=== PATIENT | female | born 1965 | race Caucasian/White ===

== ENCOUNTER 2021-11-16 18:25 | Emergency (ER) | payer OTHER, SELFPAY ==
--- NOTE | ~2021-11-16 | CT_ITS ---
EXAMINATION: CT ABDOMEN AND PELVIS WITHOUT CONTRAST CLINICAL INFORMATION: Diffuse abdominal pain. Fever. COMPARISON: None TECHNIQUE: Multidetector volumetric imaging was performed from the superior aspect of the liver through the pubic symphysis. Sagittal and coronal reformatted images were obtained on the technologist's workstation. This CT examination was performed using dose optimization techniques as appropriate, variously including the following: *Automated exposure control *Adjustment of mA and/or kV according to patient size (this includes techniques or standardized protocols for targeted exams where dose is matched to indication/reason for exam; i.e. extremities or head) *Use of iterative reconstruction technique DLP: 429 mGy-cm FINDINGS: LUNG BASES: Reticular interstitial opacities in the right lower lobe along the vertebral margin medially, likely due to scarring. No consolidation. LIVER, GALLBLADDER, AND BILIARY TREE: Relative hypoattenuation of the hepatic parenchyma is consistent with steatosis. Liver is normal in size. No suspicious lesions are identified. More focal hypoattenuation near the falciform ligament measures 1.5 cm in diameter and likely corresponds to aberrant venous inflow or more focal fatty infiltration. The gallbladder is unremarkable with no evidence of radiopaque gallstones, gallbladder wall thickening, or obvious pericholecystic inflammatory changes. PANCREAS: Unremarkable. SPLEEN: Unremarkable. ADRENAL GLANDS: Unremarkable. KIDNEYS AND URETERS: The kidneys are normal in size, shape, and attenuation. No hydronephrosis, hydroureter, or calculi seen. No perinephric stranding. BLADDER: Unremarkable. GASTROINTESTINAL TRACT: There is a 15 cm segment of wall thickening and pericolonic fat stranding at the transverse colon with hypertrophy of the vasa recta. No additional acute inflammatory changes are identified in the small bowel and colon. Appendix is normal. No intraperitoneal free fluid or free air. ABDOMINAL WALL: No significant hernia is appreciated. LYMPH NODES: Normal. VASCULAR: Unremarkable. PELVIC VISCERA: The uterus and adnexa are unremarkable. OSSEOUS STRUCTURES: Mild degenerative spondylosis in the lumbar spine. No acute fracture or malalignment. SI joints are unremarkable. CT/CT abdomen pelvis wo con IMPRESSION: 1. Acute segmental colitis at the transverse colon, potentially infectious or inflammatory in nature. No additional areas of inflammation are identified. No abscess or perforation. 2. Hepatic steatosis.
[2021-11-16 18:27] VITALS: BP 148/97; PULSE 116; RESP 16; TEMP 36.6; O2SAT 96; BMI 24.6
[2021-11-16 20:12] LABS: Basophils Absolute Auto 0.1 X10*3/uL (0.0-0.2); Basophils Percent Auto 0.4 % (0-2); Eosinophils Absolute Auto 0.1 X10*3/uL (0.0-0.4); Eosinophils Percent Auto 0.7 % (0-4); Hematocrit 36.5 % (37.0-47.0); Imm Gran Abs Auto 0.12 X10*3/uL (0.00-0.03); Lymphocytes Absolute Auto 2.2 X10*3/uL (1.2-4.9); Lymphocytes Percent Auto 17.4 % (20-40); MANUAL DIFF FLAG SCAN; Mean Corpuscular HGB Conc 32.9 g/dl (31.0-35.0); Mean Corpuscular Hemoglobin 30.3 pg (27.0-33.0); Mean Corpuscular Volume 92.2 fL (80.0-98.0); Mean Platelet Volume 8.5 fL (9.4-12.3); Monocytes Percent Auto 16.1 % (2-11); Neutrophils Absolute Auto 8.1 x10*3/uL (2.0-8.3); Neutrophils Percent Auto 64.4 % (45-73); Platelet Count 480 X10*3/uL (160-400); Red Blood Count 3.96 X10*6/uL (4.20-5.50); Red Cell Distribution Width 12.8 % (11.0-16.0); SCAN SMEAR FLAG 1; White Blood Count 12.6 X10*3/uL (4.8-10.8)
[2021-11-16 20:25] LABS: Alanine Aminotransferase 16 U/L (0-31); Albumin Level 3.6 g/dL (3.5-5.0); Alkaline Phosphatase 85 U/L (39-117); Anion Gap 15 (12-20); Aspartate Amino Transferase 20 U/L (5-31); Bilirubin Total 0.5 mg/dL (0.0-1.0); Blood Urea Nitrogen 11 mg/dL (9-16); Carbon Dioxide 21 mmol/L (22-29); Chloride 104 mmol/L (96-108); Creatinine Clr Calc Pharmacy 74.6; Estimated Glomerular Filt Rate > 60; Glucose Random 102 mg/dL (60-115); Lipase 17 U/L (8-78); Potassium 4.1 mmol/L (3.3-5.1); Sodium 136 mmol/L (135-145)
[2021-11-16 20:38] LABS: SLIDE REVIEW VERIFIED
[2021-11-16 21:57] VITALS: BP 150/90; PULSE 113; RESP 16; TEMP 38.3; O2SAT 99
--- NOTE | 2021-11-16 22:06 | ED_ITS ---
HPI - Abdominal Pain General Chief Complaint: Abdominal Pain Stated Complaint: stomach problems past couple days Time Seen by Provider: 11/16/21 21:50 Source: patient Mode of arrival: ambulatory Limitations: no limitations History of Present Illness HPI narrative: Patient comes to the emergency room complaining of nausea, vomiting, diarrhea, abdominal cramping, fever, chills for about 1 week. Patient states that approximately 2 months ago she went on vacation to [facility] in the [facility]. When she came back, patient had similar symptoms along with bloody diarrhea. Patient was treated with doxycycline. Patient improved but she never felt back to baseline. Patient was managing her symptoms sent home with loperamide. The reason she came today to the hospital is because she started becoming more tachycardic, in the 140s. Patient states that she has small amount of blood in the stool, but she attributes this to severe burning sensation from the diarrhea. Related Data Previous Rx's Medication Instructions Recorded ciprofloxacin HCl 500 mg tablet 500 mg PO BID 7 Days #14 tab 09/14/21 levofloxacin 500 mg tablet 500 mg PO DAILY #9 tab 11/16/21 metronidazole 500 mg tablet 500 mg PO BID #19 tab 11/16/21 Allergies Allergy/AdvReac Type Severity Reaction Status Date / Time No Known Allergies Allergy Verified 11/16/21 18:32 [No Known Allergies*] Review of Systems Review of Systems Constitutional : Reports 15 lb weight loss in 2 months, complaining of subjective fever, chills, fatigue, generalized malaise ENT/Mouth : No Hearing loss, No Ear Pain, No Nasal Congestion, No Sinus Pain, No Hoarseness, No sore throat, No Rhinorrhea, No Swallowing Difficulty Eyes: No Eye Pain, No Swelling, No Redness, No Foreign Body, No Discharge, No Vision Changes Cardiovascular : No Chest Pain, No SOB, No Dyspnea on Exertion, No Orthopnea, No Edema, No Palpitations Respiratory : No Cough, No Sputum, No Wheezing, No Smoke Exposure, No Dyspnea Gastrointestinal : Complaining of nausea vomiting and diarrhea, diffuse abdominal cramping, mild bloody stool from anal irritation Genitourinary : no irregular bleeding, No Dysuria, No Urinary Frequency, No Hematuria, No Urinary Incontinence, No Urgency, No Flank Pain, No Urinary Flow Changes, No Hesitancy Musculoskeletal : No joint pain, No Myalgias, No Joint Swelling Skin : No Skin Lesions, No rash Neuro : No Weakness, No Numbness, No Paresthesias, No Loss of Consciousness, No Dizziness, No Headache Psych : No Anxiety/Panic, No Depression, No SI/HI/AH/VH, No Social Issues, Heme/Lymph: No Bruising, No Bleeding,No Lymphadenopathy Endocrine : No Polyuria, No Polydipsia, No Temperature Intolerance [facility] Past Medical History Medical History (Updated 11/16/21 @ 23:52 by Nickie Shaefr MD) Annual physical exam COVID-19 SÁNCHEZ (dyspnea on exertion) Frequent headaches History of mammogram Mammogram normal Normal Pap smear Tachycardia Surgical History H/O colonoscopy History of section History of removal of cyst Family History Family History Father CVD (cardiovascular disease) Stroke Crohn's disease Mother No problems noted. Brother No problems noted. Brother No problems noted. Son No problems noted. Son No problems noted. Daughter No problems noted. Social History Social History (Updated 08/04/20 @ 08:19 by Paz Cross RN) Housing: House Alcohol intake: current Alcohol intake frequency: a few times a week Patient Tobacco Use Status: Never used Tobacco e-Cigarette/Vaping Use: Never Used Advance Directives: No Advance Directives Information Provided: Yes Current occupational status: employed Physical Exam ED Vital Signs: Vital Signs - 24 hr 11/16/21 18:27 11/16/21 21:57 Temperature 97.8 F 100.9 F H Pulse Rate 116 H 113 H Respiratory Rate 16 16 Blood Pressure 148/97 H 150/90 H Pulse Oximetry 96 99 BMI result Body Mass Index 24.6 Const Other: Appearance: Alert. Oriented X3. No acute distress. Eyes: Pupils equal, round and reactive to light. ENT: Pharynx normal. Neck: Normal inspection. Neck supple. No lymph nodes noted. No crepitus CVS: Normal heart rate and rhythm. Pulses normal. Normal S1 and S2 Respiratory: No respiratory distress. Breath sounds normal. No Wheezing. No rales Abdomen: Soft and nontender. No rigidity. No distention. Skin: Skin warm and dry. Normal skin color. Normal skin turgor. Extremities: No lower extremity edema. No Lacerations. No Rash Neuro: Oriented X 3. No motor deficit. No sensory deficit. Moving all extremities. No slurred speech. CN 2 through 12 grossly intact Psych: calm, cooperative, normal affect Course Course Course Narrative: On physical exam, patient's skin feels warmer than the posted temperature. Rectal temperature requested, patient has a fever of 100.9. Source of infection is unclear a viral versus bacterial Patient is tachycardic, also likely secondary to dehydration. Patient being given p.o. Tylenol, IV Zofran and IV fluids. Also, I discussed with the patient that her heart rate and blood pressure elevated. Patient states that this is baseline for her any time she goes to hospital for an office visit. I discussed the CT scan with the patient, patient having colitis. Patient was given a dose of p.o. metronidazole and levofloxacin. I discussed with the patient that if this course of antibiotics does not work, she should consider talking to her primary care physician about a referral to Infectious Disease. We ordered several stool studies, but patient was unable to provide any sample. MDM - Abdominal Pain Lab Data Result diagrams: 11/16/21 19:59 11/16/21 19:59 Labs: Lab Results 11/16/21 11/16/21 11/16/21 Range/Units 19:59 19:59 22:14 WBC 12.6 H (4.8-10.8) X10*3/uL RBC 3.96 L (4.20-5.50) X10*6/uL Hgb 12.0 (12.0-16.0) g/dl Hct 36.5 L (37.0-47.0) % MCV 92.2 (80.0-98.0) fL MCH 30.3 (27.0-33.0) pg MCHC 32.9 (31.0-35.0) g/dl RDW 12.8 (11.0-16.0) % Plt Count 480 H (160-400) X10*3/uL MPV 8.5 L (9.4-12.3) fL Immature Gran % (Auto) 1.0 H (0.0-0.4) % Neut % (Auto) 64.4 (45-73) % Lymph % (Auto) 17.4 L (20-40) % [place] % (Auto) 16.1 H (2-11) % Eos % (Auto) 0.7 (0-4) % Baso % (Auto) 0.4 (0-2) % Lymph # (Auto) 2.2 (1.2-4.9) X10*3/uL [place] # (Auto) 2.0 H (0.1-1.2) X10*3/uL Eos # (Auto) 0.1 (0.0-0.4) X10*3/uL Baso # (Auto) 0.1 (0.0-0.2) X10*3/uL Abs Immat Gran (auto) 0.12 H (0.00-0.03) X10*3/uL Absolute Neuts (auto) 8.1 (2.0-8.3) x10*3/uL Absolute Nucleated RBC 0.000 (0.0-0.012) X10*3/uL Nucleated RBC % (auto) 0.0 (0.0-0.2) /100WBC Smear Tech's Comments VERIFIED Sodium 136 (135-145) mmol/L Potassium 4.1 (3.3-5.1) mmol/L Chloride 104 (96-108) mmol/L Carbon Dioxide 21 L (22-29) mmol/L Anion Gap 15 (12-20) BUN 11 (9-16) mg/dL Creatinine 0.77 (0.5-1.4) mg/dL Estim Creat Clear Calc 74.6 Estimated GFR > 60 Random Glucose 102 (60-115) mg/dL Lactic Acid (0.5-2.0) mmol/L Calcium 9.0 (8.4-10.2) mg/dL Total Bilirubin 0.5 (0.0-1.0) mg/dL AST 20 (5-31) U/L ALT 16 (0-31) U/L Alkaline Phosphatase 85 (39-117) U/L Total Protein 7.0 (6.5-8.0) g/dL Albumin 3.6 (3.5-5.0) g/dL Lipase 17 (8-78) U/L Urine Color Urine Appearance Urine pH (5.0-8.0) Ur Specific [place] (1.005-1.025) Urine Protein (NEG-TRACE) MG/DL Urine Glucose (UA) (NEG) MG/DL Urine Ketones (NEG) MG/DL Urine Blood (NEG) Urine Nitrite (NEG) Ur Leukocyte Esterase (NEG) Urine RBC (0) /HPF Urine WBC (0-4) /HPF Ur Squamous Epith Cells /LPF Urine Bacteria /LPF COVID-19 (WANDA) (Negative) COVID-19 Clin Com Influenza Type A (SHAINA) Negative (Negative) Influenza Type B (SHAINA) Negative (Negative) Influenza A & B Note See Note 11/16/21 11/16/21 11/16/21 Range/Units 22:14 22:15 23:15 WBC (4.8-10.8) X10*3/uL RBC (4.20-5.50) X10*6/uL Hgb (12.0-16.0) g/dl Hct (37.0-47.0) % MCV (80.0-98.0) fL MCH (27.0-33.0) pg MCHC (31.0-35.0) g/dl RDW (11.0-16.0) % Plt Count (160-400) X10*3/uL MPV (9.4-12.3) fL Immature Gran % (Auto) (0.0-0.4) % Neut % (Auto) (45-73) % Lymph % (Auto) (20-40) % [place] % (Auto) (2-11) % Eos % (Auto) (0-4) % Baso % (Auto) (0-2) % Lymph # (Auto) (1.2-4.9) X10*3/uL [place] # (Auto) (0.1-1.2) X10*3/uL Eos # (Auto) (0.0-0.4) X10*3/uL Baso # (Auto) (0.0-0.2) X10*3/uL Abs Immat Gran (auto) (0.00-0.03) X10*3/uL Absolute Neuts (auto) (2.0-8.3) x10*3/uL Absolute Nucleated RBC (0.0-0.012) X10*3/uL Nucleated RBC % (auto) (0.0-0.2) /100WBC Smear Tech's Comments Sodium (135-145) mmol/L Potassium (3.3-5.1) mmol/L Chloride (96-108) mmol/L Carbon Dioxide (22-29) mmol/L Anion Gap (12-20) BUN (9-16) mg/dL Creatinine (0.5-1.4) mg/dL Estim Creat Clear Calc Estimated GFR Random Glucose (60-115) mg/dL Lactic Acid 0.7 (0.5-2.0) mmol/L Calcium (8.4-10.2) mg/dL Total Bilirubin (0.0-1.0) mg/dL AST (5-31) U/L ALT (0-31) U/L Alkaline Phosphatase (39-117) U/L Total Protein (6.5-8.0) g/dL Albumin (3.5-5.0) g/dL Lipase (8-78) U/L Urine Color YELLOW Urine Appearance CLEAR Urine pH 5.5 (5.0-8.0) Ur Specific [place] 1.025 (1.005-1.025) Urine Protein NEG (NEG-TRACE) MG/DL Urine Glucose (UA) NEG (NEG) MG/DL Urine Ketones >=80 (NEG) MG/DL Urine Blood 1+ H (NEG) Urine Nitrite NEG (NEG) Ur Leukocyte Esterase NEG (NEG) Urine RBC 0-2 (0) /HPF Urine WBC 0 (0-4) /HPF Ur Squamous Epith Cells TRACE /LPF Urine Bacteria TRACE /LPF COVID-19 (WANDA) Negative (Negative) COVID-19 Clin Com See Note Influenza Type A (SHAINA) (Negative) Influenza Type B (SHAINA) (Negative) Influenza A & B Note Discharge Plan Discharge Clinical Impression: Colitis Patient Disposition: Home, Self-Care Instructions: Colitis (ED) Additional Instructions: Please follow-up with your primary care physician tomorrow. If you have any worsening or new symptoms, please return to the emergency room or call 911 Prescriptions: New levofloxacin 500 mg tablet 500 mg PO DAILY Qty: 9 0RF metronidazole 500 mg tablet 500 mg PO BID Qty: 19 0RF No Action ciprofloxacin HCl 500 mg tablet 500 mg PO BID 7 Days Qty: 14 0RF
[2021-11-16 22:23] LABS: Appearance Urine CLEAR; Color Urine YELLOW; Glucose Urine UA NEG (NEG); Leukocyte Esterase Urine NEG (NEG); Nitrite Urine NEG (NEG); PH 5.5 (5.0-8.0); Specific Gravity - Urine 1.025 (1.005-1.025); UACC Culture Trigger NO; Urine Blood 1+ (NEG); Urine Ketones >=80 MG/DL (NEG); Urine Protein NEG (NEG-TRACE)
[2021-11-16 22:35] LABS: Bacteria Urine TRACE /LPF; RBC Urine 0-2 /HPF (0); Squamous Epithelial Cell Urine TRACE /LPF; WBC Urine 0 /HPF (0-4)
[2021-11-16 22:59] LABS: COVID-19 Test Negative (Negative); IDNOW Serial# 55D5AD1C; Influenza A Negative (Negative); Influenza B2 Negative (Negative)
[2021-11-16] MEDS: 0.9 % Sodium Chloride 1,000 ML 999 ML IVCONT (23:16)
[2021-11-16 23:33] LABS: Lactic Acid 0.7 mmol/L (0.5-2.0)
[2021-11-16 23:48] VITALS: BP 143/90; PULSE 105; RESP 18; TEMP 37.6; O2SAT 97
[2021-11-17] MEDS: levoFLOXacin 500 MG TABLET PO (00:22)
[2021-11-17] MEDS: metroNIDAZOLE 500 MG TABLET PO (00:22)
== END 2021-11-17 00:28 | disposition home or self-care (01) ==
PROVIDERS: Emergency Provider Emergency Medicine; PCP Internal Medicine
DX: K52.9 Noninfective gastroenteritis and colitis, unspecified (principal); Z20.822 Contact with and (suspected) exposure to COVID-19
CPT/HCPCS: 36415; 74176; 80053; 81001; 83605; 83690; 85025; 87040; 87502; 87635; 96361; 96374; 99283; 99284

== ENCOUNTER 2021-12-27 11:31 | Outpatient (REF) | payer OTHER, SELFPAY ==
[2021-12-27 13:47] LABS: MANUAL DIFF FLAG NO
[2021-12-27 13:49] LABS: Basophils Absolute Auto 0.1 X10*3/uL (0.0-0.2); Basophils Percent Auto 0.6 % (0-2); Eosinophils Absolute Auto 0.2 X10*3/uL (0.0-0.4); Eosinophils Percent Auto 1.3 % (0-4); Hematocrit 34.5 % (37.0-47.0); Imm Gran Abs Auto 0.05 X10*3/uL (0.00-0.03); Imm Gran Pct Auto 0.4 % (0.0-0.4); Lymphocytes Percent Auto 8.7 % (20-40); Mean Corpuscular HGB Conc 31.9 g/dl (31.0-35.0); Mean Corpuscular Hemoglobin 29.5 pg (27.0-33.0); Mean Corpuscular Volume 92.5 fL (80.0-98.0); Mean Platelet Volume 8.6 fL (9.4-12.3); Monocytes Absolute Auto 1.1 X10*3/uL (0.1-1.2); Monocytes Percent Auto 9.6 % (2-11); Neutrophils Absolute Auto 9.5 x10*3/uL (2.0-8.3); Neutrophils Percent Auto 79.4 % (45-73); Platelet Count 720 X10*3/uL (160-400); Red Blood Count 3.73 X10*6/uL (4.20-5.50); Red Cell Distribution Width 13.7 % (11.0-16.0); White Blood Count 11.9 X10*3/uL (4.8-10.8)
[2021-12-27 14:11] LABS: C Reactive Protein 1.72 mg/dL (< or = 0.50)
[2021-12-27 14:44] LABS: Erythrocyte Sedimentation Rate 80 MM/HR (0-20)
== END 2021-12-27 11:32 | disposition home or self-care (01) ==
LOC: HO.10HDL 11:31
PROVIDERS: Visit Provider Internal Medicine
DX: R93.3 Abnormal findings on diagnostic imaging of other parts of digestive tract (principal); R19.7 Diarrhea, unspecified
CPT/HCPCS: 36415; 85025; 85652; 86140

== ENCOUNTER 2021-12-28 09:24 | Outpatient (REF) | payer OTHER, SELFPAY ==
[2021-12-28 11:50] LABS: CDiff Gene PCR NEGATIVE (Negative)
[2021-12-28 11:58] LABS: Campylobacter Not Detected (Not Detect.); E. coli EAEC Not Detected (Not Detect.); E. coli EPEC Not Detected (Not Detect.); Plesiomonas shigelloides Not Detected (Not Detect.); Salmonella Not Detected (Not Detect.); Vibrio Not Detected (Not Detect.); Vibrio Cholerae Not Detected (Not Detect.); Yersinia enterocolitica Not Detected (Not Detect.)
[2021-12-28 11:59] LABS: Adenovirus F 40/41 Not Detected (Not Detect.); Astrovirus Not Detected (Not Detect.); Cryptosporidium Not Detected (Not Detect.); Cyclospora cayetanensis Not Detected (Not Detect.); E. coli ETEC Not Detected (Not Detect.); E. coli STEC Not Detected (Not Detect.); Entamoeba histolytica Not Detected (Not Detect.); Giardia lamblia Not Detected (Not Detect.); Norovirus GI/GII Not Detected (Not Detect.); Rotavirus A Not Detected (Not Detect.); Sapovirus Not Detected (Not Detect.); Shigella sp./EIEC Not Detected (Not Detect.)
[2022-01-04 01:07] LABS: Calprotectin, Fecal 5870 mcg/g
== END 2021-12-28 09:25 | disposition home or self-care (01) ==
LOC: HO.10HDLNP 09:24
PROVIDERS: Internal Medicine; Visit Provider Internal Medicine
DX: K52.9 Noninfective gastroenteritis and colitis, unspecified (principal)
CPT/HCPCS: 83993; 87493; 87507

== ENCOUNTER 2022-01-03 11:45 | Day surgery (SDC) | payer OTHER, SELFPAY ==
--- NOTE | 2022-01-02 10:27 | HO.ANESPROP2 ---
Documented by User: Elizabeth Kramer NP 01/02/22 10:29 HPI - Anesthesia Eval Consult details Narrative: 56yo F for Colonoscopy Echo pending - ordered by PCP d/t palps and SÁNCHEZ. Awaiting clearance to proceed without results from Dr Allan Elevated platelets. Started on ASA by Dr Stearns [facility] Active Problems Active Problems: All Active Problems (Updated 12/21/21 @ 14:11 by Felecia Allan MD) Colitis (Acute) Diarrhea (Acute) Frequent headaches (Acute) SÁNCHEZ (dyspnea on exertion) (Acute) Tachycardia (Acute) Annual physical exam (Acute) Mammogram normal (Acute) Normal Pap smear (Acute) COVID-19 (Acute) Past Medical History Medical History Annual physical exam COVID-19 SÁNCHEZ (dyspnea on exertion) Frequent headaches History of mammogram Mammogram normal Normal Pap smear Tachycardia Family History Family History Father CVD (cardiovascular disease) Stroke Crohn's disease Mother No problems noted. Brother No problems noted. Brother No problems noted. Son No problems noted. Son No problems noted. Daughter No problems noted. Surgical History Surgical History H/O colonoscopy History of section History of removal of cyst Social History Social History Housing: House Alcohol intake: current Alcohol intake frequency: a few times a week Patient Tobacco Use Status: Never used Tobacco e-Cigarette/Vaping Use: Never Used Use of substances other than those prescribed or required for medical reasons: No Are you DNR?: No Advance Directives: No Advance Directives Information Provided: Yes Patient : No Current occupational status: employed Cognitive needs: No Hearing needs: No Vision needs: Yes Meds Allergies Allergy/AdvReac Type Severity Reaction Status Date / Time No Known Allergies Allergy Verified 12/21/21 13:28 [No Known Allergies*] Exam Exam Date and Time: January 02, 2022 1027 Pertinent Lab Results Pertinent Lab Results: Laboratory Tests 11/16/21 12/27/21 19:59 11:40 WBC 11.9 H Hgb 11.0 L Hct 34.5 L Plt Count 720 H D Sodium 136 Potassium 4.1 Chloride 104 Carbon Dioxide 21 L BUN 11 Creatinine 0.77 Narrative Narrative: EKG 11/2021 ST @ 106 Assessment and Plan Assessment Anesthesia Assessment: Chart Reviewed Documented by User: Shawanda Tee MD 01/03/22 12:56 [facility] Past Medical History Medical History Annual physical exam COVID-19 SÁNCHEZ (dyspnea on exertion) Frequent headaches History of mammogram Mammogram normal Normal Pap smear Tachycardia Family History Family History Father CVD (cardiovascular disease) Stroke Crohn's disease Mother No problems noted. Brother No problems noted. Brother No problems noted. Son No problems noted. Son No problems noted. Daughter No problems noted. Surgical History Surgical History H/O colonoscopy History of section History of removal of cyst History of Problems with Anesthesia: No Social History Social History Housing: House Alcohol intake: current Alcohol intake frequency: a few times a week Patient Tobacco Use Status: Never used Tobacco e-Cigarette/Vaping Use: Never Used Use of substances other than those prescribed or required for medical reasons: No Are you DNR?: No Advance Directives: No Advance Directives Information Provided: Yes Patient : No Current occupational status: employed Cognitive needs: No Hearing needs: No Vision needs: Yes Meds Allergies Allergy/AdvReac Type Severity Reaction Status Date / Time No Known Allergies Allergy Verified 12/21/21 13:28 [No Known Allergies*] Exam Airway Mallampati Class: II TM Dist: >3cm Neck ROM: Full Loose/Missing/Broken Teeth: No Heart: RRR Lungs: CTA Assessment and Plan Assessment Anesthesia Assessment: Anesthesia Plan Discussed Final Anesthetic Review History of Problems with Anesthesia: No NPO: Yes ASA Class: II Final Preanesthetic Review: Meds/Allgs Chart Reviewed, Consent Obtained/Reviewed and Anes Risks/Benef Reviewed Patient Risk: Low Procedure Risk: Low Anesthetic Plan Anesthetic Plan: MAC: Disposition: Standard PACU
[2022-01-03 12:18] VITALS: BMI 22.1
[2022-01-03 12:26] VITALS: BP 160/98; PULSE 108; RESP 16; TEMP 36.3; O2SAT 98
[2022-01-03] MEDS: Lactated Ringers 1,000 ML 100 ML IVCONT (12:34)
[2022-01-03 14:10] VITALS: BP 104/66; PULSE 92; RESP 16; TEMP 36.4; O2SAT 98
--- NOTE | 2022-01-03 14:21 | PM.OP ---
Brief Operative Note Date of Service: 01/03/22 Pre-op diagnosis: Colitis Post-op diagnosis: other (Crohn's colitis) Procedure: Colonoscopy to the cecum and TI with biopsies Surgeon: Juarez Stearns Anesthesia: MAC Was an Engineer Rf Deployment used for this Procedure?: No Estimated blood loss (mL): 3.0 Pathology: other (A. Terminal ileum B. Ascending colon C. Transverse colon ulcers D. Colon 50-60cm E. Colon at 40cm F. Colon at 25cm G. Rectal biopsies) Condition: stable Disposition: PACU
[2022-01-03 14:25] VITALS: BP 118/83; PULSE 97; RESP 16; O2SAT 99
[2022-01-03 14:40] VITALS: BP 138/83; PULSE 98; RESP 16; TEMP 36.4; O2SAT 99
--- NOTE | 2022-01-07 16:19 | OP_ITS ---
SURGEON: Juarez Stearns MD INDICATIONS: The patient presents for evaluation of diarrhea, abdominal discomfort, and abnormal CT scan of colon felt to be consistent with colitis. Full consent has been obtained from her for this, including risks of bleeding and perforation. PREOPERATIVE DIAGNOSIS: Diarrhea, abdominal pain, and abnormal CT scan of colon. POSTOPERATIVE DIAGNOSIS: Diarrhea, abdominal pain, and abnormal CT scan of colon, Crohn's colitis extending from the distal rectum to the cecum. PROCEDURE PERFORMED: Colonoscopy to the cecum and terminal ileum with multiple biopsies. ESTIMATED BLOOD LOSS: COMPLICATIONS: ANESTHESIA: Monitored anesthesia care. ASSISTANTS: SPECIMENS: DESCRIPTION OF PROCEDURE: The patient was placed in the left lateral decubitus position. The digital rectal exam did not reveal any perianal disease. The sphincter tone was somewhat lax. The [employer] video pediatric colonoscope was entered into the rectum and advanced easily to the cecum. Once in the cecum, I did identify cecal pouch with appendiceal orifice and a normal-appearing ileocecal valve. The terminal ileum was cannulated for least 10 cm and appeared normal. Biopsies were obtained. The scope was withdrawn back in the colon. The cecum was notable for an approximately 10 mm ulceration as well as some ulceration in the appendiceal orifice. The remainder of the cecal mucosa appeared normal. The scope was slowly withdrawn assessing all mucosal surfaces carefully. Preparation was excellent. Extending from the cecum all the way to the very distal rectum were areas of discrete ulcerations with intervening areas of normal mucosa. Major ulcerations were noted in the transverse colon and were at least 2 cm or 3 cm in diameter with some edematous margins, but appearing benign. Intervening areas of the mucosa appeared normal. There were several small approximately 1 cm ulcers in the ascending colon. There were also areas of ulceration between 50 cm and 60 cm, at 40 cm, at 25 cm, and in the distal rectum. I did obtain multiple biopsies in the area of the ascending colon, transverse colon, between 50 cm to 60 cm, at 40 cm, at 25 cm, and in the distal rectum. The area of rectal ulcerations was best seen in the retroflexed position. Many of the ulcers throughout the colon were quite deep with some surrounding friability. Again, intervening mucosal areas appeared normal. I did not visualize any polyps. The area of the anal canal was notable for some ulceration extending from the very distal rectum almost into the anal canal itself. The scope was withdrawn from the patient. She tolerated the procedure well and was returned to the recovery area in stable condition. IMPRESSION: Crohn's pancolitis with associated ulcerations. Biopsies taken. PLAN: The results of the biopsies will be checked. She just recently started mesalamine extended release(Lialda) 4.8 g daily. She had also been on a low- dose aspirin that I started a few days ago due to the elevated platelet count. Given the severity of today's findings, I am going to put her on a course of prednisone 40 mg daily with a 5 mg per week taper. She will continue the mesalamine at 4.8 g daily. I will have her continue the low-dose aspirin for the time being, until we can see her platelet count decrease. I am going to recommend starting her on one of the biologic agents, such as Humira, given the severity of the findings as well. I do suspect she will have a high likelihood of relapse and/or complication of the Crohn's colitis. I will order follow up laboratories including a Hepatitis B profile, TB test,sed rate, CRP, and CBC with platelet count. She was advised to avoid all NSAIDs. This has all been discussed with her . She will be seen in followup in the office later this summer but was advised to call sooner prn.. I would recommend a repeat colonoscopy within 5 to 7 years. MD LEE ANN Hawk/RENA / [id number] MTDD
== END 2022-01-03 15:06 | disposition home or self-care (01) ==
PROVIDERS: PCP Internal Medicine; Visit Provider Internal Medicine
PROC: 0DJD8ZZ Inspection of Lower Intestinal Tract, Via Natural or Artificial Opening Endoscopic (ICD-10-PCS; CPT 45378; principal; 2022-01-03 13:00)
DX: K50.10 Crohn's disease of large intestine without complications (principal); R19.7 Diarrhea, unspecified; R00.0 Tachycardia, unspecified; R06.00 Dyspnea, unspecified; R51.9 Headache, unspecified; Z86.16 Personal history of COVID-19; Z87.891 Personal history of nicotine dependence
CPT/HCPCS: 45380; 88305; J3010

== ENCOUNTER 2022-01-14 10:37 | Outpatient (REF) | payer OTHER, SELFPAY ==
[2022-01-14 11:02] LABS: MANUAL DIFF FLAG NO
[2022-01-14 11:27] LABS: Basophils Percent Auto 0.2 % (0-2); Eosinophils Absolute Auto 0.2 X10*3/uL (0.0-0.4); Hematocrit 33.9 % (37.0-47.0); Hemoglobin 10.8 g/dl (12.0-16.0); Imm Gran Pct Auto 0.6 % (0.0-0.4); Lymphocytes Absolute Auto 1.2 X10*3/uL (1.2-4.9); Lymphocytes Percent Auto 7.3 % (20-40); Mean Corpuscular HGB Conc 31.9 g/dl (31.0-35.0); Mean Corpuscular Hemoglobin 29.2 pg (27.0-33.0); Mean Corpuscular Volume 91.6 fL (80.0-98.0); Mean Platelet Volume 8.5 fL (9.4-12.3); Monocytes Absolute Auto 0.8 X10*3/uL (0.1-1.2); Monocytes Percent Auto 5.2 % (2-11); Neutrophils Absolute Auto 13.6 x10*3/uL (2.0-8.3); Neutrophils Percent Auto 85.7 % (45-73); Platelet Count 548 X10*3/uL (160-400); Red Cell Distribution Width 13.8 % (11.0-16.0); White Blood Count 15.9 X10*3/uL (4.8-10.8)
[2022-01-14 12:17] LABS: Alanine Aminotransferase 21 U/L (0-31); Albumin Level 3.8 g/dL (3.5-5.0); Alkaline Phosphatase 78 U/L (39-117); Anion Gap 15 (12-20); Aspartate Amino Transferase 18 U/L (5-31); Bilirubin Direct 0.2 mg/dL (0.0-0.5); Bilirubin Total 0.3 mg/dL (0.0-1.0); Blood Urea Nitrogen 14 mg/dL (9-16); C Reactive Protein 4.37 mg/dL (< or = 0.50); Calcium 8.8 mg/dL (8.4-10.2); Carbon Dioxide 22 mmol/L (22-29); Chloride 104 mmol/L (96-108); Estimated Glomerular Filt Rate > 60; Glucose Random 125 mg/dL (60-115); Potassium 4.5 mmol/L (3.3-5.1); Sodium 136 mmol/L (135-145)
[2022-01-14 12:51] LABS: Erythrocyte Sedimentation Rate 55 MM/HR (0-20)
[2022-01-15 06:46] LABS: HBc Num1 0.06 S/CO (0.00-0.79); HBsAGNum1 0.19 S/CO (0.00-0.99); Hepatitis B Core Antibody Nonreactive (Nonreactive); Hepatitis B Surface Antigen Negative (Negative); ~Hepatitis B Surface Antibody REACTIVE (Nonreactive)
[2022-01-16 20:27] LABS: TS Negative Control Passed; TS Panel A 0; TS Panel B 0; TS Positive Control Passed; TSpotTB Negative (Negative)
== END 2022-01-14 10:38 | disposition home or self-care (01) ==
LOC: HO.LAB 10:37
PROVIDERS: PCP Internal Medicine; Visit Provider Internal Medicine
DX: K50.10 Crohn's disease of large intestine without complications (principal)
CPT/HCPCS: 36415; 80048; 80076; 85025; 85652; 86140; 86481; 86704; 86706; 87340

== ENCOUNTER → 2022-01-28 09:21 | Outpatient (REF) | payer OTHER, SELFPAY ==
--- NOTE | 2022-01-28 09:24 | CA_ITS ---
Transthoracic Echocardiogram Patient (Last, First, Middle): Luna Tiwari, Gender: Female Date of : 1965 Age: 56 Procedure Date: 01/28/2022 Procedure Type: Transthoracic Echocardiogram Location: OP Height: 157.48 cm Weight: 58.06 kg BSA: 1.58 m2 Heart Rate: bpm BP: 120 / 80 mmHg Metal Sorter: TO Referring MD: Felecia Allan MD Banjo Repairer: Shai Giang MD Symptoms: R06.00 - Dyspnea, unspecified Study Quality: Fair ECG Rhythm: Sinus Conclusions: - 1. Normal LV systolic function with grade 1 diastolic dysfunction 2. Normal cardiac valvular Dopplers 3. No gross pericardial effusion Findings Left Ventricle Normal left ventricular size, thickness, and systolic function. The visually estimated ejection fraction is between 60-65%. Spectral Doppler is indicative of an impaired relaxation filling pattern. E/E prime ratio is <8, consistent with normal filling pressures. Evidence suggests grade I (mild) diastolic dysfunction. Right Ventricle Normal right ventricular cavity size and systolic function. Atria The left atrium is normal in size. There is lipomatous hypertrophy of the interatrial septum. There is no evidence of interatrial shunt. The right atrium is normal in size. Aortic Valve The aortic valve structure and function is likely normal. There is no aortic valve stenosis. There is no aortic valve regurgitation. Mitral Valve There is mild anterior mitral leaflet thickening. There is mild mitral annular calcification. There is trace mitral valve regurgitation. There is no mitral valve stenosis. Pulmonic Valve The pulmonic valve was not well visualized. Tricuspid Valve Likely normal tricuspid valve structure and function. Tricuspid regurgitation envelope is inadequate for calculation of right ventricular systolic pressure. Normal right atrial pressure. Great Vessels All visible segments of the aorta are normal in size. The pulmonary artery was not well visualized. Venous The inferior vena cava is normal in size and collapses greater than 50% with inspiration. Pericardium/Pleural There is no evidence of pericardial effusion. Prior Study Comparison No prior study available for comparison. Measurements 2D Linear Measurements IVSd: 0.95 0.6-0.9/0.6-1.0 cm LVIDd: 4.25 3.9-5.3/4.2-5.9 cm LVIDd Index: 2.69 2.4-3.2/2.2-3.1 cm/m2 LVIDs: 2.71 2.0-3.6 cm LVPWd: 0.91 0.7-1.1 cm LV Mass: 157.97 67-162/88-224 g LV Mass Index: 99.98 43-95/49-115 g/m2 LVOT Diam: 2.00 3.0+(-)1.3 cm 2D Systolic Function EF 4C: 61.80 >55% EF 2C: 65.40 >55% EF BiP: 63.90 >55% Mitral Valve MV Pk E: 0.58 MV PK A: 0.97 MV Decel Time: 136.00 E/A: 0.60 E'Lateral: 9.79 E'Medial: 7.83 E/E' Med: 7.40 E/E' Lat: 5.90 PHT: 40.00 MVA PHT: 5.50 Decel Bosque: 4.27 Aortic Valve AoV Pk Randolph: 1.19 AoV Mn Randolph: 0.90 AoV VTI: 0.22 AoV Pk Grad: 6.00 Aov Mn Grad: 3.00 KEVIN Cont.VTI: 2.33 LVOT LVOT Pk Randolph: 0.97 LVOT Mn Randolph: 0.69 LVOT VTI: 0.17 LVOT Pk Grad: 4.00 LVOT Mn Grad: 2.00 LVOT Diam: 2.00 LVOT Area: 3.14 Diastolic Function MV Pk E: 0.58 MV Pk A: 0.97 E/A: 0.60 E'Medial: 7.83 E/E' Med: 7.40 E' Laterial: 9.79 E/E' Lat: 5.90 Right Ventricle TAPSE (mm): 26.80 TVS' Randolph: 17.10 Tricuspid Valve RA Press: 3.00 Great Vessels Aorta Sinus of Valsalva: 3.20 2.0-3.[address] Ridge: 2.44 1.7-3.4 cm Ao Asc: 3.10 2.1-3.4 cm Ao Arch: 2.70 Updated in Other Vendor System with Status of Final Shai Giang MD electronically signed on 01/28/2022 3:09:05 PM with status of Final
== END ==
LOC: HO.CARD 09:21
PROVIDERS: PCP Internal Medicine; Visit Provider Internal Medicine
DX: R00.0 Tachycardia, unspecified (principal); R06.00 Dyspnea, unspecified
CPT/HCPCS: 93306

== ENCOUNTER 2022-02-16 10:18 | Outpatient (REF) | payer OTHER, SELFPAY ==
[2022-02-16 10:27] LABS: MANUAL DIFF FLAG NO
[2022-02-16 11:07] LABS: Basophils Absolute Auto 0.1 X10*3/uL (0.0-0.2); Basophils Percent Auto 0.5 % (0-2); Eosinophils Absolute Auto 0.6 X10*3/uL (0.0-0.4); Eosinophils Percent Auto 3.6 % (0-4); Hematocrit 36.8 % (37.0-47.0); Hemoglobin 11.8 g/dl (12.0-16.0); Imm Gran Abs Auto 0.12 X10*3/uL (0.00-0.03); Imm Gran Pct Auto 0.7 % (0.0-0.4); Lymphocytes Absolute Auto 1.3 X10*3/uL (1.2-4.9); Lymphocytes Percent Auto 7.5 % (20-40); Mean Corpuscular HGB Conc 32.1 g/dl (31.0-35.0); Mean Corpuscular Hemoglobin 29.9 pg (27.0-33.0); Mean Corpuscular Volume 93.4 fL (80.0-98.0); Mean Platelet Volume 8.5 fL (9.4-12.3); Monocytes Absolute Auto 0.9 X10*3/uL (0.1-1.2); Monocytes Percent Auto 5.2 % (2-11); Neutrophils Absolute Auto 14.7 x10*3/uL (2.0-8.3); Neutrophils Percent Auto 82.5 % (45-73); Platelet Count 567 X10*3/uL (160-400); Red Blood Count 3.94 X10*6/uL (4.20-5.50); Red Cell Distribution Width 14.5 % (11.0-16.0); White Blood Count 17.8 X10*3/uL (4.8-10.8)
[2022-02-16 11:26] LABS: Alanine Aminotransferase 16 U/L (0-31); Alkaline Phosphatase 68 U/L (39-117); Anion Gap 17 (12-20); Aspartate Amino Transferase 18 U/L (5-31); Bilirubin Direct 0.2 mg/dL (0.0-0.5); Bilirubin Total 0.4 mg/dL (0.0-1.0); Blood Urea Nitrogen 9 mg/dL (9-16); C Reactive Protein 3.11 mg/dL (< or = 0.50); Calcium 8.9 mg/dL (8.4-10.2); Carbon Dioxide 23 mmol/L (22-29); Chloride 105 mmol/L (96-108); Estimated Glomerular Filt Rate > 60; Glucose Random 160 mg/dL (60-115); Potassium 4.2 mmol/L (3.3-5.1); Sodium 141 mmol/L (135-145); Total Protein 6.9 g/dL (6.5-8.0)
[2022-02-16 11:43] LABS: Erythrocyte Sedimentation Rate 28 MM/HR (0-20)
== END 2022-02-16 10:19 | disposition home or self-care (01) ==
LOC: HO.LAB 10:18
PROVIDERS: PCP Internal Medicine; Visit Provider Internal Medicine
DX: K50.10 Crohn's disease of large intestine without complications (principal)
CPT/HCPCS: 36415; 80048; 80076; 85025; 85652; 86140

== ENCOUNTER 2022-03-21 11:34 | Outpatient (REF) | payer OTHER, SELFPAY ==
[2022-03-21 12:17] LABS: Basophils Percent Auto 0.3 % (0-2); Eosinophils Absolute Auto 0.1 X10*3/uL (0.0-0.4); Eosinophils Percent Auto 0.5 % (0-4); Hematocrit 40.6 % (37.0-47.0); Hemoglobin 12.9 g/dl (12.0-16.0); Imm Gran Pct Auto 0.7 % (0.0-0.4); Lymphocytes Absolute Auto 0.8 X10*3/uL (1.2-4.9); Lymphocytes Percent Auto 5.8 % (20-40); MANUAL DIFF FLAG SCAN; Mean Corpuscular HGB Conc 31.8 g/dl (31.0-35.0); Mean Corpuscular Hemoglobin 29.3 pg (27.0-33.0); Mean Corpuscular Volume 92.1 fL (80.0-98.0); Mean Platelet Volume 8.1 fL (9.4-12.3); Monocytes Absolute Auto 0.3 X10*3/uL (0.1-1.2); Monocytes Percent Auto 1.8 % (2-11); Neutrophils Absolute Auto 12.7 x10*3/uL (2.0-8.3); Neutrophils Percent Auto 90.9 % (45-73); Platelet Count 485 X10*3/uL (160-400); Red Blood Count 4.41 X10*6/uL (4.20-5.50); Red Cell Distribution Width 14.2 % (11.0-16.0); SCAN SMEAR FLAG 1
[2022-03-21 12:45] LABS: SLIDE REVIEW VERIFIED
[2022-03-21 12:54] LABS: Alanine Aminotransferase 28 U/L (0-31); Alkaline Phosphatase 90 U/L (39-117); Aspartate Amino Transferase 25 U/L (5-31); Bilirubin Direct 0.2 mg/dL (0.0-0.5); Bilirubin Total 0.6 mg/dL (0.0-1.0); C Reactive Protein 5.12 mg/dL (< or = 0.50); Iron 37 mcg/dL (30-160); Percent Iron Saturation 11 % (15-50); Total Iron Binding Capacity 345 mcg/dL (228-428); Total Protein 7.2 g/dL (6.5-8.0); Unsaturated Iron Binding 308 ug/dL
[2022-03-21 13:13] LABS: Erythrocyte Sedimentation Rate 48 MM/HR (0-20)
[2022-03-21 13:18] LABS: Ferritin 130 ng/mL (10-250)
[2022-03-21 13:26] LABS: Folate 19.3 ng/mL (> or = 4.0); Vitamin B12 193 pg/mL (200-900)
[2022-04-04 02:03] LABS: Adalimumab Drug Level 8.2 mcg/mL; Anti-Adalimumab Antibody <10 AU (<10)
== END 2022-03-21 11:35 | disposition home or self-care (01) ==
LOC: HO.LAB 11:34
PROVIDERS: Visit Provider Internal Medicine
DX: K50.10 Crohn's disease of large intestine without complications (principal)
CPT/HCPCS: 36415; 80076; 80145; 82542; 82607; 82728; 82746; 83520; 83540; 85025; 85652; 86140

== ENCOUNTER 2022-04-23 09:33 | Outpatient (REF) | payer OTHER, SELFPAY ==
[2022-04-23 09:59] LABS: MANUAL DIFF FLAG NO
[2022-04-23 10:45] LABS: Basophils Absolute Auto 0.1 X10*3/uL (0.0-0.2); Basophils Percent Auto 0.4 % (0-2); Eosinophils Absolute Auto 0.2 X10*3/uL (0.0-0.4); Eosinophils Percent Auto 1.2 % (0-4); Hematocrit 39.4 % (37.0-47.0); Hemoglobin 12.6 g/dl (12.0-16.0); Imm Gran Abs Auto 0.16 X10*3/uL (0.00-0.03); Imm Gran Pct Auto 0.9 % (0.0-0.4); Lymphocytes Absolute Auto 1.3 X10*3/uL (1.2-4.9); Mean Corpuscular Hemoglobin 29.1 pg (27.0-33.0); Mean Platelet Volume 8.4 fL (9.4-12.3); Monocytes Absolute Auto 0.9 X10*3/uL (0.1-1.2); Monocytes Percent Auto 4.9 % (2-11); Neutrophils Absolute Auto 15.8 x10*3/uL (2.0-8.3); Neutrophils Percent Auto 85.6 % (45-73); Platelet Count 603 X10*3/uL (160-400); Red Blood Count 4.33 X10*6/uL (4.20-5.50); Red Cell Distribution Width 13.9 % (11.0-16.0); White Blood Count 18.5 X10*3/uL (4.8-10.8)
[2022-04-23 11:19] LABS: Alanine Aminotransferase 22 U/L (0-31); Alkaline Phosphatase 68 U/L (39-117); Anion Gap 20 (12-20); Aspartate Amino Transferase 21 U/L (5-31); Bilirubin Direct 0.2 mg/dL (0.0-0.5); Bilirubin Total 0.3 mg/dL (0.0-1.0); Blood Urea Nitrogen 14 mg/dL (9-16); C Reactive Protein 4.56 mg/dL (< or = 0.50); Calcium 9.6 mg/dL (8.4-10.2); Carbon Dioxide 22 mmol/L (22-29); Chloride 104 mmol/L (96-108); Estimated Glomerular Filt Rate > 60; Glucose Random 103 mg/dL (60-115); Potassium 4.6 mmol/L (3.3-5.1); Sodium 141 mmol/L (135-145)
[2022-04-23 11:28] LABS: Erythrocyte Sedimentation Rate 38 MM/HR (0-20)
== END 2022-04-23 09:34 | disposition home or self-care (01) ==
LOC: HO.LAB 09:33
PROVIDERS: PCP Internal Medicine; Visit Provider Internal Medicine
DX: K50.118 Crohn's disease of large intestine with other complication (principal)
CPT/HCPCS: 36415; 80048; 80076; 85025; 85652; 86140

== ENCOUNTER 2022-04-24 11:44 | Outpatient (REF) | payer OTHER, SELFPAY | END 2022-04-24 11:45 | disposition home or self-care (01) | LOC: HO.MDS 11:44 | PROVIDERS: Visit Provider Internal Medicine | DX: K50.10 Crohn's disease of large intestine without complications (principal) | CPT/HCPCS: 96365; J3380 ==

== ENCOUNTER 2022-05-08 12:01 | Outpatient (REF) | payer OTHER, SELFPAY | END 2022-05-08 12:02 | disposition home or self-care (01) | LOC: HO.MDS 12:01 | PROVIDERS: Visit Provider Internal Medicine | DX: K50.10 Crohn's disease of large intestine without complications (principal) | CPT/HCPCS: 96365; J3380 ==

== ENCOUNTER 2022-05-25 10:46 | Outpatient (REF) | payer OTHER, SELFPAY ==
[2022-05-25 11:03] LABS: Basophils Percent Auto 0.3 % (0-2); Eosinophils Percent Auto 0.1 % (0-4); Hematocrit 38.1 % (37.0-47.0); Hemoglobin 12.1 g/dl (12.0-16.0); Imm Gran Abs Auto 0.08 X10*3/uL (0.00-0.03); Imm Gran Pct Auto 0.5 % (0.0-0.4); Lymphocytes Absolute Auto 0.9 X10*3/uL (1.2-4.9); Lymphocytes Percent Auto 5.9 % (20-40); MANUAL DIFF FLAG SCAN; Mean Corpuscular HGB Conc 31.8 g/dl (31.0-35.0); Mean Corpuscular Hemoglobin 28.6 pg (27.0-33.0); Mean Corpuscular Volume 90.1 fL (80.0-98.0); Monocytes Absolute Auto 0.3 X10*3/uL (0.1-1.2); Neutrophils Absolute Auto 13.6 x10*3/uL (2.0-8.3); Neutrophils Percent Auto 91.2 % (45-73); Platelet Count 620 X10*3/uL (160-400); Red Blood Count 4.23 X10*6/uL (4.20-5.50); Red Cell Distribution Width 13.8 % (11.0-16.0); SCAN SMEAR FLAG 1; White Blood Count 14.9 X10*3/uL (4.8-10.8)
[2022-05-25 11:23] LABS: Alanine Aminotransferase 26 U/L (0-31); Albumin Level 3.8 g/dL (3.5-5.0); Alkaline Phosphatase 72 U/L (39-117); Anion Gap 15 (12-20); Aspartate Amino Transferase 21 U/L (5-31); Bilirubin Direct 0.2 mg/dL (0.0-0.5); Bilirubin Total 0.4 mg/dL (0.0-1.0); Blood Urea Nitrogen 14 mg/dL (9-16); C Reactive Protein 4.94 mg/dL (< or = 0.50); Calcium 9.3 mg/dL (8.4-10.2); Carbon Dioxide 22 mmol/L (22-29); Chloride 103 mmol/L (96-108); Estimated Glomerular Filt Rate > 60; Glucose Random 169 mg/dL (60-115); Potassium 4.5 mmol/L (3.3-5.1); Sodium 135 mmol/L (135-145); Total Protein 6.9 g/dL (6.5-8.0)
[2022-05-25 11:26] LABS: SLIDE REVIEW VERIFIED
[2022-05-25 11:38] LABS: Erythrocyte Sedimentation Rate 45 MM/HR (0-20)
== END 2022-05-25 10:47 | disposition home or self-care (01) ==
LOC: HO.LAB 10:46
PROVIDERS: PCP Internal Medicine; Visit Provider Internal Medicine
DX: K50.118 Crohn's disease of large intestine with other complication (principal)
CPT/HCPCS: 36415; 80053; 82248; 85025; 85652; 86140

== ENCOUNTER 2022-06-05 08:22 | Outpatient (REF) | payer OTHER, SELFPAY | END 2022-06-05 08:23 | disposition home or self-care (01) | LOC: HO.MDS 08:22 | PROVIDERS: Visit Provider Internal Medicine | DX: K50.10 Crohn's disease of large intestine without complications (principal) | CPT/HCPCS: 96365; J3380 ==

== ENCOUNTER 2022-06-06 10:03 | Inpatient (IN) | payer OTHER, SELFPAY ==
--- NOTE | ~2022-06-06 | CT_ITS ---
EXAMINATION: CT ABDOMEN AND PELVIS WITH CONTRAST CLINICAL INFORMATION: Abdominal pain COMPARISON: CT scan abdomen pelvis 11/16/2021 TECHNIQUE: Multidetector volumetric images were obtained from the superior aspect of the liver through the pubic symphysis following administration 85 mL of Omnipaque 350 intravenous contrast. Sagittal and coronal reformatted images were obtained on the technologist's workstation. Oral contrast: No This CT examination was performed using dose optimization techniques as appropriate, variously including the following: *Automated exposure control *Adjustment of mA and/or kV according to patient size (this includes techniques or standardized protocols for targeted exams where dose is matched to indication/reason for exam; i.e. extremities or head) *Use of iterative reconstruction technique DLP: 467 mGy-cm FINDINGS: LUNG BASES: The visualized lung bases are unremarkable. LIVER, GALLBLADDER, AND BILIARY TREE: The liver is normal in size, shape, and attenuation. No focal hepatic lesion or biliary ductal dilatation is present. The gallbladder is unremarkable with no evidence of radiopaque gallstones, gallbladder wall thickening, or obvious pericholecystic inflammatory changes. PANCREAS: Unremarkable. SPLEEN: Unremarkable. ADRENAL GLANDS: Unremarkable. KIDNEYS AND URETERS: The kidneys are normal in size, shape, and attenuation. No hydronephrosis, hydroureter, or calculi seen. No perinephric stranding. 1.1 cm cortical cyst midpole right kidney. No follow-up imaging is recommended for simple renal cyst. BLADDER: Unremarkable. GASTROINTESTINAL TRACT: There is a large diverticulum, measuring about 3 cm x 2 cm, from the anterior proximal transverse colon. There is thickening and edema around this diverticulum. There is associated edema in the submucosal through the transverse colon. Findings consistent with a colitis of the transverse colon and focal diverticulitis. There is also focal bowel wall thickening and subtle pericolonic edema involving the distal descending colon and proximal sigmoid colon which is a secondary site of colitis. No diverticula in this region. The changes of colitis of the transverse colon are worse on the prior exam of 11/16/2021. The colitis of the sigmoid and distal descending colon is new since prior study 11/16/2021. The cecum and ascending colon and portions of the splenic flexure appear to be normal. The appendix is normal. Small bowel loops are normal. No abnormality of the terminal ileum. No perforation or abscess. No free air or free fluid in the mesentery. ABDOMINAL WALL: No significant hernia is appreciated. LYMPH NODES: Normal. VASCULAR: Unremarkable. PELVIC VISCERA: Unremarkable. OSSEOUS STRUCTURES: Unremarkable. CT/CT abdomen pelvis w IV con IMPRESSION: There is colitis involving the transverse colon and the distal descending colon and proximal sigmoid colon. Fleischner guidelines were followed.
[2022-06-06 10:14] VITALS: BP 143/96; PULSE 117; RESP 20; TEMP 36.8; O2SAT 97; BMI 24.3
[2022-06-06 10:27] LABS: MANUAL DIFF FLAG NO
[2022-06-06 10:30] LABS: Basophils Percent Auto 0.2 % (0-2); Eosinophils Percent Auto 0.2 % (0-4); Hematocrit 39.1 % (37.0-47.0); Hemoglobin 12.5 g/dl (12.0-16.0); Imm Gran Abs Auto 0.06 X10*3/uL (0.00-0.03); Imm Gran Pct Auto 0.5 % (0.0-0.4); Lymphocytes Absolute Auto 2.4 X10*3/uL (1.2-4.9); Lymphocytes Percent Auto 18.7 % (20-40); Mean Corpuscular Hemoglobin 28.2 pg (27.0-33.0); Mean Corpuscular Volume 88.1 fL (80.0-98.0); Mean Platelet Volume 7.9 fL (9.4-12.3); Monocytes Absolute Auto 0.9 X10*3/uL (0.1-1.2); Monocytes Percent Auto 7.4 % (2-11); Neutrophils Absolute Auto 9.2 x10*3/uL (2.0-8.3); Platelet Count 556 X10*3/uL (160-400); Red Blood Count 4.44 X10*6/uL (4.20-5.50); Red Cell Distribution Width 13.3 % (11.0-16.0); White Blood Count 12.6 X10*3/uL (4.8-10.8)
[2022-06-06 11:05] LABS: Anion Gap 16 (12-20); Blood Urea Nitrogen 12 mg/dL (9-16); Calcium 8.9 mg/dL (8.4-10.2); Carbon Dioxide 19 mmol/L (22-29); Chloride 104 mmol/L (96-108); Creatinine Clr Calc Pharmacy 61.8; Estimated Glomerular Filt Rate > 60; Glucose Random 88 mg/dL (60-115); Sodium 135 mmol/L (135-145)
--- NOTE | 2022-06-06 13:18 | ED.ABDPAIN ---
HPI - Abdominal Pain General Chief Complaint: Abdominal Pain <Anaid Mendoza NP - Last Filed: 06/06/22 13:22> Stated Complaint: Chrons flare up <Anaid Mendoza NP - Last Filed: 06/06/22 13:22> Time Seen by Provider: 06/06/22 14:26 <Anaid Mendoza NP - Last Filed: 06/06/22 13:22> Source: patient <SAMIRA Guzman - Last Filed: 06/06/22 17:42> Mode of arrival: ambulatory <SAMIRA Guzman - Last Filed: 06/06/22 17:42> Limitations: no limitations <SAMIRA Guzman - Last Filed: 06/06/22 17:42> History of Present Illness HPI narrative: Patient is a 56 year old assigned female at with a history of Crohns disease presenting to the emergency department today with abdominal pain an diarrhea. Patient states that over the last week she has had worsening abdominal pain and diarrhea. Patient states that she is unable to keep anything down by mouth. Patient denies any dizziness, lightheadedness, vomiting, chills, blurry vision, double vision, loss of vision, chest pain, difficulty breathing, shortness of breath, back pain, night sweats, pain with urination, increased urinary frequency, increased urinary urgency, blood in her urine or stool, syncope or a near syncopal episode, recent trauma or falls, bowel incontinence, bladder incontinence, bowel retention, bladder retention, or any other complaints at this time. <SAMIRA Guzman - Last Filed: 06/06/22 17:42> MD elicited complaint: abdominal pain <SAMIRA Guzman - Last Filed: 06/06/22 17:42> Pertinent past history: other (Crohns) <SAMIRA Guzman - Last Filed: 06/06/22 17:42> Onset (ago): week(s) (1) <SAMIRA Guzman - Last Filed: 06/06/22 17:42> Pain Consistency: constant <SAMIRA Guzman - Last Filed: 06/06/22 17:42> Location: diffuse, LUQ, RUQ, RLQ and LLQ <SAMIRA Guzman - Last Filed: 06/06/22 17:42> Severity: mild <SAMIRA Guzman - Last Filed: 06/06/22 17:42> Pain scale (0-10): 5 <SAMIRA Guzman - Last Filed: 06/06/22 17:42> Quality: aching <SAMIRA Guzman - Last Filed: 06/06/22 17:42> Exacerbating factors: nothing <SAMIRA Guzman - Last Filed: 06/06/22 17:42> Relieving factors: nothing <SAMIRA Guzman - Last Filed: 06/06/22 17:42> Associated symptoms: nausea, diarrhea and fever <SAMIRA Guzman - Last Filed: 06/06/22 17:42> Related Data Home Medications: Home Medications Medication Instructions Recorded Confirmed acetaminophen 500 mg tablet 1,000 mg PO BID 06/06/22 06/06/22 calcium carbonate 600 mg calcium 600 mg PO DAILY 06/06/22 06/06/22 (1,500 mg) tablet (Calcium) cyanocobalamin (vitamin B-12) 1 ml IM QMONTH 06/06/22 06/06/22 1,000 mcg/mL injection solution mesalamine 1.2 gram tablet,delayed 4 tab PO DAILY 06/06/22 06/06/22 release multivitamin 1 tab PO DAILY 06/06/22 06/06/22 prednisone 10 mg tablet 40 mg PO DAILY 06/06/22 06/06/22 vedolizumab 300 mg intravenous 300 mg IV QMONTH 06/06/22 06/06/22 solution (Entyvio) <Anaid Mendoza NP - Last Filed: 06/06/22 13:22> Allergies/Adverse Reactions: Allergies Allergy/AdvReac Type Severity Reaction Status Date / Time No Known Allergies Allergy Verified 12/21/21 13:28 [No Known Allergies*] <Anaid Mendoza NP - Last Filed: 06/06/22 13:22> Review of Systems Constitutional: Reports no additional constitutional complaints, Denies chills, Denies fever(s) and Denies night sweats <SAMIRA Guzman - Last Filed: 06/06/22 17:42> Eyes: Reports no additional eye complaints, Denies blurry vision, Denies change in vision, Denies diplopia, Denies eye discharge, Denies loss of vision and Denies eye pain <SAMIRA Guzman - Last Filed: 06/06/22 17:42> Denies dizziness <SAMIRA Guzman - Last Filed: 06/06/22 17:42> Cardiovascular: Reports no additional cardiovascular complaints, Denies chest pain, Denies lightheadedness, Denies Loss of Consciousness and Denies dyspnea <SAMIRA Guzman - Last Filed: 06/06/22 17:42> Respiratory: Reports no additional respiratory complaints and Denies dyspnea <SAMIRA Guzman - Last Filed: 06/06/22 17:42> Gastrointestinal: Reports no additional gastrointestinal complaints, Reports abdominal pain, Denies melena, Denies hematochezia, Denies change in bowel habits, Denies change in stool character, Reports diarrhea and Reports nausea <SAMIRA Guzman - Last Filed: 06/06/22 17:42> Genitourinary: Denies hematuria, Denies urinary frequency, Denies dysuria, Denies urinary incontinence, Denies urinary hesitancy and Denies urinary urgency <SAMIRA Guzman - Last Filed: 06/06/22 17:42> Musculoskeletal: Reports no additional musculoskeletal complaints, Denies numbness and Denies tingling <SAMIRA Guzman - Last Filed: 06/06/22 17:42> Denies dizziness, Denies loss of vision, Denies numbness and Denies tingling <SAMIRA Guzman - Last Filed: 06/06/22 17:42> Psychiatric: Reports no additional psychiatric complaints <SAMIRA Guzman - Last Filed: 06/06/22 17:42> Endocrine: Reports no additional endocrine complaints <SAMIRA Guzman - Last Filed: 06/06/22 17:42> Hematologic/Lymphatic: Reports no additional hematologic/lymphatic complaints <SAMIRA Guzman Last Filed: 06/06/22 17:42> Allergic/Immunologic: Reports no additional allergic/immunologic complaints <SAMIRA Guzman Last Filed: 06/06/22 17:42> PMFSH Past Medical History Attestation statement: The following information was validated with the patient. <SAMIRA Guzman - Last Filed: 06/06/22 17:42> Source: old records reviewed <SAMIRA Guzman - Last Filed: 06/06/22 17:42> Medical History: Medical History Annual physical exam COVID-19 SÁNCHEZ (dyspnea on exertion) Frequent headaches History of mammogram Mammogram normal Normal Pap smear Tachycardia <Anaid Mendoza NP - Last Filed: 06/06/22 13:22> Surgical History: Surgical History H/O colonoscopy History of section History of removal of cyst <Anaid Mendoza NP - Last Filed: 06/06/22 13:22> Family History Family History: Family History Father CVD (cardiovascular disease) Stroke Crohn's disease Mother No problems noted. Brother No problems noted. Brother No problems noted. Son No problems noted. Son No problems noted. Daughter No problems noted. <Anaid Mendoza NP - Last Filed: 06/06/22 13:22> Social History Social History: Social History Housing: House Alcohol intake: current Alcohol intake frequency: a few times a week Patient Tobacco Use Status: Never used Tobacco e-Cigarette/Vaping Use: Never Used Advance Directives: No Advance Directives Information Provided: Yes Current occupational status: employed Cognitive needs: No Hearing needs: No Vision needs: Yes <Anaid Mendoza NP - Last Filed: 06/06/22 13:22> Physical Exam ED Vital Signs: Vital Signs - 24 hr 06/06/22 10:14 06/06/22 13:19 06/06/22 16:38 Temperature 98.2 F 99.6 F 98.7 F Pulse Rate 117 H 120 H 103 H Respiratory Rate 20 16 14 Blood Pressure 143/96 H 146/100 H 142/83 H Pulse Oximetry 97 97 96 Oxygen Delivery Method Room Air Room Air Room Air BMI result Body Mass Index 24.3 <Anaid Mendoza NP - Last Filed: 06/06/22 13:22> Vital Signs - 24 hr 06/06/22 10:14 06/06/22 13:19 06/06/22 16:38 Temperature 98.2 F 99.6 F 98.7 F Pulse Rate 117 H 120 H 103 H Respiratory Rate 20 16 14 Blood Pressure 143/96 H 146/100 H 142/83 H Pulse Oximetry 97 97 96 Oxygen Delivery Method Room Air Room Air Room Air BMI result Body Mass Index 24.3 <SAMIRA Guzman - Last Filed: 06/06/22 17:42> Const General: cooperative, no acute distress, alert and awake <SAMIRA Guzman - Last Filed: 06/06/22 17:42> Nutritional Appearance: well nourished <SAMIRA Guzman - Last Filed: 06/06/22 17:42> Orientation/consciousness: patient oriented x3 <SAMIRA Guzman - Last Filed: 06/06/22 17:42> Limitations: no limitations <SAMIRA Guzman - Last Filed: 06/06/22 17:42> HENND Head: Yes normal to inspection and Yes atraumatic <SAMIRA Guzman - Last Filed: 06/06/22 17:42> Ears: hearing grossly normal bilaterally and external ears normal <SAMIRA Guzman - Last Filed: 06/06/22 17:42> General nose exam: Normal external nose present, no nasal discharge noted and no epistaxis <SAMIRA Guzman - Last Filed: 06/06/22 17:42> Face and sinus: Yes normal facial exam, No abrasion and No laceration <SAMIRA Guzman - Last Filed: 06/06/22 17:42> Mouth: Normal oral and palatal mucosa present, no drooling and no muffled voice <SAMIRA Guzman - Last Filed: 06/06/22 17:42> Eyes General: appearance normal, both eyes and all related structures <SAMIRA Guzman - Last Filed: 06/06/22 17:42> Periorbital: periorbital findings normal <SAMIRA Guzman - Last Filed: 06/06/22 17:42> Eyelids: Yes eyelids normal <SAMIRA Guzman - Last Filed: 06/06/22 17:42> Conjunctivae: conjunctivae normal <Yue Marinelli NM - Last Filed: 06/06/22 17:42> Pupils: Equal, round and reactive pupils present <Yue Marinelli PA - Last Filed: 06/06/22 17:42> EOM: EOMs intact bilaterally <Yue Marinelli PA - Last Filed: 06/06/22 17:42> Neck Neck: Yes normal visual inspection, Yes full ROM and Yes no lymphadenopathy <Yue Marinelli NM - Last Filed: 06/06/22 17:42> Chest Chest palpation & inspection: normal inspection of the chest <Yue Marinelli NM - Last Filed: 06/06/22 17:42> Resp Effort & Inspection: normal respiratory effort and able to speak in complete sentences <Yue Isaacslalo NM - Last Filed: 06/06/22 17:42> Auscultation: clear to auscultation bilaterally <Yue Isaacslalo NM - Last Filed: 06/06/22 17:42> Cardio Rate: regular rate <Yue Marinelli NM - Last Filed: 06/06/22 17:42> Rhythm: regular rhythm <Yue Marinelli NM - Last Filed: 06/06/22 17:42> GI Inspection: Yes normal to inspection <Yue Marinelli NM - Last Filed: 06/06/22 17:42> Palpation (GI): Soft to palpation, not firm, Tenderness to palpation present (GI) (diffuse), no guarding and not rigid <Yue Isaacslalo NM - Last Filed: 06/06/22 17:42> Neuro General: patient oriented x3 and moves all extremities <Yue Marinelli NM - Last Filed: 06/06/22 17:42> Cranial nerves: Yes Equal, round and reactive pupils present <Yue Isaacslalo PA - Last Filed: 06/06/22 17:42> Cognition (Neuro): normal cognition <Yue IsaacsSAMIRA may - Last Filed: 06/06/22 17:42> Motor exam (neuro): 5/5 motor strength present throughout <Yue Isaacslalo PA - Last Filed: 06/06/22 17:42> Sensory Exam: Normal double simultaneous stimulation for sensation <SAMIRA Guzman - Last Filed: 06/06/22 17:42> Coordination: [id number] test normal <SAMIRA Guzman - Last Filed: 06/06/22 17:42> Extrem General: Yes normal to inspection, Yes full ROM and Yes capillary refill normal <SAMIRA Guzman - Last Filed: 06/06/22 17:42> Psych Appearance: grossly normal <SAMIRA Guzman - Last Filed: 06/06/22 17:42> Mental Status: mental status grossly normal <SAMIRA Guzman - Last Filed: 06/06/22 17:42> Affect: normal affect <SAMIRA Guzman - Last Filed: 06/06/22 17:42> Attitude: cooperative <SAMIRA Guzman - Last Filed: 06/06/22 17:42> Thought process: Normal thought process present <SAMIRA Guzman - Last Filed: 06/06/22 17:42> Thought content: Normal thought content present <SAMIRA Guzman - Last Filed: 06/06/22 17:42> Insight: Good insight present (Psych) <SAMIRA Guzman - Last Filed: 06/06/22 17:42> Course Course Course Narrative: This is rapid medical exam. Deferred additional HPI, ROS, PE to primary provider. 56 yo female with history of Crohn's disease on Entyvio, mesalamine and currently on oral prednisone followed by Dr. Stearns presents with 1 week abdominal pain worsened with eating with diarrhea, fever 102 last night. Sent in by Dr. Stearns for CT scan and concern for Crohn's flare. Will check labs, UA, COVID screen. Vitals are stable <Anaid Mendoza NP - Last Filed: 06/06/22 13:22> Medical Decision Making Medical Decision Making MDM Narrative: Patient is a 56 year old assigned female at with a history of crohn's presenting to the emergency department today with abdominal pain and nausea. Patient's physical exam showed diffuse abdominal pain. Patient's blood work showed an elevated WBC count of 12.6, an elevated ESR of 63, and an elevated CRP of 7.90. Patient's abdominal CT showed colitis as well as possible diverticulitis. I consulted with general surgery who stated they would consult on the case and they believe it to be more of a dimas colitis secondary to crohn's. I spoke to Dr. Stearns, her GI provider who recommended admission and IV steroids. I spoke to the hosptialist team who agreed to admission. Patient was given IV fluids, IV steroids, and IV ABX. Patient is not considered or suspected to be septic. I explained my physical exam findings as well as all test results to the patient. I answered all questions asked by the patient. Patient verbalized agreement and understanding with this treatment plan and admission. <SAMIRA Guzman - Last Filed: 06/06/22 17:42> Differential Diagnoses: Differential diagnosis Differential Diagnosis: diverticulitis, crohn's flare, abdominal pain <SAMIRA Guzman - Last Filed: 06/06/22 17:42> Discussion of management with other physician/healthcare provider/other source (e.g., hospitalist, engineering consultant, behavioral health): Discussion w/other physician/healthcare provider Management of the patient was discussed with: Senior Government Program Analyst (General surgeon associate professor of automation who states that the surgical service will consult but the patient should be admitted to medicine. ) <SAMIRA Guzman - Last Filed: 06/06/22 17:42> Lab Attestation: I reviewed the patient's lab results. <SAMIRA Guzman - Last Filed: 06/06/22 17:42> Discussion of test interpretation with radiology: Discussion of test interpretation with radiology This studies result was not discussed with radiology however, the radiologist's interpretation is reported per their report and listed below here. EXAMINATION: CT ABDOMEN AND PELVIS WITH CONTRAST? CLINICAL INFORMATION: Abdominal pain? COMPARISON: CT scan abdomen pelvis 11/16/2021? TECHNIQUE: Multidetector volumetric images were obtained from the superior aspect of the liver through the pubic symphysis following administration 85 mL of Omnipaque 350 intravenous contrast. Sagittal and coronal reformatted images were obtained on the technologist's workstation.? Oral contrast: No This CT examination was performed using dose optimization techniques as appropriate, variously including the following: *Automated exposure control *Adjustment of mA and/or kV according to patient size (this includes techniques or standardized protocols for targeted exams where dose is matched to indication/reason for exam; i.e. extremities or head) *Use of iterative reconstruction technique DLP: 467 mGy-cm FINDINGS: LUNG BASES: The visualized lung bases are unremarkable.? LIVER, GALLBLADDER, AND BILIARY TREE: The liver is normal in size, shape, and attenuation. No focal hepatic lesion or biliary ductal dilatation is present. The gallbladder is unremarkable with no evidence of radiopaque gallstones, gallbladder wall thickening, or obvious pericholecystic inflammatory changes.? PANCREAS: Unremarkable.? SPLEEN: Unremarkable.? ADRENAL GLANDS: Unremarkable.? KIDNEYS AND URETERS: The kidneys are normal in size, shape, and attenuation. No hydronephrosis, hydroureter, or calculi seen. No perinephric stranding. 1.1 cm cortical cyst midpole right kidney. No follow-up imaging is recommended for simple renal cyst. BLADDER: Unremarkable.? GASTROINTESTINAL TRACT: There is a large diverticulum, measuring about 3 cm x 2 cm, from the anterior proximal transverse colon. There is thickening and edema around this diverticulum. There is associated edema in the submucosal through the transverse colon. Findings consistent with a colitis of the transverse colon and focal diverticulitis. There is also focal bowel wall thickening and subtle pericolonic edema involving the distal descending colon and proximal sigmoid colon which is a secondary site of colitis. No diverticula in this region. The changes of colitis of the transverse colon are worse on the prior exam of 11/16/2021. The colitis of the sigmoid and distal descending colon is new since prior study 11/16/2021. The cecum and ascending colon and portions of the splenic flexure appear to be normal. The appendix is normal. Small bowel loops are normal. No abnormality of the terminal ileum. No perforation or abscess. No free air or free fluid in the mesentery. ABDOMINAL WALL: No significant hernia is appreciated.? LYMPH NODES: Normal. VASCULAR: Unremarkable. PELVIC VISCERA: Unremarkable.? OSSEOUS STRUCTURES: Unremarkable.? CT/CT abdomen pelvis w IV con IMPRESSION: There is colitis involving the transverse colon and the distal descending colon and proximal sigmoid colon. ? Fleischner guidelines were followed. Dictated By: Alvin Blackwood MD Signed By: Electronically signed by Alvin Blackwood MD 06/06/22 [id number] <SAMIRA Guzman - Last Filed: 06/06/22 17:42> Medications Administered Discontinued Medications Generic Name Dose Route Start Last Admin Trade Name Freq PRN Reason Stop Dose Admin Sodium Chloride 1,000 mls @ 999 mls/hr 06/06/22 15:00 06/06/22 16:38 Ns IV 06/06/22 16:00 Infused .Q1H1M LORETA Infusion Metronidazole 500 mg in 100 mls @ 100 mls/hr 06/06/22 16:31 06/06/22 17:19 Flagyl IV 06/06/22 17:30 100 mls/hr ONCE ONE Administration Levofloxacin 500 mg in 100 mls @ 100 mls/hr 06/06/22 16:31 06/06/22 17:19 Levaquin IV 06/06/22 17:30 100 mls/hr ONCE ONE Administration Iohexol 100 ml 06/06/22 15:49 06/06/22 15:49 Iohexol 350 Mg/Ml 100 Ml Infus..Btl IV 06/06/22 15:50 85 ml ONCE ONE Administration Methylprednisolone Sodium Succinate 40 mg 06/06/22 14:47 06/06/22 15:32 Methylprednisolone Sod Succ 40 Mg/Ml Vial IVPUSH 06/06/22 14:48 40 mg ONCE ONE Administration Morphine Sulfate 4 mg 06/06/22 16:43 06/06/22 17:20 Morphine Sulfate 4 Mg/Ml Cartridge IVPUSH 06/06/22 16:44 4 mg ONCE ONE Administration Protocol Ondansetron HCl 4 mg 06/06/22 14:47 06/06/22 15:32 Ondansetron Hcl 4 Mg/2 Ml Vial IVPUSH 06/06/22 14:48 4 mg ONCE ONE Administration <Anaid Mendoza NP - Last Filed: 06/06/22 13:22> Medications Administered Discontinued Medications Generic Name Dose Route Start Last Admin Trade Name Freq PRN Reason Stop Dose Admin Sodium Chloride 1,000 mls @ 999 mls/hr 06/06/22 15:00 06/06/22 16:38 Ns IV 06/06/22 16:00 Infused .Q1H1M LORETA Infusion Metronidazole 500 mg in 100 mls @ 100 mls/hr 06/06/22 16:31 06/06/22 17:19 Flagyl IV 06/06/22 17:30 100 mls/hr ONCE ONE Administration Levofloxacin 500 mg in 100 mls @ 100 mls/hr 06/06/22 16:31 06/06/22 17:19 Levaquin IV 06/06/22 17:30 100 mls/hr ONCE ONE Administration Iohexol 100 ml 06/06/22 15:49 06/06/22 15:49 Iohexol 350 Mg/Ml 100 Ml Infus..Btl IV 06/06/22 15:50 85 ml ONCE ONE Administration Methylprednisolone Sodium Succinate 40 mg 06/06/22 14:47 06/06/22 15:32 Methylprednisolone Sod Succ 40 Mg/Ml Vial IVPUSH 06/06/22 14:48 40 mg ONCE ONE Administration Morphine Sulfate 4 mg 06/06/22 16:43 06/06/22 17:20 Morphine Sulfate 4 Mg/Ml Cartridge IVPUSH 06/06/22 16:44 4 mg ONCE ONE Administration Protocol Ondansetron HCl 4 mg 06/06/22 14:47 06/06/22 15:32 Ondansetron Hcl 4 Mg/2 Ml Vial IVPUSH 06/06/22 14:48 4 mg ONCE ONE Administration <SAMIRA Guzman - Last Filed: 06/06/22 17:42> Critical Care Time Critical Care Time Critical Care Time: Yes <SAMIRA Guzman - Last Filed: 06/06/22 17:42> Total Critical Care Time: 30 <SAMIRA Guzman - Last Filed: 06/06/22 17:42> Attestation: I spent 30 minutes of Critical Care Time with this patient. This does not include time spent on separately reported billable procedures. <SAMIRA Guzman - Last Filed: 06/06/22 17:42> Discharge Plan Discharge Clinical Impression: Crohn's colitis, Diverticulitis <Anaid Mendoza NP - Last Filed: 06/06/22 13:22> Patient Disposition: Admitted As Inpatient <Anaid Mendoza NP - Last Filed: 06/06/22 13:22>
[2022-06-06 13:19] VITALS: BP 146/100; PULSE 120; RESP 16; TEMP 37.6; O2SAT 97
[2022-06-06 13:39] LABS: Alanine Aminotransferase 19 U/L (0-31); Albumin Level 3.7 g/dL (3.5-5.0); Alkaline Phosphatase 64 U/L (39-117); Aspartate Amino Transferase 17 U/L (5-31); Bilirubin Direct 0.2 mg/dL (0.0-0.5); Bilirubin Total 0.4 mg/dL (0.0-1.0); Total Protein 6.7 g/dL (6.5-8.0)
[2022-06-06 14:03] LABS: Lactic Acid 0.9 mmol/L (0.5-2.0)
[2022-06-06 14:12] LABS: COVID-19 Test Negative (Negative); IDNOW Serial# BCCEAD1C
[2022-06-06 14:42] LABS: Erythrocyte Sedimentation Rate 63 MM/HR (0-20)
[2022-06-06] MEDS: methylPREDNISolone Sod Succ 40 MG/ML VIAL IVPUSH (15:32)
[2022-06-06] MEDS: ondansetron HCL 4 MG/2 ML VIAL IVPUSH (15:32)
[2022-06-06] MEDS: 0.9 % Sodium Chloride 1,000 ML 999 ML IV (15:32)
[2022-06-06] MEDS: iohexoL 350 MG/ML 100 ML INFUS..BTL IV (15:49)
[2022-06-06 16:38] VITALS: BP 142/83; PULSE 103; RESP 14; TEMP 37.1; O2SAT 96
--- NOTE | 2022-06-06 17:02 | PM.IMHP ---
History of Present Illness Date of Service: 06/06/22 Chief Complaint: Abd pain 56 year old assigned female with history of Crohns diagnosed in December and has been steroid since with any attempt to reduce steroid resultinng in flare, this latest to reduce steroid has resulted in pain that is going for several days, mid abdominal severe pain, associated with diarrhea, but no report of blood, her apetite has been down signficantly. Work here with CT shows There is colitis involving the transverse colon and the distal descending colon and proximal sigmoid colon . WBC is 12, tachycardia and meets sepsis criteris Review of Systems Review of Systems: Gen: no fever Resp: no sob, no cough CV: no chest, no SÁNCHEZ, no leg edema GI: No n/v, + abd pain, +diarrhea Neuro: No confusion Yes all other systems are reviewed and are negative [facility] Medical History Annual physical exam COVID-19 SÁNCHEZ (dyspnea on exertion) Frequent headaches History of mammogram Mammogram normal Normal Pap smear Tachycardia Family History Father CVD (cardiovascular disease) Stroke Crohn's disease Mother No problems noted. Brother No problems noted. Brother No problems noted. Son No problems noted. Son No problems noted. Daughter No problems noted. Surgical History H/O colonoscopy History of section History of removal of cyst Social History Housing: House Alcohol intake: current Alcohol intake frequency: a few times a week Patient Tobacco Use Status: Never used Tobacco e-Cigarette/Vaping Use: Never Used Advance Directives: No Advance Directives Information Provided: Yes Current occupational status: employed Cognitive needs: No Hearing needs: No Vision needs: Yes Meds Allergies Allergy/AdvReac Type Severity Reaction Status Date / Time No Known Allergies Allergy Verified 12/21/21 13:28 [No Known Allergies*] Active Medications: Current Medications Metronidazole (Flagyl) 500 mg in 100 mls @ 100 mls/hr IV ONCE ONE Stop: 06/06/22 17:30 Levofloxacin (Levaquin) 500 mg in 100 mls @ 100 mls/hr IV ONCE ONE Stop: 06/06/22 17:30 Pharmacy Consult (Consult Rx Perform Med Rec) 1 each MISCELLANE ONCE PRN PRN Reason: Consult order Physical Exam Vital Signs and Narrative: Vital Signs: Last Vital Signs Temp 98.7 F 06/06/22 16:38 Pulse 103 H 06/06/22 16:38 Resp 14 06/06/22 16:38 BP 142/83 H 06/06/22 16:38 Pulse Ox 96 06/06/22 16:38 O2 Del Method 06/06/22 16:38 BMI result Body Mass Index 24.3 Const: Other: Constitutional: Alert, in no distress, overweight. Mental Status: Oriented to person, place and time. Eyes: Pupils are equal, round and reactive to light. Ear, Nose and Throat: Oropharynx clear, mucous membranes moist. Ears and nose without eformities. Trachea midline. Respiratory: Clear to auscultation. No wheezing, rales or rhonchi. Cardiovascular: S1 S2 regular. No murmurs, rubs or gallops. Gastrointestinal: Abdomen soft, non-tender, non-distended. Normal bowel sounds.? Neurologic: Cranial nerves II-XII grossly intact. No focal neurological deficits. Moves all extremities spontaneously.? Skin: No rashes or lesions.? Musculoskeletal: No cyanosis or clubbing. Psychiatric: Normal mood and affect? Results Labs CBC and Chem 7: 06/06/22 10:21 06/06/22 10:21 Imaging Radiologist's Impressions: Impressions Abdomen/Pelvis CT 06/06/22 15:59 IMPRESSION: There is colitis involving the transverse colon and the distal descending colon and proximal sigmoid colon. Fleischner guidelines were followed. Assessment and Plan (1) Crohn's colitis: Status: Acute Plan 56/F with #Croh's colitis/flare #Sepsis d/t above without severe features -IV Abx (Flagyl+Levaquin) -IV solumedrol -GI (Dr. Stearns) -IVF -IV morphine for pain DVT--Lovenox Full code Admission to [facility] midnight for treatment of colitis with IV Abx and hydration for diarrhea Quality Stroke Does the patient have a stroke diagnosis?: No VTE Prior VTE?: No VTE Risk Level:: Medical - moderate - high VTE Device Contraindication: Treatment Not Indicated VTE Drug Contraindication: N/A - Med Ordered
[2022-06-06 17:10] LABS: Appearance Urine Clear; Color Urine Yellow; Glucose Urine UA Negative (Negative); Leukocyte Esterase Urine Negative (Negative); Nitrite Urine Negative (Negative); Specific Gravity - Urine >= 1.030 (1.005-1.025); Urine Blood Negative (Negative); Urine Ketones Trace mg/dL (Negative); Urine Protein Negative (Neg-Trace)
[2022-06-06 17:13] LABS: UPreg QC Valid YES; Urine Pregnancy NEGATIVE (NEGATIVE)
[2022-06-06] MEDS: metroNIDAZOLE/NS 500 MG/100 ML PIGGYBACK 100 MG IV (17:19)
[2022-06-06] MEDS: levoFLOXacin/D5W 500 MG/100 ML PIGGYBACK 100 MG IV (17:19)
[2022-06-06] MEDS: Morphine Sulfate 4 MG/ML CARTRIDGE IVPUSH (17:20)
--- NOTE | 2022-06-06 17:32 | PHA.MEDREC ---
Pharmacy Consult ? Medication Reconciliation Pharmacy has completed the medication reconciliation. Patient reported all medications. Reports has not been taking mesalamine suppository due to GI issues. Hetal Wade, PharmD
--- NOTE | 2022-06-06 17:48 | P.EN_ITS ---
Event Note Date of Service: 06/06/22 Event Note: GI Consult-Full note dictated-Patient well known to me from previous office visits and previous colonoscopy. Imp: Refractory Crohn's colitis despite treatment with outpatient biologic agents(switched from SQ Humira to IV Entyvio approx 6 weeks ago due to refractor y symptoms despite a therapeutic Humira level), prednisone, and mesalamine. Her history, labs, and CT are all c/w refractory Crohn's disease. I don't think she has diverticulitis. Rec: Supportive care, IV steroids, po mesalamine, IV antibiotics, check stool specimens, F/U labs, clear liqs for now. Surgical consult if abdominal exam worsens. D/W patient in detail. Thanks
[2022-06-06] MEDS: Dextrose 5 % and 0.45 % NaCl 1,000 ML 100 ML IVCONT (18:39)
[2022-06-06] MEDS: Piperacillin Sodium/Tazobactam 3.375 GM in 0.9 % Sodium Chloride 50 ML IV (21:17)
[2022-06-06] MEDS: Hydrocortisone Sod Succ/PF 100 MG VIAL IVPUSH (21:17)
[2022-06-06] MEDS: Famotidine/PF 20 MG/2 ML VIAL IVPUSH (21:17)
[2022-06-06 21:44] VITALS: BP 108/66; PULSE 99; RESP 17; TEMP 37.3; O2SAT 93
[2022-06-06] MEDS: Mesalamine 400 MG CAP.DRTAB. 1600 MG PO (22:00)
--- NOTE | 2022-06-06 23:07 | PC.NURSE ---
Administered 1600 mesalamine 400 mg PO per AUG. Administration delayed due to having to contact pharmacy and waiting on med to be available.
[2022-06-06] MEDS: Acetaminophen 325 MG TABLET 650 MG PO (23:20)
--- NOTE | 2022-06-06 23:21 | PC.NURSE ---
Patient stated she had a headache and requested Tylenol. Per PRN administered 650 mg Tylenol PO.
--- NOTE | 2022-06-07 | PC.NURSE ---
Patient sleeping. No apparent distress.
[2022-06-07] MEDS: 0.9 % Sodium Chloride Flush 3 ML SYRINGE IVFLUSH ×2 (00:46→20:15)
[2022-06-07] MEDS: Piperacillin Sodium/Tazobactam 3.375 GM in 0.9 % Sodium Chloride 50 ML IV ×2 (04:06→10:22)
--- NOTE | 2022-06-07 04:49 | CONS_ITS ---
DATE OF SERVICE: 06/06/2022 REASON FOR CONSULTATION: Crohn's colitis, diarrhea, and abdominal pain. HISTORY OF PRESENT ILLNESS: The patient is a 56-year-old female well known to me with the diagnosis of Crohn's colitis since December 2021. She had presented a couple months before that with persistent diarrhea and abdominal pains with a CT scan revealing evidence of colitis. A colonoscopy in December revealed significant ulcerations throughout the colon including the distal rectum. The terminal ileum appeared normal. Since the diagnosis of her Crohn's disease, we have been unable to get her disease to go into remission despite biologic agents and fairly high-dose persistent steroids. She was initially started on Humira injections over the summer along with prednisone, oral mesalamine, and mesalamine suppositories. However, despite a therapeutic trough Humira level in March her symptoms remained refractory to any significant tapering of the prednisone. Typically as soon as she would get down to around 20 or 25 mg of prednisone her Crohn's symptoms would flared up with diarrhea, abdominal pain, and overall feeling poorly from a systemic standpoint. She was started on Entyvio infusions 6 weeks ago and just had her 3rd induction dose yesterday. I saw her in the office 1 week ago and while the Crohn's disease was active, she was feeling fairly well. She had just gone down to 20 mg of prednisone per day when I saw her 1 week ago but her symptoms were already flaring up and she increased the prednisone up to 40 mg per day last week. She had the 3rd Entyvio infusion yesterday and after getting home last night, she began having fevers as high as 102, increasing diarrhea, nausea, and increasing mid- abdominal pain. When she called my office today, I instructed her to go to the ER. In the ER, she has received some IV hydration. She has actually been afebrile in the ER. She has had some slight tachycardia, but her blood pressure has been stable. She has not been on any recent antibiotics at home. She does not use any NSAIDs. She does not smoke. Her medication regimen at home included the Entyvio infusions as stated above, mesalamine 4.8 g daily, mesalamine suppository as tolerated, prednisone as high as 40 mg per day, B12 shots. She has not noticed any hematochezia nor melena. She has had no vomiting. She denies any jaundice. At the present time in the ER, she does feel somewhat more comfortable. She has only had 2 bowel movements today, which again had been watery and loose. She denies any specific arthralgias nor rashes. MEDICATIONS: At home included the above regimen. PAST MEDICAL HISTORY: Crohn's colitis diagnosed in December with colonoscopy. History of COVID and some tachycardia in association with that. She had a negative screening colonoscopy in October 2018. She denies history of [place], diabetes, stroke, lung disease, nor kidney disease. PAST SURGICAL HISTORY: , uterine ablation, and a cyst on her foot. FAMILY HISTORY: Father had Crohn's disease and brother has Crohn's disease. There is no family history of GI malignancy. 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 She is . She does not smoke nor drink any significant amounts of alcohol. REVIEW OF SYSTEMS: CONSTITUTIONAL: She has been feeling poorly in general in relation to the active Crohn's. CARDIAC: No chest pain. PULMONARY: No coughing, no hemoptysis. GI: As above. URINARY: No dysuria, no hematuria. PHYSICAL EXAMINATION: GENERAL: The patient is actually a well-appearing, comfortable female. She does appear somewhat cushingoid. SKIN: Warm and dry. She is afebrile. NECK: Supple without lymphadenopathy. CHEST: Clear. CARDIAC: Normal S1, S2. ABDOMEN: Soft, nondistended, and nontender. Bowel sounds are normal. There is no palpable mass. EXTREMITIES: Without edema. NEUROLOGICAL: She is alert and oriented. LABORATORY DATA: White blood cell count 12.6, hemoglobin 12.5, MCV 88, platelets 566,000. She has been running a chronically elevated platelet count since the onset of her Crohn disease. Normal electrolytes. BUN 12, creatinine 0.9. Random blood sugar is 88. LFTs are normal. C-reactive protein 7.9. They have been 4.9 last week. Albumin 3.7. COVID test is negative. She did have a CT scan in the ER, which described evidence of active inflammatory changes in the transverse colon, distal descending colon, proximal sigmoid colon. The small bowel appeared normal. There was no sign of any intraabdominal fluid nor abscess. IMPRESSION: Given the patient's clinical history, laboratory data, and CT scan findings, she clearly has ongoing refractory Crohn's colitis despite maximal medical outpatient therapy with biologic agents, prednisone, and mesalamine. Despite everything going on with her and her abnormal laboratories, she appears clinically well and her abdominal exam is quite benign fortunately. At this point, I would continue supportive care. I would maintain her on fairly high-dose IV steroids both to treat any component of adrenal suppression in relation to her longstanding outpatient prednisone as well as to try to maximally treat her Crohn's to hopefully facilitate some component of remission. I shall also start her on antibiotics given the CT scan findings and active GI symptoms. I shall continue the oral mesalamine and start her on some IV Pepcid. I would recommend keeping her on clear liquids for now but hopefully will be able to increase that in the near future. She will have followup laboratories as well as stool specimens to rule out any component of enteric infection, including C difficile. Certainly, if her abdominal exam worsens, she would require surgical consultation, but at this point, I do not think that is necessary. Of note, the CT scan's description of possible diverticulitis is highly unlikely and I think what they are describing as a diverticulum in the transverse colon is most likely an ulceration from the Crohn's disease. This has all been discussed in detail with the patient and she is comfortable with this plan. Thank you for the consultation. MD LEE ANN Hawk/RENA / [id number] MTDD
[2022-06-07] MEDS: Hydrocortisone Sod Succ/PF 100 MG VIAL IVPUSH ×3 (05:07→20:14)
--- NOTE | 2022-06-07 06:26 | PC.NURSE ---
Pt aware of needing stool sample
[2022-06-07 06:59] LABS: MANUAL DIFF FLAG NO
[2022-06-07 07:01] LABS: Basophils Percent Auto 0.1 % (0-2); Hematocrit 35.6 % (37.0-47.0); Hemoglobin 11.6 g/dl (12.0-16.0); Imm Gran Abs Auto 0.04 X10*3/uL (0.00-0.03); Imm Gran Pct Auto 0.5 % (0.0-0.4); Lymphocytes Absolute Auto 0.7 X10*3/uL (1.2-4.9); Lymphocytes Percent Auto 7.7 % (20-40); Mean Corpuscular HGB Conc 32.6 g/dl (31.0-35.0); Mean Corpuscular Hemoglobin 28.6 pg (27.0-33.0); Mean Corpuscular Volume 87.9 fL (80.0-98.0); Mean Platelet Volume 8.2 fL (9.4-12.3); Monocytes Absolute Auto 0.2 X10*3/uL (0.1-1.2); Monocytes Percent Auto 2.4 % (2-11); Neutrophils Absolute Auto 7.8 x10*3/uL (2.0-8.3); Neutrophils Percent Auto 89.3 % (45-73); Platelet Count 479 X10*3/uL (160-400); Red Blood Count 4.05 X10*6/uL (4.20-5.50); Red Cell Distribution Width 13.3 % (11.0-16.0); White Blood Count 8.7 X10*3/uL (4.8-10.8)
[2022-06-07 07:11] LABS: INTERNATIONAL NORM RATIO 1.1 (0.9-1.1); Prothrombin Time 12.9 SEC (10.0-13.1)
[2022-06-07 07:57] LABS: Anion Gap 15 (12-20); Blood Urea Nitrogen 10 mg/dL (9-16); Calcium 8.5 mg/dL (8.4-10.2); Carbon Dioxide 21 mmol/L (22-29); Chloride 103 mmol/L (96-108); Creatinine Clr Calc Pharmacy 78.5; Estimated Glomerular Filt Rate > 60; Glucose Fasting 156 mg/dL (60-99); Potassium 4.4 mmol/L (3.3-5.1); Sodium 135 mmol/L (135-145)
[2022-06-07 09:23] VITALS: BP 131/110; PULSE 87; RESP 18; TEMP 37.3; O2SAT 94
[2022-06-07 09:53] LABS: CDiff Gene PCR POSITIVE (Negative)
[2022-06-07] MEDS: Mesalamine 400 MG CAP.DRTAB. 1600 MG PO ×3 (10:09→20:14)
[2022-06-07] MEDS: Enoxaparin Sodium 40 MG/0.4 ML SYRINGE SUBCUT (10:09)
[2022-06-07] MEDS: Famotidine/PF 20 MG/2 ML VIAL IVPUSH ×2 (10:10→20:15)
[2022-06-07] MEDS: Morphine Sulfate 4 MG/ML CARTRIDGE 2 MG IVPUSH (10:10)
[2022-06-07 11:11] LABS: CDiff Toxin Negative (Negative)
[2022-06-07 11:12] LABS: CDIFF Internal ctrl Dots and bkg OK (V)
--- NOTE | 2022-06-07 11:47 | MHC.CM.PN ---
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
--- NOTE | 2022-06-07 11:53 | MHC.CM.PN ---
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
[2022-06-07 12:06] LABS: Adenovirus F 40/41 Not Detected (Not Detect.); Astrovirus Not Detected (Not Detect.); Campylobacter Not Detected (Not Detect.); Cryptosporidium Not Detected (Not Detect.); Cyclospora cayetanensis Not Detected (Not Detect.); E. coli EAEC Not Detected (Not Detect.); E. coli EPEC Not Detected (Not Detect.); E. coli ETEC Not Detected (Not Detect.); E. coli STEC Not Detected (Not Detect.); Entamoeba histolytica Not Detected (Not Detect.); Giardia lamblia Not Detected (Not Detect.); Norovirus GI/GII Not Detected (Not Detect.); Plesiomonas shigelloides Not Detected (Not Detect.); Rotavirus A Not Detected (Not Detect.); Salmonella Not Detected (Not Detect.); Sapovirus Not Detected (Not Detect.); Shigella sp./EIEC Not Detected (Not Detect.); Vibrio Not Detected (Not Detect.); Vibrio Cholerae Not Detected (Not Detect.); Yersinia enterocolitica Not Detected (Not Detect.)
[2022-06-07] MEDS: ondansetron HCL 4 MG/2 ML VIAL IVPUSH ×2 (12:23→20:23)
[2022-06-07] MEDS: vancomycin HCL 125 MG CAPSULE 250 MG PO ×2 (13:46→20:14)
[2022-06-07] MEDS: Dextrose 5 % and 0.45 % NaCl 1,000 ML 100 ML IVCONT (13:46)
--- NOTE | 2022-06-07 13:47 | P.PNIM_ITS ---
Subjective Subjective Date of Service: 06/07/22 Interval History: Patient seen for follow-up for acute Crohn's flare. Patient seen evaluated at her bedside. Patient appears mildly uncomfortable but able to ambulate. No acute concerns overnight. Had a small bowel movement this morning. Denies hematochezia or mucus. Patient reports diffuse crampy abdominal pain, but improved since admission. Abdominal exam relatively benign. Reports a fever but no chills. Some nausea but no vomiting. Review of Systems Diffuse crampy abdominal pain Diarrhea Nausea No vomiting No hematochezia Physical Exam Vital Signs: Vital Signs: Last Vital Signs Temp 99.1 F 06/07/22 09:23 Pulse 87 06/07/22 09:23 Resp 18 06/07/22 09:23 BP 131/110 H 06/07/22 09:23 Pulse Ox 94 06/07/22 09:23 O2 Del Method 06/07/22 09:23 BMI result Body Mass Index 24.3 Objective Data Active Medications Acetaminophen (Acetaminophen 325 Mg Tablet) 650 mg PO Q6H PRN PRN Reason: Pain, Mild (Pain Scale 1-3) Last Admin: 06/06/22 23:20 Dose: 650 mg Documented By: STEW Enoxaparin Sodium (Enoxaparin Sodium 40 Mg/0.4 Ml Syringe) 40 mg SUBCUT DAILY [facility] Last Admin: 06/07/22 10:09 Dose: 40 mg Documented By: ANGIE Famotidine (Famotidine/Pf 20 Mg/2 Ml Vial) 20 mg IVPUSH BID [facility] Last Admin: 06/07/22 10:10 Dose: 20 mg Documented By: ANGIE Hydrocortisone Sodium Succinate (Hydrocortisone Sod Succ/Pf 100 Mg Vial) 100 mg IVPUSH Q8H [facility] Last Admin: 06/07/22 12:27 Dose: 100 mg Documented By: ANGIE Dextrose/Sodium Chloride (D51/2ns) 1,000 mls @ 100 mls/hr IVCONT .Q10H [facility] Last Admin: 06/07/22 13:46 Dose: 100 mls/hr Documented By: ANGIE Piperacillin Sod/Tazobactam (Sod 3.375 gm/ Sodium Chloride) 50 mls @ 100 mls/hr IV Q6H [facility] Melatonin (Melatonin 3 Mg Tablet) 6 mg PO BEDTIME PRN PRN Reason: Insomnia Mesalamine (Mesalamine 400 Mg Cap.Drtab.) 1,600 mg PO TID [facility] Last Admin: 06/07/22 10:09 Dose: 1,600 mg Documented By: ANGIE Morphine Sulfate (Morphine Sulfate 4 Mg/Ml Cartridge) 2 mg IVPUSH Q4H PRN; Protocol PRN Reason: Pain, Severe (Pain Scale 7-10) Last Admin: 06/07/22 10:10 Dose: 2 mg Documented By: ANGIE Ondansetron HCl (Ondansetron Hcl 4 Mg/2 Ml Vial) 4 mg IVPUSH Q8H PRN PRN Reason: Nausea and Vomiting Last Admin: 06/07/22 12:23 Dose: 4 mg Documented By: ANGIE Pharmacy Consult (Consult Rx Perform Med Rec) 1 each MISCELLANE ONCE PRN PRN Reason: Consult order Sodium Chloride (0.9 % Sodium Chloride Flush 3 Ml Syringe) 3 ml IVFLUSH QSHIFT [facility] Last Admin: 06/07/22 09:14 Dose: Not Given Documented By: ANGIE Non-Admin Reason: IV Running Vancomycin HCl (Vancomycin Hcl 125 Mg Capsule) 250 mg PO Q6H [facility] Last Admin: 06/07/22 13:46 Dose: 250 mg Documented By: ANGIE Labs CBC & Chem 7: 06/07/22 06:05 06/07/22 06:05 Labs: Laboratory Results - last 24 hr 06/06/22 06/06/22 06/06/22 10:21 13:42 13:42 MCV MCH MCHC RDW Plt Count MPV Immature Gran % (Auto) Neut % (Auto) Lymph % (Auto) [place] % (Auto) Eos % (Auto) Baso % (Auto) Lymph # (Auto) [place] # (Auto) Eos # (Auto) Baso # (Auto) Abs Immat Gran (auto) Absolute Neuts (auto) Absolute Nucleated RBC Nucleated RBC % (auto) ESR 63 H PT INR Anion Gap Estim Creat Clear Calc Estimated GFR Fasting Glucose Lactic Acid 0.9 Calcium Urine Color Urine Appearance Urine pH Ur Specific [place] Urine Protein Urine Glucose (UA) Urine Ketones Urine Blood Urine Nitrite Ur Leukocyte Esterase Urine Test Stl C. cayetanensis PCR Stool Rotavirus A PCR Stl Adenov F 40/41 PCR Stool Astrovirus (PCR) Stool Campylobacter PCR Stool Cryptosporidium PCR Stl Sh Tox Pr E STEC PCR Stool E coli O157 PCR Stl Enterotoxigenic E PCR Stool EPEC (PCR) Stool EAEC (PCR) Stl E. histolytica PCR Stool Giardia Lamblia PCR Stl P. shigelloides PCR Stool Salmonella PCR Stool Sapovirus (PCR) Stl Shigella/EIEC PCR St Y.enterocolitica PCR Stool Vibrio (PCR) Stl Vibrio cholerae PCR Stl Norovirus GI/GII PCR C. difficile Tox B Gene C. difficile Toxin A&B C. difficile Interpret COVID-19 ([facility]) Negative COVID-19 Clin Com See Note 06/06/22 06/06/22 06/07/22 16:56 16:56 06:05 MCV 87.9 MCH 28.6 MCHC 32.6 RDW 13.3 Plt Count 479 H MPV 8.2 L Immature Gran % (Auto) 0.5 H Neut % (Auto) 89.3 H Lymph % (Auto) 7.7 L [place] % (Auto) 2.4 Eos % (Auto) 0.0 Baso % (Auto) 0.1 Lymph # (Auto) 0.7 L [place] # (Auto) 0.2 Eos # (Auto) 0.0 Baso # (Auto) 0.0 Abs Immat Gran (auto) 0.04 H Absolute Neuts (auto) 7.8 Absolute Nucleated RBC 0.000 Nucleated RBC % (auto) 0.0 ESR PT INR Anion Gap Estim Creat Clear Calc Estimated GFR Fasting Glucose Lactic Acid Calcium Urine Color Yellow Urine Appearance Clear Urine pH 6.0 Ur Specific [place] >= 1.030 H Urine Protein Negative Urine Glucose (UA) Negative Urine Ketones Trace Urine Blood Negative Urine Nitrite Negative Ur Leukocyte Esterase Negative Urine Test NEGATIVE Stl C. cayetanensis PCR Stool Rotavirus A PCR Stl Adenov F 40/41 PCR Stool Astrovirus (PCR) Stool Campylobacter PCR Stool Cryptosporidium PCR Stl Sh Tox Pr E STEC PCR Stool E coli O157 PCR Stl Enterotoxigenic E PCR Stool EPEC (PCR) Stool EAEC (PCR) Stl E. histolytica PCR Stool Giardia Lamblia PCR Stl P. shigelloides PCR Stool Salmonella PCR Stool Sapovirus (PCR) Stl Shigella/EIEC PCR St Y.enterocolitica PCR Stool Vibrio (PCR) Stl Vibrio cholerae PCR Stl Norovirus GI/GII PCR C. difficile Tox B Gene C. difficile Toxin A&B C. difficile Interpret COVID-19 ([facility]) COVID-19 Clin Com 06/07/22 06/07/22 06/07/22 06:05 06:05 09:01 MCV MCH MCHC RDW Plt Count MPV Immature Gran % (Auto) Neut % (Auto) Lymph % (Auto) [place] % (Auto) Eos % (Auto) Baso % (Auto) Lymph # (Auto) [place] # (Auto) Eos # (Auto) Baso # (Auto) Abs Immat Gran (auto) Absolute Neuts (auto) Absolute Nucleated RBC Nucleated RBC % (auto) ESR PT 12.9 INR 1.1 Anion Gap 15 Estim Creat Clear Calc 78.5 Estimated GFR > 60 Fasting Glucose 156 H Lactic Acid Calcium 8.5 Urine Color Urine Appearance Urine pH Ur Specific [place] Urine Protein Urine Glucose (UA) Urine Ketones Urine Blood Urine Nitrite Ur Leukocyte Esterase Urine Test Stl C. cayetanensis PCR Stool Rotavirus A PCR Stl Adenov F 40/41 PCR Stool Astrovirus (PCR) Stool Campylobacter PCR Stool Cryptosporidium PCR Stl Sh Tox Pr E STEC PCR Stool E coli O157 PCR Stl Enterotoxigenic E PCR Stool EPEC (PCR) Stool EAEC (PCR) Stl E. histolytica PCR Stool Giardia Lamblia PCR Stl P. shigelloides PCR Stool Salmonella PCR Stool Sapovirus (PCR) Stl Shigella/EIEC PCR St Y.enterocolitica PCR Stool Vibrio (PCR) Stl Vibrio cholerae PCR Stl Norovirus GI/GII PCR C. difficile Tox B Gene POSITIVE A* C. difficile Toxin A&B Negative C. difficile Interpret SEE NOTE COVID-19 ([facility]) COVID-19 Clin Com 06/07/22 09:01 MCV MCH MCHC RDW Plt Count MPV Immature Gran % (Auto) Neut % (Auto) Lymph % (Auto) [place] % (Auto) Eos % (Auto) Baso % (Auto) Lymph # (Auto) [place] # (Auto) Eos # (Auto) Baso # (Auto) Abs Immat Gran (auto) Absolute Neuts (auto) Absolute Nucleated RBC Nucleated RBC % (auto) ESR PT INR Anion Gap Estim Creat Clear Calc Estimated GFR Fasting Glucose Lactic Acid Calcium Urine Color Urine Appearance Urine pH Ur Specific [place] Urine Protein Urine Glucose (UA) Urine Ketones Urine Blood Urine Nitrite Ur Leukocyte Esterase Urine Test Stl C. cayetanensis PCR Not Detected Stool Rotavirus A PCR Not Detected Stl Adenov F 40/41 PCR Not Detected Stool Astrovirus (PCR) Not Detected Stool Campylobacter PCR Not Detected Stool Cryptosporidium PCR Not Detected Stl Sh Tox Pr E STEC PCR Not Detected Stool E coli O157 PCR Not applicable Stl Enterotoxigenic E PCR Not Detected Stool EPEC (PCR) Not Detected Stool EAEC (PCR) Not Detected Stl E. histolytica PCR Not Detected Stool Giardia Lamblia PCR Not Detected Stl P. shigelloides PCR Not Detected Stool Salmonella PCR Not Detected Stool Sapovirus (PCR) Not Detected Stl Shigella/EIEC PCR Not Detected St Y.enterocolitica PCR Not Detected Stool Vibrio (PCR) Not Detected Stl Vibrio cholerae PCR Not Detected Stl Norovirus GI/GII PCR Not Detected C. difficile Tox B Gene C. difficile Toxin A&B C. difficile Interpret COVID-19 ([facility]) COVID-19 Clin Com Quality Stroke Does the patient have a stroke diagnosis?: No VTE Prior VTE?: No VTE Risk Level:: Medical - moderate - high VTE Device Contraindication: Treatment Not Indicated VTE Drug Contraindication: N/A - Med Ordered
--- NOTE | 2022-06-07 13:48 | P.PNIM_ITS ---
Subjective Subjective Date of Service: 06/07/22 Interval History: Seen in f/u for crohn's flare and colitis interval history: still with pain especially after meals, persistent diarrhea Review of Systems no nausea or vomiting, +diarrhea abdominal pain Physical Exam Vital Signs: Vital Signs: Last Vital Signs Temp 99.1 F 06/07/22 09:23 Pulse 87 06/07/22 09:23 Resp 18 06/07/22 09:23 BP 131/110 H 06/07/22 09:23 Pulse Ox 94 06/07/22 09:23 O2 Del Method 06/07/22 09:23 BMI result Body Mass Index 24.3 Const: Other: General: AO X 3, no acute distress Resp: CTA bilateral CVS: S1,S2,RRR GI: mild abd tenderness, no peritoneal signs Skin: No rash Neuro: motor grossly intact Psych: appropriate affect Objective Data Active Medications Acetaminophen (Acetaminophen 325 Mg Tablet) 650 mg PO Q6H PRN PRN Reason: Pain, Mild (Pain Scale 1-3) Last Admin: 06/06/22 23:20 Dose: 650 mg Documented By: STEW Enoxaparin Sodium (Enoxaparin Sodium 40 Mg/0.4 Ml Syringe) 40 mg SUBCUT DAILY [facility] Last Admin: 06/07/22 10:09 Dose: 40 mg Documented By: ANGIE Famotidine (Famotidine/Pf 20 Mg/2 Ml Vial) 20 mg IVPUSH BID [facility] Last Admin: 06/07/22 10:10 Dose: 20 mg Documented By: ANGIE Hydrocortisone Sodium Succinate (Hydrocortisone Sod Succ/Pf 100 Mg Vial) 100 mg IVPUSH Q8H [facility] Last Admin: 06/07/22 12:27 Dose: 100 mg Documented By: ANGIE Dextrose/Sodium Chloride (D51/2ns) 1,000 mls @ 100 mls/hr IVCONT .Q10H [facility] Last Admin: 06/07/22 13:46 Dose: 100 mls/hr Documented By: ANGIE Piperacillin Sod/Tazobactam (Sod 3.375 gm/ Sodium Chloride) 50 mls @ 100 mls/hr IV Q6H [facility] Melatonin (Melatonin 3 Mg Tablet) 6 mg PO BEDTIME PRN PRN Reason: Insomnia Mesalamine (Mesalamine 400 Mg Cap.Drtab.) 1,600 mg PO TID [facility] Last Admin: 06/07/22 10:09 Dose: 1,600 mg Documented By: ANGIE Morphine Sulfate (Morphine Sulfate 4 Mg/Ml Cartridge) 2 mg IVPUSH Q4H PRN; Protocol PRN Reason: Pain, Severe (Pain Scale 7-10) Last Admin: 06/07/22 10:10 Dose: 2 mg Documented By: ANGIE Ondansetron HCl (Ondansetron Hcl 4 Mg/2 Ml Vial) 4 mg IVPUSH Q8H PRN PRN Reason: Nausea and Vomiting Last Admin: 06/07/22 12:23 Dose: 4 mg Documented By: ANGIE Pharmacy Consult (Consult Rx Perform Med Rec) 1 each MISCELLANE ONCE PRN PRN Reason: Consult order Sodium Chloride (0.9 % Sodium Chloride Flush 3 Ml Syringe) 3 ml IVFLUSH QSHIFT [facility] Last Admin: 06/07/22 09:14 Dose: Not Given Documented By: ANGIE Non-Admin Reason: IV Running Vancomycin HCl (Vancomycin Hcl 125 Mg Capsule) 250 mg PO Q6H [facility] Last Admin: 06/07/22 13:46 Dose: 250 mg Documented By: ANGIE Labs CBC & Chem 7: 06/07/22 06:05 06/07/22 06:05 Labs: Laboratory Results - last 24 hr 06/06/22 06/06/22 06/06/22 10:21 13:42 13:42 MCV MCH MCHC RDW Plt Count MPV Immature Gran % (Auto) Neut % (Auto) Lymph % (Auto) [place] % (Auto) Eos % (Auto) Baso % (Auto) Lymph # (Auto) [place] # (Auto) Eos # (Auto) Baso # (Auto) Abs Immat Gran (auto) Absolute Neuts (auto) Absolute Nucleated RBC Nucleated RBC % (auto) ESR 63 H PT INR Anion Gap Estim Creat Clear Calc Estimated GFR Fasting Glucose Lactic Acid 0.9 Calcium Urine Color Urine Appearance Urine pH Ur Specific [place] Urine Protein Urine Glucose (UA) Urine Ketones Urine Blood Urine Nitrite Ur Leukocyte Esterase Urine Test Stl C. cayetanensis PCR Stool Rotavirus A PCR Stl Adenov F 40/41 PCR Stool Astrovirus (PCR) Stool Campylobacter PCR Stool Cryptosporidium PCR Stl Sh Tox Pr E STEC PCR Stool E coli O157 PCR Stl Enterotoxigenic E PCR Stool EPEC (PCR) Stool EAEC (PCR) Stl E. histolytica PCR Stool Giardia Lamblia PCR Stl P. shigelloides PCR Stool Salmonella PCR Stool Sapovirus (PCR) Stl Shigella/EIEC PCR St Y.enterocolitica PCR Stool Vibrio (PCR) Stl Vibrio cholerae PCR Stl Norovirus GI/GII PCR C. difficile Tox B Gene C. difficile Toxin A&B C. difficile Interpret COVID-19 ([facility]) Negative COVID-19 Clin Com See Note 06/06/22 06/06/22 06/07/22 16:56 16:56 06:05 MCV 87.9 MCH 28.6 MCHC 32.6 RDW 13.3 Plt Count 479 H MPV 8.2 L Immature Gran % (Auto) 0.5 H Neut % (Auto) 89.3 H Lymph % (Auto) 7.7 L [place] % (Auto) 2.4 Eos % (Auto) 0.0 Baso % (Auto) 0.1 Lymph # (Auto) 0.7 L [place] # (Auto) 0.2 Eos # (Auto) 0.0 Baso # (Auto) 0.0 Abs Immat Gran (auto) 0.04 H Absolute Neuts (auto) 7.8 Absolute Nucleated RBC 0.000 Nucleated RBC % (auto) 0.0 ESR PT INR Anion Gap Estim Creat Clear Calc Estimated GFR Fasting Glucose Lactic Acid Calcium Urine Color Yellow Urine Appearance Clear Urine pH 6.0 Ur Specific [place] >= 1.030 H Urine Protein Negative Urine Glucose (UA) Negative Urine Ketones Trace Urine Blood Negative Urine Nitrite Negative Ur Leukocyte Esterase Negative Urine Test NEGATIVE Stl C. cayetanensis PCR Stool Rotavirus A PCR Stl Adenov F 40/41 PCR Stool Astrovirus (PCR) Stool Campylobacter PCR Stool Cryptosporidium PCR Stl Sh Tox Pr E STEC PCR Stool E coli O157 PCR Stl Enterotoxigenic E PCR Stool EPEC (PCR) Stool EAEC (PCR) Stl E. histolytica PCR Stool Giardia Lamblia PCR Stl P. shigelloides PCR Stool Salmonella PCR Stool Sapovirus (PCR) Stl Shigella/EIEC PCR St Y.enterocolitica PCR Stool Vibrio (PCR) Stl Vibrio cholerae PCR Stl Norovirus GI/GII PCR C. difficile Tox B Gene C. difficile Toxin A&B C. difficile Interpret COVID-19 ([facility]) COVID-19 Clin Com 06/07/22 06/07/22 06/07/22 06:05 06:05 09:01 MCV MCH MCHC RDW Plt Count MPV Immature Gran % (Auto) Neut % (Auto) Lymph % (Auto) [place] % (Auto) Eos % (Auto) Baso % (Auto) Lymph # (Auto) [place] # (Auto) Eos # (Auto) Baso # (Auto) Abs Immat Gran (auto) Absolute Neuts (auto) Absolute Nucleated RBC Nucleated RBC % (auto) ESR PT 12.9 INR 1.1 Anion Gap 15 Estim Creat Clear Calc 78.5 Estimated GFR > 60 Fasting Glucose 156 H Lactic Acid Calcium 8.5 Urine Color Urine Appearance Urine pH Ur Specific [place] Urine Protein Urine Glucose (UA) Urine Ketones Urine Blood Urine Nitrite Ur Leukocyte Esterase Urine Test Stl C. cayetanensis PCR Stool Rotavirus A PCR Stl Adenov F 40/41 PCR Stool Astrovirus (PCR) Stool Campylobacter PCR Stool Cryptosporidium PCR Stl Sh Tox Pr E STEC PCR Stool E coli O157 PCR Stl Enterotoxigenic E PCR Stool EPEC (PCR) Stool EAEC (PCR) Stl E. histolytica PCR Stool Giardia Lamblia PCR Stl P. shigelloides PCR Stool Salmonella PCR Stool Sapovirus (PCR) Stl Shigella/EIEC PCR St Y.enterocolitica PCR Stool Vibrio (PCR) Stl Vibrio cholerae PCR Stl Norovirus GI/GII PCR C. difficile Tox B Gene POSITIVE A* C. difficile Toxin A&B Negative C. difficile Interpret SEE NOTE COVID-19 ([facility]) COVID-19 Clin Com 06/07/22 09:01 MCV MCH MCHC RDW Plt Count MPV Immature Gran % (Auto) Neut % (Auto) Lymph % (Auto) [place] % (Auto) Eos % (Auto) Baso % (Auto) Lymph # (Auto) [place] # (Auto) Eos # (Auto) Baso # (Auto) Abs Immat Gran (auto) Absolute Neuts (auto) Absolute Nucleated RBC Nucleated RBC % (auto) ESR PT INR Anion Gap Estim Creat Clear Calc Estimated GFR Fasting Glucose Lactic Acid Calcium Urine Color Urine Appearance Urine pH Ur Specific [place] Urine Protein Urine Glucose (UA) Urine Ketones Urine Blood Urine Nitrite Ur Leukocyte Esterase Urine Test Stl C. cayetanensis PCR Not Detected Stool Rotavirus A PCR Not Detected Stl Adenov F 40/41 PCR Not Detected Stool Astrovirus (PCR) Not Detected Stool Campylobacter PCR Not Detected Stool Cryptosporidium PCR Not Detected Stl Sh Tox Pr E STEC PCR Not Detected Stool E coli O157 PCR Not applicable Stl Enterotoxigenic E PCR Not Detected Stool EPEC (PCR) Not Detected Stool EAEC (PCR) Not Detected Stl E. histolytica PCR Not Detected Stool Giardia Lamblia PCR Not Detected Stl P. shigelloides PCR Not Detected Stool Salmonella PCR Not Detected Stool Sapovirus (PCR) Not Detected Stl Shigella/EIEC PCR Not Detected St Y.enterocolitica PCR Not Detected Stool Vibrio (PCR) Not Detected Stl Vibrio cholerae PCR Not Detected Stl Norovirus GI/GII PCR Not Detected C. difficile Tox B Gene C. difficile Toxin A&B C. difficile Interpret COVID-19 ([facility]) COVID-19 Clin Com Assessment and Plan (1) Crohn's colitis: Status: Acute Plan 56/F with #Croh's colitis/flare #Sepsis --resolved -IV Abx (Zosyn) -IV solucortef -GI (Dr. Stearns) input noted -IVF -IV morphine for pain -advance diet slowly -resume mesalamine -empiric oral Vanco for possible C dif DVT--Lovenox Full code Admission to [facility] 2 midnight for treatment of colitis with IV Abx and hydration for diarrhea Quality Stroke Does the patient have a stroke diagnosis?: No VTE Prior VTE?: No VTE Risk Level:: Medical - moderate - high VTE Device Contraindication: Treatment Not Indicated VTE Drug Contraindication: N/A - Med Ordered
--- NOTE | 2022-06-07 19:19 | PM.GIPN ---
Subjective Subjective Date of Service: 06/07/22 Interval History: Patient seen at 1PM today. Still having some loose stools and intermittent abdominal pain. She is also c/o nausea and anorexia. Denies vomiting, bleeding, sx. Her stool specimen is + for C.diff gene, although negative for toxin. Critical Care Time (minutes): 0 Physical Exam Vital Signs: Vital Signs: Last Vital Signs Temp 99.1 F 06/07/22 09:23 Pulse 87 06/07/22 09:23 Resp 18 06/07/22 09:23 BP 131/110 H 06/07/22 09:23 Pulse Ox 94 06/07/22 09:23 O2 Del Method 06/07/22 09:23 BMI result Body Mass Index 24.3 Const: General: cooperative, comfortable, no acute distress, well developed, awake and Cushingoid facies GI: Other: Soft, normal BS, nondistended, minimal upper abdominal tenderness, negative mass/rebound/guarding Extrem: Other: No edema Objective Data Labs CBC & Chem 7: 06/07/22 06:05 06/07/22 06:05 Labs: Laboratory Results - last 24 hr 06/07/22 06/07/22 06/07/22 06:05 06:05 06:05 WBC 8.7 RBC 4.05 L Hgb 11.6 L Hct 35.6 L MCV 87.9 MCH 28.6 MCHC 32.6 RDW 13.3 Plt Count 479 H MPV 8.2 L Immature Gran % (Auto) 0.5 H Neut % (Auto) 89.3 H Lymph % (Auto) 7.7 L [place] % (Auto) 2.4 Eos % (Auto) 0.0 Baso % (Auto) 0.1 Lymph # (Auto) 0.7 L [place] # (Auto) 0.2 Eos # (Auto) 0.0 Baso # (Auto) 0.0 Abs Immat Gran (auto) 0.04 H Absolute Neuts (auto) 7.8 Absolute Nucleated RBC 0.000 Nucleated RBC % (auto) 0.0 PT 12.9 INR 1.1 Sodium 135 Potassium 4.4 Chloride 103 Carbon Dioxide 21 L Anion Gap 15 BUN 10 Creatinine 0.70 Estim Creat Clear Calc 78.5 Estimated GFR > 60 Fasting Glucose 156 H Calcium 8.5 Stl C. cayetanensis PCR Stool Rotavirus A PCR Stl Adenov F 40/41 PCR Stool Astrovirus (PCR) Stool Campylobacter PCR Stool Cryptosporidium PCR Stl Sh Tox Pr E STEC PCR Stool E coli O157 PCR Stl Enterotoxigenic E PCR Stool EPEC (PCR) Stool EAEC (PCR) Stl E. histolytica PCR Stool Giardia Lamblia PCR Stl P. shigelloides PCR Stool Salmonella PCR Stool Sapovirus (PCR) Stl Shigella/EIEC PCR St Y.enterocolitica PCR Stool Vibrio (PCR) Stl Vibrio cholerae PCR Stl Norovirus GI/GII PCR C. difficile Tox B Gene C. difficile Toxin A&B C. difficile Interpret 06/07/22 06/07/22 09:01 09:01 WBC RBC Hgb Hct MCV MCH MCHC RDW Plt Count MPV Immature Gran % (Auto) Neut % (Auto) Lymph % (Auto) [place] % (Auto) Eos % (Auto) Baso % (Auto) Lymph # (Auto) [place] # (Auto) Eos # (Auto) Baso # (Auto) Abs Immat Gran (auto) Absolute Neuts (auto) Absolute Nucleated RBC Nucleated RBC % (auto) PT INR Sodium Potassium Chloride Carbon Dioxide Anion Gap BUN Creatinine Estim Creat Clear Calc Estimated GFR Fasting Glucose Calcium Stl C. cayetanensis PCR Not Detected Stool Rotavirus A PCR Not Detected Stl Adenov F 40/41 PCR Not Detected Stool Astrovirus (PCR) Not Detected Stool Campylobacter PCR Not Detected Stool Cryptosporidium PCR Not Detected Stl Sh Tox Pr E STEC PCR Not Detected Stool E coli O157 PCR Not applicable Stl Enterotoxigenic E PCR Not Detected Stool EPEC (PCR) Not Detected Stool EAEC (PCR) Not Detected Stl E. histolytica PCR Not Detected Stool Giardia Lamblia PCR Not Detected Stl P. shigelloides PCR Not Detected Stool Salmonella PCR Not Detected Stool Sapovirus (PCR) Not Detected Stl Shigella/EIEC PCR Not Detected St Y.enterocolitica PCR Not Detected Stool Vibrio (PCR) Not Detected Stl Vibrio cholerae PCR Not Detected Stl Norovirus GI/GII PCR Not Detected C. difficile Tox B Gene POSITIVE A* C. difficile Toxin A&B Negative C. difficile Interpret SEE NOTE Microbiology Microbiology Results: Microbiology 06/06/22 14:57 Blood - Venous Blood Culture - Preliminary No growth after 24 hours. 06/06/22 13:42 Blood - Venous Blood Culture - Preliminary No growth after 24 hours. Procedures Date of Service Date of Service: 06/07/22 Progress Note: A&P Assessment and plan (1) Crohn's colitis: Status: Acute Assessment and Plan: Imp: Her Crohn's colitis remains active, although her abdominal exam is currently benign. Given the acuity of the worsening of her symptoms with associated fevers that prompted the ER visit and hospitalization, the C.diff may very well be playing a role here as well. 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 Rec: Given no signs of intraabdominal infection and the C.diff infection, I opted to stop her Zosyn broad spectrum antibiotic and start po Vanco. Will continue the IV steroids, clear liqs, supportive care, and F/U labs in AM. D/W patient in detail and she is comfortable with this plan. Thanks (2) C. difficile colitis: Status: Acute Time Spent With Patient Time: Total time managing care of this patient today ____ minutes. Quality Stroke Does the patient have a stroke diagnosis?: No VTE Prior VTE?: No VTE Risk Level:: Medical - moderate - high VTE Device Contraindication: Treatment Not Indicated VTE Drug Contraindication: N/A - Med Ordered
--- NOTE | 2022-06-07 19:30 | PC.NURSE ---
RN could not find vitals tab to document pt's vitals however pt's vital signs documented below BP 131/86 HR 81 RR 18 O2 96% room air
--- NOTE | 2022-06-07 19:34 | PC.NURSE ---
RN outreached hospitalist to make him aware of the pt' reported nausea and request for additional zofran. MD placed one time dose for IVP zofran 4mg however pt declined/refused medication stating I can wait . RN made pt aware that the MD placed an additional order that would be available for her but she continued to decline. The pt has been able to tolerate/keep down her oral fluids and clear liquid diet tray provided for dinner. Report previously given to admitting floor and also provided to Grant BRUNSON oncoming overflow nurse as pt pending transport.
[2022-06-07 19:57] VITALS: BP 136/77; PULSE 80; RESP 18; TEMP 37.1; O2SAT 96
[2022-06-07] MEDS: Acetaminophen 325 MG TABLET 650 MG PO (20:23)
[2022-06-08] MEDS: vancomycin HCL 125 MG CAPSULE 250 MG PO ×4 (01:06→18:35)
[2022-06-08] MEDS: Dextrose 5 % and 0.45 % NaCl 1,000 ML 100 ML IVCONT ×3 (01:06→20:35)
[2022-06-08 03:53] VITALS: BP 123/75; PULSE 79; RESP 18; TEMP 36.6; O2SAT 96
[2022-06-08] MEDS: Hydrocortisone Sod Succ/PF 100 MG VIAL IVPUSH ×3 (05:29→20:30)
[2022-06-08 06:31] LABS: MANUAL DIFF FLAG NO
[2022-06-08 06:35] LABS: Basophils Percent Auto 0.1 % (0-2); Hematocrit 34.6 % (37.0-47.0); Hemoglobin 11.1 g/dl (12.0-16.0); Imm Gran Abs Auto 0.09 X10*3/uL (0.00-0.03); Imm Gran Pct Auto 0.8 % (0.0-0.4); Lymphocytes Absolute Auto 0.9 X10*3/uL (1.2-4.9); Lymphocytes Percent Auto 7.9 % (20-40); Mean Corpuscular HGB Conc 32.1 g/dl (31.0-35.0); Mean Corpuscular Hemoglobin 28.5 pg (27.0-33.0); Mean Corpuscular Volume 88.7 fL (80.0-98.0); Mean Platelet Volume 8.5 fL (9.4-12.3); Monocytes Absolute Auto 0.6 X10*3/uL (0.1-1.2); Monocytes Percent Auto 5.8 % (2-11); Neutrophils Absolute Auto 9.3 x10*3/uL (2.0-8.3); Neutrophils Percent Auto 85.4 % (45-73); Platelet Count 504 X10*3/uL (160-400); Red Cell Distribution Width 13.1 % (11.0-16.0); White Blood Count 10.9 X10*3/uL (4.8-10.8)
[2022-06-08 07:07] LABS: Alanine Aminotransferase 13 U/L (0-31); Albumin Level 3.2 g/dL (3.5-5.0); Alkaline Phosphatase 47 U/L (39-117); Anion Gap 14 (12-20); Aspartate Amino Transferase 11 U/L (5-31); Bilirubin Direct < 0.2 mg/dL (0.0-0.5); Bilirubin Total 0.3 mg/dL (0.0-1.0); Blood Urea Nitrogen 8 mg/dL (9-16); Calcium 8.6 mg/dL (8.4-10.2); Carbon Dioxide 21 mmol/L (22-29); Chloride 107 mmol/L (96-108); Creatinine Clr Calc Pharmacy 75.3; Estimated Glomerular Filt Rate > 60; Glucose Fasting 154 mg/dL (60-99); Potassium 3.8 mmol/L (3.3-5.1); Sodium 138 mmol/L (135-145); Total Protein 5.8 g/dL (6.5-8.0)
[2022-06-08] MEDS: Mesalamine 400 MG CAP.DRTAB. 1600 MG PO ×3 (07:13→20:50)
[2022-06-08] MEDS: Famotidine/PF 20 MG/2 ML VIAL IVPUSH ×2 (07:13→20:30)
[2022-06-08] MEDS: Enoxaparin Sodium 40 MG/0.4 ML SYRINGE SUBCUT (07:13)
[2022-06-08] MEDS: 0.9 % Sodium Chloride Flush 3 ML SYRINGE IVFLUSH ×2 (07:19→16:23)
[2022-06-08] MEDS: Acetaminophen 325 MG TABLET 650 MG PO ×2 (07:21→20:35)
[2022-06-08 07:45] VITALS: BP 122/69; PULSE 78; RESP 17; TEMP 36.3; O2SAT 95
--- NOTE | 2022-06-08 08:54 | P.PNIM_ITS ---
Subjective Subjective Date of Service: 06/08/22 Interval History: Seen in f/u for crohn's flare and colitis interval history: Still with abdominal discomfort and diarrhea, no fever Review of Systems no nausea or vomiting, +diarrhea abdominal pain Physical Exam Vital Signs: Vital Signs: Last Vital Signs Temp 97.3 F 06/08/22 07:45 Pulse 78 06/08/22 07:45 Resp 17 06/08/22 07:45 BP 122/69 06/08/22 07:45 Pulse Ox 95 06/08/22 07:45 O2 Del Method 06/08/22 07:45 BMI result Body Mass Index 24.3 Const: Other: General: AO X 3, no acute distress Resp: CTA bilateral CVS: S1,S2,RRR GI: mild abd tenderness, no peritoneal signs, no distention, no rebound Skin: No rash Neuro: motor grossly intact Psych: appropriate affect Objective Data Active Medications Acetaminophen (Acetaminophen 325 Mg Tablet) 650 mg PO Q6H PRN PRN Reason: Pain, Mild (Pain Scale 1-3) Last Admin: 06/08/22 07:21 Dose: 650 mg Documented By: MAURY Enoxaparin Sodium (Enoxaparin Sodium 40 Mg/0.4 Ml Syringe) 40 mg SUBCUT DAILY [facility] Last Admin: 06/08/22 07:13 Dose: 40 mg Documented By: MAURY Famotidine (Famotidine/Pf 20 Mg/2 Ml Vial) 20 mg IVPUSH BID [facility] Last Admin: 06/08/22 07:13 Dose: 20 mg Documented By: MAURY Hydrocortisone Sodium Succinate (Hydrocortisone Sod Succ/Pf 100 Mg Vial) 100 mg IVPUSH Q8H [facility] Last Admin: 06/08/22 05:29 Dose: 100 mg Documented By: ERIN Dextrose/Sodium Chloride (D51/2ns) 1,000 mls @ 100 mls/hr IVCONT .Q10H [facility] Last Admin: 06/08/22 01:06 Dose: 100 mls/hr Documented By: ERIN Melatonin (Melatonin 3 Mg Tablet) 6 mg PO BEDTIME PRN PRN Reason: Insomnia Mesalamine (Mesalamine 400 Mg Cap.Drtab.) 1,600 mg PO TID [facility] Last Admin: 06/08/22 07:13 Dose: 1,600 mg Documented By: MAURY Morphine Sulfate (Morphine Sulfate 4 Mg/Ml Cartridge) 2 mg IVPUSH Q4H PRN; P rotocol PRN Reason: Pain, Severe (Pain Scale 7-10) Last Admin: 06/07/22 10:10 Dose: 2 mg Documented By: ANGIE Non-Formulary Medication (Mesalamine) 4 tab PO DAILY [facility] Ondansetron HCl (Ondansetron Hcl 4 Mg/2 Ml Vial) 4 mg IVPUSH Q8H PRN PRN Reason: Nausea and Vomiting Last Admin: 06/07/22 20:23 Dose: 4 mg Documented By: ERIN Pharmacy Consult (Consult Rx Perform Med Rec) 1 each MISCELLANE ONCE PRN PRN Reason: Consult order Sodium Chloride (0.9 % Sodium Chloride Flush 3 Ml Syringe) 3 ml IVFLUSH QSHIFT [facility] Last Admin: 06/08/22 07:19 Dose: 3 ml Documented By: MAURY Vancomycin HCl (Vancomycin Hcl 125 Mg Capsule) 250 mg PO Q6H [facility] Last Admin: 06/08/22 07:13 Dose: 250 mg Documented By: MAURY Labs CBC & Chem 7: 06/08/22 05:34 06/08/22 05:34 Labs: Laboratory Results - last 24 hr 06/06/22 06/06/22 06/07/22 10:21 10:21 09:01 MCV MCH MCHC RDW Plt Count MPV Immature Gran % (Auto) Neut % (Auto) Lymph % (Auto) [place] % (Auto) Eos % (Auto) Baso % (Auto) Lymph # (Auto) [place] # (Auto) Eos # (Auto) Baso # (Auto) Abs Immat Gran (auto) Absolute Neuts (auto) Absolute Nucleated RBC Nucleated RBC % (auto) ESR 63 H Anion Gap Estim Creat Clear Calc Estimated GFR Fasting Glucose Calcium Total Bilirubin 0.4 Direct Bilirubin 0.2 AST 17 ALT 19 Alkaline Phosphatase 64 C-Reactive Protein 7.90 H Total Protein 6.7 Albumin 3.7 Stl C. cayetanensis PCR Stool Rotavirus A PCR Stl Adenov F 40/41 PCR Stool Astrovirus (PCR) Stool Campylobacter PCR Stool Cryptosporidium PCR Stl Sh Tox Pr E STEC PCR Stool E coli O157 PCR Stl Enterotoxigenic E PCR Stool EPEC (PCR) Stool EAEC (PCR) Stl E. histolytica PCR Stool Giardia Lamblia PCR Stl P. shigelloides PCR Stool Salmonella PCR Stool Sapovirus (PCR) Stl Shigella/EIEC PCR St Y.enterocolitica PCR Stool Vibrio (PCR) Stl Vibrio cholerae PCR Stl Norovirus GI/GII PCR C. difficile Tox B Gene POSITIVE A* C. difficile Toxin A&B Negative C. difficile Interpret SEE NOTE 06/07/22 06/08/22 06/08/22 09:01 05:34 05:34 MCV 88.7 MCH 28.5 MCHC 32.1 RDW 13.1 Plt Count 504 H MPV 8.5 L Immature Gran % (Auto) 0.8 H Neut % (Auto) 85.4 H Lymph % (Auto) 7.9 L [place] % (Auto) 5.8 Eos % (Auto) 0.0 Baso % (Auto) 0.1 Lymph # (Auto) 0.9 L [place] # (Auto) 0.6 Eos # (Auto) 0.0 Baso # (Auto) 0.0 Abs Immat Gran (auto) 0.09 H Absolute Neuts (auto) 9.3 H Absolute Nucleated RBC 0.000 Nucleated RBC % (auto) 0.0 ESR Anion Gap 14 Estim Creat Clear Calc 75.3 Estimated GFR > 60 Fasting Glucose 154 H Calcium 8.6 Total Bilirubin 0.3 Direct Bilirubin < 0.2 AST 11 ALT 13 Alkaline Phosphatase 47 C-Reactive Protein Total Protein 5.8 L Albumin 3.2 L Stl C. cayetanensis PCR Not Detected Stool Rotavirus A PCR Not Detected Stl Adenov F 40/41 PCR Not Detected Stool Astrovirus (PCR) Not Detected Stool Campylobacter PCR Not Detected Stool Cryptosporidium PCR Not Detected Stl Sh Tox Pr E STEC PCR Not Detected Stool E coli O157 PCR Not applicable Stl Enterotoxigenic E PCR Not Detected Stool EPEC (PCR) Not Detected Stool EAEC (PCR) Not Detected Stl E. histolytica PCR Not Detected Stool Giardia Lamblia PCR Not Detected Stl P. shigelloides PCR Not Detected Stool Salmonella PCR Not Detected Stool Sapovirus (PCR) Not Detected Stl Shigella/EIEC PCR Not Detected St Y.enterocolitica PCR Not Detected Stool Vibrio (PCR) Not Detected Stl Vibrio cholerae PCR Not Detected Stl Norovirus GI/GII PCR Not Detected C. difficile Tox B Gene C. difficile Toxin A&B C. difficile Interpret Microbiology Microbiology Results: Microbiology 06/06/22 14:57 Blood Culture - Preliminary Blood - Venous No growth after 24 hours. 06/06/22 13:42 Blood Culture - Preliminary Blood - Venous No growth after 24 hours. 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 Stearns) input noted -IVF -IV morphine for pain -advance diet slowly -resume mesalamine DVT--Lovenox Full code Admission to [facility] 2 midnight for treatment of colitis with IV Abx and hydration for diarrhea Time Spent With Patient Time: Total time managing care of this patient today ____ minutes. Quality Stroke Does the patient have a stroke diagnosis?: No VTE Prior VTE?: No VTE Risk Level:: Medical - moderate - high VTE Device Contraindication: Treatment Not Indicated VTE Drug Contraindication: N/A - Med Ordered
[2022-06-08] MEDS: ondansetron HCL 4 MG/2 ML VIAL IVPUSH (10:35)
--- NOTE | 2022-06-08 15:21 | P.PNGI_ITS ---
Subjective Subjective Date of Service: 06/08/22 Interval History: Still having watery diarrhea-brown, no blood; still c/o intermittent left-sided pain and cramps; denies vomiting; reports nausea is better; somewhat hungry. Afebrile Critical Care Time (minutes): 0 Physical Exam Vital Signs: Vital Signs: Last Vital Signs Temp 97.3 F 06/08/22 07:45 Pulse 78 06/08/22 07:45 Resp 17 06/08/22 07:45 BP 122/69 06/08/22 07:45 Pulse Ox 95 06/08/22 07:45 O2 Del Method 06/08/22 07:45 BMI result Body Mass Index 24.3 Const: General: cooperative, healthy appearing, comfortable, no acute distress, well developed, alert and Cushingoid facies GI: Other: Abd-soft, +BS, nondistended, + tenderness along left abdominal side; no mass/rebound/guarding Objective Data Labs CBC & Chem 7: 06/08/22 05:34 06/08/22 05:34 Labs: Laboratory Results - last 24 hr 06/06/22 06/06/22 06/08/22 10:21 10:21 05:34 WBC 10.9 H RBC 3.90 L Hgb 11.1 L Hct 34.6 L MCV 88.7 MCH 28.5 MCHC 32.1 RDW 13.1 Plt Count 504 H MPV 8.5 L Immature Gran % (Auto) 0.8 H Neut % (Auto) 85.4 H Lymph % (Auto) 7.9 L [place] % (Auto) 5.8 Eos % (Auto) 0.0 Baso % (Auto) 0.1 Lymph # (Auto) 0.9 L [place] # (Auto) 0.6 Eos # (Auto) 0.0 Baso # (Auto) 0.0 Abs Immat Gran (auto) 0.09 H Absolute Neuts (auto) 9.3 H Absolute Nucleated RBC 0.000 Nucleated RBC % (auto) 0.0 ESR 63 H Sodium Potassium Chloride Carbon Dioxide Anion Gap BUN Creatinine Estim Creat Clear Calc Estimated GFR Fasting Glucose Calcium Total Bilirubin 0.4 Direct Bilirubin 0.2 AST 17 ALT 19 Alkaline Phosphatase 64 C-Reactive Protein 7.90 H Total Protein 6.7 Albumin 3.7 06/08/22 05:34 WBC RBC Hgb Hct MCV MCH MCHC RDW Plt Count MPV Immature Gran % (Auto) Neut % (Auto) Lymph % (Auto) [place] % (Auto) Eos % (Auto) Baso % (Auto) Lymph # (Auto) [place] # (Auto) Eos # (Auto) Baso # (Auto) Abs Immat Gran (auto) Absolute Neuts (auto) Absolute Nucleated RBC Nucleated RBC % (auto) ESR Sodium 138 Potassium 3.8 Chloride 107 Carbon Dioxide 21 L Anion Gap 14 BUN 8 L Creatinine 0.73 Estim Creat Clear Calc 75.3 Estimated GFR > 60 Fasting Glucose 154 H Calcium 8.6 Total Bilirubin 0.3 Direct Bilirubin < 0.2 AST 11 ALT 13 Alkaline Phosphatase 47 C-Reactive Protein Total Protein 5.8 L Albumin 3.2 L Microbiology Microbiology Results: Microbiology 06/06/22 14:57 Blood - Venous Blood Culture - Preliminary No growth after 24 hours. 06/06/22 13:42 Blood - Venous Blood Culture - Preliminary No growth after 24 hours. Procedures Date of Service Date of Service: 06/08/22 Progress Note: A&P Assessment and plan (1) C. difficile colitis: Status: Acute Assessment and Plan: As below (2) Crohn's colitis: Status: Acute Assessment and Plan: Imp: Overall stable, but no real clinical improvement re: pain and diarrhea. I suspect this is related to both the underlying Crohn's and the C.diff. Her abdominal exam is not worrisome at the present time. Rec: Continue current meds with high dose IV steroids, po mesalamine, and the po Vanco. I do not want to give her any antidiarrheal agents given the underlying Crohn's and the C.diff. Will try to advance her diet along with supplements to see how she does with that. Continue Zofran and Pepcid for nausea. F/U labs. D/W patient in detail and she is comfortable with the plan. Thanks Time Spent With Patient Time: Total time managing care of this patient today ____ minutes. Quality Stroke Does the patient have a stroke diagnosis?: No VTE Prior VTE?: No VTE Risk Level:: Medical - moderate - high VTE Device Contraindication: Treatment Not Indicated VTE Drug Contraindication: N/A - Med Ordered
[2022-06-08 15:22] VITALS: BP 145/84; PULSE 81; RESP 18; TEMP 36.2; O2SAT 96
[2022-06-08 19:28] VITALS: BP 140/81; PULSE 80; RESP 18; TEMP 36.9; O2SAT 96
[2022-06-09] MEDS: vancomycin HCL 125 MG CAPSULE 250 MG PO ×4 (00:10→18:05)
[2022-06-09 03:42] VITALS: BP 141/80; PULSE 92; RESP 18; TEMP 36.1; O2SAT 96
[2022-06-09] MEDS: Dextrose 5 % and 0.45 % NaCl 1,000 ML 100 ML IVCONT ×2 (05:11→17:50)
[2022-06-09] MEDS: Hydrocortisone Sod Succ/PF 100 MG VIAL IVPUSH ×3 (05:11→20:01)
[2022-06-09 05:41] LABS: MANUAL DIFF FLAG NO
[2022-06-09 05:46] LABS: Basophils Percent Auto 0.1 % (0-2); Hematocrit 32.7 % (37.0-47.0); Hemoglobin 10.6 g/dl (12.0-16.0); Imm Gran Abs Auto 0.04 X10*3/uL (0.00-0.03); Imm Gran Pct Auto 0.6 % (0.0-0.4); Lymphocytes Absolute Auto 0.9 X10*3/uL (1.2-4.9); Lymphocytes Percent Auto 13.8 % (20-40); Mean Corpuscular HGB Conc 32.4 g/dl (31.0-35.0); Mean Corpuscular Hemoglobin 28.2 pg (27.0-33.0); Mean Platelet Volume 8.4 fL (9.4-12.3); Monocytes Absolute Auto 0.5 X10*3/uL (0.1-1.2); Neutrophils Absolute Auto 5.3 x10*3/uL (2.0-8.3); Neutrophils Percent Auto 78.5 % (45-73); Platelet Count 449 X10*3/uL (160-400); Red Blood Count 3.76 X10*6/uL (4.20-5.50); Red Cell Distribution Width 13.1 % (11.0-16.0); White Blood Count 6.8 X10*3/uL (4.8-10.8)
[2022-06-09 06:09] LABS: Anion Gap 14 (12-20); Blood Urea Nitrogen 8 mg/dL (9-16); Calcium 8.5 mg/dL (8.4-10.2); Carbon Dioxide 22 mmol/L (22-29); Chloride 107 mmol/L (96-108); Creatinine Clr Calc Pharmacy 79.7; Estimated Glomerular Filt Rate > 60; Glucose Fasting 139 mg/dL (60-99); Iron 63 mcg/dL (30-160); Percent Iron Saturation 27 % (15-50); Potassium 3.6 mmol/L (3.3-5.1); Sodium 139 mmol/L (135-145); Total Iron Binding Capacity 235 mcg/dL (228-428); Unsaturated Iron Binding 172 ug/dL
[2022-06-09 06:29] LABS: Ferritin 160 ng/mL (10-250)
[2022-06-09 06:38] LABS: Vitamin B12 666 pg/mL (200-900)
[2022-06-09] MEDS: Enoxaparin Sodium 40 MG/0.4 ML SYRINGE SUBCUT (07:02)
[2022-06-09] MEDS: Acetaminophen 325 MG TABLET 650 MG PO (07:03)
[2022-06-09] MEDS: Famotidine/PF 20 MG/2 ML VIAL IVPUSH ×2 (07:03→20:01)
[2022-06-09] MEDS: Mesalamine 400 MG CAP.DRTAB. 1600 MG PO ×2 (07:03→14:51)
[2022-06-09] MEDS: 0.9 % Sodium Chloride Flush 3 ML SYRINGE IVFLUSH ×2 (07:05→20:02)
[2022-06-09 08:07] VITALS: BP 135/80; PULSE 69; RESP 18; TEMP 36.1; O2SAT 95
--- NOTE | 2022-06-09 08:56 | P.PNIM_ITS ---
Subjective Subjective Date of Service: 06/09/22 Interval History: Seen in f/u for crohn's flare and colitis interval history: Abdominal pain, persistent diarrhea up to 10 yesterday. Tole rating present diet Review of Systems no nausea or vomiting, +diarrhea abdominal pain Physical Exam Vital Signs: Vital Signs: Last Vital Signs Temp 97.0 F 06/09/22 08:07 Pulse 69 06/09/22 08:07 Resp 18 06/09/22 08:07 BP 135/80 06/09/22 08:07 Pulse Ox 95 06/09/22 08:07 O2 Del Method 06/09/22 08:07 BMI result Body Mass Index 24.3 Const: Other: General: AO X 3, no acute distress Resp: CTA bilateral CVS: S1,S2,RRR GI: mild abd tenderness, no peritoneal signs, no distention, no rebound Skin: No rash Neuro: motor grossly intact Psych: appropriate affect Objective Data Active Medications Acetaminophen (Acetaminophen 325 Mg Tablet) 650 mg PO Q6H PRN PRN Reason: Pain, Mild (Pain Scale 1-3) Last Admin: 06/09/22 07:03 Dose: 650 mg Documented By: MAURY Enoxaparin Sodium (Enoxaparin Sodium 40 Mg/0.4 Ml Syringe) 40 mg SUBCUT DAILY [facility] Last Admin: 06/09/22 07:02 Dose: 40 mg Documented By: MAURY Famotidine (Famotidine/Pf 20 Mg/2 Ml Vial) 20 mg IVPUSH BID [facility] Last Admin: 06/09/22 07:03 Dose: 20 mg Documented By: MAURY Hydrocortisone Sodium Succinate (Hydrocortisone Sod Succ/Pf 100 Mg Vial) 100 mg IVPUSH Q8H [facility] Last Admin: 06/09/22 05:11 Dose: 100 mg Documented By: ERIN Dextrose/Sodium Chloride (D51/2ns) 1,000 mls @ 100 mls/hr IVCONT .Q10H [facility] Last Admin: 06/09/22 05:11 Dose: 100 mls/hr Documented By: ERIN Melatonin (Melatonin 3 Mg Tablet) 6 mg PO BEDTIME PRN PRN Reason: Insomnia Mesalamine (Mesalamine 400 Mg Cap.Drtab.) 1,600 mg PO TID [facility] Last Admin: 06/09/22 07:03 Dose: 1,600 mg Documented By: MAURY Morphine Sulfate (Morphine Sulfate 4 Mg/Ml Cartridge) 2 mg IVPUSH Q4H PRN; Protocol PRN Reason: Pain, Severe (Pain Scale 7-10) Last Admin: 06/07/22 10:10 Dose: 2 mg Documented By: ANGIE Non-Formulary Medication (Mesalamine) 4 tab PO DAILY [facility] Ondansetron HCl (Ondansetron Hcl 4 Mg/2 Ml Vial) 4 mg IVPUSH Q8H PRN PRN Reason: Nausea and Vomiting Last Admin: 06/08/22 10:35 Dose: 4 mg Documented By: MAURY Pharmacy Consult (Consult Rx Perform Med Rec) 1 each MISCELLANE ONCE PRN PRN Reason: Consult order Sodium Chloride (0.9 % Sodium Chloride Flush 3 Ml Syringe) 3 ml IVFLUSH QSHIFT [facility] Last Admin: 06/09/22 07:05 Dose: 3 ml Documented By: MAURY Vancomycin HCl (Vancomycin Hcl 125 Mg Capsule) 250 mg PO Q6H [facility] Last Admin: 06/09/22 07:03 Dose: 250 mg Documented By: MAURY Labs CBC & Chem 7: 06/09/22 05:10 06/09/22 05:10 Labs: Laboratory Results - last 24 hr 06/09/22 06/09/22 06/09/22 05:10 05:10 05:10 MCV 87.0 MCH 28.2 MCHC 32.4 RDW 13.1 Plt Count 449 H MPV 8.4 L Immature Gran % (Auto) 0.6 H Neut % (Auto) 78.5 H Lymph % (Auto) 13.8 L [place] % (Auto) 7.0 Eos % (Auto) 0.0 Baso % (Auto) 0.1 Lymph # (Auto) 0.9 L [place] # (Auto) 0.5 Eos # (Auto) 0.0 Baso # (Auto) 0.0 Abs Immat Gran (auto) 0.04 H Absolute Neuts (auto) 5.3 Absolute Nucleated RBC 0.000 Nucleated RBC % (auto) 0.0 Anion Gap 14 Estim Creat Clear Calc 79.7 Estimated GFR > 60 Fasting Glucose 139 H Calcium 8.5 Iron 63 TIBC 235 % Saturation 27 Unsat Iron Binding 172 Ferritin 160 Vitamin B12 666 Microbiology Microbiology Results: Microbiology 06/06/22 14:57 Blood Culture - Preliminary Blood - Venous No growth after 48 hours. 06/06/22 13:42 Blood Culture - Preliminary Blood - Venous No growth after 48 hours. Assessment and Plan (1) Crohn's colitis: Status: Acute Plan 56/F with #Croh's colitis/flare-- #Sepsis --resolved #C-dif associated diarrhea -continue orall Vanco for C dif -IV solucortef -GI (Dr. Stearns) input noted -IVF -IV morphine for pain -advance diet slowly -PO mesalamine -Zofran for nausea or vomitting DVT--Lovenox Full code Need for inpatient: crohon's colitis, c dif with profuse diarrhea, being treated with IV steroid, IVF Time Spent With Patient Time: Total time managing care of this patient today ____ minutes. Quality Stroke Does the patient have a stroke diagnosis?: No VTE Prior VTE?: No VTE Risk Level:: Medical - moderate - high VTE Device Contraindication: Treatment Not Indicated VTE Drug Contraindication: N/A - Med Ordered
[2022-06-09 15:23] VITALS: BP 173/88; PULSE 83; RESP 18; TEMP 36; O2SAT 98
--- NOTE | 2022-06-09 18:05 | P.PNGI_ITS ---
Subjective Subjective Date of Service: 06/09/22 Interval History: She c/o increased BM frequency and abdominal discomfort with cramps since starting food. The BM's remain watery and without bleeding. Denies vomiting. She has been afebrile. Critical Care Time (minutes): 0 Physical Exam Vital Signs: Vital Signs: Last Vital Signs Temp 96.8 F 06/09/22 15:23 Pulse 83 06/09/22 15:23 Resp 18 06/09/22 15:23 BP 173/88 H 06/09/22 15:23 Pulse Ox 98 06/09/22 15:23 O2 Del Method 06/09/22 15:23 BMI result Body Mass Index 24.3 Const: General: cooperative, comfortable, no acute distress, well developed, alert, awake, Physically active and Cushingoid facies GI: Other: Abd-Soft, +BS in all 4 quadrants, Nondistended, very mild diffuse tenderness but no mass/rebound/guarding Objective Data Labs CBC & Chem 7: 06/09/22 05:10 06/09/22 05:10 Labs: Laboratory Results - last 24 hr 06/09/22 06/09/22 06/09/22 05:10 05:10 05:10 WBC 6.8 RBC 3.76 L Hgb 10.6 L Hct 32.7 L MCV 87.0 MCH 28.2 MCHC 32.4 RDW 13.1 Plt Count 449 H MPV 8.4 L Immature Gran % (Auto) 0.6 H Neut % (Auto) 78.5 H Lymph % (Auto) 13.8 L [place] % (Auto) 7.0 Eos % (Auto) 0.0 Baso % (Auto) 0.1 Lymph # (Auto) 0.9 L [place] # (Auto) 0.5 Eos # (Auto) 0.0 Baso # (Auto) 0.0 Abs Immat Gran (auto) 0.04 H Absolute Neuts (auto) 5.3 Absolute Nucleated RBC 0.000 Nucleated RBC % (auto) 0.0 Sodium 139 Potassium 3.6 Chloride 107 Carbon Dioxide 22 Anion Gap 14 BUN 8 L Creatinine 0.69 Estim Creat Clear Calc 79.7 Estimated GFR > 60 Fasting Glucose 139 H Calcium 8.5 Iron 63 TIBC 235 % Saturation 27 Unsat Iron Binding 172 Ferritin 160 Vitamin B12 666 Microbiology Microbiology Results: Microbiology 06/06/22 14:57 Blood - Venous Blood Culture - Preliminary No growth after 48 hours. 06/06/22 13:42 Blood - Venous Blood Culture - Preliminary No growth after 48 hours. Procedures Date of Service Date of Service: 06/09/22 Progress Note: A&P Assessment and plan (1) C. difficile colitis: Status: Acute Assessment and Plan: As below (2) Crohn's colitis: Status: Acute Plan Imp: Her Crohn's symptoms remain very active and symptomatic, particularly after increasing her diet. Fortunately her abdominal exam remains basically benign. She remains on high dose IV steroids and received the 3rd Entyvio infusion just a few days ago. She is on mesalamine but clearly that isn't helping and I wonder if it might be contributing to some of the watery component of the BM's. She has been on Vanco for 48 hours regarding C.diff. Rec: Will D/C the mesalamine, but continue the other meds. Will cut back to full liquids and Ensure TID. I remain very hesitant to add any anti-diarrheal agents, antispasmodics, and/or cholestyramine due to the known severity of her Crohn's on the previous colonoscopy and recent CT with concerns of potentially precipitating an ileus or megacolon. Will check a F/U CRP in the AM. I don't think a repeat CT or colonoscopy at this point would be helpful. D/W patient in detail. She is comfortable with the current plan, albeit frustrated by the persistent symptoms. Thanks. Time Spent With Patient Time: Total time managing care of this patient today ____ minutes. Quality Stroke Does the patient have a stroke diagnosis?: No VTE Prior VTE?: No VTE Risk Level:: Medical - moderate - high VTE Device Contraindication: Treatment Not Indicated VTE Drug Contraindication: N/A - Med Ordered
[2022-06-09 19:23] VITALS: BP 141/88; PULSE 75; RESP 18; TEMP 36.1; O2SAT 96
[2022-06-10] MEDS: vancomycin HCL 125 MG CAPSULE 250 MG PO ×4 (01:05→18:04)
[2022-06-10] MEDS: Dextrose 5 % and 0.45 % NaCl 1,000 ML 100 ML IVCONT (03:13)
[2022-06-10 03:39] VITALS: BP 140/72; PULSE 66; RESP 14; TEMP 36; O2SAT 96
[2022-06-10] MEDS: Hydrocortisone Sod Succ/PF 100 MG VIAL IVPUSH ×3 (05:01→20:36)
[2022-06-10 05:51] LABS: MANUAL DIFF FLAG NO
[2022-06-10 05:54] LABS: Basophils Percent Auto 0.1 % (0-2); Hematocrit 31.2 % (37.0-47.0); Hemoglobin 10.1 g/dl (12.0-16.0); Imm Gran Abs Auto 0.06 X10*3/uL (0.00-0.03); Imm Gran Pct Auto 0.7 % (0.0-0.4); Lymphocytes Absolute Auto 1.4 X10*3/uL (1.2-4.9); Lymphocytes Percent Auto 16.1 % (20-40); Mean Corpuscular HGB Conc 32.4 g/dl (31.0-35.0); Mean Corpuscular Hemoglobin 28.5 pg (27.0-33.0); Mean Corpuscular Volume 88.1 fL (80.0-98.0); Mean Platelet Volume 8.5 fL (9.4-12.3); Monocytes Absolute Auto 0.7 X10*3/uL (0.1-1.2); Monocytes Percent Auto 7.7 % (2-11); Neutrophils Absolute Auto 6.5 x10*3/uL (2.0-8.3); Neutrophils Percent Auto 75.4 % (45-73); Platelet Count 446 X10*3/uL (160-400); Red Blood Count 3.54 X10*6/uL (4.20-5.50); Red Cell Distribution Width 12.9 % (11.0-16.0); White Blood Count 8.7 X10*3/uL (4.8-10.8)
[2022-06-10 06:16] LABS: Anion Gap 11 (12-20); Blood Urea Nitrogen 7 mg/dL (9-16); C Reactive Protein 1.28 mg/dL (< or = 0.50); Calcium 8.5 mg/dL (8.4-10.2); Carbon Dioxide 24 mmol/L (22-29); Chloride 106 mmol/L (96-108); Creatinine Clr Calc Pharmacy 88.7; Estimated Glomerular Filt Rate > 60; Glucose Fasting 131 mg/dL (60-99); Sodium 138 mmol/L (135-145)
[2022-06-10 07:35] VITALS: BP 151/78; PULSE 65; RESP 16; TEMP 36.5; O2SAT 95
[2022-06-10] MEDS: Famotidine/PF 20 MG/2 ML VIAL IVPUSH ×2 (08:00→20:36)
[2022-06-10] MEDS: Enoxaparin Sodium 40 MG/0.4 ML SYRINGE SUBCUT (08:01)
--- NOTE | 2022-06-10 11:26 | HO.PM.IMPN ---
Subjective Subjective Date of Service: 06/10/22 Interval History: Seen in f/u for crohn's flare and colitis interval history: Overall better, still with diarrhea, 4 before 8 this morning Review of Systems no nausea or vomiting, +diarrhea abdominal pain Physical Exam Vital Signs: Vital Signs: Last Vital Signs Temp 97.7 F 06/10/22 07:35 Pulse 65 06/10/22 07:35 Resp 16 06/10/22 07:35 BP 151/78 H 06/10/22 07:35 Pulse Ox 95 06/10/22 07:35 O2 Del Method 06/10/22 07:35 BMI result Body Mass Index 24.3 Const: Other: General: AO X 3, no acute distress Resp: CTA bilateral CVS: S1,S2,RRR GI: mild abd tenderness, no peritoneal signs, no distention, no rebound Skin: No rash Neuro: motor grossly intact Psych: appropriate affect Objective Data Active Medications Acetaminophen (Acetaminophen 325 Mg Tablet) 650 mg PO Q6H PRN PRN Reason: Pain, Mild (Pain Scale 1-3) Last Admin: 06/09/22 07:03 Dose: 650 mg Documented By: MAURY Enoxaparin Sodium (Enoxaparin Sodium 40 Mg/0.4 Ml Syringe) 40 mg SUBCUT DAILY [facility] Last Admin: 06/10/22 08:01 Dose: 40 mg Documented By: TESSY Famotidine (Famotidine/Pf 20 Mg/2 Ml Vial) 20 mg IVPUSH BID [facility] Last Admin: 06/10/22 08:00 Dose: 20 mg Documented By: TESSY Hydrocortisone Sodium Succinate (Hydrocortisone Sod Succ/Pf 100 Mg Vial) 100 mg IVPUSH Q8H [facility] Last Admin: 06/10/22 05:01 Dose: 100 mg Documented By: PHILLIP Melatonin (Melatonin 3 Mg Tablet) 6 mg PO BEDTIME PRN PRN Reason: Insomnia Morphine Sulfate (Morphine Sulfate 4 Mg/Ml Cartridge) 2 mg IVPUSH Q4H PRN; Protocol PRN Reason: Pain, Severe (Pain Scale 7-10) Last Admin: 06/07/22 10:10 Dose: 2 mg Documented By: ANGIE Ondansetron HCl (Ondansetron Hcl 4 Mg/2 Ml Vial) 4 mg IVPUSH Q8H PRN PRN Reason: Nausea and Vomiting Last Admin: 06/08/22 10:35 Dose: 4 mg Documented By: MAURY Pharmacy Consult (Consult Rx Perform Med Rec) 1 each MISCELLANE ONCE PRN PRN Reason: Consult order Sodium Chloride (0.9 % Sodium Chloride Flush 3 Ml Syringe) 3 ml IVFLUSH QSHIFT [facility] Last Admin: 06/10/22 08:00 Dose: Not Given Documented By: TESSY Non-Admin Reason: IV Running Vancomycin HCl (Vancomycin Hcl 125 Mg Capsule) 250 mg PO Q6H [facility] Last Admin: 06/10/22 06:32 Dose: 250 mg Documented By: PHILLIP Labs CBC & Chem 7: 06/10/22 05:18 06/10/22 05:18 Labs: Laboratory Results - last 24 hr 06/10/22 06/10/22 05:18 05:18 MCV 88.1 MCH 28.5 MCHC 32.4 RDW 12.9 Plt Count 446 H MPV 8.5 L Immature Gran % (Auto) 0.7 H Neut % (Auto) 75.4 H Lymph % (Auto) 16.1 L [place] % (Auto) 7.7 Eos % (Auto) 0.0 Baso % (Auto) 0.1 Lymph # (Auto) 1.4 [place] # (Auto) 0.7 Eos # (Auto) 0.0 Baso # (Auto) 0.0 Abs Immat Gran (auto) 0.06 H Absolute Neuts (auto) 6.5 Absolute Nucleated RBC 0.000 Nucleated RBC % (auto) 0.0 Anion Gap 11 L Estim Creat Clear Calc 88.7 Estimated GFR > 60 Fasting Glucose 131 H Calcium 8.5 C-Reactive Protein 1.28 H Assessment and Plan (1) Crohn's colitis: Status: Acute Plan 56/F with #Croh's colitis/flare- #Sepsis --resolved #C-dif associated diarrhea -continue orall Vanco for C dif -IV solucortef -GI (Dr. Stearns) input noted -IVF -IV morphine for pain -advance diet as tolerated -PO mesalamine stopped -Zofran for nausea or vomitting DVT--Lovenox Full code Need for inpatient: crohon's colitis, c dif with profuse diarrhea, being treated with IV steroid, IVF Time Spent With Patient Time: Total time managing care of this patient today ____ minutes. Quality Stroke Does the patient have a stroke diagnosis?: No VTE Prior VTE?: No VTE Risk Level:: Medical - moderate - high VTE Device Contraindication: Treatment Not Indicated VTE Drug Contraindication: N/A - Med Ordered
--- NOTE | 2022-06-10 13:14 | MHC.CM.PN ---
PER MD ROUNDS, PT NOT READY TO DC DCP REMAINS HOME WITH NO SERVICES PT WILL ARRANGE TRANSPORT
[2022-06-10] MEDS: guaiFENesin 100 MG/5 ML LIQUID PO ×2 (13:35→20:36)
[2022-06-10 15:29] VITALS: BP 162/80; PULSE 58; RESP 18; TEMP 36.3; O2SAT 98
--- NOTE | 2022-06-10 19:05 | P.PNGI_ITS ---
Subjective Subjective Date of Service: 06/10/22 Interval History: Patient's is present. Patient reports feeling significantly better today with much less abdominal cramps and decreased number of loose BM's. Denies bleeding. She has been afebrile. She would like to try some food again. Critical Care Time (minutes): 0 Physical Exam Vital Signs: Vital Signs: Last Vital Signs Temp 97.3 F 06/10/22 15:29 Pulse 58 06/10/22 15:29 Resp 18 06/10/22 15:29 BP 162/80 H 06/10/22 15:29 Pulse Ox 98 06/10/22 15:29 O2 Del Method 06/10/22 15:29 BMI result Body Mass Index 24.3 Const: General: cooperative, healthy appearing, comfortable, no acute distress, well developed, alert and awake GI: Other: Abd-Soft, +BS, NT, Nondistended, No mass/rebound/guarding Objective Data Labs CBC & Chem 7: 06/10/22 05:18 06/10/22 05:18 Labs: Laboratory Results - last 24 hr 06/10/22 06/10/22 05:18 05:18 WBC 8.7 RBC 3.54 L Hgb 10.1 L Hct 31.2 L MCV 88.1 MCH 28.5 MCHC 32.4 RDW 12.9 Plt Count 446 H MPV 8.5 L Immature Gran % (Auto) 0.7 H Neut % (Auto) 75.4 H Lymph % (Auto) 16.1 L [place] % (Auto) 7.7 Eos % (Auto) 0.0 Baso % (Auto) 0.1 Lymph # (Auto) 1.4 [place] # (Auto) 0.7 Eos # (Auto) 0.0 Baso # (Auto) 0.0 Abs Immat Gran (auto) 0.06 H Absolute Neuts (auto) 6.5 Absolute Nucleated RBC 0.000 Nucleated RBC % (auto) 0.0 Sodium 138 Potassium 3.0 L Chloride 106 Carbon Dioxide 24 Anion Gap 11 L BUN 7 L Creatinine 0.62 Estim Creat Clear Calc 88.7 Estimated GFR > 60 Fasting Glucose 131 H Calcium 8.5 C-Reactive Protein 1.28 H Microbiology Microbiology Results: Microbiology 06/06/22 14:57 Blood - Venous Blood Culture - Preliminary No growth after 48 hours. 06/06/22 13:42 Blood - Venous Blood Culture - Preliminary No growth after 48 hours. Procedures Date of Service Date of Service: 06/10/22 Progress Note: A&P Assessment and plan (1) C. difficile colitis: Status: Acute Assessment and Plan: As below (2) Crohn's colitis: Status: Acute Assessment and Plan: Imp: She seems much better symptomatically, along with having a decreased CRP and platelet count. Hopefully the combination of the IV steroids, Entyvio, bowel rest, treatment of C.diff, and stopping the mesalamine are all playing a role. Her abdominal exam remains very benign. Rec: Continue current meds. Will try to advance diet again for tomorrow morning. F/U labs. If things remain stable will then hopefully change her over to po steroids in the next 48 to 72 hours so she can be discharged. However, as I told her and her , we will need to take it slow . They were comfortable with this plan. Thanks Time Spent With Patient Time: Total time managing care of this patient today ____ minutes. Quality Stroke Does the patient have a stroke diagnosis?: No VTE Prior VTE?: No VTE Risk Level:: Medical - moderate - high VTE Device Contraindication: Treatment Not Indicated VTE Drug Contraindication: N/A - Med Ordered
[2022-06-10 19:12] VITALS: BP 148/80; PULSE 53; RESP 16; TEMP 36.3; O2SAT 97
[2022-06-10] MEDS: 0.9 % Sodium Chloride Flush 3 ML SYRINGE IVFLUSH (20:36)
[2022-06-11] MEDS: vancomycin HCL 125 MG CAPSULE 250 MG PO ×4 (00:43→18:01)
[2022-06-11 03:53] VITALS: BP 125/64; PULSE 56; RESP 16; TEMP 36.4; O2SAT 96
[2022-06-11] MEDS: Hydrocortisone Sod Succ/PF 100 MG VIAL IVPUSH ×3 (05:05→20:01)
[2022-06-11 05:58] LABS: MANUAL DIFF FLAG NO
[2022-06-11 06:14] LABS: Hematocrit 31.6 % (37.0-47.0); Hemoglobin 10.5 g/dl (12.0-16.0); Imm Gran Abs Auto 0.07 X10*3/uL (0.00-0.03); Imm Gran Pct Auto 0.9 % (0.0-0.4); Lymphocytes Absolute Auto 1.2 X10*3/uL (1.2-4.9); Lymphocytes Percent Auto 16.2 % (20-40); Mean Corpuscular HGB Conc 33.2 g/dl (31.0-35.0); Mean Corpuscular Hemoglobin 28.8 pg (27.0-33.0); Mean Corpuscular Volume 86.6 fL (80.0-98.0); Mean Platelet Volume 8.6 fL (9.4-12.3); Monocytes Absolute Auto 0.6 X10*3/uL (0.1-1.2); Monocytes Percent Auto 7.9 % (2-11); Neutrophils Absolute Auto 5.7 x10*3/uL (2.0-8.3); Platelet Count 441 X10*3/uL (160-400); Red Blood Count 3.65 X10*6/uL (4.20-5.50); Red Cell Distribution Width 12.7 % (11.0-16.0); White Blood Count 7.6 X10*3/uL (4.8-10.8)
[2022-06-11 07:38] VITALS: BP 123/70; PULSE 87; RESP 17; TEMP 36.4; O2SAT 96
[2022-06-11] MEDS: guaiFENesin 100 MG/5 ML LIQUID PO (08:07)
[2022-06-11] MEDS: Enoxaparin Sodium 40 MG/0.4 ML SYRINGE SUBCUT (08:08)
[2022-06-11] MEDS: Famotidine/PF 20 MG/2 ML VIAL IVPUSH ×2 (08:08→20:01)
[2022-06-11] MEDS: 0.9 % Sodium Chloride Flush 3 ML SYRINGE IVFLUSH ×3 (08:08→20:01)
[2022-06-11] MEDS: Acetaminophen 325 MG TABLET 650 MG PO (08:08)
[2022-06-11 08:40] LABS: Potassium 2.9 mmol/L (3.3-5.1)
--- NOTE | 2022-06-11 10:31 | P.PNIM_ITS ---
Subjective Subjective Date of Service: 06/11/22 Interval History: crohn's flare and colitis Review of Systems no nausea or vomiting, +diarrhea abdominal pain Physical Exam Vital Signs: Vital Signs: Last Vital Signs Temp 97.6 F 06/11/22 07:38 Pulse 87 06/11/22 07:38 Resp 17 06/11/22 07:38 BP 123/70 06/11/22 07:38 Pulse Ox 96 06/11/22 07:38 O2 Del Method 06/11/22 07:38 BMI result Body Mass Index 24.3 General: AO X 3, no acute distress Resp:? CTA bilateral CVS: S1,S2,RRR GI: mild abd tenderness, no peritoneal signs, no distention, no rebound Skin: No rash Neuro:? motor grossly intact Psych: appropriate affect Objective Data Active Medications Acetaminophen (Acetaminophen 325 Mg Tablet) 650 mg PO Q6H PRN PRN Reason: Pain, Mild (Pain Scale 1-3) Last Admin: 06/11/22 08:08 Dose: 650 mg Documented By: GABBY Enoxaparin Sodium (Enoxaparin Sodium 40 Mg/0.4 Ml Syringe) 40 mg SUBCUT DAILY [facility] Last Admin: 06/11/22 08:08 Dose: 40 mg Documented By: GABBY Famotidine (Famotidine/Pf 20 Mg/2 Ml Vial) 20 mg IVPUSH BID [facility] Last Admin: 06/11/22 08:08 Dose: 20 mg Documented By: GABBY Guaifenesin (Guaifenesin 100 Mg/5 Ml Liquid) 5 ml PO Q4H PRN PRN Reason: Cough Last Admin: 06/11/22 08:07 Dose: 5 ml Documented By: GABBY Hydrocortisone Sodium Succinate (Hydrocortisone Sod Succ/Pf 100 Mg Vial) 100 mg IVPUSH Q8H [facility] Last Admin: 06/11/22 05:05 Dose: 100 mg Documented By: CASTILM Melatonin (Melatonin 3 Mg Tablet) 6 mg PO BEDTIME PRN PRN Reason: Insomnia Morphine Sulfate (Morphine Sulfate 4 Mg/Ml Cartridge) 2 mg IVPUSH Q4H PRN; Protocol PRN Reason: Pain, Severe (Pain Scale 7-10) Last Admin: 06/07/22 10:10 Dose: 2 mg Documented By: ANGIE Ondansetron HCl (Ondansetron Hcl 4 Mg/2 Ml Vial) 4 mg IVPUSH Q8H PRN PRN Reason: Nausea and Vomiting Last Admin: 06/08/22 10:35 Dose: 4 mg Documented By: MAURY Pharmacy Consult (Consult Rx Perform Med Rec) 1 each MISCELLANE ONCE PRN PRN Reason: Consult order Sodium Chloride (0.9 % Sodium Chloride Flush 3 Ml Syringe) 3 ml IVFLUSH QSHIFT [facility] Last Admin: 06/11/22 08:08 Dose: 3 ml Documented By: DABRobin Vancomycin HCl (Vancomycin Hcl 125 Mg Capsule) 250 mg PO Q6H [facility] Last Admin: 06/11/22 06:18 Dose: 250 mg Documented By: CASTILMary Carmen Labs CBC & Chem 7: 06/11/22 05:06 06/11/22 08:08 Labs: Laboratory Results - last 24 hr 06/11/22 05:06 MCV 86.6 MCH 28.8 MCHC 33.2 RDW 12.7 Plt Count 441 H MPV 8.6 L Immature Gran % (Auto) 0.9 H Neut % (Auto) 75.0 H Lymph % (Auto) 16.2 L [place] % (Auto) 7.9 Eos % (Auto) 0.0 Baso % (Auto) 0.0 Lymph # (Auto) 1.2 [place] # (Auto) 0.6 Eos # (Auto) 0.0 Baso # (Auto) 0.0 Abs Immat Gran (auto) 0.07 H Absolute Neuts (auto) 5.7 Absolute Nucleated RBC 0.000 Nucleated RBC % (auto) 0.0 Assessment and Plan (1) Crohn's colitis: Status: Acute Plan 56/F with #Croh's colitis/flare- #Sepsis --resolved #C-dif associated diarrhea still has abd pain/diarrhae -continue orall Vanco for C dif -IV solucortef -GI (Dr. Stearns) input noted -IVF -IV morphine for pain -advance diet as tolerated -PO mesalamine stopped -Zofran for nausea or vomitting DVT--Lovenox Full code Need for inpatient: crohon's colitis, c dif with profuse diarrhea, being treated with IV steroid, IVF Time Spent With Patient Time: Total time managing care of this patient today ____ minutes. Quality Stroke Does the patient have a stroke diagnosis?: No VTE Prior VTE?: No VTE Risk Level:: Medical - moderate - high VTE Device Contraindication: Treatment Not Indicated VTE Drug Contraindication: N/A - Med Ordered
[2022-06-11 15:12] VITALS: BP 137/81; PULSE 85; RESP 18; TEMP 36.9; O2SAT 96
--- NOTE | 2022-06-11 18:50 | PC.NURSE ---
pt noted to have a bright red bloody movement at 1830.
--- NOTE | 2022-06-11 19:11 | P.PNGI_ITS ---
Subjective Subjective Date of Service: 06/11/22 Interval History: Feeling better. Had about 5 small loose BM's today, but the most recent one appeared bloody with BRB. Denies melena, N/V. Still with abdominal cramps. Tolerating diet in small amounts. Denies rectal pain. Critical Care Time (minutes): 0 Physical Exam Vital Signs: Vital Signs: Last Vital Signs Temp 98.5 F 06/11/22 15:12 Pulse 85 06/11/22 15:12 Resp 18 06/11/22 15:12 BP 137/81 06/11/22 15:12 Pulse Ox 96 06/11/22 15:12 O2 Del Method 06/11/22 15:12 BMI result Body Mass Index 24.3 Const: General: cooperative, healthy appearing, comfortable, no acute distress, well developed, alert, awake, Physically active and Cushingoid facies GI: Other: Abd-Soft, +BS, NT, Nondistended, no mass/rebound/guarding Objective Data Labs CBC & Chem 7: 06/11/22 05:06 06/11/22 08:08 Labs: Laboratory Results - last 24 hr 06/11/22 06/11/22 05:06 08:08 WBC 7.6 RBC 3.65 L Hgb 10.5 L Hct 31.6 L MCV 86.6 MCH 28.8 MCHC 33.2 RDW 12.7 Plt Count 441 H MPV 8.6 L Immature Gran % (Auto) 0.9 H Neut % (Auto) 75.0 H Lymph % (Auto) 16.2 L [place] % (Auto) 7.9 Eos % (Auto) 0.0 Baso % (Auto) 0.0 Lymph # (Auto) 1.2 [place] # (Auto) 0.6 Eos # (Auto) 0.0 Baso # (Auto) 0.0 Abs Immat Gran (auto) 0.07 H Absolute Neuts (auto) 5.7 Absolute Nucleated RBC 0.000 Nucleated RBC % (auto) 0.0 Potassium 2.9 L Microbiology Microbiology Results: Microbiology 06/06/22 14:57 Blood - Venous Blood Culture - Final No growth after 5 days. 06/06/22 13:42 Blood - Venous Blood Culture - Final No growth after 5 days. Procedures Date of Service Date of Service: 06/11/22 Progress Note: A&P Assessment and plan (1) C. difficile colitis: Status: Acute Assessment and Plan: Imp: Diarrhea improved Rec: Finish 10 days of po Vanco (2) Crohn's colitis: Status: Acute Assessment and Plan: Imp: Overall continues to clinically improve, but will need to keep an eye on the bleeding. I'm sure the bleeding is from the Crohn's proctocolitis. Her abdominal exam is benign and she appears stable. Rec: Continue current treatment with IV steroids through at least tomorrow. Hold Lovenox for the next day or two re: bleeding(she has been very ambulatory). F/U labs. If things are stable tomorrow I will plan to change her over to oral prednisone for , 06/13, with hopes of discharge at that time. I reviewed all of this with the patient in detail and she is comfortable with this plan. Thanks Time Spent With Patient Time: Total time managing care of this patient today ____ minutes. Quality Stroke Does the patient have a stroke diagnosis?: No VTE Prior VTE?: No VTE Risk Level:: Medical - moderate - high VTE Device Contraindication: Treatment Not Indicated VTE Drug Contraindication: N/A - Med Ordered
[2022-06-11 19:28] VITALS: BP 154/78; PULSE 69; RESP 18; TEMP 36.4; O2SAT 95
[2022-06-11] MEDS: Potassium Chloride Packet 20 MEQ PACKET 40 MEQ PO (20:01)
[2022-06-12] MEDS: vancomycin HCL 125 MG CAPSULE 250 MG PO ×4 (00:01→18:16)
[2022-06-12 04:00] VITALS: BP 142/79; PULSE 74; RESP 18; TEMP 36.6; O2SAT 95
[2022-06-12] MEDS: Hydrocortisone Sod Succ/PF 100 MG VIAL IVPUSH ×3 (04:14→20:25)
[2022-06-12] MEDS: guaiFENesin 100 MG/5 ML LIQUID PO ×2 (04:14→09:45)
[2022-06-12 06:15] LABS: MANUAL DIFF FLAG NO
[2022-06-12 06:28] LABS: Hematocrit 33.2 % (37.0-47.0); Hemoglobin 10.8 g/dl (12.0-16.0); Imm Gran Abs Auto 0.11 X10*3/uL (0.00-0.03); Imm Gran Pct Auto 1.2 % (0.0-0.4); Lymphocytes Absolute Auto 1.2 X10*3/uL (1.2-4.9); Mean Corpuscular HGB Conc 32.5 g/dl (31.0-35.0); Monocytes Absolute Auto 0.7 X10*3/uL (0.1-1.2); Monocytes Percent Auto 7.8 % (2-11); Neutrophils Absolute Auto 6.8 x10*3/uL (2.0-8.3); Platelet Count 512 X10*3/uL (160-400); Red Blood Count 3.86 X10*6/uL (4.20-5.50); Red Cell Distribution Width 12.5 % (11.0-16.0); White Blood Count 8.9 X10*3/uL (4.8-10.8)
[2022-06-12 07:01] LABS: Anion Gap 15 (12-20); Blood Urea Nitrogen 12 mg/dL (9-16); Calcium 8.5 mg/dL (8.4-10.2); Carbon Dioxide 26 mmol/L (22-29); Chloride 104 mmol/L (96-108); Creatinine Clr Calc Pharmacy 85.9; Estimated Glomerular Filt Rate > 60; Glucose Fasting 101 mg/dL (60-99); Sodium 142 mmol/L (135-145)
[2022-06-12] MEDS: 0.9 % Sodium Chloride Flush 3 ML SYRINGE IVFLUSH ×3 (07:31→20:25)
[2022-06-12] MEDS: Famotidine/PF 20 MG/2 ML VIAL IVPUSH (07:31)
[2022-06-12 07:34] VITALS: BP 164/94; PULSE 72; RESP 16; TEMP 36.6; O2SAT 96
[2022-06-12] MEDS: Potassium Chloride Packet 20 MEQ PACKET 40 MEQ PO (09:44)
--- NOTE | 2022-06-12 15:03 | HO.PM.IMPN ---
Subjective Subjective Date of Service: 06/12/22 Interval History: crohn's flare and colitis, episode of bleedin also Review of Systems no nausea or vomiting, +diarrhea abdominal pain Physical Exam Vital Signs: Vital Signs: Last Vital Signs Temp 97.9 F 06/12/22 07:34 Pulse 72 06/12/22 07:34 Resp 16 06/12/22 07:34 BP 164/94 H 06/12/22 07:34 Pulse Ox 96 06/12/22 07:34 O2 Del Method 06/12/22 07:34 BMI result Body Mass Index 24.3 General: AO X 3, no acute distress Resp:? CTA bilateral CVS: S1,S2,RRR GI: mild abd tenderness, no peritoneal signs, no distention, no rebound Skin: No rash Neuro:? motor grossly intact Psych: appropriate affect Objective Data Active Medications Acetaminophen (Acetaminophen 325 Mg Tablet) 650 mg PO Q6H PRN PRN Reason: Pain, Mild (Pain Scale 1-3) Last Admin: 06/11/22 08:08 Dose: 650 mg Documented By: GABBY Enoxaparin Sodium (Enoxaparin Sodium 40 Mg/0.4 Ml Syringe) 40 mg SUBCUT DAILY [facility] Last Admin: 06/11/22 08:08 Dose: 40 mg Documented By: GABBY Famotidine (Famotidine/Pf 20 Mg/2 Ml Vial) 20 mg IVPUSH BID [facility] Last Admin: 06/12/22 07:31 Dose: 20 mg Documented By: GABBY Guaifenesin (Guaifenesin 100 Mg/5 Ml Liquid) 5 ml PO Q4H PRN PRN Reason: Cough Last Admin: 06/12/22 09:45 Dose: 5 ml Documented By: GABBY Hydrocortisone Sodium Succinate (Hydrocortisone Sod Succ/Pf 100 Mg Vial) 100 mg IVPUSH Q8H [facility] Last Admin: 06/12/22 13:13 Dose: 100 mg Documented By: GABBY Melatonin (Melatonin 3 Mg Tablet) 6 mg PO BEDTIME PRN PRN Reason: Insomnia Ondansetron HCl (Ondansetron Hcl 4 Mg/2 Ml Vial) 4 mg IVPUSH Q8H PRN PRN Reason: Nausea and Vomiting Last Admin: 06/08/22 10:35 Dose: 4 mg Documented By: MAURY Pharmacy Consult (Consult Rx Perform Med Rec) 1 each MISCELLANE ONCE PRN PRN Reason: Consult order Sodium Chloride (0.9 % Sodium Chloride Flush 3 Ml Syringe) 3 ml IVFLUSH QSHIFT [facility] Last Admin: 06/12/22 13:16 Dose: 3 ml Documented By: GABBY Vancomycin HCl (Vancomycin Hcl 125 Mg Capsule) 250 mg PO Q6H [facility] Last Admin: 06/12/22 13:13 Dose: 250 mg Documented By: GABBY Labs CBC & Chem 7: 06/12/22 05:14 06/12/22 05:14 Labs: Laboratory Results - last 24 hr 06/12/22 06/12/22 05:14 05:14 MCV 86.0 MCH 28.0 MCHC 32.5 RDW 12.5 Plt Count 512 H MPV 9.0 L Immature Gran % (Auto) 1.2 H Neut % (Auto) 77.0 H Lymph % (Auto) 14.0 L [place] % (Auto) 7.8 Eos % (Auto) 0.0 Baso % (Auto) 0.0 Lymph # (Auto) 1.2 [place] # (Auto) 0.7 Eos # (Auto) 0.0 Baso # (Auto) 0.0 Abs Immat Gran (auto) 0.11 H Absolute Neuts (auto) 6.8 Absolute Nucleated RBC 0.000 Nucleated RBC % (auto) 0.0 Anion Gap 15 Estim Creat Clear Calc 85.9 Estimated GFR > 60 Fasting Glucose 101 H Calcium 8.5 Microbiology Microbiology Results: Microbiology 06/06/22 14:57 Blood Culture - Final Blood - Venous No growth after 5 days. 06/06/22 13:42 Blood Culture - Final Blood - Venous No growth after 5 days. Assessment and Plan (1) Colitis: Status: Acute (2) C. difficile colitis: Status: Acute Plan 56/F with #Croh's colitis/flare- #Sepsis --resolved #C-dif associated diarrhea still has abd pain/diarrhae, has episode of bleedin due to crohn will check h/h. -continue orall Vanco for C dif -IV solucortef -GI (Dr. Stearns) input noted -IV morphine for pain -advance diet as tolerated -PO mesalamine stopped -Zofran for nausea or vomitting hypokalemia : repleted ,repeat bmp in am. DVT--hold Lovenox Full code Need for inpatient: crohn's colitis, c diff with profuse diarrhea,? being treated with IV steroid, hypokalemia -electrolyte monitering Time Spent With Patient Time: Total time managing care of this patient today ____ minutes. Quality Stroke Does the patient have a stroke diagnosis?: No VTE Prior VTE?: No VTE Risk Level:: Medical - moderate - high VTE Device Contraindication: Treatment Not Indicated VTE Drug Contraindication: N/A - Med Ordered
[2022-06-12 15:10] VITALS: BP 142/74; PULSE 80; RESP 18; TEMP 36.3; O2SAT 95
[2022-06-12] MEDS: Pantoprazole Sodium 40 MG/10 ML VIAL IVPUSH (15:16)
[2022-06-12 15:47] LABS: Hematocrit 32.6 % (37.0-47.0); Hemoglobin 10.9 g/dl (12.0-16.0)
[2022-06-12 19:26] VITALS: BP 152/85; PULSE 77; RESP 16; TEMP 36.3; O2SAT 97
--- NOTE | 2022-06-12 23:14 | PM.GIPN ---
Subjective Subjective Date of Service: 06/12/22 Interval History: Patient seen at 7:15 PM. present. Patient continues to feel better. Tolerating diet. She only reports a few BM's this morning. There has been no bleeding today. Abdominal discomfort is much improved. She is eager to go home. Critical Care Time (minutes): 0 Physical Exam Vital Signs: Vital Signs: Last Vital Signs Temp 97.3 F 06/12/22 19:26 Pulse 77 06/12/22 19:26 Resp 16 06/12/22 19:26 BP 152/85 H 06/12/22 19:26 Pulse Ox 97 06/12/22 19:26 O2 Del Method 06/12/22 19:26 BMI result Body Mass Index 24.3 Const: General: cooperative, healthy appearing, comfortable, no acute distress, well developed, alert, awake, Physically active and Cushingoid facies GI: Other: Abd-Soft, NT, +BS, Nondistended, No mass/rebound/guarding Objective Data Labs CBC & Chem 7: 06/12/22 15:39 06/12/22 05:14 Labs: Laboratory Results - last 24 hr 06/12/22 06/12/22 06/12/22 05:14 05:14 15:39 WBC 8.9 RBC 3.86 L Hgb 10.8 L 10.9 L Hct 33.2 L 32.6 L MCV 86.0 MCH 28.0 MCHC 32.5 RDW 12.5 Plt Count 512 H MPV 9.0 L Immature Gran % (Auto) 1.2 H Neut % (Auto) 77.0 H Lymph % (Auto) 14.0 L [place] % (Auto) 7.8 Eos % (Auto) 0.0 Baso % (Auto) 0.0 Lymph # (Auto) 1.2 [place] # (Auto) 0.7 Eos # (Auto) 0.0 Baso # (Auto) 0.0 Abs Immat Gran (auto) 0.11 H Absolute Neuts (auto) 6.8 Absolute Nucleated RBC 0.000 Nucleated RBC % (auto) 0.0 Sodium 142 Potassium 3.0 L Chloride 104 Carbon Dioxide 26 Anion Gap 15 BUN 12 D Creatinine 0.64 Estim Creat Clear Calc 85.9 Estimated GFR > 60 Fasting Glucose 101 H Calcium 8.5 Microbiology Microbiology Results: Microbiology 06/06/22 14:57 Blood - Venous Blood Culture - Final No growth after 5 days. 06/06/22 13:42 Blood - Venous Blood Culture - Final No growth after 5 days. Procedures Date of Service Date of Service: 06/12/22 Progress Note: A&P Assessment and plan (1) C. difficile colitis: Status: Acute Assessment and Plan: Imp: Symptoms improved on Day # 6 of po Vanco Rec: Complete 10 day course. Avoid other antibiotics. D/W patient (2) Crohn's colitis: Status: Acute Assessment and Plan: Imp: Continued clinical improvement with less abdominal pain, less diarrhea, and tolerating diet. No bleeding since the episode last evening. Overall, she is feeling much better than when she first got admitted last week. Her labs are stable as well. Rec: D/C IV steroids after this evening and change to oral prednisone for 06/13 AM. Continue diet. Discharge, if stable, as she would definitely like to go home on , 06/13, if possible. I will send over a Rx for her prednisone taper. We shall continue to hold the mesalamine for now. She will receive her next dose of Entyvio infusion in approx 7 weeks. She has a follow up OV scheduled for my office in 2022. The patient and her are comfortable with this plan. Thanks Time Spent With Patient Time: Total time managing care of this patient today ____ minutes. Quality Stroke Does the patient have a stroke diagnosis?: No VTE Prior VTE?: No VTE Risk Level:: Medical - moderate - high VTE Device Contraindication: Treatment Not Indicated VTE Drug Contraindication: N/A - Med Ordered
[2022-06-13] MEDS: vancomycin HCL 125 MG CAPSULE 250 MG PO ×2 (00:05→06:10)
[2022-06-13 03:25] VITALS: BP 132/81; PULSE 78; RESP 18; TEMP 36.9; O2SAT 98
[2022-06-13 05:53] LABS: MANUAL DIFF FLAG NO
[2022-06-13 05:57] LABS: Basophils Percent Auto 0.1 % (0-2); Hematocrit 32.6 % (37.0-47.0); Hemoglobin 10.9 g/dl (12.0-16.0); Imm Gran Abs Auto 0.21 X10*3/uL (0.00-0.03); Imm Gran Pct Auto 1.7 % (0.0-0.4); Lymphocytes Absolute Auto 1.5 X10*3/uL (1.2-4.9); Lymphocytes Percent Auto 12.1 % (20-40); Mean Corpuscular HGB Conc 33.4 g/dl (31.0-35.0); Mean Corpuscular Hemoglobin 28.5 pg (27.0-33.0); Mean Corpuscular Volume 85.3 fL (80.0-98.0); Mean Platelet Volume 8.9 fL (9.4-12.3); Monocytes Absolute Auto 0.9 X10*3/uL (0.1-1.2); Neutrophils Absolute Auto 9.7 x10*3/uL (2.0-8.3); Neutrophils Percent Auto 79.1 % (45-73); Platelet Count 545 X10*3/uL (160-400); Red Blood Count 3.82 X10*6/uL (4.20-5.50); Red Cell Distribution Width 12.8 % (11.0-16.0); White Blood Count 12.3 X10*3/uL (4.8-10.8)
[2022-06-13 06:26] LABS: Anion Gap 16 (12-20); Blood Urea Nitrogen 13 mg/dL (9-16); C Reactive Protein 0.35 mg/dL (< or = 0.50); Calcium 8.6 mg/dL (8.4-10.2); Carbon Dioxide 26 mmol/L (22-29); Chloride 103 mmol/L (96-108); Creatinine Clr Calc Pharmacy 94.9; Estimated Glomerular Filt Rate > 60; Glucose Fasting 139 mg/dL (60-99); Sodium 142 mmol/L (135-145)
[2022-06-13] MEDS: predniSONE 20 MG TABLET 40 MG PO (07:25)
[2022-06-13] MEDS: 0.9 % Sodium Chloride Flush 3 ML SYRINGE IVFLUSH (07:26)
[2022-06-13 07:59] VITALS: BP 166/89; PULSE 69; RESP 17; TEMP 36.8; O2SAT 95
--- NOTE | 2022-06-13 12:40 | P.DS_ITS ---
DS: Providers Provider Date of Service: 06/13/22 Date of admission: 06/06/22 17:08 Primary care physician: Felecia Allan MD Consults: 06/06/22 17:08 Consult to Gastroenterology Routine Consulting Provider: Juarez Stearns Reason for consultation: Crohn's flare Has provider been notified: No DS: Diagnosis Discharge Diagnosis (1) C. difficile colitis: Status: Acute (2) Crohn's colitis: Status: Acute (3) Sepsis: Status: Acute DS: Summary Hospital Course Hospital Course: 56 year old assigned female with history of? Crohns diagnosed in December and has been steroid since with any attempt to reduce steroid resultinng in flare,? this latest to reduce steroid has resulted in pain that is going for several days, mid abdominal severe pain, associated? with diarrhea, but no report of blood, her apetite has been down signficantly. Work? here with CT shows There is colitis involving the transverse colon and the distal descending colon and proximal sigmoid colon . WBC is 12, tachycardia and meets sepsis criteris. Hospital course: Patient was admitted for C diff colitis-started on p.o. vanco-abdominal pain, diarrhea improved significantly. Going home with p.o. vanco. In addition there was possible Crohn colitis component also: Received IV steroids, upon discharge GI sent over prednisone taper,continue to hold the mesalamine for now. She will receive her next dose of Entyvio infusion in approx 7 weeks. She has a follow up dr stearns office. Above management discussed the patient in detail and she understand and in agreement with the above plan, time spent 50 minute. Time Spent with Patient Time attestation: Total time managing care of this patient today ____ minutes. Discharge coordination time: Greater than 30 minutes Quality: Safe Use of Opioids Does Pt have an Active Cancer Diagnosis on the Problem List?: No Quality: Stroke Does the patient have a stroke diagnosis?: No Physical Exam Vital Signs: Vital Signs: Last Vital Signs Temp 98.2 F 06/13/22 07:59 Pulse 69 06/13/22 07:59 Resp 17 06/13/22 07:59 BP 166/89 H 06/13/22 07:59 Pulse Ox 95 06/13/22 07:59 O2 Del Method 06/13/22 07:59 BMI result Body Mass Index 24.3 General: AO X 3, no acute distress Resp:? CTA bilateral CVS: S1,S2,RRR GI: mild abd tenderness, no peritoneal signs, no distention, no rebound Skin: No rash Neuro:? motor grossly intact Psych: appropriate affect DS: Data Data Completed and Pending Labs on day of discharge: Laboratory Results - last 24 hr 06/12/22 06/13/22 06/13/22 15:39 05:05 05:05 WBC 12.3 H RBC 3.82 L Hgb 10.9 L 10.9 L Hct 32.6 L 32.6 L MCV 85.3 MCH 28.5 MCHC 33.4 RDW 12.8 Plt Count 545 H MPV 8.9 L Immature Gran % (Auto) 1.7 H Neut % (Auto) 79.1 H Lymph % (Auto) 12.1 L [place] % (Auto) 7.0 Eos % (Auto) 0.0 Baso % (Auto) 0.1 Lymph # (Auto) 1.5 [place] # (Auto) 0.9 Eos # (Auto) 0.0 Baso # (Auto) 0.0 Abs Immat Gran (auto) 0.21 H Absolute Neuts (auto) 9.7 H Absolute Nucleated RBC 0.000 Nucleated RBC % (auto) 0.0 Sodium 142 Potassium 3.0 L Chloride 103 Carbon Dioxide 26 Anion Gap 16 BUN 13 Creatinine 0.58 Estim Creat Clear Calc 94.9 Estimated GFR > 60 Fasting Glucose 139 H Calcium 8.6 C-Reactive Protein 0.35 Imaging Chest x-ray: Radiologist's impression: ITS Impressions Abdomen/Pelvis CT 06/06/22 15:59 IMPRESSION: There is colitis involving the transverse colon and the distal descending colon and proximal sigmoid colon. Fleischner guidelines were followed. Discharge Plan Discharge Anticipated Discharge Date/Time: 06/13/22 12:31 Patient Disposition: Home, Self-Care Discharge Diagnosis: c diff colitis Referrals: Felecia Allan MD [Primary Care Provider] - 1 Week Discharge Medications: New vancomycin 125 mg Capsule 250 mg PO Q6H Qty: 28 0RF Continued multivitamin Tablet 1 tab PO DAILY acetaminophen 500 mg Tablet 1,000 mg PO BID calcium carbonate [Calcium 600] 600 mg calcium (1,500 mg) Tablet 600 mg PO DAILY cyanocobalamin (vitamin B-12) 1,000 mcg/mL solution 1 ml IM QMONTH Entyvio 300 mg recon soln 300 mg IV QMONTH Held prednisone 10 mg tablet 40 mg PO DAILY Hold Instructions: Resume on 07/04/22. hold until complete recent prednisone prescription sent by GI. mesalamine 1.2 gram tablet,delayed release (/EC) 4 tab PO DAILY Hold Instructions: Resume on 07/05/22. hold until seen by GI. Discharge Orders: Discharge Order (Routine); Ordered 06/13/22 Ordered By: Heladio Bullard Diet: Advance to usual diet Activity on Discharge: As tolerated Stand Alone Forms: Patient Portal Discharge page Care Plan Goals: Patient was admitted for C diff colitis-started on p.o. vanco-abdominal pain, diarrhea improved significantly. Going home with p.o. vanco. In addition there was possible Crohn colitis component also: Received IV steroids, upon discharge GI sent over prednisone taper,continue to hold the mesalamine for now. She will receive her next dose of Entyvio infusion in approx 7 weeks. She has a follow up dr stearns office. Health Concerns: As above. Plan of Treatment: As above. Assessment: As above. Patient Instructions: Crohn Disease (DC), C. Diff (Clostridioides Difficile) Infection (DC)
--- NOTE | 2022-06-13 12:43 | MHC.CM.PN ---
PT MEDICALLY CLEARED FOR D/C HOME SELF-CARE, PT WILL ARRANGE TRANSPORT
== END 2022-06-13 12:59 | disposition home or self-care (01) | DRG 872 ==
LOC: HO.ED 14:19 → HO.EDOVER 17:15 → HO.S3 06-07 17:24
PROVIDERS: Internal Medicine; Nurse Practitioner Family; Physician Assistant Medical; Admitting Provider Internal Medicine; Emergency Provider Internal Medicine; PCP Internal Medicine; Visit Provider Internal Medicine
DX: A41.9 Sepsis, unspecified organism (principal); K50.90 Crohn's disease, unspecified, without complications; A04.72 Enterocolitis due to Clostridium difficile, not specified as recurrent; Z20.822 Contact with and (suspected) exposure to COVID-19; Z79.52 Long term (current) use of systemic steroids; Z79.620 Long term (current) use of immunosuppressive biologic; Z79.899 Other long term (current) drug therapy
CPT/HCPCS: 36415; 74177; 80048; 80076; 81003; 81025; 82607; 82728; 83540; 83605; 84132; 85014; 85018; 85025; 85610; 85652; 86140; 87040; 87324; 87493; 87507; 87635; 99285; J1650; J1956; J2270; J2405; J2543; J2920; Q9967

== ENCOUNTER 2022-07-05 07:38 | Outpatient (REF) | payer OTHER, SELFPAY ==
[2022-07-05 07:47] LABS: MANUAL DIFF FLAG NO
[2022-07-05 08:12] LABS: Basophils Absolute Auto 0.1 X10*3/uL (0.0-0.2); Basophils Percent Auto 0.5 % (0-2); Eosinophils Absolute Auto 0.2 X10*3/uL (0.0-0.4); Eosinophils Percent Auto 1.1 % (0-4); Hematocrit 42.3 % (37.0-47.0); Hemoglobin 12.8 g/dl (12.0-16.0); Imm Gran Abs Auto 0.15 X10*3/uL (0.00-0.03); Lymphocytes Absolute Auto 2.9 X10*3/uL (1.2-4.9); Lymphocytes Percent Auto 19.4 % (20-40); Mean Corpuscular HGB Conc 30.3 g/dl (31.0-35.0); Mean Corpuscular Volume 95.7 fL (80.0-98.0); Mean Platelet Volume 8.5 fL (9.4-12.3); Monocytes Percent Auto 6.3 % (2-11); Neutrophils Absolute Auto 10.9 x10*3/uL (2.0-8.3); Neutrophils Percent Auto 71.7 % (45-73); Platelet Count 485 X10*3/uL (160-400); Red Blood Count 4.42 X10*6/uL (4.20-5.50); Red Cell Distribution Width 15.9 % (11.0-16.0); White Blood Count 15.1 X10*3/uL (4.8-10.8)
[2022-07-05 08:44] LABS: Alanine Aminotransferase 22 U/L (0-31); Albumin Level 4.2 g/dL (3.5-5.0); Alkaline Phosphatase 68 U/L (39-117); Anion Gap 17 (12-20); Aspartate Amino Transferase 22 U/L (5-31); Bilirubin Direct < 0.2 mg/dL (0.0-0.5); Bilirubin Total 0.4 mg/dL (0.0-1.0); Blood Urea Nitrogen 10 mg/dL (9-16); C Reactive Protein 0.45 mg/dL (< or = 0.50); Calcium 9.9 mg/dL (8.4-10.2); Carbon Dioxide 25 mmol/L (22-29); Chloride 106 mmol/L (96-108); Estimated Glomerular Filt Rate > 60; Glucose Random 104 mg/dL (60-115); Potassium 4.1 mmol/L (3.3-5.1); Sodium 144 mmol/L (135-145); Total Protein 6.9 g/dL (6.5-8.0)
== END 2022-07-05 07:39 | disposition home or self-care (01) ==
LOC: HO.LAB 07:38
PROVIDERS: PCP Internal Medicine; Visit Provider Internal Medicine
DX: K50.10 Crohn's disease of large intestine without complications (principal)
CPT/HCPCS: 36415; 80048; 80076; 85025; 86140

== ENCOUNTER 2022-07-31 08:26 | Outpatient (REF) | payer OTHER, SELFPAY | END 2022-07-31 08:27 | disposition home or self-care (01) | LOC: HO.MDS 08:26 | PROVIDERS: Visit Provider Internal Medicine | DX: K50.10 Crohn's disease of large intestine without complications (principal) | CPT/HCPCS: 96365; J3380 ==

== ENCOUNTER 2022-08-02 08:56 | Outpatient (REF) | payer OTHER, SELFPAY ==
--- NOTE | ~2022-08-02 | FL_ITS ---
EXAMINATION: FL SMALL BOWEL SERIES CLINICAL INFORMATION: Crohn's. Currently asymptomatic. COMPARISON: CT abdomen and pelvis 06/06/2022 TECHNIQUE: Small bowel follow-through is performed with thin barium sulfate. Overhead images and fluoroscopic evaluation is performed. Fluoroscopy time: 1.5 minutes DAP: 16.68 Gycm2 Fluoroscopic spot and last image saved images: 11 FINDINGS: The preliminary ornamental metal erector apprentice films show no gaseous dilatation of bowel or abnormal collections of gas. The lung bases are clear. Contrast progresses normally through the small bowel and reaches the ileocecal valve within 90 minutes. There is no small bowel dilatation, angulated or tethered loops, or thickening of folds. No bowel separation or displacement. No fixed or rigid segments of bowel on compression fluoroscopy assessment. The terminal ileum appears normal. FL/FL small bowel follow through IMPRESSION: Normal study.
== END 2022-08-02 08:57 | disposition home or self-care (01) ==
LOC: HO.XRAY 08:56
PROVIDERS: PCP Internal Medicine; Visit Provider Internal Medicine
DX: K50.10 Crohn's disease of large intestine without complications (principal)
CPT/HCPCS: 74250

== ENCOUNTER 2022-09-25 08:20 | Outpatient (REF) | payer OTHER, SELFPAY ==
[2022-09-25 09:05] LABS: Baso%MD 0.6 %; Hematocrit 42.5 % (37.0-47.0); Hemoglobin 14.2 g/dl (12.0-16.0); IG%MD 0.3 %; Lymph%MD 24.6 %; Mean Corpuscular HGB Conc 33.4 g/dl (31.0-35.0); Mean Corpuscular Hemoglobin 31.2 pg (27.0-33.0); Mean Corpuscular Volume 93.4 fL (80.0-98.0); Mean Platelet Volume 8.7 fL (9.4-12.3); Mono%MD 10.1 %; Neut%MD 63.4 %; Platelet Count 437 X10*3/uL (160-400); Red Blood Count 4.55 X10*6/uL (4.20-5.50); Red Cell Distribution Width 12.3 % (11.0-16.0)
[2022-09-25 09:19] LABS: Alanine Aminotransferase 28 U/L (0-31); Albumin Level 4.1 g/dL (3.5-5.0); Alkaline Phosphatase 66 U/L (39-117); Anion Gap 13 (12-20); Aspartate Amino Transferase 25 U/L (5-31); Bilirubin Direct < 0.2 mg/dL (0.0-0.5); Bilirubin Total 0.5 mg/dL (0.0-1.0); Blood Urea Nitrogen 12 mg/dL (9-16); Calcium 9.1 mg/dL (8.4-10.2); Carbon Dioxide 21 mmol/L (22-29); Chloride 111 mmol/L (96-108); Estimated Glomerular Filt Rate > 60; Glucose Random 117 mg/dL (60-115); Potassium 4.3 mmol/L (3.3-5.1); Sodium 141 mmol/L (135-145); Total Protein 6.6 g/dL (6.5-8.0)
[2022-09-25 09:52] LABS: Erythrocyte Sedimentation Rate 4 MM/HR (0-20)
[2022-09-25 09:58] LABS: Band Neutrophils Percent 0 % (3-5); Basophils Abs Manual 0.1 X10*3/uL (0.0-0.2); Basophils Percent Manual 1 % (0-2); Eosinophils Absolute Manual 0.2 X10*3/uL (0.0-0.4); Eosinophils Percent Manual 2 % (0-4); Lymphocytes Absolute Manual 2.9 X10*3/uL (1.2-4.9); Lymphocytes Percent Manual 26 % (20-40); Monocytes Absolute Manual 0.8 X10*3/uL (0.1-1.2); Monocytes Percent Manual 7 % (2-11); Neutrophils Percent Manual 64 % (45-73)
[2022-09-25 09:59] LABS: Platelet Estimate NORMAL (NORMAL); RBC Morphology NORMAL
[2022-09-25 10:00] LABS: Platelet Morphology Comment NORMAL
== END 2022-09-25 08:21 | disposition home or self-care (01) ==
LOC: HO.MDS 08:20
PROVIDERS: Absent Provider Internal Medicine; PCP Internal Medicine; Visit Provider Internal Medicine Medical Oncology
DX: K50.111 Crohn's disease of large intestine with rectal bleeding (principal); Z79.899 Other long term (current) drug therapy; Z51.81 Encounter for therapeutic drug level monitoring
CPT/HCPCS: 36415; 80053; 80076; 80280; 82248; 82542; 85007; 85027; 85652; 86140; 96365; J3380

== ENCOUNTER 2022-10-31 11:06 | Outpatient (REF) | payer OTHER, SELFPAY ==
--- NOTE | ~2022-10-31 | XR_ITS ---
EXAMINATION: XR CERVICAL SPINE CLINICAL INFORMATION: Cervical radiculopathy. COMPARISON: None available. TECHNIQUE: 3 views of the cervical spine were obtained. FINDINGS: Straightening of normal lordosis. Otherwise alignment is anatomic. No prevertebral soft tissue swelling. Mild degenerative changes at the C1-C2 articulation. Mild degenerative disc disease at C4-C5 and C5-C6. The odontoid appears normal. The lung apices are clear. XR/XR cervical spine 2V IMPRESSION: Mild degenerative disc disease C4-C5 and C5-C6.
== END 2022-10-31 11:07 | disposition home or self-care (01) ==
LOC: HO.HMGCX 11:06
PROVIDERS: PCP Internal Medicine; Visit Provider Internal Medicine
DX: M54.12 Radiculopathy, cervical region (principal)
CPT/HCPCS: 72040

== ENCOUNTER 2022-11-02 10:18 | Outpatient (REF) | payer OTHER, SELFPAY ==
[2022-11-02 10:33] LABS: MANUAL DIFF FLAG NO
[2022-11-02 10:58] LABS: Basophils Absolute Auto 0.1 X10*3/uL (0.0-0.2); Basophils Percent Auto 0.6 % (0-2); Eosinophils Absolute Auto 0.2 X10*3/uL (0.0-0.4); Eosinophils Percent Auto 1.9 % (0-4); Hematocrit 40.8 % (37.0-47.0); Hemoglobin 13.5 g/dl (12.0-16.0); Imm Gran Abs Auto 0.04 X10*3/uL (0.00-0.03); Imm Gran Pct Auto 0.3 % (0.0-0.4); Lymphocytes Absolute Auto 2.1 X10*3/uL (1.2-4.9); Mean Corpuscular HGB Conc 33.1 g/dl (31.0-35.0); Mean Corpuscular Hemoglobin 31.1 pg (27.0-33.0); Mean Platelet Volume 8.8 fL (9.4-12.3); Monocytes Percent Auto 8.8 % (2-11); Neutrophils Absolute Auto 8.2 x10*3/uL (2.0-8.3); Neutrophils Percent Auto 70.4 % (45-73); Platelet Count 460 X10*3/uL (160-400); Red Blood Count 4.34 X10*6/uL (4.20-5.50); Red Cell Distribution Width 12.7 % (11.0-16.0); White Blood Count 11.7 X10*3/uL (4.8-10.8)
[2022-11-02 11:40] LABS: Alanine Aminotransferase 27 U/L (0-31); Albumin Level 4.2 g/dL (3.5-5.0); Alkaline Phosphatase 68 U/L (39-117); Aspartate Amino Transferase 29 U/L (5-31); Bilirubin Direct 0.2 mg/dL (0.0-0.5); Bilirubin Total 0.6 mg/dL (0.0-1.0); Total Protein 6.8 g/dL (6.5-8.0)
== END 2022-11-02 10:19 | disposition home or self-care (01) ==
LOC: HO.LAB 10:18
PROVIDERS: PCP Internal Medicine; Visit Provider Internal Medicine
DX: K50.111 Crohn's disease of large intestine with rectal bleeding (principal); Z79.899 Other long term (current) drug therapy
CPT/HCPCS: 36415; 80076; 81335; 85025

== ENCOUNTER 2022-11-18 15:42 | Outpatient (REF) | payer OTHER, SELFPAY | END 2022-11-18 15:43 | disposition home or self-care (01) | LOC: HO.LAB 15:42 | PROVIDERS: PCP Internal Medicine; Visit Provider Internal Medicine | DX: K50.111 Crohn's disease of large intestine with rectal bleeding (principal); Z79.899 Other long term (current) drug therapy | CPT/HCPCS: 36415; 80280; 82542 ==

== ENCOUNTER 2022-11-20 08:17 | Outpatient (REF) | payer OTHER, SELFPAY | END 2022-11-20 08:18 | disposition home or self-care (01) | LOC: HO.MDS 08:17 | PROVIDERS: Visit Provider Internal Medicine | DX: K50.90 Crohn's disease, unspecified, without complications (principal) | CPT/HCPCS: 96365; J3380 ==

== ENCOUNTER 2022-12-13 11:12 | Outpatient (REF) | payer OTHER, SELFPAY ==
--- NOTE | ~2022-12-13 | MR_ITS ---
EXAMINATION: MR CERVICAL SPINE WITHOUT CONTRAST CLINICAL INFORMATION: 57-year-old with self-reported pain right side of neck radiating to the arm with numbness and tingling in the right arm and hand. Radiculopathy, cervical region. COMPARISON: None available. TECHNIQUE: MRI of the cervical spine was obtained using routine sequences without contrast. FINDINGS: Alignment: There is trace anterolisthesis noted at C4-C5 and slight retrolisthesis at C5-C6 with mild lordotic loss centered at C5. Craniocervical Junction/C1-C2 Articulations: The atlantooccipital joints are intact and aligned. There is trace retrolisthesis at the right C1-C2 facet joint, which is nonspecific. Visualized Intracranial Structures: Within normal limits. Vertebral Bodies: Vertebral body heights are well-maintained. Disc Spaces and Endplates: There is moderate disc space height loss at C5-C6 with minor spondylosis and a tiny Schmorl's node along the superior endplate of C6 on the right. Remaining intervertebral disc space heights are well-maintained without significant spondylosis. Bone Marrow: No significant marrow-replacing process or bone marrow edema. C2-C3: No disc herniation or canal stenosis. Minor facet arthropathy noted on the left without significant neural foraminal stenosis. C3-C4: Tiny central disc protrusion with minimal indentation of the ventral thecal sac without cord impingement or canal stenosis. Uncovertebral spurring is noted right more than left with [id number] left-sided facet arthropathy. No significant neural foraminal stenosis. C4-C5: Slight unroofing of the posterior disc margin consistent with trace anterolisthesis, with mild disc osteophyte complex asymmetric to the right and mild flattening of the dural sac on the right without cord impingement or canal stenosis. There is uncovertebral spurring, right more than left with mild left and moderate right-sided facet arthropathy. There is [id number] right-sided and mild left-sided neural foraminal stenosis. C5-C6: Broad-based central to right paramedian extruded disc herniation with caudal migration noted and a left paramedian extruded disc herniation with slight cephalad migration noted, with flattening of the ventral dural sac with mild ventral cord flattening slightly asymmetric to the right and mild central spinal canal stenosis. There is uncovertebral spurring bilaterally and [id number] facet arthropathy with moderate to severe bilateral neural foraminal stenosis, right more than left. C6-C7: Shallow broad-based disc protrusion noted with slight flattening of the ventral dural sac without cord impingement. No significant canal stenosis. Uncovertebral spurring noted bilaterally, with mild to moderate bilateral facet arthrosis. There is mild right-sided and moderate left-sided neural foraminal stenosis. C7-T1: No disc herniation or canal stenosis. [id number]-[id number] facet arthropathy noted right more than left without significant neural foraminal stenosis. Note is made of a T1 hyperintense focus in the right pedicle and superior articulating facet of C7, likely reflecting a hemangioma. Spinal Cord: The cervical and visualized upper thoracic spinal cord is normal in signal intensity throughout, without focal lesion, edema or syrinx. Extracranial Soft Tissues: The visualized extracranial head/neck soft tissues are unremarkable within the limitations of the study. Signal voids are seen in the major arterial structures in the neck. No prevertebral soft tissue swelling. MR/MR cervical spine wo con IMPRESSION: 1. Mild lordotic loss centered at C5-C6 with trace anterolisthesis at C4-C5 and slight retrolisthesis at C5-C6. 2. Discogenic degenerative changes at C5-C6 with extruded disc herniations at this level with mild ventral cord flattening asymmetric to the right and mild central spinal canal stenosis with the bilateral uncovertebral arthrosis and facet arthropathy, right more than left, with moderate to severe bilateral neural foraminal stenosis, right more than left. 3. Shallow broad-based disc protrusion at C6-C7 without cord impingement or canal stenosis, with uncovertebral and facet arthropathy, with mild right-sided and moderate left-sided neural foraminal stenosis. 4. Disc osteophyte complex asymmetric to the right at C4-C5 with uncovertebral spurring, right more than left and facet arthropathy with [id number] right-sided and mild left-sided neural foraminal stenosis. 5. Tiny central disc protrusion at C3-C4.
== END 2022-12-13 11:13 | disposition home or self-care (01) ==
LOC: HO.MRI 11:12
PROVIDERS: PCP Internal Medicine; Visit Provider Internal Medicine
DX: M54.12 Radiculopathy, cervical region (principal); R20.0 Anesthesia of skin
CPT/HCPCS: 72141

== ENCOUNTER 2023-01-15 08:15 | Outpatient (REF) | payer OTHER, SELFPAY | END 2023-01-15 08:16 | disposition home or self-care (01) | LOC: HO.MDS 08:15 | PROVIDERS: Visit Provider Internal Medicine | DX: K50.10 Crohn's disease of large intestine without complications (principal) | CPT/HCPCS: 96365; J3380 ==

== ENCOUNTER 2023-02-11 06:19 | Emergency (ER) | payer OTHER, SELFPAY ==
[2023-02-11 06:39] VITALS: BP 153/107; PULSE 100; RESP 18; TEMP 36.4; O2SAT 98; BMI 26.5
[2023-02-11 07:25] LABS: MANUAL DIFF FLAG NO
[2023-02-11 07:27] LABS: Basophils Absolute Auto 0.1 X10*3/uL (0.0-0.2); Basophils Percent Auto 0.5 % (0-2); Eosinophils Absolute Auto 0.2 X10*3/uL (0.0-0.4); Hematocrit 39.8 % (37.0-47.0); Hemoglobin 13.1 g/dl (12.0-16.0); Imm Gran Abs Auto 0.03 X10*3/uL (0.00-0.03); Imm Gran Pct Auto 0.3 % (0.0-0.4); Lymphocytes Absolute Auto 2.2 X10*3/uL (1.2-4.9); Lymphocytes Percent Auto 24.3 % (20-40); Mean Corpuscular HGB Conc 32.9 g/dl (31.0-35.0); Mean Corpuscular Hemoglobin 31.3 pg (27.0-33.0); Mean Corpuscular Volume 95.2 fL (80.0-98.0); Mean Platelet Volume 8.4 fL (9.4-12.3); Monocytes Absolute Auto 1.1 X10*3/uL (0.1-1.2); Monocytes Percent Auto 12.5 % (2-11); Neutrophils Absolute Auto 5.5 x10*3/uL (2.0-8.3); Neutrophils Percent Auto 60.4 % (45-73); Platelet Count 458 X10*3/uL (160-400); Red Blood Count 4.18 X10*6/uL (4.20-5.50); Red Cell Distribution Width 11.9 % (11.0-16.0); White Blood Count 9.1 X10*3/uL (4.8-10.8)
--- NOTE | 2023-02-11 07:52 | ED_ITS ---
HPI - General Adult General Chief complaint: General Medical Stated complaint: GI Bleeding Time Seen by Provider: 02/11/23 07:36 Source: patient, RN notes reviewed and old records reviewed Mode of arrival: ambulatory Limitations: no limitations History of Present Illness HPI narrative: 57 year old female w/ a pmhx significant for crohn's disease presents to the ED today for complaints of suspected crohn's flare w/ blood in her stool x1 week. She states she has LLQ & periumbilical tenderness/cramping, diarrhea 6x a day, and that at first it was BRBPR but now is a maroon/burgundy color w/ some clots. This is her first flare since her last in May where she also had C. Diff. She follows w/ Dr. Stearns and is supposed to have a colonoscopy this upcoming Friday. She takes entyvio and prednisone for everyday control. denies any fever, chills, nausea, vomiting, chest pain, SOB, or urinary complaints. Onset (ago): week(s) (1) Related Data Home Medications Medication Instructions Recorded Confirmed acetaminophen 500 mg tablet 1,000 mg PO BID 06/06/22 07/12/22 calcium carbonate 600 mg calcium 600 mg PO DAILY 06/06/22 07/12/22 (1,500 mg) tablet (Calcium) cyanocobalamin (vitamin B-12) 1 ml IM QMONTH 06/06/22 07/12/22 1,000 mcg/mL injection solution mesalamine 1.2 gram tablet,delayed 4 tab PO DAILY 06/06/22 07/12/22 release multivitamin 1 tab PO DAILY 06/06/22 07/12/22 prednisone 10 mg tablet 40 mg PO DAILY 06/06/22 07/12/22 vedolizumab 300 mg intravenous 300 mg IV QMONTH 06/06/22 07/12/22 solution (Entyvio) Previous Rx's Medication Instructions Recorded vancomycin 125 mg capsule 250 mg PO Q6H #28 caps 06/13/22 baclofen 10 mg tablet 10 mg PO BEDTIME #30 tabs 07/12/22 Allergies Allergy/AdvReac Type Severity Reaction Status Date / Time No Known Allergies Allergy Verified 02/11/23 06:43 [No Known Allergies*] Review of Systems Review of Systems: Constitutional: No Fever, No Chills, No Fatigue, No Malaise ENT/Mouth: No Ear Pain, No Nasal Congestion, No Hoarseness Eyes: No Eye Pain, No Swelling, No Redness, No Foreign Body, No Discharge Cardiovascular: No Chest Pain, No SOB, No Dyspnea on Exertion, No Orthopnea, No Edema, No Palpitations Respiratory: No Cough, No Sputum, No Wheezing, No Dyspnea Gastrointestinal: (+) Diarrhea, (+) Abdominal tenderness, (+) hematochezia, No Nausea, No Vomiting, No Constipation, No Melena Genitourinary: No irregular bleeding, No Dysuria, No Urinary Frequency, No Hematuria, No Urinary Incontinence/retention, No Urgency, No Flank Pain, No Urinary Flow Changes, No Hesitancy Musculoskeletal: No joint pain, No Myalgias, No Joint Swelling Skin: No Skin Lesions, No rash Neuro: No Weakness, No Dizziness, No Headache Yes all other systems are reviewed and are negative Constitutional: Constitutional: Reports as per [facility] Past Medical History Attestation statement: The following information was validated with the patient. Source: old records reviewed Medical History Annual physical exam C. difficile colitis COVID-19 S[place] (dyspnea on exertion) Frequent headaches History of mammogram Mammogram normal Normal Pap smear Tachycardia Surgical History H/O colonoscopy History of section History of removal of cyst Family History Family History Father CVD (cardiovascular disease) Stroke Crohn's disease Mother No problems noted. Brother No problems noted. Brother No problems noted. Son No problems noted. Son No problems noted. Daughter No problems noted. Social History Social History Household Members: Family Housing: House Do you presently have visiting nurse or other home services: No Alcohol intake: current Alcohol intake frequency: a few times a week Patient Tobacco Use Status: Never used Tobacco e-Cigarette/Vaping Use: Never Used Advance Directives: No Advance Directives Information Provided: Yes service: No Current occupational status: employed Cognitive needs: No Hearing needs: No Vision needs: Yes Physical Exam ED Vital Signs: Vital Signs - 24 hr 02/11/23 06:39 02/11/23 09:57 02/11/23 11:01 Temperature 97.6 F 98.9 F 99 F Pulse Rate 100 94 97 Respiratory Rate 18 16 16 Blood Pressure 153/107 H 144/92 H 154/87 H Pulse Oximetry 98 95 95 Oxygen Delivery Method Room Air Room Air Room Air BMI result Body Mass Index 26.5 Const General: cooperative, healthy appearing and no acute distress Orientation/consciousness: patient oriented x3 Limitations: no limitations HENMT Head: Yes normal to inspection and Yes atraumatic Ears: hearing grossly normal bilaterally General nose exam: Normal external nose present Face and sinus: Yes normal facial exam Eyes General: appearance normal, both eyes and all related structures EOM: EOMs intact bilaterally Neck Neck: Yes normal visual inspection and Yes no meningeal signs Chest Chest palpation & inspection: normal inspection of the chest Resp Effort & Inspection: normal respiratory effort and no respiratory distress Auscultation: clear to auscultation bilaterally Cardio Rate: regular rate Heart sounds: S1 normal heart sound present and S2 normal heart sound present GI Inspection: Yes normal to inspection Palpation (GI): Soft to palpation, Tenderness to palpation present (GI) in the LLQ and periumbilically, no guarding and not rigid Auscultation: normal bowel sounds Rectal Exam - Female: visual inspection normal and normal sphincter tone General: Yes no CVA tenderness Back/Spine/Pelvis Back: no CVA tenderness Skin Lesions: no lesions Rashes: no rashes Wounds: no wounds Neuro General: patient oriented x3, tone normal and no meningeal signs Cranial nerves: Yes CN's II-XII intact bilaterally Gait exam (Neuro): Normal gait present Extrem General: Yes normal to inspection Course Course Course Narrative: -[id number]-- no leukocytosis. H&H stable. Labs otherwise reassuring. Occult stool positive - UA not infected > case discussed with Dr. Stearns who recommended 100 mg of IV Hydrocortisone, if patient feels comfortable with discharge Dr. Stearns will send prescription of prednisone, increasing dose for home and hold off on colonoscopy on Friday. Patient is comfortable with plan and feels safe for discharge home at this time. Results discussed with patient including worrisome signs and symptoms and strict return precautions, and when to return to the emergency department. They verba lized understanding and feel safe for discharge at this time. Medications Administered Discontinued Medications Generic Name Dose Route Start Last Admin Trade Name Freq PRN Reason Stop Dose Admin Hydrocortisone Sodium Succinate 100 mg 02/11/23 09:48 02/11/23 10:02 Hydrocortisone Sod Succ/Pf 100 Mg Vial IVPUSH 02/11/23 09:49 100 mg ONCE ONE Administration Medical Decision Making Medical Decision Making [facility] Narrative: 57 year old female w/ a pmhx significant for crohn's disease presents to the ED today for complaints of suspected crohn's flare w/ blood in her stool x1 week. On exam her VSS, NAD, low suspicion for sepsis, no signs of active hemorrhage. Concern for acute crohn's flare vs GIB. Possible diverticulitis. lower suspicion for UTI, appendicitis, renal stone , SBO. Rule out anemia. No evidence of he morrhoids (external or internal), anal fissure, rectal ulcer, or rectal foreign body. Plan: Labs, guaiac, UA, IVF, will avoid CT at this time, consult GI Please refer to course for remaining clinical decision making, interpretation of labs/imaging results, and discussions with consultants and/or family members. Differential Diagnosis Differential Diagnoses: The differential diagnosis associated with the presentation includes As above Admission/Observation Consideration of admission/observation: Escalation of care including admission/observation considered Consult Healthcare Provider Management of the patient was discussed with: [employer] Resource Specialist Lab Data [facility] Lab Attestation statement: I reviewed the patient's lab results. 02/11/23 07:21 02/11/23 07:21 Labs: Lab Results 02/11/23 02/11/23 02/11/23 Range/Units 07:21 07:21 08:09 WBC 9.1 (4.8-10.8) X10*3/uL RBC 4.18 L (4.20-5.50) X10*6/uL Hgb 13.1 (12.0-16.0) g/dl Hct 39.8 (37.0-47.0) % MCV 95.2 (80.0-98.0) fL MCH 31.3 (27.0-33.0) pg MCHC 32.9 (31.0-35.0) g/dl RDW 11.9 (11.0-16.0) % Plt Count 458 H (160-400) X10*3/uL MPV 8.4 L (9.4-12.3) fL Immature Gran % (Auto) 0.3 (0.0-0.4) % Neut % (Auto) 60.4 (45-73) % Lymph % (Auto) 24.3 (20-40) % [place] % (Auto) 12.5 H (2-11) % Eos % (Auto) 2.0 (0-4) % Baso % (Auto) 0.5 (0-2) % Lymph # (Auto) 2.2 (1.2-4.9) X10*3/uL [place] # (Auto) 1.1 (0.1-1.2) X10*3/uL Eos # (Auto) 0.2 (0.0-0.4) X10*3/uL Baso # (Auto) 0.1 (0.0-0.2) X10*3/uL Abs Immat Gran (auto) 0.03 (0.00-0.03) X10*3/uL Absolute Neuts (auto) 5.5 (2.0-8.3) x10*3/uL Absolute Nucleated RBC 0.000 (0.0-0.012) X10*3/uL Nucleated RBC % (auto) 0.0 (0.0-0.2) /100WBC Sodium 140 (135-145) mmol/L Potassium 4.2 (3.3-5.1) mmol/L Chloride 107 (96-108) mmol/L Carbon Dioxide 24 (22-29) mmol/L Anion Gap 13 (12-20) BUN 9 (9-16) mg/dL Creatinine 0.86 (0.5-1.4) mg/dL Estim Creat Clear Calc 65.7 Estimated GFR > 60 Random Glucose 96 (60-115) mg/dL Calcium 9.7 D (8.4-10.2) mg/dL Magnesium 2.2 (1.6-2.6) mg/dL Total Bilirubin 0.5 (0.0-1.0) mg/dL Direct Bilirubin 0.2 (0.0-0.5) mg/dL AST 22 (5-31) U/L ALT 20 (0-31) U/L Alkaline Phosphatase 73 (39-117) U/L Total Protein 7.5 (6.5-8.0) g/dL Albumin 3.9 (3.5-5.0) g/dL Lipase 24 (8-78) U/L Urine Color Yellow Urine Appearance Clear Urine pH 6.5 (5.0-9.0) Ur Specific [place] 1.015 (1.005-1.025) Urine Protein Negative (Neg-Trace) mg/dL Urine Glucose (UA) Negative (Negative) mg/dL Urine Ketones Trace (Negative) mg/dL Urine Blood Small (1+) H (Negative) Urine Nitrite Negative (Negative) Ur Leukocyte Esterase Small (1+) H (Negative) Urine RBC 0-2 (0-2) /HPF Urine WBC 0-5 (0-5) /HPF Ur Squamous Epith Cells 0-2 (0-2) /HPF Urine Bacteria None Seen (None Seen) Hyaline Casts 0-2 (0-2) /LPF Stool Occult Blood (NEGATIVE) 02/11/23 Range/Units 09:13 WBC (4.8-10.8) X10*3/uL RBC (4.20-5.50) X10*6/uL Hgb (12.0-16.0) g/dl Hct (37.0-47.0) % MCV (80.0-98.0) fL MCH (27.0-33.0) pg MCHC (31.0-35.0) g/dl RDW (11.0-16.0) % Plt Count (160-400) X10*3/uL MPV (9.4-12.3) fL Immature Gran % (Auto) (0.0-0.4) % Neut % (Auto) (45-73) % Lymph % (Auto) (20-40) % [place] % (Auto) (2-11) % Eos % (Auto) (0-4) % Baso % (Auto) (0-2) % Lymph # (Auto) (1.2-4.9) X10*3/uL [place] # (Auto) (0.1-1.2) X10*3/uL Eos # (Auto) (0.0-0.4) X10*3/uL Baso # (Auto) (0.0-0.2) X10*3/uL Abs Immat Gran (auto) (0.00-0.03) X10*3/uL Absolute Neuts (auto) (2.0-8.3) x10*3/uL Absolute Nucleated RBC (0.0-0.012) X10*3/uL Nucleated RBC % (auto) (0.0-0.2) /100WBC Sodium (135-145) mmol/L Potassium (3.3-5.1) mmol/L Chloride (96-108) mmol/L Carbon Dioxide (22-29) mmol/L Anion Gap (12-20) BUN (9-16) mg/dL Creatinine (0.5-1.4) mg/dL Estim Creat Clear Calc Estimated GFR Random Glucose (60-115) mg/dL Calcium (8.4-10.2) mg/dL Magnesium (1.6-2.6) mg/dL Total Bilirubin (0.0-1.0) mg/dL Direct Bilirubin (0.0-0.5) mg/dL AST (5-31) U/L ALT (0-31) U/L Alkaline Phosphatase (39-117) U/L Total Protein (6.5-8.0) g/dL Albumin (3.5-5.0) g/dL Lipase (8-78) U/L Urine Color Urine Appearance Urine pH (5.0-9.0) Ur Specific [place] (1.005-1.025) Urine Protein (Neg-Trace) mg/dL Urine Glucose (UA) (Negative) mg/dL Urine Ketones (Negative) mg/dL Urine Blood (Negative) Urine Nitrite (Negative) Ur Leukocyte Esterase (Negative) Urine RBC (0-2) /HPF Urine WBC (0-5) /HPF Ur Squamous Epith Cells (0-2) /HPF Urine Bacteria (None Seen) Hyaline Casts (0-2) /LPF Stool Occult Blood POSITIVE (NEGATIVE) Radiology Impression Discussion of test interpretation with radiology: I have reviewed the radiologist's reading. External Record Review External record reviewed: Inpatient record, Office record, Outpatient record, Prior outpatient labs, Prior outpatient radiology, Primary care record and Outside ED record Tests considered The following testing was considered but not selected: As above Prescription Management I considered prescription management with: Pain Medication and Antibiotic Chronic Conditions Patient?s care impacted by: Other ( Crohn's disease) Discharge Plan Discharge Clinical Impression: Crohn's colitis Patient Disposition: Home, Self-Care Instructions: Crohn Disease (ED) Additional Instructions: your blood work was reassuring Your given a dose of IV steroids in the ED Dr. Stearns will send a prescription for increased prednisone Please call Dr. Stearns is office for close follow-up If symptoms persist or worsen return to the ED Prescriptions: No Action multivitamin Tablet 1 tab PO DAILY prednisone 10 mg tablet 40 mg PO DAILY Hold Instructions: Resume on 07/04/22. hold until complete recent prednisone prescription sent by GI. acetaminophen 500 mg Tablet 1,000 mg PO BID calcium carbonate [Calcium 600] 600 mg calcium (1,500 mg) Tablet 600 mg PO DAILY cyanocobalamin (vitamin B-12) 1,000 mcg/mL solution 1 ml IM QMONTH mesalamine 1.2 gram tablet,delayed release (DR/EC) 4 tab PO DAILY Hold Instructions: Resume on 07/05/22. hold until seen by GI. Entyvio 300 mg recon soln 300 mg IV QMONTH vancomycin 125 mg Capsule 250 mg PO Q6H Qty: 28 0RF baclofen 10 mg tablet 10 mg PO BEDTIME Qty: 30 0RF Referrals: [facility] [Provider Group] Felecia Allan MD [Primary Care Provider] - Interventions: ED Discharge Assessment Last Done: 02/11/23 11:25 Discharge Date/Time: 02/11/23 11:25
[2023-02-11 08:14] LABS: Alanine Aminotransferase 20 U/L (0-31); Albumin Level 3.9 g/dL (3.5-5.0); Alkaline Phosphatase 73 U/L (39-117); Anion Gap 13 (12-20); Aspartate Amino Transferase 22 U/L (5-31); Bilirubin Direct 0.2 mg/dL (0.0-0.5); Bilirubin Total 0.5 mg/dL (0.0-1.0); Blood Urea Nitrogen 9 mg/dL (9-16); Calcium 9.7 mg/dL (8.4-10.2); Carbon Dioxide 24 mmol/L (22-29); Chloride 107 mmol/L (96-108); Creatinine Clr Calc Pharmacy 65.7; Estimated Glomerular Filt Rate > 60; Glucose Random 96 mg/dL (60-115); Lipase 24 U/L (8-78); Potassium 4.2 mmol/L (3.3-5.1); Sodium 140 mmol/L (135-145); Total Protein 7.5 g/dL (6.5-8.0)
[2023-02-11 08:17] LABS: Appearance Urine Clear; Color Urine Yellow; Glucose Urine UA Negative (Negative); Leukocyte Esterase Urine Small (1+) (Negative); Nitrite Urine Negative (Negative); PH 6.5 (5.0-9.0); Specific Gravity - Urine 1.015 (1.005-1.025); UMIC TRIGGER UACC YES; Urine Blood Small (1+) (Negative); Urine Ketones Trace mg/dL (Negative); Urine Protein Negative (Neg-Trace)
[2023-02-11 08:29] LABS: Bacteria Urine None Seen (None Seen); Hyaline Casts Urine 0-2 /LPF (0-2); RBC Urine 0-2 /HPF (0-2); Squamous Epithelial Cell Urine 0-2 /HPF (0-2); UACC Culture Trigger YES; WBC Urine 0-5 /HPF (0-5)
[2023-02-11 08:39] LABS: Magnesium 2.2 mg/dL (1.6-2.6)
[2023-02-11 09:19] LABS: OBS Int Ctl Valid YES; OBS1 POSITIVE (NEGATIVE)
[2023-02-11 09:57] VITALS: BP 144/92; PULSE 94; RESP 16; TEMP 37.2; O2SAT 95
[2023-02-11] MEDS: Hydrocortisone Sod Succ/PF 100 MG VIAL IVPUSH (10:02)
[2023-02-11 11:01] VITALS: BP 154/87; PULSE 97; RESP 16; TEMP 37.2; O2SAT 95
== END 2023-02-11 11:25 | disposition home or self-care (01) ==
PROVIDERS: Physician Assistant; Emergency Provider Emergency Medicine; PCP Internal Medicine
DX: K50.918 Crohn's disease, unspecified, with other complication (principal); K52.89 Other specified noninfective gastroenteritis and colitis; Z79.899 Other long term (current) drug therapy
CPT/HCPCS: 36415; 80048; 80076; 81001; 82272; 83690; 83735; 85025; 87086; 99284

== ENCOUNTER 2023-02-15 09:50 | Outpatient (REF) | payer OTHER, SELFPAY ==
[2023-02-15 10:30] LABS: Basophils Absolute Auto 0.1 X10*3/uL (0.0-0.2); Basophils Percent Auto 0.4 % (0-2); Eosinophils Absolute Auto 0.1 X10*3/uL (0.0-0.4); Eosinophils Percent Auto 0.4 % (0-4); Hematocrit 36.8 % (37.0-47.0); Imm Gran Pct Auto 0.6 % (0.0-0.4); Lymphocytes Absolute Auto 1.4 X10*3/uL (1.2-4.9); Lymphocytes Percent Auto 8.1 % (20-40); MANUAL DIFF FLAG NO; Mean Corpuscular HGB Conc 32.6 g/dl (31.0-35.0); Mean Corpuscular Hemoglobin 31.4 pg (27.0-33.0); Mean Corpuscular Volume 96.3 fL (80.0-98.0); Mean Platelet Volume 8.7 fL (9.4-12.3); Monocytes Absolute Auto 1.1 X10*3/uL (0.1-1.2); Monocytes Percent Auto 6.1 % (2-11); Neutrophils Absolute Auto 14.8 x10*3/uL (2.0-8.3); Neutrophils Percent Auto 84.4 % (45-73); Platelet Count 530 X10*3/uL (160-400); Red Blood Count 3.82 X10*6/uL (4.20-5.50); Red Cell Distribution Width 11.9 % (11.0-16.0); White Blood Count 17.5 X10*3/uL (4.8-10.8)
[2023-02-15 11:14] LABS: Erythrocyte Sedimentation Rate 29 MM/HR (0-20)
[2023-02-15 13:10] LABS: C Reactive Protein 1.55 mg/dL (< or = 0.50)
== END 2023-02-15 09:51 | disposition home or self-care (01) ==
LOC: HO.LAB 09:50
PROVIDERS: PCP Internal Medicine; Visit Provider Internal Medicine
DX: K50.111 Crohn's disease of large intestine with rectal bleeding (principal); R19.7 Diarrhea, unspecified
CPT/HCPCS: 36415; 85025; 85652; 86140

== ENCOUNTER 2023-03-12 07:52 | Outpatient (REF) | payer OTHER, SELFPAY | END 2023-03-12 07:53 | disposition home or self-care (01) | LOC: HO.MDS 07:52 | PROVIDERS: Visit Provider Internal Medicine | DX: K50.90 Crohn's disease, unspecified, without complications (principal) | CPT/HCPCS: 96365; J3358 ==

== ENCOUNTER 2023-05-01 12:29 | Outpatient (REF) | payer OTHER, SELFPAY ==
[2023-05-01 13:01] LABS: Basophils Absolute Auto 0.1 X10*3/uL (0.0-0.2); Basophils Percent Auto 0.4 % (0-2); Eosinophils Percent Auto 0.1 % (0-4); Hematocrit 40.2 % (37.0-47.0); Hemoglobin 13.1 g/dl (12.0-16.0); Imm Gran Abs Auto 0.08 X10*3/uL (0.00-0.03); Imm Gran Pct Auto 0.6 % (0.0-0.4); Lymphocytes Absolute Auto 0.8 X10*3/uL (1.2-4.9); Lymphocytes Percent Auto 5.9 % (20-40); MANUAL DIFF FLAG SCAN; Mean Corpuscular HGB Conc 32.6 g/dl (31.0-35.0); Mean Corpuscular Hemoglobin 30.8 pg (27.0-33.0); Mean Corpuscular Volume 94.6 fL (80.0-98.0); Mean Platelet Volume 8.8 fL (9.4-12.3); Monocytes Absolute Auto 0.2 X10*3/uL (0.1-1.2); Monocytes Percent Auto 1.5 % (2-11); Neutrophils Absolute Auto 11.7 x10*3/uL (2.0-8.3); Neutrophils Percent Auto 91.5 % (45-73); Platelet Count 441 X10*3/uL (160-400); Red Blood Count 4.25 X10*6/uL (4.20-5.50); Red Cell Distribution Width 12.9 % (11.0-16.0); SCAN SMEAR FLAG 1; White Blood Count 12.8 X10*3/uL (4.8-10.8)
[2023-05-01 13:33] LABS: Alanine Aminotransferase 31 U/L (0-31); Albumin Level 4.2 g/dL (3.5-5.0); Alkaline Phosphatase 68 U/L (39-117); Anion Gap 11 (12-20); Aspartate Amino Transferase 36 U/L (5-31); Bilirubin Direct 0.2 mg/dL (0.0-0.5); Bilirubin Total 0.6 mg/dL (0.0-1.0); Blood Urea Nitrogen 9 mg/dL (9-16); C Reactive Protein 0.35 mg/dL (< or = 0.50); Calcium 10.3 mg/dL (8.4-10.2); Carbon Dioxide 24 mmol/L (22-29); Chloride 107 mmol/L (96-108); Estimated Glomerular Filt Rate > 60; Glucose Random 170 mg/dL (60-115); Potassium 4.2 mmol/L (3.3-5.1); Sodium 138 mmol/L (135-145); Total Protein 7.2 g/dL (6.5-8.0)
[2023-05-01 13:37] LABS: SLIDE REVIEW VERIFIED
[2023-05-01 13:43] LABS: Erythrocyte Sedimentation Rate 7 MM/HR (0-20)
== END 2023-05-01 12:30 | disposition home or self-care (01) ==
LOC: HO.LAB 12:29
PROVIDERS: PCP Internal Medicine; Visit Provider Internal Medicine
DX: K50.111 Crohn's disease of large intestine with rectal bleeding (principal)
CPT/HCPCS: 36415; 80048; 80076; 85025; 85652; 86140

== ENCOUNTER 2023-07-01 08:05 | Outpatient (REF) | payer OTHER, SELFPAY ==
[2023-07-01 08:32] LABS: MANUAL DIFF FLAG NO
[2023-07-01 08:56] LABS: Basophils Absolute Auto 0.1 X10*3/uL (0.0-0.2); Eosinophils Absolute Auto 0.2 X10*3/uL (0.0-0.4); Hematocrit 39.9 % (37.0-47.0); Hemoglobin 13.1 g/dl (12.0-16.0); Imm Gran Abs Auto 0.03 X10*3/uL (0.00-0.03); Imm Gran Pct Auto 0.3 % (0.0-0.4); Lymphocytes Absolute Auto 3.3 X10*3/uL (1.2-4.9); Lymphocytes Percent Auto 37.8 % (20-40); Mean Corpuscular HGB Conc 32.8 g/dl (31.0-35.0); Mean Corpuscular Hemoglobin 31.1 pg (27.0-33.0); Mean Corpuscular Volume 94.8 fL (80.0-98.0); Mean Platelet Volume 8.9 fL (9.4-12.3); Neutrophils Absolute Auto 4.1 x10*3/uL (2.0-8.3); Neutrophils Percent Auto 47.9 % (45-73); Platelet Count 489 X10*3/uL (160-400); Red Blood Count 4.21 X10*6/uL (4.20-5.50); Red Cell Distribution Width 12.6 % (11.0-16.0); White Blood Count 8.7 X10*3/uL (4.8-10.8)
[2023-07-01 09:07] LABS: Estimated Average Glucose 117 mg/dL; Hemoglobin A1c % 5.7 % (<6.0)
[2023-07-01 09:51] LABS: Anion Gap 12 (12-20); Blood Urea Nitrogen 10 mg/dL (9-16); Calcium 8.9 mg/dL (8.4-10.2); Carbon Dioxide 23 mmol/L (22-29); Chloride 111 mmol/L (96-108); Estimated Glomerular Filt Rate > 60; Glucose Fasting 82 mg/dL (60-99); Glucose Random 82 mg/dL (60-115); Sodium 142 mmol/L (135-145)
[2023-07-06 17:54] LABS: Calprotectin, Fecal 217 mcg/g
== END 2023-07-01 08:06 | disposition home or self-care (01) ==
LOC: HO.LAB 08:05
PROVIDERS: PCP Internal Medicine; Visit Provider Internal Medicine
DX: K50.111 Crohn's disease of large intestine with rectal bleeding (principal); R73.9 Hyperglycemia, unspecified; Z79.899 Other long term (current) drug therapy
CPT/HCPCS: 36415; 80048; 80299; 82542; 83036; 83993; 85025

== ENCOUNTER 2024-01-15 11:07 | Outpatient (REF) | payer OTHER, SELFPAY ==
[2024-01-15 13:07] LABS: MANUAL DIFF FLAG NO
[2024-01-15 13:12] LABS: Basophils Percent Auto 0.4 % (0-2); Eosinophils Absolute Auto 0.1 X10*3/uL (0.0-0.4); Eosinophils Percent Auto 1.1 % (0-4); Hemoglobin 13.4 g/dl (12.0-16.0); Imm Gran Abs Auto 0.05 X10*3/uL (0.00-0.03); Imm Gran Pct Auto 0.6 % (0.0-0.4); Lymphocytes Absolute Auto 1.4 X10*3/uL (1.2-4.9); Mean Corpuscular HGB Conc 33.5 g/dl (31.0-35.0); Mean Corpuscular Hemoglobin 32.3 pg (27.0-33.0); Mean Corpuscular Volume 96.4 fL (80.0-98.0); Mean Platelet Volume 9.1 fL (9.4-12.3); Monocytes Absolute Auto 0.9 X10*3/uL (0.1-1.2); Neutrophils Absolute Auto 6.4 x10*3/uL (2.0-8.3); Neutrophils Percent Auto 71.9 % (45-73); Platelet Count 413 X10*3/uL (160-400); Red Blood Count 4.15 X10*6/uL (4.20-5.50); Red Cell Distribution Width 12.2 % (11.0-16.0); White Blood Count 8.9 X10*3/uL (4.8-10.8)
[2024-01-15 13:29] LABS: Alanine Aminotransferase 23 U/L (0-31); Albumin Level 4.1 g/dL (3.5-5.0); Alkaline Phosphatase 70 U/L (39-117); Anion Gap 14 (12-20); Aspartate Amino Transferase 21 U/L (5-31); Bilirubin Direct 0.2 mg/dL (0.0-0.5); Bilirubin Total 0.5 mg/dL (0.0-1.0); Blood Urea Nitrogen 11 mg/dL (9-16); C Reactive Protein 1.28 mg/dL (< or = 0.50); Calcium 9.5 mg/dL (8.4-10.2); Carbon Dioxide 23 mmol/L (22-29); Chloride 108 mmol/L (96-108); Estimated Glomerular Filt Rate > 60; Glucose Random 91 mg/dL (60-115); Potassium 3.6 mmol/L (3.3-5.1); Sodium 141 mmol/L (135-145); Total Protein 6.9 g/dL (6.5-8.0)
[2024-01-15 13:51] LABS: Erythrocyte Sedimentation Rate 19 MM/HR (0-20)
== END 2024-01-15 11:08 | disposition home or self-care (01) ==
LOC: HO.HMGCLDS 11:07
PROVIDERS: PCP Internal Medicine; Visit Provider Internal Medicine
DX: K50.10 Crohn's disease of large intestine without complications (principal)
CPT/HCPCS: 36415; 80048; 80076; 80299; 82542; 85025; 85652; 86140

== ENCOUNTER 2024-01-23 08:03 | Outpatient (REF) | payer OTHER, SELFPAY ==
--- NOTE | ~2024-01-23 | MM_ITS ---
EXAMINATION: BONE DENSITOMETRY CLINICAL INDICATION: Crohn's disease of the large intestine without complications. COMPARISON: This is the patient's baseline examination. TECHNIQUE: Using a [employer] DXA System (software version: 13.1) manufactured by [employer], dual-energy x-ray absorptiometry was performed of the lumbar spine and left hip. The images are of good technical quality. Summary results are attached. FINDINGS: LEFT FEMUR, NECK: BMD 0.871 g/cm2, Z-score -0.2, T-score -1.2, osteopenia. LEFT FEMUR, TOTAL: BMD 0.931 g/cm2, Z-score 0.0, T-score -0.6, normal. AP SPINE L1-L4: BMD 1.011 g/cm2, Z-score -0.6, T-score -1.4, osteopenia. IDENTIFIED RISK FACTORS: Menopause, glucocorticoids, secondary osteoporosis (intestinal or bowel disease, not IBS). HISTORY OF FRACTURE: None listed. MEDICATIONS: Calcium, multivitamin. MM/XR DEXA axial skeleton IMPRESSION: 1. DIAGNOSIS: Osteopenia based on the lowest T-score value of -1.4 in the lumbar spine applying World Health Organization criteria. 2. 10-YEAR FRACTURE RISK PREDICTION, FRAX: Major osteoporotic fracture (clinical spine, forearm, hip or shoulder) 10.3%. Hip fracture 0.7%. 3. Treatment Recommendations: NOF guidelines recommend consideration for treatment in postmenopausal women and men age 50 and older presenting with the following: -A hip or vertebral (clinical or morphometric) fracture. -T-score less than or equal to -2.5 at the femoral neck or spine after appropriate evaluation to exclude secondary causes. -Low bone mass at the hip or spine and a 10-year fracture probability by FRAX of greater than or equal to 3% for hip fracture or greater than or equal to 20% for major osteoporotic fracture based on the [place] adapted WHO algorithm. 4. Other Recommendations: All treatment decisions require clinical judgment and consideration of individual patient factors, including patient preferences, comorbidities, previous drug use, risk factors not captured in the FRAX model (e.g. frailty, falls, vitamin D deficiency, increased bone turnover, interval significant decline in bone density) and possible under or overestimation of fracture risk by FRAX. Additional medical evaluation for secondary cause of low bone mineral density may be appropriate. FUTURE SCAN RECOMMENDATION: People with diagnosed cases of osteoporosis or at high risk for fracture should have regular bone mineral density tests. For patients eligible for Medicare, routine testing is allowed once every 2 years. The testing frequency can be increased to one year for patients who have rapidly progressing disease, those who are receiving or discontinuing medical therapy to restore bone mass, or have additional risk factors.
== END 2024-01-23 08:04 | disposition home or self-care (01) ==
LOC: HO.MAMMO 08:03
PROVIDERS: PCP Internal Medicine; Visit Provider Internal Medicine
DX: Z13.820 Encounter for screening for osteoporosis (principal); K50.10 Crohn's disease of large intestine without complications; Z78.0 Asymptomatic menopausal state
CPT/HCPCS: 77080

== ENCOUNTER 2024-04-20 07:30 | Outpatient (REF) | payer OTHER, SELFPAY ==
[2024-04-27 10:29] LABS: Calprotectin, Fecal 2650 mcg/g
== END 2024-04-20 07:31 | disposition home or self-care (01) ==
LOC: HO.HMGCLNP 07:30
PROVIDERS: PCP Internal Medicine; Visit Provider Internal Medicine
DX: Z00.00 Encounter for general adult medical examination without abnormal findings (principal); K50.10 Crohn's disease of large intestine without complications; R73.9 Hyperglycemia, unspecified
CPT/HCPCS: 83993; 96127

== ENCOUNTER 2024-04-20 07:58 | Outpatient (AMB) | payer OTHER, SELFPAY ==
[2024-04-20 08:11] VITALS: BP 122/78; PULSE 89; O2SAT 98; BMI 26.9
--- NOTE | 2024-04-20 08:11 | A.OFFPC_ITS ---
Vital Signs 04/20/24 08:11 Height 5 ft 2 in Weight 147 lb BMI 26.9 BP 122/78 Blood Pressure Location Lt brachial Position Sitting Pulse 89 Pulse Source Pulse Oximeter Pulse Oximetry (%) 98 Oxygen Delivery Method Room Air Intake Visit Reasons: PE Intake Note: Pt is here today for PE. Allergies No Known Allergies [No Known Allergies*] Allergy (Verified 04/20/24 08:15) Medication List - Last Reconciled 04/20/24 by Felecia Allan MD acetaminophen 1,000 mg PO BID calcium carbonate (Calcium 600) 600 mg PO DAILY cyanocobalamin (vitamin B-12) 1 mL IM QMONTH multivitamin 1 tab PO DAILY prednisolone 5 mg PO Q OTHER DAY ustekinumab (Stelara) 90 mg subcut Q4W Tobacco use date assessed: 04/20/24 Dental Screening Dental Screen Date: 04/20/24 Did you have a dental visit in the last 12 months?: Yes Did you have a dental problem in the last 6 months where you did not have access to dental care?: No Was dental information given to patient?: Patient has dentist HPI PE HPI Details Pt is for PE. PFSH Medical History (Updated 04/20/24 @ 08:52 by Felecia Allan MD) C. difficile colitis Frequent headaches SÁNCHEZ (dyspnea on exertion) Tachycardia Annual physical exam Mammogram normal Normal Pap smear COVID-19 History of mammogram Surgical History H/O colonoscopy History of removal of cyst History of section Family History Father CVD (cardiovascular disease) Stroke Crohn's disease Mother No problems noted. Brother No problems noted. Brother No problems noted. Son No problems noted. Son No problems noted. Daughter No problems noted. 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 1. Little interest or pleasure in doing things: not at all 2. Feeling down, depressed, or hopeless: not at all 3. Trouble falling or staying asleep, or sleeping too much: several days 4. Feeling tired or having little energy: several days 5. Poor appetite or overeating: not at all 6. Feeling bad about yourself - or that you are a failure or have let yourself or your family down: not at all 7. Trouble concentrating on things, such as reading the newspaper or watching television: not at all 8. Moving or speaking so slowly that other people could have noticed. Or the opposite - being so fidgety or restless that you have been moving around a lot more than usual: not at all 9. Thoughts that you would be better off or of hurting yourself in some way: not at all Total score: 2 Depression Screening Interpretation: Negative Depression Screening Done: Yes 36436 - PHQ-9 Billing: Yes Source: Developed by Drs. Juarez Palmer, Stefany Wooten, Escobar Villagran and colleagues, with an educational armond from [employer]. Thrive Questionnaire Date Thrive assessed: 04/20/24 I am a: Patient What is your living situation today?: I have a steady place to live Within the past 12 months, did the food you bought not last and you didn't have the money to get more?: Never true Within the past 12 months, did you worry whether your food would run out before you got money to buy more?: Never true Do you have trouble paying for medicines?: No Do you have trouble getting transportation to medical appointments?: No Do you have trouble paying your heating and electricity bill?: No Do you have trouble taking care of your child, family member or friend?: No Do you have trouble with day-to-day activities such as bathing, preparing meals, shopping, managing finances, etc.?: No Are you currently unemployed and looking for a job?: No Are you interested in more education?: No Please select the resources that you would like help with: None Currently or been in a relationship where the following occur: No concerns reported THRIVE Score: 0 AUDIT C Alcohol Use Questionnaire (AUDIT-C) 1. How often do you have a drink containing alcohol?: 2-3 times a week 2. How many drinks containing alcohol do you have on a typical day when you are drinking?: 1 or 2 3. How often do you have six or more drinks on one occasion?: Never Total Score: 3 AVERY-7 AMB Questionnaire AVERY-7 Date AVERY - 7 assessed: 04/20/24 Feeling nervous, anxious, or on edge: 0 = Not at all Not being able to stop or control worryin = Not at all Worrying too much about different things: 0 = Not at all Trouble relaxin = Not at all Being so restless that it is hard to sit still: 0 = Not at all Becoming easily annoyed or irritable: 0 = Not at all Feeling afraid as if something awful might happen: 0 = Not at all Total AVERY-7 score (0-4 normal; 5-9 mild; 10-14 moderate; 15-21 severe): 0 Source: Developed by Drs. Juarez Palmer, Stefany Wooten, Escobar Villagran and colleagues, with an educational armond from [employer]. AVERY-7 Assessment Billing AVERY-7 Assessment Tool: AVERY-7 Assessment 23886 Review of Systems Const All systems reviewed & are unremarkable except as noted in HPI and below Eyes Reports no additional complaints ENT Reports no additional complaints Card Reports no additional complaints Resp Reports no additional complaints GI Reports no additional complaints Reports no additional complaints Musc Reports no additional complaints Physical exam (Primary Care) Vital Signs: Last Vital Signs Pulse 89 04/20/24 08:11 BP 122/78 04/20/24 08:11 Pulse Ox 98 04/20/24 08:11 Oxygen Delivery Method Room Air 04/20/24 08:11 BMI result Body Mass Index 26.9 Tobacco/Smoking Status: Tobacco use Status Tobacco use date assessed 04/20/24 04/20/24 08:20 Patient Tobacco Use Status Never used Tobacco 04/20/24 08:20 e-Cigarette/Vaping Use Never Used 04/20/24 08:11 PHQ-9: PHQ-9 Score PHQ-9: Total score 2 04/20/24 08:20 Depression Screening Interpretation: Negative Thrive Assessment: Date of Thrive Assessment Date Thrive assessed 04/20/24 04/20/24 08:20 Currently or been in a relationship where the following occur: No concerns repor phylicia Const General: no acute distress HENMT Head: Yes normal to inspection General nose exam: Normal external nose present Mouth: Normal oral and palatal mucosa present Throat: Yes posterior oropharynx normal Eyes General: appearance normal, both eyes and all related structures Neck Neck: Yes no lymphadenopathy and Yes supple Resp Effort & Inspection: normal respiratory effort Auscultation: clear to auscultation bilaterally Cardio Rhythm: regular rhythm Heart sounds: S1 normal heart sound present and S2 normal heart sound present GI Inspection: Yes normal to inspection Palpation (GI): Soft to palpation Percussion: Yes normal to percussion Auscultation: normal bowel sounds Coding Level of Care Code Est Pt Prev Care 40-64y(31223) Diagnoses Annual physical exam Z00.00 Normal Pap smear Z12.4 Mammogram normal Crohn's colitis K50.10 Hyperglycemia R73.9 Additional Codes AVERY-7 Assessment Billing - AVERY-7 Assessment Tool: AVERY-7 Assessment 24803 ([id number]) Assessment & Plan Assessment & Plan (1) Annual physical exam: Code(s): Z00.00 - Encounter for general adult medical examination without abnormal findings Category: Medical Plan: WELL-BALANCED DIET REGULAR PHYSICAL ACTIVITY DISCUSSED WITH THE PATIENT. 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 Panel Fast Today Z00.00 - Encounter for general adult medical examination without abnormal findings Complete Blood Count Auto Diff Today Z00.00 - Encounter for general adult medical examination without abnormal findings TSH reflex Free T4 Today Z00.00 - Encounter for general adult medical examination without abnormal findings Vitamin D 25-OH Total Today Z00.00 - Encounter for general adult medical examination without abnormal findings Lipid Panel Today Z00.00 - Encounter for general adult medical examination without abnormal findings IRON PROFILE Today Z00.00 - Encounter for general adult medical examination without abnormal findings Hemoglobin A1c Today R73.9 - Hyperglycemia, unspecified Microalbumin, Random (w Creat) Today R73.9 - Hyperglycemia, unspecified Medications: New prednisolone 5 mg PO Q OTHER DAY 30 tabs 0RF
== END 2024-04-20 08:42 | disposition home or self-care (01) ==
PROVIDERS: PCP Internal Medicine; Visit Provider Internal Medicine
DX: Z00.00 Encounter for general adult medical examination without abnormal findings (principal); Z12.4 Encounter for screening for malignant neoplasm of cervix; K50.10 Crohn's disease of large intestine without complications; R73.9 Hyperglycemia, unspecified

== ENCOUNTER 2024-04-20 08:43 | Outpatient (REF) | payer OTHER, SELFPAY ==
[2024-04-20 10:11] LABS: MANUAL DIFF FLAG NO
[2024-04-20 10:16] LABS: Basophils Absolute Auto 0.1 X10*3/uL (0.0-0.2); Basophils Percent Auto 0.5 % (0-2); Eosinophils Absolute Auto 0.1 X10*3/uL (0.0-0.4); Hematocrit 40.3 % (37.0-47.0); Hemoglobin 13.2 g/dl (12.0-16.0); Imm Gran Abs Auto 0.06 X10*3/uL (0.00-0.03); Imm Gran Pct Auto 0.5 % (0.0-0.4); Lymphocytes Absolute Auto 2.2 X10*3/uL (1.2-4.9); Lymphocytes Percent Auto 18.6 % (20-40); Mean Corpuscular HGB Conc 32.8 g/dl (31.0-35.0); Mean Corpuscular Hemoglobin 31.2 pg (27.0-33.0); Mean Corpuscular Volume 95.3 fL (80.0-98.0); Mean Platelet Volume 8.9 fL (9.4-12.3); Monocytes Absolute Auto 1.1 X10*3/uL (0.1-1.2); Neutrophils Absolute Auto 8.5 x10*3/uL (2.0-8.3); Neutrophils Percent Auto 70.4 % (45-73); Platelet Count 540 X10*3/uL (160-400); Red Blood Count 4.23 X10*6/uL (4.20-5.50); Red Cell Distribution Width 12.3 % (11.0-16.0)
[2024-04-20 10:57] LABS: Alanine Aminotransferase 22 U/L (0-31); Albumin Level 4.1 g/dL (3.5-5.0); Alkaline Phosphatase 70 U/L (39-117); Anion Gap 14 (12-20); Aspartate Amino Transferase 24 U/L (5-31); Bilirubin Direct 0.2 mg/dL (0.0-0.5); Bilirubin Total 0.4 mg/dL (0.0-1.0); Blood Urea Nitrogen 6 mg/dL (9-16); C Reactive Protein 3.39 mg/dL (< or = 0.50); Calcium 9.9 mg/dL (8.4-10.2); Carbon Dioxide 21 mmol/L (22-29); Chloride 110 mmol/L (96-108); Estimated Glomerular Filt Rate > 60; Glucose Random 90 mg/dL (60-115); Potassium 3.6 mmol/L (3.3-5.1); Sodium 141 mmol/L (135-145); Total Protein 7.6 g/dL (6.5-8.0)
[2024-04-20 11:18] LABS: Erythrocyte Sedimentation Rate 44 MM/HR (0-20)
== END 2024-04-20 08:44 | disposition home or self-care (01) ==
LOC: HO.HMGCLDS 08:43
PROVIDERS: PCP Internal Medicine; Visit Provider Internal Medicine
DX: K50.111 Crohn's disease of large intestine with rectal bleeding (principal)
CPT/HCPCS: 36415; 80048; 80076; 85025; 85652; 86140

== ENCOUNTER 2024-06-10 08:57 | Outpatient (REF) | payer OTHER, SELFPAY ==
[2024-06-10 09:50] LABS: MANUAL DIFF FLAG NO
[2024-06-10 10:04] LABS: Basophils Absolute Auto 0.1 X10*3/uL (0.0-0.2); Basophils Percent Auto 0.7 % (0-2); Eosinophils Absolute Auto 0.5 X10*3/uL (0.0-0.4); Eosinophils Percent Auto 3.9 % (0-4); Hematocrit 37.8 % (37.0-47.0); Hemoglobin 12.3 g/dl (12.0-16.0); Imm Gran Abs Auto 0.08 X10*3/uL (0.00-0.03); Imm Gran Pct Auto 0.7 % (0.0-0.4); Lymphocytes Absolute Auto 2.1 X10*3/uL (1.2-4.9); Lymphocytes Percent Auto 18.5 % (20-40); Mean Corpuscular HGB Conc 32.5 g/dl (31.0-35.0); Mean Corpuscular Volume 95.2 fL (80.0-98.0); Mean Platelet Volume 8.7 fL (9.4-12.3); Monocytes Percent Auto 8.2 % (2-11); Neutrophils Absolute Auto 7.9 x10*3/uL (2.0-8.3); Platelet Count 471 X10*3/uL (160-400); Red Blood Count 3.97 X10*6/uL (4.20-5.50); Red Cell Distribution Width 13.1 % (11.0-16.0); White Blood Count 11.6 X10*3/uL (4.8-10.8)
[2024-06-10 10:14] LABS: Alanine Aminotransferase 21 U/L (0-31); Albumin Level 3.7 g/dL (3.5-5.0); Alkaline Phosphatase 64 U/L (39-117); Aspartate Amino Transferase 25 U/L (5-31); Bilirubin Direct 0.3 mg/dL (0.0-0.5); Bilirubin Total 0.8 mg/dL (0.0-1.0); Cholesterol 166 mg/dL (<200); HDL Cholesterol 56 mg/dL (>40); LDL Cholesterol Calculated 66 mg/dL (<100); Total Protein 6.5 g/dL (6.5-8.0); Triglycerides 221 mg/dL (<150)
[2024-06-10 10:21] LABS: Estimated Average Glucose 120 mg/dL; Hemoglobin A1c % 5.8 % (<6.0); Total Hemoglobin (HGBA1C) 3100.6184 umol/L
== END 2024-06-10 08:58 | disposition home or self-care (01) ==
LOC: HO.HMGCLDS 08:57
PROVIDERS: PCP Internal Medicine; Visit Provider Internal Medicine
DX: K50.10 Crohn's disease of large intestine without complications (principal); Z79.52 Long term (current) use of systemic steroids
CPT/HCPCS: 36415; 80061; 80076; 83036; 85025

== ENCOUNTER 2024-06-19 07:40 | Outpatient (REF) | payer OTHER, SELFPAY ==
[2024-06-19 14:28] LABS: Adenovirus F 40/41 Not Detected (Not Detect.); Astrovirus Not Detected (Not Detect.); Campylobacter Not Detected (Not Detect.); Cryptosporidium Not Detected (Not Detect.); Cyclospora cayetanensis Not Detected (Not Detect.); E. coli EAEC Not Detected (Not Detect.); E. coli EPEC Detected (Not Detect.); E. coli ETEC Not Detected (Not Detect.); E. coli STEC Not Detected (Not Detect.); Entamoeba histolytica Not Detected (Not Detect.); Giardia lamblia Not Detected (Not Detect.); Plesiomonas shigelloides Not Detected (Not Detect.); Rotavirus A Not Detected (Not Detect.); Salmonella Not Detected (Not Detect.); Sapovirus Not Detected (Not Detect.); Shigella sp./EIEC Not Detected (Not Detect.); Vibrio Not Detected (Not Detect.); Vibrio Cholerae Not Detected (Not Detect.); Yersinia enterocolitica Not Detected (Not Detect.)
[2024-06-19 14:41] LABS: CDiff Gene PCR NEGATIVE (Negative)
[2024-06-22 10:34] LABS: Norovirus Stool PCR NOT DETECTED
[2024-06-25 19:38] LABS: Calprotectin, Fecal 732 mcg/g
== END 2024-06-19 07:41 | disposition home or self-care (01) ==
LOC: HO.HMGCLNP 07:40
PROVIDERS: PCP Internal Medicine; Visit Provider Internal Medicine
DX: K50.10 Crohn's disease of large intestine without complications (principal); Z79.52 Long term (current) use of systemic steroids
CPT/HCPCS: 83993; 87493; 87507

== ENCOUNTER 2024-08-10 14:19 | Outpatient (AMB) | payer OTHER, SELFPAY ==
--- NOTE | 2024-08-10 14:21 | MHC.OFFVIS ---
Vital Signs 08/10/24 14:31 Height 5 ft 3.43 in Weight 154 lb 5.177 oz BMI 27.0 BP 120/76 Blood Pressure Location Rt brachial Position Sitting Pulse 97 Pulse Source Pulse Oximeter Pulse Oximetry (%) 99 Oxygen Delivery Method Room Air Intake Visit Reasons: Drug-induced adrenocortical insufficiency Intake Note: New patient present today for drug-induced adrenocortical insufficiency. As400 Operator Required: No Accompanied by: Self / Same As Patient Allergies No Known Allergies [No Known Allergies*] Allergy (Verified 08/10/24 14:32) Medication List - Last Reconciled 08/10/24 by Gissel Dhillon MD acetaminophen 1,000 mg PO BID calcium carbonate (Calcium 600) 600 mg PO DAILY cyanocobalamin (vitamin B-12) 1 mL IM QMONTH multivitamin 1 tab PO DAILY prednisolone 20 mg PO DAILY upadacitinib ER (Rinvoq) 45 mg PO DAILY HPI Comments Details: 58 years old female here today for initial evaluation of concern for adrenal insufficiency. Seeing GI Dr. Awad at [facility] for Crohns disease and has been on steroids for the past 2.5 years Now on Rinvoq with plans to taper off the steroids currently on 08/10/24 she is on prednisone 20 mg daily with plan to taper by 5 mg a week. USed to be on budesonide before as well , stopped April 2024. No nausea , vomiting currenlty. No lightheadenss , dizziness. 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 Pulmonary: No SOB : no burning micturition, dysuria or increase in urinary frequency Neurologic: No dizziness, no weakness in extremities MSK: no back pain or joint stiffness Physical exam General: sitting comfortably in no acute distress HEENT: normocephalic/atraumatic Neck: supple, symmetrical, no thyromegaly , no dorsocervical or supraclavicular fat pads Cardiac: normal heart sounds Pulm: normal breath sounds B/L, no added breath sounds Abd: not distended, no tenderness Extremities: no edema PFSH Medical History C. difficile colitis Frequent headaches SÁNCHEZ (dyspnea on exertion) Tachycardia Annual physical exam Mammogram normal Normal Pap smear COVID-19 History of mammogram Surgical History H/O colonoscopy History of removal of cyst History of section Family History Father CVD (cardiovascular disease) Stroke Crohn's disease Mother No problems noted. Brother No problems noted. Brother No problems noted. Son No problems noted. Son No problems noted. Daughter No problems noted. 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 or other home services: No Alcohol intake: current Alcohol intake frequency: a few times a week Patient Tobacco Use Status: Never used Tobacco e-Cigarette/Vaping Use: Never Used service: No Current occupational status: employed Cognitive needs: No Hearing needs: No Vision needs: Yes Physical Exam Vital Signs: Last Vital Signs Pulse 97 08/10/24 14:31 BP 120/76 08/10/24 14:31 Pulse Ox 99 08/10/24 14:31 Oxygen Delivery Method Room Air 08/10/24 14:31 BMI result Body Mass Index 27.0 Assessment & Plan Assessment & Plan (1) Adrenal insufficiency due to corticosteroid withdrawal: Code(s): E27.3 - Drug-induced adrenocortical insufficiency; T38.0X5A - Adverse effect of glucocorticoids and synthetic analogues, initial encounter Category: Medical Plan: 58-year-old female with a history of Crohn's disease who is being tapered off prednisone with history of being on steroids for the past 2 years, currently on prednisone 20 mg daily with plan to taper by 5 mg per week. Currently she does not have any symptoms concerning for adrenal insufficiency. I reassured her that I agree with a slow taper of prednisone given long-term use, and to come back for follow up in August 2024 when she is down to 5 mg of prednisone with plan for coming off the prednisone by her GI doctor. At that point we can switch her to hydrocortisone and subsequently hold the dose for testing for adrenal insufficiency. I counseled her regarding symptoms of adrenal insufficiency including lightheadedness, dizziness, nausea, vomiting, weight loss and to contact us during office hours or go to the emergency room if those happen. Plan: -follow up in 4 weeks once patient is down to 5 mg of prednisone Plan See above Patient Instructions: Please come back for follow up in second week of August once you are down to 5 mg daily and your GI doctor is ready to take you off the prednisone If you star experiencing nausea, vomiting, lightheadedness , dizziness you should call our office during office hours or go to ER if after office hours or weekend. Coding Level of Care Code New Pt Level 4 (75295) Diagnoses Adrenal insufficiency due to corticosteroid withdrawal E27.3; T38.0X5A
[2024-08-10 14:31] VITALS: BP 120/76; PULSE 97; O2SAT 99; BMI 27.0
== END 2024-08-10 15:01 | disposition home or self-care (01) ==
PROVIDERS: PCP Internal Medicine; Visit Provider Student in an Organized Health Care Education/Training Program
DX: E27.3 Drug-induced adrenocortical insufficiency (principal); T38.0X5A Adverse effect of glucocorticoids and synthetic analogues, initial encounter
CPT/HCPCS: 99204

== ENCOUNTER → 2024-08-10 14:19 | Outpatient (BNVA) | payer OTHER, SELFPAY | PROVIDERS: PCP Internal Medicine; Visit Provider Student in an Organized Health Care Education/Training Program ==

== ENCOUNTER 2024-08-27 08:09 | Outpatient (REF) | payer OTHER, SELFPAY ==
--- OUTSIDE RECORDS SUMMARY | 2024-08-27 08:21 | XMS_ITS ---
Author Organization [facility] Address [address] [place] [address] Care Team Providers Care Gallery Host Name Role Phone Felecia Allan MD Primary Care Provider Juarez Nix [phone] REASON FOR VISIT TAPER Encounters Encounter Location Date Provider Diagnosis [facility] [address] [place] [address] 06/07/2024 Juarez Stearns PLAN OF TREATMENT Next Appt Details Provider Name:Juarez Stearns , 09/07/2024 09:10:00 AM, [address], [address], [place], [address],
--- OUTSIDE RECORDS SUMMARY | 2024-08-27 08:21 | XMS_ITS ---
Author Organization [facility] Address [address] [place] [address] Care Team Providers Care Senior Compensation Analyst Name Role Phone Felecia Allan MD Primary Care Provider Juarez Nix [phone] REASON FOR VISIT update, fyi update,pt no longer on stelara per dr. peacock. MEDICATIONS Medication SIG (Take, Route, Fr equency, Duration) Notes Start Date End Date Status Azithromycin 500 MG 1 tablet Orally Once a day for 5 days 06/20/2024 Active Encounters Encounter Location Date Provider Diagnosis [facility] [address] [place] [address] [place] [id number] 06/20/2024 Juarez Stearns PLAN OF TREATMENT Medication Medication Name Sig Start Date Stop Date Notes Azithromycin 500 MG 1 tablet Orally Once a day for 5 days 06/20/2024 Next Appt Details Provider Name:Juarez Stearns , 09/07/2024 09:10:00 AM, [address] [place] [address], [address], [place], [address],
--- OUTSIDE RECORDS SUMMARY | 2024-08-27 08:21 | XMS_ITS ---
Author Organization [facility] Address [address] [place] [address] Care Team Providers Care Corporate Learning Consultant Name Role Phone Felecia Allan MD Primary Care Provider Juarez Nix Unavailable [phone] REASON FOR VISIT 06/06/24 [facility] for a 2nd opinion/fyi update 06/08/24 Encounters Encounter Location Date Provider Diagnosis [facility] [address] [place] [address] 05/09/2024 Juarez Stearns PLAN OF TREATMENT Next Appt Details Provider Name:Juarez Stearns , 09/07/2024 09:10:00 AM, [address], [address], [place], [address],
[2024-08-27 10:26] LABS: MANUAL DIFF FLAG NO
[2024-08-27 10:31] LABS: Basophils Percent Auto 0.6 % (0-2); Eosinophils Absolute Auto 0.1 X10*3/uL (0.0-0.4); Eosinophils Percent Auto 2.7 % (0-4); Hematocrit 39.3 % (37.0-47.0); Imm Gran Abs Auto 0.03 X10*3/uL (0.00-0.03); Imm Gran Pct Auto 0.6 % (0.0-0.4); Lymphocytes Absolute Auto 1.2 X10*3/uL (1.2-4.9); Lymphocytes Percent Auto 23.6 % (20-40); Mean Corpuscular HGB Conc 33.1 g/dl (31.0-35.0); Mean Corpuscular Hemoglobin 31.9 pg (27.0-33.0); Mean Corpuscular Volume 96.3 fL (80.0-98.0); Monocytes Absolute Auto 0.7 X10*3/uL (0.1-1.2); Monocytes Percent Auto 14.1 % (2-11); Neutrophils Percent Auto 58.4 % (45-73); Platelet Count 514 X10*3/uL (160-400); Red Blood Count 4.08 X10*6/uL (4.20-5.50); Red Cell Distribution Width 12.8 % (11.0-16.0); White Blood Count 5.2 X10*3/uL (4.8-10.8)
[2024-08-27 11:01] LABS: Alanine Aminotransferase 29 U/L (0-31); Albumin Level 4.3 g/dL (3.5-5.0); Alkaline Phosphatase 58 U/L (39-117); Aspartate Amino Transferase 33 U/L (5-31); Bilirubin Direct 0.2 mg/dL (0.0-0.5); Bilirubin Total 0.6 mg/dL (0.0-1.0); C Reactive Protein 1.14 mg/dL (< or = 0.50); Cholesterol 210 mg/dL (<200); Estimated Glomerular Filt Rate > 60; HDL Cholesterol 66 mg/dL (>40); LDL Cholesterol Calculated 120 mg/dL (<100); Total Protein 7.3 g/dL (6.5-8.0); Triglycerides 124 mg/dL (<150); Vitamin D 25-OH Total 49.9 ng/mL (>30)
== END 2024-08-27 08:10 | disposition home or self-care (01) ==
LOC: HO.HMGCLDS 08:09
PROVIDERS: PCP Internal Medicine; Visit Provider Internal Medicine
DX: K50.118 Crohn's disease of large intestine with other complication (principal)
CPT/HCPCS: 36415; 80061; 80076; 82306; 82565; 85025; 86140

== ENCOUNTER 2024-09-08 09:08 | Inpatient (IN) | payer OTHER, SELFPAY ==
--- NOTE | ~2024-09-08 | CT_ITS ---
CLINICAL HISTORY: Elevated BP CT head without contrast Comparison: None Findings: No intra-axial mass, midline shift, hydrocephalus, or acute hemorrhage. No significant atrophy-like change or white matter disease. There is no sinus or mastoid fluid. The orbits are within normal limits. There is no acute fracture. IMPRESSION: 1. No acute intracranial findings. This document has been electronically signed by: Kirill Jones MD on 09/09/2024 05:11:15
--- NOTE | ~2024-09-08 | XR_ITS ---
EXAMINATION: XR ABDOMEN SUPINE AND ERECT WITH CHEST (ABD ACUTE SERIES) HISTORY: Crohn's Colitis, constipation, R/O megacolon COMPARISON: There are no prior studies for comparison. FINDINGS: Supine and upright views of the abdomen and a single PA view of the chest are submitted. The bowel gas pattern is unremarkable, without evidence of mechanical obstruction. There is no free intraperitoneal gas. There is normal contrast material throughout the colon from prior CT scan. No abnormal calcifications are identified. There are no abnormal soft tissue masses. The bones are intact. There is scarring in the right upper lobe. The lungs are otherwise clear. The heart is normal in size. There is no pleural effusion, pneumothorax, or pulmonary vascular congestion. XR/XR acute abdomen series IMPRESSION: Unremarkable bowel gas pattern oral contrast throughout the colon. Electronically signed by: Juarez Méndez MD 09/09/2024 09:33 AM EDT
--- NOTE | ~2024-09-08 | CT_ITS ---
EXAMINATION: CT ABDOMEN AND PELVIS WITH CONTRAST CLINICAL INFORMATION: Abdominal pain, concern for obstruction. COMPARISON: 06/06/2022, 11/16/2021. TECHNIQUE: Multidetector volumetric images were obtained from the superior aspect of the liver through the pubic symphysis following administration 85 mL of Omnipaque 350 intravenous contrast. Sagittal and coronal reformatted images were obtained on the technologist's workstation. Oral contrast: No This CT examination was performed using dose optimization techniques as appropriate, variously including the following: *Automated exposure control *Adjustment of mA and/or kV according to patient size (this includes techniques or standardized protocols for targeted exams where dose is matched to indication/reason for exam; i.e. extremities or head) *Use of iterative reconstruction technique FINDINGS: LUNG BASES: The visualized lung bases are unremarkable. LIVER, GALLBLADDER, AND BILIARY TREE: Liver is normal in size. There is mild diffuse fatty infiltration. No suspicious lesion. No intra or extra hepatic biliary dilatation. Gallbladder demonstrates a tiny layering gallstones although there is no evidence of gallbladder inflammation. PANCREAS: Unremarkable. SPLEEN: Unremarkable. ADRENAL GLANDS: Unremarkable. KIDNEYS AND URETERS: The kidneys are normal in size, shape, and attenuation. No hydronephrosis, hydroureter, or calculi seen. No perinephric stranding. BLADDER: Unremarkable. GASTROINTESTINAL TRACT: There is problem mild wall thickening of the entire colon, which is also somewhat a haustral, findings suspicious for colitis. There is mild hyperemia of the colonic mesentery. There is sparing of the rectum. There are a few scattered diverticula. There is no acute diverticulitis. The small bowel is normal in caliber and course. The appendix is normal. ABDOMINAL WALL: No significant hernia is appreciated. LYMPH NODES: Normal. VASCULAR: Unremarkable. PELVIC VISCERA: The uterus and adnexa are unremarkable. OSSEOUS STRUCTURES: No suspicious lytic or blastic bone lesions. Mild spinal degenerative changes and mild levoconvex lumbar scoliosis. CT/CT abdomen pelvis w IV con IMPRESSION: 1. Findings suggestive of mild pancolitis. 2. Fatty infiltration of the liver. 3. Cholelithiasis. Electronically signed by: Edson Glynn MD 09/08/2024 12:55 PM EDT
[2024-09-08 09:34] VITALS: BP 166/106; PULSE 116; RESP 18; TEMP 36.2; O2SAT 94; BMI 27.8
--- NOTE | 2024-09-08 10:11 | ED_ITS ---
HPI - General Adult General Chief complaint: Abdominal Pain Stated complaint: Abdominal Pain Time Seen by Provider: 09/08/24 10:10 Source: patient Mode of arrival: ambulatory Limitations: no limitations History of Present Illness ED Provider: Yue Marinelli PA-C HPI narrative: Patient is a 59 year old female with past medical history of Crohn's disease and adrenal insufficiency (currently on 5mg of prednisone daily) who presents to the ED for abdominal pain and concern for constipation. She states that on Sunday 09/03 she began experiencing watery diarrhea for which she took imodium and had some relief. Since Friday, she has been unable to have a bowel movement and began experiencing pain to the left lower quadrant, right lower quadrant, and some bloating. She is able to pass flatus. Yesterday 09/07 she was instructed by her GI specialist to take colace and miralax but has still had not had a bowel movement. She denies nausea or vomiting. Onset (ago): day(s) Location: abdomen Radiation: non-radiation Pain Consistency: constant Associated symptoms: denies other symptoms Related Data Home Medications ?Medication ?Instructions ?Recorded ?Confirmed acetaminophen 500 mg tablet 1,000 mg PO BID 06/06/22 09/08/24 calcium carbonate (Calcium 600) 600 mg PO DAILY 06/06/22 09/08/24 cyanocobalamin (vitamin B-12) 1 ml IM QMONTH 06/06/22 09/08/24 1,000 mcg/mL injection solution multivitamin 1 tab PO DAILY 06/06/22 09/08/24 prednisolone 5 mg tablet 20 mg PO DAILY 08/10/24 09/08/24 upadacitinib 30 mg tablet,extended 45 mg PO DAILY 09/08/24 09/08/24 release 24 hr (Rinvoq) Allergies Allergy/AdvReac Type Severity Reaction Status Date / Time No Known Allergies Allergy Verified 09/08/24 09:38 [No Known Allergies*] Review of Systems 2 Review of Systems: Yes all other systems are reviewed and are negative Constitutional: Constitutional: Reports no additional constitutional complaints, Denies chills, Denies fever(s) and Denies night sweats Eyes: Eyes: Reports no additional eye complaints, Denies blurry vision, Denies change in vision, Denies diplopia, Denies eye discharge, Denies loss of vision and Denies eye pain ENT: Denies dizziness Cardiovascular: Cardiovascular: Reports no additional cardiovascular complaints, Denies chest pain, Denies lightheadedness, Denies Loss of Consciousness and Denies dyspnea Respiratory: Respiratory: Reports no additional respiratory complaints and Denies dyspnea Gastrointestinal: Gastrointestinal: Reports no additional gastrointestinal complaints, Reports abdominal pain, Reports change in bowel habits and Reports constipation Genitourinary: Genitourinary: Denies hematuria, Denies urinary frequency, Denies dysuria, Denies urinary incontinence, Denies urinary hesitancy and Denies urinary urgency Musculoskeletal: Musculoskeletal: Reports no additional musculoskeletal complaints, Denies numbness and Denies tingling Neurologic: Denies dizziness, Denies loss of vision, Denies numbness and Denies tingling Psychiatric: Psychiatric: Reports no additional psychiatric complaints Endocrine: Endocrine: Reports no additional endocrine complaints Hematologic/Lymphatic: Hematologic/Lymphatic: Reports no additional hematologic/lymphatic complaints Allergic/Immunologic: Allergic/Immunologic: Reports no additional allergic/immunologic complaints PMFSH Past Medical History Attestation statement: The following information was validated with the patient. Source: old records reviewed and nursing notes reviewed Medical History C. difficile colitis Frequent headaches SÁNCHEZ (dyspnea on exertion) Tachycardia Annual physical exam Mammogram normal Normal Pap smear COVID-19 History of mammogram Surgical History H/O colonoscopy History of removal of cyst History of section Family History Family History Father CVD (cardiovascular disease) Stroke Crohn's disease Mother No problems noted. Brother No problems noted. Brother No problems noted. Son No problems noted. Son No problems noted. Daughter No problems noted. 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 Do you presently have visiting nurse or other home services: No Alcohol intake: current Alcohol intake frequency: a few times a week Patient Tobacco Use Status: Never used Tobacco Smoked in Last 30 Days: No e-Cigarette/Vaping Use: Never Used Use of substances other than those prescribed or required for medical reasons: No Advance Directives: No Advance Directives Information Provided: Yes Nutrition Risks: No Nutritional Risk Patient : No service: No Current occupational status: employed Cognitive needs: No Hearing needs: No Vision needs: Yes Physical Exam ED Vital Signs: Vital Signs - 24 hr 09/08/24 09:34 09/08/24 14:17 Temperature 97.1 F 97.1 F Pulse Rate 116 H 109 H Respiratory Rate 18 16 Blood Pressure 166/106 H 162/108 H Pulse Oximetry 94 98 Oxygen Delivery Method Room Air Room Air BMI result Body Mass Index 27.8 Const General: cooperative, no acute distress, alert and awake Nutritional Appearance: well nourished Orientation/consciousness: patient oriented x3 Limitations: no limitations HENMT Head: Yes normal to inspection and Yes atraumatic Ears: hearing grossly normal bilaterally and external ears normal General nose exam: Normal external nose present, no nasal discharge noted and no epistaxis Face and sinus: Yes normal facial exam, No abrasion and No laceration Mouth: Normal oral and palatal mucosa present, no drooling and no muffled voice Eyes General: appearance normal, both eyes and all related structures Periorbital: periorbital findings normal Eyelids: Yes eyelids normal Conjunctivae: conjunctivae normal Pupils: Equal, round and reactive pupils present EOM: EOMs intact bilaterally Neck Neck: Yes normal visual inspection, Yes full ROM and Yes no lymphadenopathy Chest Chest palpation & inspection: normal inspection of the chest Resp Effort & Inspection: normal respiratory effort and able to speak in complete sentences GI Inspection: Yes normal to inspection Palpation (GI): Soft to palpation, not firm, Tenderness to palpation present (GI), no guarding and not rigid Neuro General: patient oriented x3, moves all extremities and CN's II-XI intact bilaterally Cranial nerves: Yes Equal, round and reactive pupils present Cognition (Neuro): normal cognition Extrem General: Yes normal to inspection, Yes full ROM and Yes capillary refill normal Psych Appearance: grossly normal Mental Status: mental status grossly normal Affect: normal affect Attitude: cooperative Thought process: Normal thought process present Thought content: Normal thought content present Insight: Good insight present (Psych) Medications Administered Discontinued Medications Generic Name Dose Route Start Last Admin Trade Name Freq PRN Reason Stop Dose Admin Diatrizoate Meglum/Diatrizoate Sod 30 ml 09/08/24 12:17 09/08/24 12:19 Diatrizoate Meglumine, Sodium 30 Ml Solution PO 09/08/24 12:18 30 ml ONCE ONE Administration Sodium Chloride 1,000 mls @ 999 mls/hr 09/08/24 13:45 09/08/24 14:20 Ns IV 09/08/24 14:45 999 mls/hr .Q1H1M LORETA Administration Piperacillin Sod/Tazobactam 50 mls @ 100 mls/hr 09/08/24 13:44 09/08/24 14:50 Sod 3.375 gm/ Sodium Chloride IV 09/08/24 14:13 Infused ONCE ONE Infusion Iohexol 100 ml 09/08/24 12:19 09/08/24 12:19 Iohexol 350 Mg/Ml 100 Ml Infus..Btl IV 09/08/24 12:20 85 ml ONCE ONE Administration Morphine Sulfate 4 mg 09/08/24 13:44 09/08/24 14:20 Morphine Sulfate 4 Mg/Ml Cartridge IVPUSH 09/08/24 13:45 4 mg ONCE ONE Administration Protocol Prednisone 5 mg 09/08/24 13:44 09/08/24 14:20 Prednisone 5 Mg Tablet PO 09/08/24 13:45 5 mg ONCE ONE Administration Medical Decision Making Medical Decision Making MDM Narrative: Patient is a 59 year old assigned female at with a history of Crohn's disease on prednisone and immunologic medication and adrenal insufficiency currently on 5mg of prednisone presenting to the emergency department today with abdominal pain and concerns of constipation. Patient's physical exam was as noted in the physical exam portion of this note. Patient's blood work was unremarkable. Patient's urine showed no acute process. Patient's CT abdomen/pelvis showed evidence of pancolitis. Given the patient's immunocompromised status and persistent pain - will treat with IV Zosyn. I spoke to the hospitalist team who agreed to admission. Patient's clinical presentation is not consistent with sepsis (@1400). I explained my physical exam findings as well as all test results to the patient. I answered all questions asked by the patient. Patient received IV morphine which, upon re-evaluation, she stated it helped her symptoms some. Patient verbalized agreement and understanding with this treatment plan and admission. Differential Diagnosis Differential Diagnoses: The differential diagnosis associated with the presentation includes Pancolitis Abdominal pain Admission/Observation Consideration of admission/observation: Escalation of care including admission/observation considered Patient admitted as noted in the MDM Rationale portion of this note. Consult Healthcare Provider Management of the patient was discussed with: Hospitalist (agreed to admission as noted in the MDM Rationale portion of this note.) Lab Data [facility] Lab Attestation statement: I reviewed the patient's lab results. My interpretation of these results are in the MDM Rationale portion of this note. 09/08/24 10:21 09/08/24 10:21 Labs: Lab Results 09/08/24 09/08/24 09/08/24 Range/Units 10:21 10:21 10:21 WBC 9.1 (4.8-10.8) X10*3/uL RBC 4.31 (4.20-5.50) X10*6/uL Hgb 13.5 (12.0-16.0) g/dl Hct 40.9 (37.0-47.0) % MCV 94.9 (80.0-98.0) fL MCH 31.3 (27.0-33.0) pg MCHC 33.0 (31.0-35.0) g/dl RDW 12.6 (11.0-16.0) % Plt Count 540 H (160-400) X10*3/uL MPV 8.6 L (9.4-12.3) fL Immature Gran % (Auto) 0.8 H (0.0-0.4) % Neut % (Auto) 68.0 (45-73) % Lymph % (Auto) 19.3 L (20-40) % [place] % (Auto) 10.0 (2-11) % Eos % (Auto) 1.0 (0-4) % Baso % (Auto) 0.9 (0-2) % Lymph # (Auto) 1.8 (1.2-4.9) X10*3/uL [place] # (Auto) 0.9 (0.1-1.2) X10*3/uL Eos # (Auto) 0.1 (0.0-0.4) X10*3/uL Baso # (Auto) 0.1 (0.0-0.2) X10*3/uL Abs Immat Gran (auto) 0.07 H (0.00-0.03) X10*3/uL Absolute Neuts (auto) 6.2 (2.0-8.3) x10*3/uL Absolute Nucleated RBC 0.000 (0.0-0.012) X10*3/uL Nucleated RBC % (auto) 0.0 (0.0-0.2) /100WBC Sodium 141 (135-145) mmol/L Potassium 3.7 (3.3-5.1) mmol/L Chloride 109 H (96-108) mmol/L Carbon Dioxide 24 (22-29) mmol/L Anion Gap 12 (12-20) BUN 11 (9-16) mg/dL Creatinine 0.83 (0.5-1.4) mg/dL Estim Creat Clear Calc 68.0 Estimated GFR > 60 Random Glucose 89 (60-115) mg/dL Calcium 9.4 (8.4-10.2) mg/dL Magnesium 2.1 (1.6-2.6) mg/dL Total Bilirubin 0.4 0.4 (0.0-1.0) mg/dL Direct Bilirubin 0.1 (0.0-0.5) mg/dL AST 37 H 36 H (5-31) U/L ALT 38 H (0-31) U/L Alkaline Phosphatase (39-117) U/L C-Reactive Protein (< or = 0.50) mg/dL Total Protein (6.5-8.0) g/dL Albumin (3.5-5.0) g/dL Lipase (8-78) U/L Urine Color Urine Appearance Urine pH (5.0-9.0) Ur Specific [place] (1.005-1.025) Urine Protein (Neg-Trace) mg/dL Urine Glucose (UA) (Negative) mg/dL Urine Ketones (Negative) mg/dL Urine Blood (Negative) Urine Nitrite (Negative) Ur Leukocyte Esterase (Negative) Urine RBC (0-2) /HPF Urine WBC (0-5) /HPF Ur Squamous Epith Cells (0-2) /HPF Urine Bacteria (None Seen) Hyaline Casts (0-2) /LPF 09/08/24 09/08/24 09/08/24 Range/Units 10:21 10:21 10:21 WBC (4.8-10.8) X10*3/uL RBC (4.20-5.50) X10*6/uL Hgb (12.0-16.0) g/dl Hct (37.0-47.0) % MCV (80.0-98.0) fL MCH (27.0-33.0) pg MCHC (31.0-35.0) g/dl RDW (11.0-16.0) % Plt Count (160-400) X10*3/uL MPV (9.4-12.3) fL Immature Gran % (Auto) (0.0-0.4) % Neut % (Auto) (45-73) % Lymph % (Auto) (20-40) % [place] % (Auto) (2-11) % Eos % (Auto) (0-4) % Baso % (Auto) (0-2) % Lymph # (Auto) (1.2-4.9) X10*3/uL [place] # (Auto) (0.1-1.2) X10*3/uL Eos # (Auto) (0.0-0.4) X10*3/uL Baso # (Auto) (0.0-0.2) X10*3/uL Abs Immat Gran (auto) (0.00-0.03) X10*3/uL Absolute Neuts (auto) (2.0-8.3) x10*3/uL Absolute Nucleated RBC (0.0-0.012) X10*3/uL Nucleated RBC % (auto) (0.0-0.2) /100WBC Sodium (135-145) mmol/L Potassium (3.3-5.1) mmol/L Chloride (96-108) mmol/L Carbon Dioxide (22-29) mmol/L Anion Gap (12-20) BUN (9-16) mg/dL Creatinine (0.5-1.4) mg/dL Estim Creat Clear Calc Estimated GFR Random Glucose (60-115) mg/dL Calcium (8.4-10.2) mg/dL Magnesium (1.6-2.6) mg/dL Total Bilirubin (0.0-1.0) mg/dL Direct Bilirubin (0.0-0.5) mg/dL AST (5-31) U/L ALT 36 H (0-31) U/L Alkaline Phosphatase 68 71 (39-117) U/L C-Reactive Protein 0.33 (< or = 0.50) mg/dL Total Protein 7.5 7.6 (6.5-8.0) g/dL Albumin 4.4 (3.5-5.0) g/dL Lipase (8-78) U/L Urine Color Urine Appearance Urine pH (5.0-9.0) Ur Specific [place] (1.005-1.025) Urine Protein (Neg-Trace) mg/dL Urine Glucose (UA) (Negative) mg/dL Urine Ketones (Negative) mg/dL Urine Blood (Negative) Urine Nitrite (Negative) Ur Leukocyte Esterase (Negative) Urine RBC (0-2) /HPF Urine WBC (0-5) /HPF Ur Squamous Epith Cells (0-2) /HPF Urine Bacteria (None Seen) Hyaline Casts (0-2) /LPF 09/08/24 Range/Units 10:21 WBC (4.8-10.8) X10*3/uL RBC (4.20-5.50) X10*6/uL Hgb (12.0-16.0) g/dl Hct (37.0-47.0) % MCV (80.0-98.0) fL MCH (27.0-33.0) pg MCHC (31.0-35.0) g/dl RDW (11.0-16.0) % Plt Count (160-400) X10*3/uL MPV (9.4-12.3) fL Immature Gran % (Auto) (0.0-0.4) % Neut % (Auto) (45-73) % Lymph % (Auto) (20-40) % [place] % (Auto) (2-11) % Eos % (Auto) (0-4) % Baso % (Auto) (0-2) % Lymph # (Auto) (1.2-4.9) X10*3/uL [place] # (Auto) (0.1-1.2) X10*3/uL Eos # (Auto) (0.0-0.4) X10*3/uL Baso # (Auto) (0.0-0.2) X10*3/uL Abs Immat Gran (auto) (0.00-0.03) X10*3/uL Absolute Neuts (auto) (2.0-8.3) x10*3/uL Absolute Nucleated RBC (0.0-0.012) X10*3/uL Nucleated RBC % (auto) (0.0-0.2) /100WBC Sodium (135-145) mmol/L Potassium (3.3-5.1) mmol/L Chloride (96-108) mmol/L Carbon Dioxide (22-29) mmol/L Anion Gap (12-20) BUN (9-16) mg/dL Creatinine (0.5-1.4) mg/dL Estim Creat Clear Calc Estimated GFR Random Glucose (60-115) mg/dL Calcium (8.4-10.2) mg/dL Magnesium (1.6-2.6) mg/dL Total Bilirubin (0.0-1.0) mg/dL Direct Bilirubin (0.0-0.5) mg/dL AST (5-31) U/L ALT (0-31) U/L Alkaline Phosphatase (39-117) U/L C-Reactive Protein (< or = 0.50) mg/dL Total Protein (6.5-8.0) g/dL Albumin 4.6 (3.5-5.0) g/dL Lipase 42 (8-78) U/L Urine Color Yellow Urine Appearance Clear Urine pH 6.0 (5.0-9.0) Ur Specific [place] >= 1.030 H (1.005-1.025) Urine Protein Trace (Neg-Trace) mg/dL Urine Glucose (UA) Negative (Negative) mg/dL Urine Ketones Negative (Negative) mg/dL Urine Blood Trace (Negative) Urine Nitrite Negative (Negative) Ur Leukocyte Esterase Trace H (Negative) Urine RBC 0-2 (0-2) /HPF Urine WBC 0-5 (0-5) /HPF Ur Squamous Epith Cells 3-5 (0-2) /HPF Urine Bacteria Trace (None Seen) Hyaline Casts 0-2 (0-2) /LPF Independent Interpretation I performed an independent interpretation of an: CT Scan Interpretation: My interpretation is in agreement with the radiologist's impression of this imaging study. L Report Number: [id number]: Total DLP = 517.00 mGy-cm EXAMINATION: CT ABDOMEN AND PELVIS WITH CONTRAST CLINICAL INFORMATION: Abdominal pain, concern for obstruction. COMPARISON: 06/06/2022, 11/16/2021. TECHNIQUE: Multidetector volumetric images were obtained from the superior aspect of the liver through the pubic symphysis following administration 85 mL of Omnipaque 350 intravenous contrast. Sagittal and coronal reformatted images were obtained on the technologist's workstation. Oral contrast: No This CT examination was performed using dose optimization techniques as appropriate, variously including the following: *Automated exposure control *Adjustment of mA and/or kV according to patient size (this includes techniques or standardized protocols for targeted exams where dose is matched to indication/reason for exam; i.e. extremities or head) *Use of iterative reconstruction technique FINDINGS: LUNG BASES: The visualized lung bases are unremarkable. LIVER, GALLBLADDER, AND BILIARY TREE: Liver is normal in size. There is mild diffuse fatty infiltration. No suspicious lesion. No intra or extra hepatic biliary dilatation. Gallbladder demonstrates a tiny layering gallstones although there is no evidence of gallbladder inflammation. PANCREAS: Unremarkable. SPLEEN: Unremarkable. ADRENAL GLANDS: Unremarkable. KIDNEYS AND URETERS: The kidneys are normal in size, shape, and attenuation. No hydronephrosis, hydroureter, or calculi seen. No perinephric stranding. BLADDER: Unremarkable. GASTROINTESTINAL TRACT: There is problem mild wall thickening of the entire colon, which is also somewhat a haustral, findings suspicious for colitis. There is mild hyperemia of the colonic mesentery. There is sparing of the rectum. There are a few scattered diverticula. There is no acute diverticulitis. The small bowel is normal in caliber and course. The appendix is normal. ABDOMINAL WALL: No significant hernia is appreciated. LYMPH NODES: Normal. VASCULAR: Unremarkable. PELVIC VISCERA: The uterus and adnexa are unremarkable. OSSEOUS STRUCTURES: No suspicious lytic or blastic bone lesions. Mild spinal degenerative changes and mild levoconvex lumbar scoliosis. CT/CT abdomen pelvis w IV con IMPRESSION: 1. Findings suggestive of mild pancolitis. 2. Fatty infiltration of the liver. 3. Cholelithiasis. Electronically signed by: Edson Glynn MD 09/08/2024 12:55 PM EDT Dictated By: Edson Glynn MD Signed By: Electronically signed by Edson Glynn MD 09/08/24 3591 Radiology Impression Discussion of test interpretation with radiology: I have reviewed the radiologist's reading. Critical Care Time Critical Care Time Critical Care Time: Yes Total Critical Care Time: 32 Attestation: I spent 32 minutes of Critical Care Time with this patient. This does not include time spent on separately reported billable procedures. Discharge Plan Discharge Clinical Impression: Pancolitis, Abdominal pain Patient Disposition: Admitted As Inpatient
[2024-09-08 10:28] LABS: MANUAL DIFF FLAG NO
[2024-09-08 10:33] LABS: Basophils Absolute Auto 0.1 X10*3/uL (0.0-0.2); Basophils Percent Auto 0.9 % (0-2); Eosinophils Absolute Auto 0.1 X10*3/uL (0.0-0.4); Hematocrit 40.9 % (37.0-47.0); Hemoglobin 13.5 g/dl (12.0-16.0); Imm Gran Abs Auto 0.07 X10*3/uL (0.00-0.03); Imm Gran Pct Auto 0.8 % (0.0-0.4); Lymphocytes Absolute Auto 1.8 X10*3/uL (1.2-4.9); Lymphocytes Percent Auto 19.3 % (20-40); Mean Corpuscular Hemoglobin 31.3 pg (27.0-33.0); Mean Corpuscular Volume 94.9 fL (80.0-98.0); Mean Platelet Volume 8.6 fL (9.4-12.3); Monocytes Absolute Auto 0.9 X10*3/uL (0.1-1.2); Neutrophils Absolute Auto 6.2 x10*3/uL (2.0-8.3); Platelet Count 540 X10*3/uL (160-400); Red Blood Count 4.31 X10*6/uL (4.20-5.50); Red Cell Distribution Width 12.6 % (11.0-16.0); White Blood Count 9.1 X10*3/uL (4.8-10.8)
[2024-09-08 10:45] LABS: Appearance Urine Clear; Color Urine Yellow; Glucose Urine UA Negative (Negative); Leukocyte Esterase Urine Trace (Negative); Nitrite Urine Negative (Negative); Specific Gravity - Urine >= 1.030 (1.005-1.025); UMIC TRIGGER UACC YES; Urine Blood Trace (Negative); Urine Ketones Negative (Negative); Urine Protein Trace mg/dL (Neg-Trace)
[2024-09-08 10:46] LABS: Alanine Aminotransferase 36 U/L (0-31); Albumin Level 4.6 g/dL (3.5-5.0); Alkaline Phosphatase 71 U/L (39-117); Aspartate Amino Transferase 36 U/L (5-31); Bacteria Urine Trace (None Seen); Bilirubin Direct 0.1 mg/dL (0.0-0.5); Bilirubin Total 0.4 mg/dL (0.0-1.0); Hyaline Casts Urine 0-2 /LPF (0-2); RBC Urine 0-2 /HPF (0-2); Total Protein 7.6 g/dL (6.5-8.0); WBC Urine 0-5 /HPF (0-5)
[2024-09-08 10:48] LABS: Alanine Aminotransferase 38 U/L (0-31); Albumin Level 4.4 g/dL (3.5-5.0); Alkaline Phosphatase 68 U/L (39-117); Anion Gap 12 (12-20); Aspartate Amino Transferase 37 U/L (5-31); Bilirubin Total 0.4 mg/dL (0.0-1.0); Blood Urea Nitrogen 11 mg/dL (9-16); Calcium 9.4 mg/dL (8.4-10.2); Carbon Dioxide 24 mmol/L (22-29); Chloride 109 mmol/L (96-108); Estimated Glomerular Filt Rate > 60; Glucose Random 89 mg/dL (60-115); Lipase 42 U/L (8-78); Magnesium 2.1 mg/dL (1.6-2.6); Potassium 3.7 mmol/L (3.3-5.1); Sodium 141 mmol/L (135-145); Total Protein 7.5 g/dL (6.5-8.0)
--- OUTSIDE RECORDS SUMMARY | 2024-09-08 12:07 | XMS_ITS ---
Author Organization [facility] Address [address] [place] [address] [place] [id number] Care Team Providers Care Transition Lead Name Role Phone Felecia Allan MD Primary Care Provider Juarez Nix [phone] REASON FOR VISIT update, fyi update,pt no longer on stekaylyn per dr. peacock. Medications Medication SIG (Take, Route, Fr equency, Duration) Notes Start Date End Date Status Azithromycin 500 MG 1 tablet Orally Once a day for 5 days 06/20/2024 Active Encounters Encounter Location Date Provider Diagnosis [facility] [address] [id number] 06/20/2024 Juarez Stearns Plan Of Treatment Medication Medication Name Sig Start Date Stop Date Notes Azithromycin 500 MG 1 tablet Orally Once a day for 5 days 06/20/2024 Next Appt Details Provider Name:Juarez Stearns , 03/15/2025 10:10:00 AM, [address] [place] [address], Suite [facility], [place], [address], Progress Notes * SUNNY MCKEON ADOB:1965 (58 yo F)Acc No.[id number]:06/20/2024 Patient:?SUNNY MCKEON :1965???Age:58 Y???Sex:Female Address:[address] [address] * Refills? Start Azithromycin Tablet, 500 MG, Orally, 5 Tablet, 1 tablet, Once a day, 5 days, Refills=0 * true * Date:? Generated for [place]/Derrick/Sandra on:?09/08/2024 12:07 PM EDT
--- OUTSIDE RECORDS SUMMARY | 2024-09-08 12:07 | XMS_ITS ---
Author Organization [facility] Address [address] [place] [address] Care Team Providers Care Plane Runner Name Role Phone Felecia Allan MD Primary Care Provider Juarez Nix Unavailable [phone] Allergies No Known Allergies REASON FOR VISIT Patient presents today for crohn's Medications Medication SIG (Take, Route, Frequency, Duration) Notes Start Date End Date Status azaTHIOprine 50 MG 1 Orally Daily for 30 days Active Dicyclomine HCl 10 MG 1 or 2 capsules Or ally Every 6 hour as needed for abdominal discomfort for 30 day(s) Active Multivitamin Adults - as directed Orally Active predniSONE 5 MG 8 pills(40mg) daily for 1 week, and then decrease by 1 pill(5mg) every week Orally Once a day for 56 days Active Cyanocobalamin 1000 MCG/ML INJECT 1 ML INTRAMUSCULARLY ONCE PER MONTH for 84 Active Calcium + D 500-1000-40 MG-UNT-MCG as directed Orally Active Rinvoq 07/05/2024 Active Social History Tobacco Use: Social History Observation Description Date Details (start date - stop date) Former Smoker NA - NA Tobacco Use/Smoking Question Answer Notes Patient is a former smoker How long has it been since you last smoked? > 10 years Section Notes: Nonsmoker; no sig aclohol Vital Signs Blood pressure systolic 111 mm Hg 09/08/19 25 Blood pressure diastolic 111 mm Hg 025 Height 62 in 09/07/2024 Weight 152 lbs 09/07/2024 BMI 27.8 kg/m2 09/07/2024 Encounters Encounter Location Date Provider Diagnosis [facility] [address] [place] [address] 09/07/2024 Juarez Stearns Crohn''s disease of large intestine without complication K50.10 ; Left sided abdominal pain R10.9 ; FPC (current) use of systemic steroids Z79.52 and Diarrhea R19.7 Assessments Encounter Date Diagnosis (ICD Code) Assessment Notes Treatment Notes Treatment Clinical Notes Section Notes 09/07/2024 Crohn''s disease of large intestine without complication (ICD-10 - K50.10) Continue the same treatment with the Rinvoq and prednisone. Review bone density study with Dr. Dhillon Use some Miralax but call if increasing pain, vomiting, abdominal distention, etc Keep me posted with the BI visits and treatments Overall, Sunny appears stable on her new regimen of the Rinvoq. She appears to be tolerating the prednisone taper under the guidance of Dr. Dhillon. She we will continue follow-up in [place] as well as with myself. I did advise her to start some MiraLAX to help with her constipation, and to certainly be on the look out for any type of bowel obstruction if indeed she has some narrowing in the colon. I advised her to call or go to the ER if she develops any worsening abdominal pain, abdominal distention, vomiting, fevers, or any signs of bleeding. I did advise her to keep the physician in [place] apprised of the situation as well. I have given her a lab slip to hold onto to check stool specimens in the event diarrhea recurs so we can try to document if indeed she is having any type of infection or if this is a Crohn's flare. I did advise her to keep me posted as to any further visits or procedures that she has in [place]. I will plan to see her here in the Fall for a follow-up visit but did advise her to definitely call prior to that if she has any problems or questions I can be of assistance with. Sunny was comfortable with this plan. Thank you again for allowing me to participate in Sunny's care. I shall continue to keep you advised of her progress. 09/07/2024 Left sided abdominal pain (ICD-10 - R10.9) Overall, Sunny appears stable on her new regimen of the Rinvoq. She appears to be tolerating the prednisone taper under the guidance of Dr. Dhillon. She we will continue follow-up in [place] as well as with myself. I did advise her to start some MiraLAX to help with her constipation, and to certainly be on the look out for any type of bowel obstruction if indeed she has some narrowing in the colon. I advised her to call or go to the ER if she develops any worsening abdominal pain, abdominal distention, vomiting, fevers, or any signs of bleeding. I did advise her to keep the physician in [place] apprised of the situation as well. I have given her a lab slip to hold onto to check stool specimens in the event diarrhea recurs so we can try to document if indeed she is having any type of infection or if this is a Crohn's flare. I did advise her to keep me posted as to any further visits or procedures that she has in [place]. I will plan to see her here in the Fall for a follow-up visit but did advise her to definitely call prior to that if she has any problems or questions I can be of assistance with. Sunny was comfortable with this plan. Thank you again for allowing me to participate in Sunny's care. I shall continue to keep you advised of her progress. 09/07/2024 FPC (current) use of systemic steroids (ICD-10 - Z79.52) Overall, Sunny appears stable on her new regimen of the Rinvoq. She appears to be tolerating the prednisone taper under the guidance of Dr. Dhillon. She we will continue follow-up in [place] as well as with myself. I did advise her to start some MiraLAX to help with her constipation, and to certainly be on the look out for any type of bowel obstruction if indeed she has some narrowing in the colon. I advised her to call or go to the ER if she develops any worsening abdominal pain, abdominal distention, vomiting, fevers, or any signs of bleeding. I did advise her to keep the physician in [place] apprised of the situation as well. I have given her a lab slip to hold onto to check stool specimens in the event diarrhea recurs so we can try to document if indeed she is having any type of infection or if this is a Crohn's flare. I did advise her to keep me posted as to any further visits or procedures that she has in [place]. I will plan to see her here in the Fall for a follow-up visit but did advise her to definitely call prior to that if she has any problems or questions I can be of assistance with. Sunny was comfortable with this plan. Thank you again for allowing me to participate in Sunny's care. I shall continue to keep you advised of her progress. 09/07/2024 Diarrhea (ICD-10 - R19.7) Overall, Sunny appears stable on her new regimen of the Rinvoq. She appears to be tolerating the prednisone taper under the guidance of Dr. Dhillon. She we will continue follow-up in [place] as well as with myself. I did advise her to start some MiraLAX to help with her constipation, and to certainly be on the look out for any type of bowel obstruction if indeed she has some narrowing in the colon. I advised her to call or go to the ER if she develops any worsening abdominal pain, abdominal distention, vomiting, fevers, or any signs of bleeding. I did advise her to keep the physician in [place] apprised of the situation as well. I have given her a lab slip to hold onto to check stool specimens in the event diarrhea recurs so we can try to document if indeed she is having any type of infection or if this is a Crohn's flare. I did advise her to keep me posted as to any further visits or procedures that she has in [place]. I will plan to see her here in the Fall for a follow-up visit but did advise her to definitely call prior to that if she has any problems or questions I can be of assistance with. Sunny was comfortable with this plan. Thank you again for allowing me to participate in Sunny's care. I shall continue to keep you advised of her progress. Plan Of Treatment Medication Medication Name Sig Start Date Stop Date Notes azaTHIOprine 50 MG 1 Orally Daily for 30 days Dicyclomine HCl 10 MG 1 or 2 capsules Or ally Every 6 hour as needed for abdominal discomfort for 30 day(s) Treatment Notes Assessment Notes Crohn''s disease of large in testine without complication Continue the same treatment with the Rinvoq and prednisone. Review bone density study with Dr. Dhillon Use some Miralax but call if increasing pain, vomiting, abdominal distention, etc Keep me posted with the BI visits and treatments Pending Test Test Name Order Date CDiff with Reflex to PCR 09/07/2024 Calprotectin, Fecal 09/07/2024 GI PANEL 09/07/2024 Next Appt Details Follow Up: 2024, Reaso n: Provider Name:Juarez Lentz Jinny , 03/15/2025 10:10:00 AM, [address], [address], [place], [address], Progress Notes * SUNNY MCKEON ADOB:1965 (59 yo F)Acc No.[id number]:09/07/2024 Progress Notes Patient:?SUNNY MCKEON A Provider:?Juarez Stearns MD :1965???Age:59 Y???Sex:Female D ate:09/07/2024 Address:[address] [place] [address] [id number] Pcp:Felecia Allan MD Subjective: * Chief Complaints: * ???1. Patient presents today for crohn's. * HPI: ???incontinence:? .I saw Sunny in follow-up today in regard to her underlying history of Crohn's colitis. I last saw Sunny in April 2024. Subsequent to that she was referred to [facility] and has been under the care of Dr. Costa. He performed a colonoscopy on her in late May 2024. Prior to that I had treated her for an EPEC infection based on a positive GI panel and her ongoing issues with diarrhea, Crohn's colitis, and use of steroids. I do not have the colonoscopy report but she describes that it did show some ulcerations and narrowing , although she is not entirely sure where the narrowing was. He did switch her from the every 4 weeks Stelara injections to Rinvoq. Has 2 more weeks at the 45 mg/day dose and will then be switching to the 30 mg/day maintenance dose. He has also been seeing Dr. Dhillon from endocrinology and has been tapering down her prednisone and is currently on 5 mg/day. She advises me that she has been having some fairly frequent episodes of diarrhea which she attributes to different infections that are going around at work at [employer], including the norovirus. However, she has not turned in any stool specimens. She had a particularly bad episode of left sided abdominal pain several days ago which resolved. She did take some Imodium last week for diarrhea and reports that she has not had a bowel movement in about 3 or 4 days now. She has not had any bleeding, abdominal distention, vomiting, nor fevers. She denies any significant heartburn or dysphagia. She denies any signs of jaundice. Laboratories from the very end of July revealed a normal liver profile with albumin of 4.3, a normal CBC except for a platelet count of 514,000, and an improved C-reactive protein of 1.1. She advises me that she thinks she will be having another colonoscopy in [place] in approximately October or November for follow-up. * Medical History:?Denies CA,D M,CVA,Lung disease,renal disease, Some tachycardias after COVID in 05/2020--having a cardiac Echo in 01/2022, Negative screening colonoscopy in October of 2018, Severe Crohn's colitis diagnosed in 12/2021 and started on Humira, prednisone, oral mesalamine, and mesalamine suppositories at that time--the terminal ileum appeared normal, there was involvement of the distal rectum, and there was no perianal disease at that time. She was switched from the Humira to Entyvio at the end of March 2022 due to refractory Crohn's disease symptoms despite a fairly therapeutic level of the Humira on every other week dosing. I did not feel that increasing the Humira to every week would be helpful., Switched from the Entyvio infusions to Stelara early February, due to continued refractory Crohn's disease despite therapeutic Entyvio trough levels of mid-13's on two occasions, as well as flaring up just 2 weeks after an Entyvio infusion. Therefore, I did not think increasing Entyvio to every 4 weeks would help at that point., The Stelara injections were increased to every 4 week intervals as the end of 07/2023., Adding a trial of azathioprine in 04/2024 due to increased Crohn's activity despite a therapeutic Stelara level. In October of 2022 she had normal azathioprine metabolism [facility] studies, She was switched from the Stelara to Rinvoq when she was referred to [facility] in May 2024. She underwent a colonoscopy in May with Dr. Costa and was told of some Crohn's disease with possible narrowing in a section of the colon.. * Surgical History:? 2000, Uterine ablation , Cyst on foot . * Family History:?Father: dece ased 43 yrs, Crohn's disease.?Mother: alive, CHF.?Siblings: Brother has Crohn's disease.? No known hx of colorectal cancer or liver disease. * Social History:?Tobacco Use:?Tobacco Use/Smoking?Patient is a?former smoker,?How long has it been since you last smoked??> 10 years.?Miscellaneous:?Marital status: . 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 ???Nonsmoker; no sig aclohol. * Medications:?Taking Rinvoq , Taking Calcium + D 500-1000-40 MG-UNT-MCG Tablet Chewable as directed Orally , Taking Multivitamin Adults - Tablet as directed Orally , Taking Cyanocobalamin 1000 MCG/ML Solution INJECT 1 ML INTRAMUSCULARLY ONCE PER MONTH , Taking Dicyclomine HCl 10 MG Capsule 1 or 2 capsules Orally Every 6 hour as needed for abdominal discomfort , Taking predniSONE 5 MG Tablet 8 pills(40mg) daily for 1 week, and then decrease by 1 pill(5mg) every week Orally Once a day , Discontinued azaTHIOprine 50 MG Tablet 1 Orally Daily , Discontinued Stelara 90 MG/ML Solution Prefilled Syringe INJECT 1 SYRINGE UNDER THE SKIN EVERY 4 WEEKS , Discontinued Azithromycin 500 MG Tablet 1 tablet Orally Once a day , Discontinued Budesonide 3 MG Capsule Delayed Release Particles TAKE 3 CAPSULES BY MOUTH ONCE A DAY. START THIS WHEN YOU ARE ON THE REGIMEN OF 12.5MG PREDNISONE ALTERNATING WITH 10MG. 30 DAY(S) , Discontinued Budesonide 3 MG Capsule Delayed Release Particles 3 capsules Orally Once a day , Medication List reviewed and reconciled with the patient * Allergies:?N.K.D.A. Objective: * Vitals:?Wt: 152 lbs, Ht: 62 in, BMI:27.8Index, BP: 111/111 mm Hg, Wt-k.[id number]. Assessment: * Assessment: 1.?Left sided abdominal pain - R10.9 (Primary)???2.?Crohn''s disease of large intestine without complication - K50.10???3.?FPC (current) use of systemic steroids - Z79.52???4.?Diarrhea - R19.7??? Overall, Sunny appears stabl e on her new regimen of the Rinvoq. She appears to be tolerating the prednisone taper under the guidance of Dr. Dhillon. She we will continue follow-up in [place] as well as with myself. I did advise her to start some MiraLAX to help with her constipation, and to certainly be on the look out for any type of bowel obstruction if indeed she has some narrowing in the colon. I advised her to call or go to the ER if she develops any worsening abdominal pain, abdominal distention, vomiting, fevers, or any signs of bleeding. I did advise her to keep the physician in [place] apprised of the situation as well. I have given her a lab slip to hold onto to check stool specimens in the event diarrhea recurs so we can try to document if indeed she is having any type of infection or if this is a Crohn's flare. I did advise her to keep me posted as to any further visits or procedures that she has in [place]. I will plan to see her here in the Fall for a follow-up visit but did advise her to definitely call prior to that if she has any problems or questions I can be of assistance with. Sunny was comfortable with this plan. Thank you again for allowing me to participate in Sunny's care. I shall continue to keep you advised of her progress. Plan: * Treatment: 2.?Diarrhea?LAB: CDiff with Reflex to PCR ?LAB: Calprotectin, Fecal ?LAB: GI PANEL * Preventive Medicine:? ??Counseling:?Care goal follow-up plan:?Above Normal BMI Follow-up?Giving encouragement to exercise,?BMI management provided?Yes.? * Follow Up:?2024 * * The named appointment provid er may or may not be the originator of this progress note, and it is not deemed complete until electronically signed by the appointment provider. Sign off status: Pending * Provider:?Juarez Stearns MD Date:? 025 Generated for [place] cas[place]/Derrick/Mohamuditting on:?09/08/2024 12:07 PM EDT
--- OUTSIDE RECORDS SUMMARY | 2024-09-08 12:07 | XMS_ITS | Patient Health Record ---
Author Organization [facility] Address [address] [place] [address] Care Team Providers Care Mobile Home Mechanic Name Role Phone Felecia Allan MD Primary Care Provider Juarez Nix Unavailable [phone] Allergies No Known Allergies Results Component Value Reference Range Notes Calprotectin, Fecal Reviewed date:04/27/2024 12:41:29 PM Interpretation: Performing Lab:[facility], [address] [place] [phone] Notes/Report: Calprotectin, Fecal 2650 Reference Range: <50 Normal 50-120 Borderline >120 Elevated Calprotectin in Crohn's disease and ulcerative colitis can be five to several thousand times above the reference population (50 mcg/g or less). Levels are usually 50 mcg/g or less in healthy patients and with irritable bowel syndrome. Repeat testing in 4-6 weeks is suggested for borderline values. THIS TEST WAS PERFORMED AT: [facility] [address] [place] [address] LASHAY PALOMINO MD,PHD,RADHA Complete Blood Count Auto Di ff Reviewed date:01/17/2024 08:53:44 PM Interpretation: Performing Lab:[facility], [address] [place] [phone] Notes/Report: White Blood Count 8.9 4.8-10.8 X10*3/uL Red Blood Count 4.15 4.20-5.50 X10*6/uL Hemoglobin 13.4 12.0-16.0 g/dl Hematocrit 40.0 37.0-47.0 % Mean Corpuscular Volume 96.4 80.0-98.0 fL Mean Corpuscular Hemoglobin 32.3 27.0-33.0 pg Mean Corpuscular HGB Conc 33.5 31.0-35.0 g/dl Red Cell Distribution Width 12.2 11.0-16.0 % Platelet Count 413 160-400 X10*3/uL Mean Platelet Volume 9.1 9.4-12.3 fL Neutrophils Percent Auto 71.9 45-73 % Imm Gran Pct Auto 0.6 0.0-0.4 % Lymphocytes Percent Auto 16.0 20-40 % Monocytes Percent Auto 10.0 2-11 % Eosinophils Percent Auto 1.1 0-4 % Basophils Percent Auto 0.4 0-2 % NRBC Pct Auto 0.0 0.0-0.2 /100WBC Neutrophils Absolute Auto 6.4 2.0-8.3 x10*3/uL Imm Gran Abs Auto 0.05 0.00-0.03 X10*3/uL Lymphocytes Absolute Auto 1.4 1.2-4.9 X10*3/uL Monocytes Absolute Auto 0.9 0.1-1.2 X10*3/uL Eosinophils Absolute Auto 0.1 0.0-0.4 X10*3/uL Basophils Absolute Auto 0.0 0.0-0.2 X10*3/uL NRBC Abs Auto 0.000 0.0-0.012 X10*3/uL Erythrocyte Sedimentation Ra te Reviewed date:01/15/2024 05:53:40 PM Interpretation: Performing Lab:[address] [phone] Notes/Report: Erythrocyte Sedimentation Rate 19 0-20 MM/HR Patients with polycythemia and many hemoglobin abnormalities may have depressed sed rates whereas patients with anemia may have elevated sed rates. Liver Panel Reviewed date:01/15/2024 05:54:45 PM Interpretation: Performing Lab:[address] [phone] Notes/Report: Bilirubin Total 0.5 0.0-1.0 mg/dL Bilirubin Direct 0.2 0.0-0.5 mg/dL Aspartate Amino Transferase 21 5-31 U/L Alanine Aminotransferase 23 0-31 U/L Total Protein 6.9 6.5-8.0 g/dL Albumin Level 4.1 3.5-5.0 g/dL Alkaline Phosphatase 70 39-117 U/L Basic Metabolic Panel Reviewed date:01/15/2024 05:55:22 PM Interpretation: Performing Lab:[facility], [address] [place] [phone] Notes/Report: Sodium 141 135-145 mmol/L Potassium 3.6 3.3-5.1 mmol/L Chloride 108 96-108 mmol/L Carbon Dioxide 23 22-29 mmol/L Anion Gap 14 12-20 Blood Urea Nitrogen 11 9-16 mg/dL Creatinine 0.81 0.5-1.4 mg/dL Estimated Glomerular Filt Rate > 60 NOTE: For -Colombian individuals, multiply the result by 1.210. Chronic Kidney Disease: Estimated GFR < 60 mL/min/1.73m2 Severe Kidney Disease: Estimated GFR < 15 mL/min/1.73m2 Glucose Random 91 60-115 mg/dL Calcium 9.5 8.4-10.2 mg/dL C Reactive Protein Reviewed date:01/17/2024 08:53:23 PM Interpretation: Performing Lab:[facility], [address] [place] [phone] Notes/Report: C Reactive Protein 1.28 < or = 0.50 mg/dL Valeriy Ferraro UST Reviewed date:04/13/2024 11:34:13 PM Interpretation: Performing Lab:[facility], [address] [place] [phone] Notes/Report: [employer] UST SEE NOTE SEE SCA NNED RESULTS IN EMR XR DEXA axial skeleton Reviewed date:05/09/2024 03:36:54 PM Interpretation: Performing Lab: Notes/Report: [facility] [address] [place] [address] Mammography Report Signed Patient: Sunny Tiwari MR#: [id number] : 1965 Acct:[id number] Age/Sex: 58 / F ADM Date: 01/23/24 Loc: KATE Attending Dr: Juarez Stearns MD Ordering Physician: Juarez Stearns MD Results: Date of Service: 01/23/24 Follow Up: Procedure(s): XR DEXA axial skeleton Accession Number(s): [id number] cc: Felecia Allan MD; Juarez Stearns MD EXAMINATION: BONE DENSITOMETRY CLINICAL INDICATION: Crohn's disease of the large intestine without complications. COMPARISON: This is the patient's baseline examination. TECHNIQUE: Using a [employer] DXA System (software version: 13.1) manufactured by [employer] dual-energy x-ray absorptiometry was performed of the lumbar spine and left hip. The images are of good technical quality. Summary results are attached. FINDINGS: LEFT FEMUR, NECK: BMD 0.871 g/cm2, Z-score -0.2, T-score -1.2, osteopenia. LEFT FEMUR, TOTAL: BMD 0.931 g/cm2, Z-score 0.0, T-score -0.6, normal. AP SPINE L1-L4: BMD 1.011 g/cm2, Z-score -0.6, T-score -1.4, osteopenia. IDENTIFIED RISK FACTORS: Menopause, glucocorticoids, secondary osteoporosis (intestinal or bowel disease, not IBS). HISTORY OF FRACTURE: None listed. MEDICATIONS: Calcium, multivitamin. MM/XR DEXA axial skeleton IMPRESSION: 1. DIAGNOSIS: Osteopenia based on the lowest T-score value of -1.4 in the lumbar spine applying World Health Organization criteria. 2. 10-YEAR FRACTURE RISK PREDICTION, FRAX: Major osteoporotic fracture (clinical spine, forearm, hip or shoulder) 10.3%. Hip fracture 0.7%. 3. Treatment Recommendations: NOF guidelines recommend consideration for treatment in postmenopausal women and men age 50 and older presenting with the following: -A hip or vertebral (clinical or morphometric) fracture. -T-score less than or equal to -2.5 at the femoral neck or spine after appropriate evaluation to exclude secondary causes. -Low bone mass at the hip or spine and a 10-year fracture probability by FRAX of greater than or equal to 3% for hip fracture or greater than or equal to 20% for major osteoporotic fracture based on the [place] adapted WHO algorithm. 4. Other Recommendations: All treatment decisions require clinical judgment and consideration of individual patient factors, including patient preferences, comorbidities, previous drug use, risk factors not captured in the FRAX model (e.g. frailty, falls, vitamin D deficiency, increased bone turnover, interval significant decline in bone density) and possible under or overestimation of fracture risk by FRAX. Additional medical evaluation for secondary cause of low bone mineral density may be appropriate. FUTURE SCAN RECOMMENDATION: People with diagnosed cases of osteoporosis or at high risk for fracture should have regular bone mineral density tests. For patients eligible for Medicare, routine testing is allowed once every 2 years. The testing frequency can be increased to one year for patients who have rapidly progressing disease, those who are receiving or discontinuing medical therapy to restore bone mass, or have additional risk factors. Dictated By: Enio Bean MD Signed By: <Electronically signed by Enio Bean MD in OV> 01/23/24 0952 DD/ 0845 TD/TT: Anchor Operator: PRANEETH Castillo [facility] [address] [place] [address] Mammography Report Signed Patient: Sunny Tiwari MR#: [id number] : 1965 Acct:[id number] Age/Sex: 58 / F ADM Date: 01/23/24 Loc: HO.MAMMO Attending Dr: Juarez Stearns MD Ordering Physician: Juarez Stearns MD Results: Date of Service: 01/23/24 Follow Up: Procedure(s): XR DEX A axial skeleton Accession Number(s): [id number] cc: Felecia Allan MD ; Juarez Stearns MD EXAMINATION: BONE DENSITOMETRY CLINICAL INDICATION: Crohn's disease of t he large intestine without complications. COMPARISON: This is the patient' s baseline examination. TECHNIQUE: Using a [employer] DXA System (software version: 13.1) manufactured b [employer], dual-energy x-ray absorptiometry was performed of the lumbar spine and left hip. The images are of good technical quality. Summary results are attached. FINDINGS: LEFT FEMUR, NECK: BMD 0.871 g/cm2, Z-score -0.2, T-score -1.2, osteopenia. LEFT FEMUR, TOTAL: BMD 0.931 g/cm2, Z-score 0.0, T-score -0.6, normal. AP SPINE L1-L4: BMD 1.011 g/cm2, Z-score -0.6, T-score -1.4, osteopenia. IDENTIFIED RISK FACTORS: Menopause, glucocorticoids, secondary osteoporosis (intestinal or bowel disease, not IBS). HISTORY OF FRACTURE: None listed. MEDICATIONS: Calcium, multivitamin. MM/XR DEXA axial skeleton IMPRESSION: 1. DIAGNOSIS: Osteopenia based on the lowest T-score value of -1.4 in the lumbar spine applying World Health Organization criteria. 2. 10-YEAR FRACTURE RISK PREDICTION, FRAX: Major osteoporotic fracture (clinical spine, forearm, hip or shoulder) 10.3%. Hip fracture 0.7%. 3. Treatment Recommendations: NOF guidelines recommend consideration for treatment in postmenopausal women and men age 50 and older presenting with the following: -A hip or vertebral (clinical or morphometric) fracture. -T-score less than o r equal to -2.5 at the femoral neck or spine after appropriate evaluati on to exclude secondary causes. -Low bone mass at th e hip or spine and a 10-year fracture probability by FRAX of greater than or equal to 3% for hip fracture or greater than or equal to 20% for major osteoporotic fracture based on the [place] adapted WHO algorithm. 4. Other Recommendations: All treatment decisions require clinical judgment and consideration of individual patient factors, including patient preferences, comorbidities, previous drug use, risk factors not captured in the FRAX model (e.g. frailty, falls, vitamin D deficiency, increased bone turnover, interval significant decline in bone density) and possible under o r overestimation of fracture risk by FRAX. Additional medical evaluation for secondary cause of low bone mineral density may be appropriate. FUTURE SCAN RECOMMENDATION: People with diagnose d cases of osteoporosis or at high risk for fracture should have regular bone mineral density tests. For patients eligible for Medicar e, routine testing is allowed once every 2 years. The testing frequenc y can be increased to one year for patients who have rapidly progressing disease, those who are receiving or discontinuing medica l therapy to restore bone mass, or have additional risk factors. Dictated By: Enio Bean MD Signed By: <Electronically signed by Enio Bean MD in OV> 01/23/24 0952 DD/ TD/TT: Anchor Operator: PRANEETH Complete Blood Count Auto Di ff Reviewed date:04/20/2024 11:03:14 PM Interpretation: Performing Lab:[facility], [address] [place] [phone] Notes/Report: White Blood Count 12.0 4.8-10.8 X10*3/uL Red Blood Count 4.23 4.20-5.50 X10*6/uL Hemoglobin 13.2 12.0-16.0 g/dl Hematocrit 40.3 37.0-47.0 % Mean Corpuscular Volume 95.3 80.0-98.0 fL Mean Corpuscular Hemoglobin 31.2 27.0-33.0 pg Mean Corpuscular HGB Conc 32.8 31.0-35.0 g/dl Red Cell Distribution Width 12.3 11.0-16.0 % Platelet Count 540 160-400 X10*3/uL Mean Platelet Volume 8.9 9.4-12.3 fL Neutrophils Percent Auto 70.4 45-73 % Imm Gran Pct Auto 0.5 0.0-0.4 % Lymphocytes Percent Auto 18.6 20-40 % Monocytes Percent Auto 9.0 2-11 % Eosinophils Percent Auto 1.0 0-4 % Basophils Percent Auto 0.5 0-2 % NRBC Pct Auto 0.0 0.0-0.2 /100WBC Neutrophils Absolute Auto 8.5 2.0-8.3 x10*3/uL Imm Gran Abs Auto 0.06 0.00-0.03 X10*3/uL Lymphocytes Absolute Auto 2.2 1.2-4.9 X10*3/uL Monocytes Absolute Auto 1.1 0.1-1.2 X10*3/uL Eosinophils Absolute Auto 0.1 0.0-0.4 X10*3/uL Basophils Absolute Auto 0.1 0.0-0.2 X10*3/uL NRBC Abs Auto 0.000 0.0-0.012 X10*3/uL Erythrocyte Sedimentation Ra te Reviewed date:04/20/2024 11:04:21 PM Interpretation: Performing Lab:[address] [phone] Notes/Report: Erythrocyte Sedimentation Rate 44 0-20 MM/HR Patients with polycythemia and many hemoglobin abnormalities may have depressed sed rates whereas patients with anemia may have elevated sed rates. Liver Panel Reviewed date:04/20/2024 11:04:10 PM Interpretation: Performing Lab:[address] [place] [address] Notes/Report: Bilirubin Total 0.4 0.0-1.0 mg/dL Bilirubin Direct 0.2 0.0-0.5 mg/dL Aspartate Amino Transferase 24 5-31 U/L Alanine Aminotransferase 22 0-31 U/L Total Protein 7.6 6.5-8.0 g/dL Albumin Level 4.1 3.5-5.0 g/dL Alkaline Phosphatase 70 39-117 U/L Basic Metabolic Panel Reviewed date:04/20/2024 11:03:45 PM Interpretation: Performing Lab:[facility], [address] [place] [phone] Notes/Report: Sodium 141 135-145 mmol/L Potassium 3.6 3.3-5.1 mmol/L Chloride 110 96-108 mmol/L Carbon Dioxide 21 22-29 mmol/L Anion Gap 14 12-20 Blood Urea Nitrogen 6 9-16 mg/dL Creatinine 0.77 0.5-1.4 mg/dL Estimated Glomerular Filt Rate > 60 NOTE: For -Colombian individuals, multiply the result by 1.210. Chronic Kidney Disease: Estimated GFR < 60 mL/min/1.73m2 Severe Kidney Disease: Estimated GFR < 15 mL/min/1.73m2 Glucose Random 90 60-115 mg/dL Calcium 9.9 8.4-10.2 mg/dL C Reactive Protein Reviewed date:04/24/2024 05:00:22 PM Interpretation: Performing Lab:[facility], [address] [place] [phone] Notes/Report: C Reactive Protein 3.39 < or = 0.50 mg/dL Complete Blood Count Auto Di ff Reviewed date:06/20/2024 01:03:24 PM Interpretation: Performing Lab:[address] [phone] Notes/Report: White Blood Count 11.6 4.8-10.8 X10*3/uL Red Blood Count 3.97 4.20-5.50 X10*6/uL Hemoglobin 12.3 12.0-16.0 g/dl Hematocrit 37.8 37.0-47.0 % Mean Corpuscular Volume 95.2 80.0-98.0 fL Mean Corpuscular Hemoglobin 31.0 27.0-33.0 pg Mean Corpuscular HGB Conc 32.5 31.0-35.0 g/dl Red Cell Distribution Width 13.1 11.0-16.0 % Platelet Count 471 160-400 X10*3/uL Mean Platelet Volume 8.7 9.4-12.3 fL Neutrophils Percent Auto 68.0 45-73 % Imm Gran Pct Auto 0.7 0.0-0.4 % Lymphocytes Percent Auto 18.5 20-40 % Monocytes Percent Auto 8.2 2-11 % Eosinophils Percent Auto 3.9 0-4 % Basophils Percent Auto 0.7 0-2 % NRBC Pct Auto 0.0 0.0-0.2 /100WBC Neutrophils Absolute Auto 7.9 2.0-8.3 x10*3/uL Imm Gran Abs Auto 0.08 0.00-0.03 X10*3/uL Lymphocytes Absolute Auto 2.1 1.2-4.9 X10*3/uL Monocytes Absolute Auto 1.0 0.1-1.2 X10*3/uL Eosinophils Absolute Auto 0.5 0.0-0.4 X10*3/uL Basophils Absolute Auto 0.1 0.0-0.2 X10*3/uL NRBC Abs Auto 0.000 0.0-0.012 X10*3/uL Liver Panel Reviewed date:06/10/2024 05:11:12 PM Interpretation: Performing Lab:[facility], [address] [place] [phone] Notes/Report: Bilirubin Total 0.8 0.0-1.0 mg/dL Bilirubin Direct 0.3 0.0-0.5 mg/dL Aspartate Amino Transferase 25 5-31 U/L Alanine Aminotransferase 21 0-31 U/L Total Protein 6.5 6.5-8.0 g/dL Albumin Level 3.7 3.5-5.0 g/dL Alkaline Phosphatase 64 39-117 U/L Lipid Panel Reviewed date:06/10/2024 05:10:21 PM Interpretation: Performing Lab:[facility], [address] [place] [phone] Notes/Report: Triglycerides 221 <150 mg/dL Desirable Triglyceride: less than 150 mg/dL Borderline High Triglyceride 150-199 mg/dL High Triglyceride: 200-499 mg/dL Very High Triglyceride: greater than or equal to 5OO mg/dL Cholesterol 166 <200 mg/dL Desirable Cholesterol: less than 200 mg/dL Borderline High Cholesterol: 200-239 mg/dL High Cholesterol: greater than 239 mg/dL LDL Cholesterol Calculated 66 <100 mg/dL Desirable LDL: less than 100 mg/dL Near Optimal/Above Optimal LDL: 110-129 mg/dL Borderline High LDL: 130-159 mg/dL High LDL: 160-189 mg/dL Very High LDL: greater than or equal to 190 mg/dL HDL Cholesterol 56 >40 mg/dL Desirable HDL: greater than 40 mg/dL Note: This HDL assay may give artificially low results in patients with liver disease. Hemoglobin A1c Reviewed date:06/10/2024 05:11:02 PM Interpretation: Performing Lab:[facility], [address] [place] [phone] Notes/Report: Hemoglobin A1c % 5.8 <6.0 % Hemoglobin A1C Reference Range Adults: 4.8 - 6.0 % Non diabetic: < 6.0 % Goal: < 7.0 % Additional Action Suggested: > 8.0 % Note: Hemoglobin A1c results are invalid for patients with abnormal amounts of HbF. Blood transfusions may impact the HbA1c concentration in the patient sample. Estimated Average Glucose 120 eAG = Estimated average glucose which is %A1C expressed as average glucose, using the formula of the [id number] Average Glucose study (ADAG), Diabetes Care, Vol.31,#8, Jan. 2007 Calprotectin, Fecal Reviewed date:06/25/2024 09:51:41 PM Interpretation: Performing Lab:[facility], [address] [place] [phone] Notes/Report: Calprotectin, Fecal 732 Reference Range: <50 Normal 50-120 Borderline >120 Elevated Calprotectin in Crohn's disease and ulcerative colitis can be five to several thousand times above the reference population (50 mcg/g or less). Levels are usually 50 mcg/g or less in healthy patients and with irritable bowel syndrome. Repeat testing in 4-6 weeks is suggested for borderline values. THIS TEST WAS PERFORMED AT: [employer] [address] [facility] [place] [address] LASHAY PALOMINO MD,PHD,RADHA CDiff Gene PCR Reviewed date:06/22/2024 01:59:13 PM Interpretation: Performing Lab:[facility], [address] [place] [phone] Notes/Report: CDiff Gene PCR NEGATIVE Negative If C. difficile strongly suspected despite one negative test, a second test may be sent vs. empiric treatment for C. difficile infection. GI PANEL Reviewed date:06/20/2024 11:07:36 PM Interpretation: Performing Lab:[facility], [address] [place] [phone] Notes/Report: Campylobacter Not Detected Not Detect. Plesiomonas shigelloides Not Detected Not Detect. Salmonella Not Detected Not Detect. Vibrio Not Detected Not Detect. Vibrio Cholerae Not Detected Not Detect. Yersinia enterocolitica Not Detected Not Detect. E. coli EAEC Not Detected Not Detect. E. coli EPEC Detected Not Detect. E. coli ETEC Not Detected Not Detect. E. coli STEC Not Detected Not Detect. E. coli O157 Not applicable Not Detect. E. coli containing the O157 antigen are a subset of Shiga-like toxin-producing E. coli (STEC). Shigella sp./EIEC Not Detected Not Detect. Cryptosporidium Not Detected Not Detect. Cyclospora cayetanensis Not Detected Not Detect. Entamoeba histolytica Not Detected Not Detect. Giardia lamblia Not Detected Not Detect. Adenovirus F 40/41 Not Detected Not Detect. Astrovirus Not Detected Not Detect. Norovirus GI/GII See Comment Not Detect. Specimen se nt to reference lab for further testing. Rotavirus A Not Detected Not Detect. Sapovirus Not Detected Not Detect. All results must be correlated with clinical findings. Negative results do not exclude the possibility of gastrointestinal infection and should not be used as the sole basis for diagnosis, treatment, or other management decisions. Virus, bacteria, and parasite nucleic acid may persist in vivo independently of organism viability. Additionally, some organisms may be carried asymptomatically. Detection of organism targets does not imply that the corresponding organisms are infectious or are the causative agents for clinical symptoms. There is a risk of false negative values due to the presence of sequence variants in the gene targets of the assay, amplification inhibitors in specimens, or inadequate numbers of organisms for amplification. The identification of several diarrheagenic E. coli pathotypes has historically relied upon phenotypic characteristics. This panel targets genetic determinants characteristic of most pathogenic strains, but may not detect all strains having phenotypic characteristics of a pathotype. The performance of this test has not been established for monitoring treatment of infection with any of the panel organisms. This assay is performed by Multiplexed PCR, utilizing the [employer] Array. Norovirus Stool PCR Reviewed date:06/22/2024 02:00:42 PM Interpretation: Performing Lab:[facility], [address] [place] [phone] Notes/Report: Norovirus Stool PCR NOT DETECTED Test performed by: [facility], [employer] [address], [address] floor, [place] [address] Director: John Garg MD CLIA: [id number] Reason For Referral No Information Medications Medication SIG (Take, Route, Frequency, Duration) Notes Start Date End Date Status Multivitamin Adults - as directed Orally Active azaTHIOprine 50 MG 1 Orally Daily for 30 days Active Calcium + D 500-1000-40 MG-UNT-MCG as directed Orally Active Dicyclomine HCl 10 MG 1 or 2 capsules Or ally Every 6 hour as needed for abdominal discomfort for 30 day(s) Active Rinvoq 07/05/2024 Active predniSONE 5 MG 8 pills(40mg) daily for 1 week, and then decrease by 1 pill(5mg) every week Orally Once a day for 56 days Active Cyanocobalamin 1000 MCG/ML INJECT 1 ML INTRAMUSCULARLY ONCE PER MONTH for 84 Active Immunizations Vaccine Route Administration Date Status Comme nts Influenza Unknown 04/30/2018 Administered Influenza Unknown 02/28/2021 Administered Influenza Unknown 02/28/2022 Administered Social History Tobacco Use: Social History Observation Description Date Details (start date - stop date) Former Smoker NA - NA Tobacco Use/Smoking Question Answer Notes Patient is a former smoker How long has it been since you last smoked? > 10 years Alcohol Screen Question Answer Notes Did you have a drink contain ing alcohol in the past year? Yes How often did you have a dri nk containing alcohol in the past year? Monthly or less (1 point) How many drinks did you have on a typical day when you were drinking in the past year? 1 or 2 drinks (0 point) How often did you have 6 or more drinks on one occasion in the past year? Never (0 point) Points 1 Interpretation Negative Section Notes: Nonsmoker; no sig aclohol Nonsmoker; no sig aclohol Nonsmoker; no sig aclohol Nonsmoker; no sig aclohol Nonsmoker; no sig aclohol Nonsmoker; no sig aclohol Nonsmoker; no sig aclohol Nonsmoker; no sig aclohol Nonsmoker; no sig aclohol Nonsmoker; no sig aclohol Problems Problem Type SNOMED Code ICD Code Onset Dates Problem Status W/U Status Risk Notes Problem 469792438 Encounter for screening for malignant neoplasm of colon (Z12.11) Active confirmed Problem Diarrhea (68120811) Diarrhea (R19.7) Active con firmed Problem Long-term current use of systemic steroid (873242018340719) jail (current) use of systemic steroids (Z79.52) Active confirmed Problem Crohn (02845306) Crohn's disease of colon (K50.10) Active confirmed Problem 631781908839562 Preprocedural examination (Z01.818) Active confirmed Problem Crohn's disease of large bowel (0875200) Crohns colitis, without complications (K50.10) Active confirmed Problem Computed tomography result abnormal (973334398) Abnormal CT scan, colon (R93.3) Active confirmed Problem 116479662 Therapeutic drug monitoring (Z51.81) Active confirmed Problem Left sided abdominal pain (253648858) Left sided abdominal pain (R10.9) Active confirmed Problem 48171619 Diarrhea of presumed infectious origin (R19.7) Active confirmed Problem Crohn (7017844) Crohn''s disease of colon with other complication (K50.118) Active confirmed Problem Crohn (0105936) Crohn''s disease of large intestine without complication (K50.10) Active confirmed Problem Crohn's disease of large bowel (8421708) Crohn''s disease of large intestine with rectal bleeding (K50.111) Active confirmed Problem 56847060 Crohn's disease of colon without complication (K50.10) Active confirmed Problem 54202601 Crohn's disease of colon with rectal bleeding (K50.111) Active confirmed Problem 60773021683941035 Long-term current use of vedolizumab (Z79.899) Active confirmed Problem 03065939 Hyperglycemia (R73.9) Active confirmed Vital Signs Blood pressure diastolic 111 mm Hg 09/07/2024 Height 62 in 09/07/2024 Blood pressure systolic 111 mm Hg 09/07/2024 Weight 152 lbs 09/07/2024 BMI 27.8 kg/m2 09/07/2024 Encounters Encounter Location Date Provider Diagnosis [facility] [address] [place] [address] 09/07/2024 Juarez Stearns Crohn''s disease of large intestine without complication K50.10 ; Left sided abdominal pain R10.9 ; jail (current) use of systemic steroids Z79.52 and Diarrhea R19.7 [facility] [address] [place] [address] 12/30/2023 Juarez Stearns Crohn''s disease of large intestine without complication K50.10 ; Left sided abdominal pain R10.9 and jail (current) use of systemic steroids Z79.52 [facility] [address] [place] [phone] 05/04/2024 Juarez Stearns Crohn''s disease of large intestine without complication K50.10 ; Left sided abdominal pain R10.9 and jail (current) use of systemic steroids Z79.52 [facility] [address] [place] [phone] 10/03/2023 Juarez Stearns [facility] [address] [place] [phone] 01/02/2024 Juarez Stearns [facility] [address] [place] [phone] 04/13/2024 Juarez Stearns Crohn''s disease of large intestine with rectal bleeding K50.111 [facility] [address] [place] [phone] 04/21/2024 Juarez Stearns [facility] [address] [place] [address] 05/04/2024 Juarez Stearns [facility] [address] [place] [phone] 05/09/2024 Juarez Stearns [facility] [address] [place] [address] 06/07/2024 Juarez Stearns [facility] [address] [place] [address] 06/20/2024 Juarez Stearns Assessments Encounter Date Diagnosis (ICD Code) Assessment Notes Treatment Notes Treatment Clinical Notes Section Notes 09/07/2024 Left sided abdominal pain (ICD-10 - R10.9) Overall, Sunny appears stable on her new regimen of the Rinvoq. She appears to be tolerating the prednisone taper under the guidance of Dr. Dhillon. She we will continue follow-up in [place] as well as with myself. I did [...] advise her to keep the physician in [place] apprised of the situation as well. I [...] visits or procedures that she has in [place]. I will plan to see her here [...] keep you advised of her progress. 09/07/2024 Crohn''s disease of large intestine without [...] Dhillon. She we will continue follow-up in [place] as well as with myself. I did [...] advise her to keep the physician in [place] apprised of the situation as well. I [...] visits or procedures that she has in [place]. I will plan to see her here [...] to keep you advised of her progress. 12/30/2023 Left sided abdominal pain (ICD-10 - R10.9) Overall, Sunny appears well. While things are significantly better than they were when she was first diagnosed with Crohn's disease in November of 2021, it does sound like things are still somewhat active given the intermittent abdominal pain and somewhat frequent bowel movements. However, overall she appears very well and reports that she feels well. As such, I did advise her to continue the current regimen but will decrease the prednisone to 5 mg every other day as she is eager to be on as low a dose as possible. or more preferably to stop it altogether. She will have the below laboratories, including a Stelara level with antibody measurements, just prior to her next injection in a couple of weeks. I shall also check a followup fecal Calprotectin level for indirect measurement of colitis activity. Lastly, I did recommend a bone density study given her long-standing steroids and Crohn's disease. I did advise her that I would forward you the results in case she needs some treatment for that. I shall also give her a prescription use dicyclomine on a p.r.n. basis for the abdominal discomfort to see if that gives her any relief. I did advise her to certainly call or go to the ER if she develops any worsening pain. If things remain stable I will plan to see her in the Fall for followup visit. I did advise her to definitely call me prior to that if she is having any problems or questions I can be of assistance with. Sunny was comfortable with this plan. Thank you again for allowing me to participate in Sunny's care. I shall continue to keep you advised of her progress. 12/30/2023 Crohn''s disease of large intestine without complication (ICD-10 - K50.10) Use Prednisone 5mg every other day, but continue everything else the same Overall, Sunny appears well. While things are significantly better than they were when she was first diagnosed with Crohn's disease in November of 2021, it does sound like things are still somewhat active given the intermittent abdominal pain and somewhat frequent bowel movements. However, overall she appears very well and reports that she feels well. As such, I did advise her to continue the current regimen but will decrease the prednisone to 5 mg every other day as she is eager to be on as low a dose as possible. or more preferably to stop it altogether. She will have the below laboratories, including a Stelara level with antibody measurements, just prior to her next injection in a couple of weeks. I shall also check a followup fecal Calprotectin level for indirect measurement of colitis activity. Lastly, I did recommend a bone density study given her long-standing steroids and Crohn's disease. I did advise her that I would forward you the results in case she needs some treatment for that. I shall also give her a prescription use dicyclomine on a p.r.n. basis for the abdominal discomfort to see if that gives her any relief. I did advise her to certainly call or go to the ER if she develops any worsening pain. If things remain stable I will plan to see her in the Fall for followup visit. I did advise her to definitely call me prior to that if she is having any problems or questions I can be of assistance with. Sunny was comfortable with this plan. Thank you again for allowing me to participate in Sunny's care. I shall continue to keep you advised of her progress. 05/04/2024 Left sided abdominal pain (ICD-10 - R10.9) Overall, Sunny appears clinically stable at the present time on the higher dose of prednisone. We did review that based on her clinical history, blood work, and stool testing, it clearly appears that she has had a flareup of Crohn's as the prednisone was further decreased despite having therapeutic Stelara levels. Based on that I advised her the rationale for increasing her prednisone last month was to prevent a major flare that could require hospitalization or lead to other complications. At this point I advised her that I think it would be reasonable to add azathioprine to her regimen rather than switching to a different biologic agent. Earlier in the year things appeared to be relatively quite stable based on her history and laboratories. Based on her history it appears likely that we will be only get her to a relatively low dose of prednisone, and certainly not be able to get her off the prednisone completely, without adding a different Crohn's medication along with the biologic. As such, I think azathioprine is a reasonable choice at this time. Laboratories from October of 2022 revealed normal genetic markers as far as azathioprine metabolism is concerned. We did review potential side effects of azathioprine in regard to leukopenia with increased risk of infection, drug-induced hepatitis, pancreatitis, and acute GI upset with nausea and vomiting. We did review the need to check a CBC and liver profile every 2 weeks for the first couple months and then monthly thereafter to be sure she is not having any adverse effects from the azathioprine. I will start her on 50 mg daily and increase that as tolerated based on her clinical history and laboratories. She will start the azathioprine later this month after she returns from an upcoming trip to [facility]. She will continue the prednisone taper by 5 mg per week and will contact me when she is down to 10 mg daily so we can see how she is doing and decide about further tapering. She'll continue the every 4 weeks Stelara injections and p.r.n. dicyclomine. She will stay off the budesonide for now but potentially resume it when she is back on a relatively low dose of prednisone. I shall also check a stool for C.diff and a repeat stool for a fecal calprotectin level. I have also advised her that I think would be a good idea to get a second opinion from one of the Crohn's centers in [place]. I shall look into making a referral for her based on where her insurance will let her go. She also asked the to check a couple of other labs that her PCP wanted including the hemoglobin A1c and lipid profile. She will have those done as fasting labs when she has her CBC and liver profile for the azathioprine. I have given her an appointment to see me in several months but advised her to certainly call me prior to that if she is having any problems or questions I can be of assistance with. Sunny was comfortable with this plan. Thank you again for allowing me to participate in Sunny's care. I shall continue to keep you advised of her progress. 05/04/2024 Crohn''s disease of large intestine without complication (ICD-10 - K50.10) Taper prednisone by 5mg every week and then stay on 10mg daily but check in with me Start the Azathioprine at 1 50mg pill per day when you get back from your trip and then check in with me after two weeks We will get you an appt at a Crohn's Center in [place] Overall, Sunny appears clinically stable at the present time on the higher dose of prednisone. We did review that based on her clinical history, blood work, and stool testing, it clearly appears that she has had a flareup of Crohn's as the prednisone was further decreased despite having therapeutic Stelara levels. Based on that I advised her the rationale for increasing her prednisone last month was to prevent a major flare that could require hospitalization or lead to other complications. At this point I advised her that I think it would be reasonable to add azathioprine to her regimen rather than switching to a different biologic agent. Earlier in the year things appeared to be relatively quite stable based on her history and laboratories. Based on her history it appears likely that we will be only get her to a relatively low dose of prednisone, and certainly not be able to get her off the prednisone completely, without adding a different Crohn's medication along with the biologic. As such, I think azathioprine is a reasonable choice at this time. Laboratories from October of 2022 revealed normal genetic markers as far as azathioprine metabolism is concerned. We did review potential side effects of azathioprine in regard to leukopenia with increased risk of infection, drug-induced hepatitis, pancreatitis, and acute GI upset with nausea and vomiting. We did review the need to check a CBC and liver profile every 2 weeks for the first couple months and then monthly thereafter to be sure she is not having any adverse effects from the azathioprine. I will start her on 50 mg daily and increase that as tolerated based on her clinical history and laboratories. She will start the azathioprine later this month after she returns from an upcoming trip to [facility]. She will continue the prednisone taper by 5 mg per week and will contact me when she is down to 10 mg daily so we can see how she is doing and decide about further tapering. She'll continue the every 4 weeks Stelara injections and p.r.n. dicyclomine. She will stay off the budesonide for now but potentially resume it when she is back on a relatively low dose of prednisone. I shall also check a stool for C.diff and a repeat stool for a fecal calprotectin level. I have also advised her that I think would be a good idea to get a second opinion from one of the Crohn's centers in [place]. I shall look into making a referral for her based on where her insurance will let her go. She also asked the to check a couple of other labs that her PCP wanted including the hemoglobin A1c and lipid profile. She will have those done as fasting labs when she has her CBC and liver profile for the azathioprine. I have given her an appointment to see me in several months but advised her to certainly call me prior to that if she is having any problems or questions I can be of assistance with. Sunny was comfortable with this plan. Thank you again for allowing me to participate in Sunny's care. I shall continue to keep you advised of her progress. 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 She appears to be tolerating the prednisone taper under the guidance of Dr. Dhillon. She we will continue follow-up in [place] as well as with myself. I did [...] advise her to keep the physician in [place] apprised of the situation as well. I [...] visits or procedures that she has in [place]. I will plan to see her here [...] to keep you advised of her progress. 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 While things are significantly better than they were when she was first diagnosed with Crohn's disease in November of 2021, it does sound like things are still somewhat active given the intermittent abdominal pain and somewhat frequent bowel movements. However, overall she appears very well and reports that she feels well. As such, I did advise her to continue the current regimen but will decrease the prednisone to 5 mg every other day as she is eager to be on as low a dose as possible. or more preferably to stop it altogether. She will have the below laboratories, including a Stelara level with antibody measurements, just prior to her next injection in a couple of weeks. I shall also check a followup fecal Calprotectin level for indirect measurement of colitis activity. Lastly, I did recommend a bone density study given her long-standing steroids and Crohn's disease. I did advise her that I would forward you the results in case she needs some treatment for that. I shall also give her a prescription use dicyclomine on a p.r.n. basis for the abdominal discomfort to see if that gives her any relief. I did advise her to certainly call or go to the ER if she develops any worsening pain. If things remain stable I will plan to see her in the Fall for followup visit. I did advise her to definitely call me prior to that if she is having any problems or questions I can be of assistance with. Sunny was comfortable with this plan. Thank you again for allowing me to participate in Sunny's care. I shall continue to keep you advised of her progress. 05/04/2024 jail (current) use of systemic steroids (ICD-10 - Z79.52) Overall, Sunny appears clinically stable at the present time on the higher dose of prednisone. We did review that based on her clinical history, blood work, and stool testing, it clearly appears that she has had a flareup of Crohn's as the prednisone was further decreased despite having therapeutic Stelara levels. Based on that I advised her the rationale for increasing her prednisone last month was to prevent a major flare that could require hospitalization or lead to other complications. At this point I advised her that I think it would be reasonable to add azathioprine to her regimen rather than switching to a different biologic agent. Earlier in the year things appeared to be relatively quite stable based on her history and laboratories. Based on her history it appears likely that we will be only get her to a relatively low dose of prednisone, and certainly not be able to get her off the prednisone completely, without adding a different Crohn's medication along with the biologic. As such, I think azathioprine is a reasonable choice at this time. Laboratories from October of 2022 revealed normal genetic markers as far as azathioprine metabolism is concerned. We did review potential side effects of azathioprine in regard to leukopenia with increased risk of infection, drug-induced hepatitis, pancreatitis, and acute GI upset with nausea and vomiting. We did review the need to check a CBC and liver profile every 2 weeks for the first couple months and then monthly thereafter to be sure she is not having any adverse effects from the azathioprine. I will start her on 50 mg daily and increase that as tolerated based on her clinical history and laboratories. She will start the azathioprine later this month after she returns from an upcoming trip to [facility]. She will continue the prednisone taper by 5 mg per week and will contact me when she is down to 10 mg daily so we can see how she is doing and decide about further tapering. She'll continue the every 4 weeks Stelara injections and p.r.n. dicyclomine. She will stay off the budesonide for now but potentially resume it when she is back on a relatively low dose of prednisone. I shall also check a stool for C.diff and a repeat stool for a fecal calprotectin level. I have also advised her that I think would be a good idea to get a second opinion from one of the Crohn's centers in [place]. I shall look into making a referral for her based on where her insurance will let her go. She also asked the to check a couple of other labs that her PCP wanted including the hemoglobin A1c and lipid profile. She will have those done as fasting labs when she has her CBC and liver profile for the azathioprine. I have given her an appointment to see me in several months but advised her to certainly call me prior to that if she is having any problems or questions I can be [...] Dhillon. She we will continue follow-up in [place] as well as with myself. I did [...] advise her to keep the physician in [place] apprised of the situation as well. I [...] visits or procedures that she has in [place]. I will plan to see her here [...] advised of her progress. Plan Of Treatment Pending Test Test Name Order Date CHEM 7 PROFILE 01/04/2022 CHEM 7 PROFILE 05/28/2022 CHEM 7 PROFILE 07/14/2022 CHEM 7 PROFILE 04/18/2022 CHEM 7 PROFILE 05/10/2023 CHEM 7 PROFILE 06/14/2022 CHEM 7 PROFILE 04/24/2023 CHEM 7 PROFILE 04/13/2024 CHEM 7 PROFILE 12/30/2023 FASTING BLOOD SUGAR (FBS, GLUCOSE) 05/10 LIVER PROFILE 01/04/2022 LIVER PROFILE 05/28/2022 LIVER PROFILE 02/19/2022 LIVER PROFILE 07/14/2022 LIVER PROFILE 04/18/2022 LIVER PROFILE 11/11/2022 LIVER PROFILE 06/14/2022 LIVER PROFILE 05/04/2024 LIVER PROFILE 10/22/2022 LIVER PROFILE 04/24/2023 LIVER PROFILE 04/13/2024 LIVER PROFILE 12/30/2023 IRON + IBC (FE) 02/19/2022 CRP 04/13/2024 CRP 12/30/2023 CRP 12/27/2021 CRP 01/04/2022 CRP 05/28/2022 CRP 07/14/2022 CRP 04/18/2022 CRP 06/14/2022 CRP 02/19/2022 CRP 02/11/2023 CRP 04/24/2023 VITAMIN B12 AND FOLATE 02/19/2022 CBC w DIFF 02/11/2023 CBC w DIFF 04/24/2023 CBC w DIFF 02/19/2022 CBC w DIFF 04/13/2024 CBC w DIFF 12/30/2023 CBC w DIFF 05/10/2023 CBC w DIFF 11/11/2022 CBC w DIFF 12/27/2021 CBC w DIFF 01/04/2022 CBC w DIFF 05/28/2022 CBC w DIFF 05/04/2024 CBC w DIFF 07/14/2022 CBC w DIFF 10/22/2022 CBC w DIFF 04/18/2022 CBC w DIFF 06/14/2022 SED RATE (ESR) 04/18/2022 SED RATE (ESR) 02/11/2023 SED RATE (ESR) 04/24/2023 SED RATE (ESR) 02/19/2022 SED RATE (ESR) 04/13/2024 SED RATE (ESR) 12/30/2023 SED RATE (ESR) 12/27/2021 SED RATE (ESR) 05/28/2022 SED RATE (ESR) 01/04/2022 SED RATE (ESR) 07/14/2022 XR SMALL BOWEL SERIES 05/28/2022 BONE DENSITY DEXA 12/30/2023 HUMIRA LEVEL/AB (ADALIMUMAB LEVEL/AB) C DIFFICILE RFLX PCR 12/27/2021 C DIFFICILE RFLX PCR 02/11/2023 C DIFFICILE RFLX PCR 05/04/2024 Ferritin 02/19/2022 Lipid Panel 05/04/2024 Prometheus Anser UST 12/30/2023 Prometheus Anser UST 05/10/2023 Prometheus Anser VDZ 07/14/2022 Prometheus Anser VDZ 05/28/2022 Prometheus TPMT Enzyme 10/22/2022 Prometheus TPMT Genetics 10/22/2022 CDiff with Reflex to PCR 09/07/2024 Calprotectin, Fecal 12/30/2023 Calprotectin, Fecal 05/04/2024 Calprotectin, Fecal 04/24/2023 Calprotectin, Fecal 02/11/2023 Calprotectin, Fecal 09/07/2024 Hemoglobin A1c 05/10/2023 Hemoglobin A1c 05/04/2024 GI PANEL 09/07/2024 GI PANEL 05/04/2024 GI PANEL 02/11/2023 Future Test Test Name Order Date COLONOSCOPY 08/13/2018 COLONOSCOPY 12/27/2021 COLONOSCOPY 11/26/2022 Next Appt Details Provider Name:Juarez Lentz Stearns , 03/15/2025 10:10:00 AM, [address] [place] [address], [address], [place], [address], Insurance Providers Payer Name Payer Address Payer Phone Subscriber Number Group Number Insured Name Patient Relationship to Insured Coverage Start Date Coverage End Date [facility] [address] [place] [address] [id number] SUNNY TIWARI Self - patient is the insured Medical (General) History Medical History History ICD Code Denies IA,DM,CVA,Lung disease,renal dise ase Some tachycardias after COVID in 05/2020 --having a cardiac Echo in 01/2022 Negative screening colonoscopy in October of 2018 Severe Crohn's colitis diagn osed in 12/2021 and started on Humira, prednisone, [...] the Humira to every week would be helpful. Switched from the Entyvio in fusions to Stelara early February, due to continued refractory Crohn's disease despite therapeutic Entyvio trough levels of mid-13's on two occasions, as well as flaring up just 2 weeks after an Entyvio infusion. Therefore, I did not think increasing Entyvio to every 4 weeks would help at that point. The Stelara injections were increased to every 4 week intervals as the end of 07/2023. Adding a trial of azathiopri ne in 04/2024 due to increased Crohn's activity despite a therapeutic Stelara level. In October of 2022 she had normal azathioprine metabolism [facility] studies She was switched from the [facility] to Rinvo when she was referred to [facility] in May 2024. She underwent a colonoscopy in May with Dr. Costa and was told of some Crohn's disease with possible narrowing in a section of the colon. Surgical History Surgery Date(Month/Year) Cyst on foot Uterine ablation 2000
--- OUTSIDE RECORDS SUMMARY | 2024-09-08 12:07 | XMS_ITS ---
Author Organization [facility] Address [address] [place] [address] Care Team Providers Care Alteration Tailor Apprentice Name Role Phone Felecia Allan MD Primary Care Provider Juarez Nix [phone] REASON FOR VISIT TAPER Encounters Encounter Location Date Provider Diagnosis [facility] [address] [place] [address] 06/07/2024 Juarez Stearns Plan Of Treatment Next Appt Details Provider Name:Juarez Stearns , 03/15/2025 10:10:00 AM, [address], [address], [place], [address], Progress Notes * SUNNY MCKEON ADOB:1965 (58 yo F)Acc No.[id number]:06/07/2024 Patient:?SUNNY MCKEON :1965???Age:58 Y???Sex:Female Address:[address] [facility] [place] [address] * true * Date:? Generated for Printi yessenia/Derrick/eTransmitting on:?09/08/2024 12:07 PM EDT
[2024-09-08] MEDS: iohexoL 350 MG/ML 100 ML INFUS..BTL IV (12:19)
[2024-09-08] MEDS: Diatrizoate Meglumine, Sodium 30 ML SOLUTION PO (12:19)
[2024-09-08 14:17] VITALS: BP 162/108; PULSE 109; RESP 16; TEMP 36.2; O2SAT 98
[2024-09-08] MEDS: 0.9 % Sodium Chloride 1,000 ML 999 ML IV (14:20)
[2024-09-08] MEDS: Piperacillin Sodium/Tazobactam 3.375 GM in 0.9 % Sodium Chloride 50 ML IV (14:20)
[2024-09-08] MEDS: Morphine Sulfate 4 MG/ML CARTRIDGE IVPUSH (14:20)
[2024-09-08] MEDS: predniSONE 5 MG TABLET PO (14:20)
--- NOTE | 2024-09-08 14:26 | PHA.MEDREC ---
Addendum entered by Adithya Hargrove 09/08/24 14:30: reviewed Original Note: Pharmacy Consult ? Medication Reconciliation Pharmacy has completed the medication reconciliation. Spoke to patient to confirm med list. Patient was able to tell me everything she takes. Patient confirmed Vitamin B-12 inject next dose is Friday09/11/24.
--- NOTE | 2024-09-08 14:38 | PM.IMHP ---
History of Present Illness Date of Service: 09/08/24 Attending physician on admission: Scottie Browning Chief Complaint: abd pain, nausea 59 year old female with history of crohns disease on chronic steroids and Rinvoq following with Dr. Stearns and [facility] as well as history of adrenal insuffiency due to steroid withdrawal presented to the ED for evaluation of severe abd pain and nausea. She reports she had watery diarrhea on for which she took imodium. The following day deverloped 7/10 nonradiating diffuse abd pain with associated nausea but no vomiting. She has not had a bowel movement since. Denies any fevers, chills, vomiting, melena, hematochezia. Reports this feels similar to prior flares as far as symptomology except that the pain is typically located in the LLQ. Denies any sick contacts or eating any bad foods. No recent travel or abx use. She reports last colonoscopy was 06/22 at [facility]. Since arrival, pt has been afebrile and mildly tachycardic with elevated blood pressure (not on antihypertensives). There is no leukocytosis. Renal function and electrolyte levels are normal. Mild elevation of AST at 36 and ALT at 36, bilirubin within normal limits. CRP is 0.33 urinalysis with elevated specific gravity, trace leukocytes and trace bacteria. CT abdomen/pelvis suggestive of mild pancolitis and fatty infiltration of the liver as well as cholelithiasis. In the ED, has received 4 mg of morphine, IV NS, Zosyn, and 5 mg of prednisone. She will be admitted for further management of Crohn's flare/pancolitis with p.o. intolerance. Review of Systems Review of Systems: Yes all other systems are reviewed and are negative FORMERLY [facility], [facility] Medical History C. difficile colitis Frequent headaches SÁNCHEZ (dyspnea on exertion) Tachycardia Annual physical exam Mammogram normal Normal Pap smear COVID-19 History of mammogram Family History Father CVD (cardiovascular disease) Stroke Crohn's disease Mother No problems noted. Brother No problems noted. Brother No problems noted. Son No problems noted. Son No problems noted. Daughter No problems noted. 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 Do you presently have visiting nurse or other home services: No Alcohol intake: current Alcohol intake frequency: a few times a week Patient Tobacco Use Status: Never used Tobacco Smoked in Last 30 Days: No e-Cigarette/Vaping Use: Never Used Use of substances other than those prescribed or required for medical reasons: No Advance Directives: No Advance Directives Information Provided: Yes Nutrition Risks: No Nutritional Risk Patient : No service: No Current occupational status: employed Cognitive needs: No Hearing needs: No Vision needs: Yes Meds Allergies Allergy/AdvReac Type Severity Reaction Status Date / Time No Known Allergies Allergy Verified 09/08/24 09:38 [No Known Allergies*] Active Medications: Current Medications Sodium Chloride (Ns) 1,000 mls @ 999 mls/hr IV .Q1H1M LORETA Stop: 09/08/24 14:45 Last Admin: 09/08/24 14:20 Dose: 999 mls/hr Home Medications ?Medication ?Instructions ?Recorded ?Confirmed ?Last Taken ?Type acetaminophen 500 mg tablet 1,000 mg PO BID 06/06/22 09/08/24 09/07/24 History calcium carbonate (Calcium 600) 600 mg PO DAILY 06/06/22 09/08/24 09/07/24 History cyanocobalamin (vitamin B-12) 1 ml IM QMONTH 06/06/22 09/08/24 08/21/24 History 1,000 mcg/mL injection solution multivitamin 1 tab PO DAILY 06/06/22 09/08/24 09/07/24 History prednisolone 5 mg tablet 20 mg PO DAILY 08/10/24 09/08/24 09/07/24 History upadacitinib 30 mg tablet,extended 45 mg PO DAILY 09/08/24 09/08/24 09/07/24 History release 24 hr (Rinvoq) Physical Exam Vital Signs and Narrative: Vital Signs: Last Vital Signs Temp 97.1 F 09/08/24 14:17 Pulse 109 H 09/08/24 14:17 Resp 16 09/08/24 14:17 BP 162/108 H 09/08/24 14:17 Pulse Ox 98 09/08/24 14:17 O2 Del Method Room Air 09/08/24 14:17 BMI result Body Mass Index 27.8 Constitutional - Awake and Alert, No apparent distress Eyes - PERRLA, EOMI Cardiovascular - S1S2, RRR, No edema Respiratory - Normal lung expansion, Normal respiratory effort, No respiratory distress, CTA bilaterally Gastrointestinal -diffuse tenderness to palpation, ND; +BS; No rebound or guarding Extremities - no calf tenderness bilaterally, no swelling Skin - Warm/Dry Neurological - Alert & oriented x3 Psychological - Appropriate affect Results Labs 09/09/24 05:42 09/09/24 05:42 Labs: Laboratory Results - last 24 hr 09/08/24 09/08/24 09/08/24 10:21 10:21 10:21 MCV 94.9 MCH 31.3 MCHC 33.0 RDW 12.6 Plt Count 540 H MPV 8.6 L Immature Gran % (Auto) 0.8 H Neut % (Auto) 68.0 Lymph % (Auto) 19.3 L Campbell % (Auto) 10.0 Eos % (Auto) 1.0 Baso % (Auto) 0.9 Lymph # (Auto) 1.8 Campbell # (Auto) 0.9 Eos # (Auto) 0.1 Baso # (Auto) 0.1 Abs Immat Gran (auto) 0.07 H Absolute Neuts (auto) 6.2 Absolute Nucleated RBC 0.000 Nucleated RBC % (auto) 0.0 Anion Gap 12 Estim Creat Clear Calc 68.0 Estimated GFR > 60 Random Glucose 89 Calcium 9.4 Magnesium 2.1 Total Bilirubin 0.4 0.4 Direct Bilirubin 0.1 AST 37 H 36 H ALT 38 H Alkaline Phosphatase Total Protein Albumin Lipase Urine Color Urine Appearance Urine pH Ur Specific [place] Urine Protein Urine Glucose (UA) Urine Ketones Urine Blood Urine Nitrite Ur Leukocyte Esterase Urine RBC Urine WBC Ur Squamous Epith Cells Urine Bacteria Hyaline Casts 09/08/24 09/08/24 09/08/24 10:21 10:21 10:21 MCV MCH MCHC RDW Plt Count MPV Immature Gran % (Auto) Neut % (Auto) Lymph % (Auto) Campbell % (Auto) Eos % (Auto) Baso % (Auto) Lymph # (Auto) Campbell # (Auto) Eos # (Auto) Baso # (Auto) Abs Immat Gran (auto) Absolute Neuts (auto) Absolute Nucleated RBC Nucleated RBC % (auto) Anion Gap Estim Creat Clear Calc Estimated GFR Random Glucose Calcium Magnesium Total Bilirubin Direct Bilirubin AST ALT 36 H Alkaline Phosphatase 68 71 Total Protein 7.5 7.6 Albumin 4.4 Lipase Urine Color Urine Appearance Urine pH Ur Specific [place] Urine Protein Urine Glucose (UA) Urine Ketones Urine Blood Urine Nitrite Ur Leukocyte Esterase Urine RBC Urine WBC Ur Squamous Epith Cells Urine Bacteria Hyaline Casts 09/08/24 10:21 MCV MCH MCHC RDW Plt Count MPV Immature Gran % (Auto) Neut % (Auto) Lymph % (Auto) Campbell % (Auto) Eos % (Auto) Baso % (Auto) Lymph # (Auto) Campbell # (Auto) Eos # (Auto) Baso # (Auto) Abs Immat Gran (auto) Absolute Neuts (auto) Absolute Nucleated RBC Nucleated RBC % (auto) Anion Gap Estim Creat Clear Calc Estimated GFR Random Glucose Calcium Magnesium Total Bilirubin Direct Bilirubin AST ALT Alkaline Phosphatase Total Protein Albumin 4.6 Lipase 42 Urine Color Yellow Urine Appearance Clear Urine pH 6.0 Ur Specific [place] >= 1.030 H Urine Protein Trace Urine Glucose (UA) Negative Urine Ketones Negative Urine Blood Trace Urine Nitrite Negative Ur Leukocyte Esterase Trace H Urine RBC 0-2 Urine WBC 0-5 Ur Squamous Epith Cells 3-5 Urine Bacteria Trace Hyaline Casts 0-2 Imaging Radiologist's Impressions: Impressions Abdomen/Pelvis CT 09/08/24 12:13 IMPRESSION: 1. Findings suggestive of mild pancolitis. 2. Fatty infiltration of the liver. 3. Cholelithiasis. Electronically signed by: Edson Glynn MD 09/08/2024 12:55 PM EDT Assessment and Plan (1) Pancolitis: Status: Acute (2) Exacerbation of Crohn's disease: Status: Acute Plan 59 year old female with history of crohns disease on chronic steroids and Rinvoq following with Dr. Stearns and [facility] as well as history of adrenal insuffiency due to steroid withdrawal admitted for further management of acute crohns exacerbation with pancolitis and PO intolerance #Acute exacerbation of crohns disease with pancolitis -follows with Dr. Stearns and [facility] -Last colonoscopy 06/22- records requested from [facility] -IV hydrocortisone 100mg TID per Dr. Stearns -Hold on abx for now per GI -If diarrhea recurs. check stool studies -pain managent and antiemetics p.r.n. -NPO for now for bowel rest, advance as tolerated -gastroenterology consult -continue Rinvoq. Hold prednisone # elevated blood pressures -no diagnosis of hypertension. Has normal blood pressures on record. Blood pressure is possibly elevated due to pain. Monitor pressures and add antihypertensive if indicated # elevated transaminases -likely related to fatty liver disease DVT prophylaxis-Lovenox Full code Patient requires inpatient stay at least 2 midnights for management acute exacerbation of Crohn's disease and dimas colitis requiring IV steroids and pain management as well as diet advancement given NPO status with expert consultation Quality Stroke Does the patient have a stroke diagnosis?: No VTE Prior VTE?: No VTE Risk Level:: Medical - moderate - high VTE Device Contraindication: Treatment Not Indicated VTE Drug Contraindication: N/A - Med Ordered
[2024-09-08 15:39] LABS: C Reactive Protein 0.33 mg/dL (< or = 0.50)
[2024-09-08] MEDS: Lactated Ringers 1,000 ML 100 ML IVCONT (16:51)
[2024-09-08] MEDS: Enoxaparin Sodium 40 MG/0.4 ML SYRINGE SUBCUT (16:51)
[2024-09-08] MEDS: Hydrocortisone Sod Succ/PF 100 MG VIAL IVPUSH (16:51)
[2024-09-08] MEDS: 0.9 % Sodium Chloride Flush 3 ML SYRINGE IVFLUSH (17:02)
--- NOTE | 2024-09-08 19:13 | P.EN_ITS ---
Event Note Date of Service: 09/08/24 Event Note: GI Consult-Full note dictated. History from patient and EMR. Imp: Crohn's disease with increasing abdominal pain, distention, nausea, and constipation in association with her 3rd month of Rinvoq. Her colonoscopy in 05/2024 in [place], just before starting Rinvoq, revealed some relative areas of narrowing with slight stricturing and ulceration in the sigmoid colon and area of hepatic flexure according to the op note. Her CT today shows changes of colitis with a lot of stool in the colon but without any point of obstruction in the colon or small bowel. Her labs all look OK except her chronic thrombocytosis. Her WBC and CRP are WNL. Diff dx: Crohn's flare but with component of constipation causing her presenting symptoms. Given her colonoscopy report from 05/2024 and treatment with Rinvoq, I wonder if she may have developed some further narrowing/stricturing of the colon with the resultant presenting picture. Rec: IV steroids both for a possible Crohn's flare and for stress doses in regard to her longstanding use of prednisone. Attempt bowel clean out with an oral colonoscopy prep to attempt to alleviate the component of constipation that may be contributing to her presentation. However, I told her and her RN to stop the clean out if she develops any worsening pain, distention, vomiting, etc. Hold off on antibiotics. I am not planning a colonoscopy at this time. If it appears that she has developed some significant colonic strictures then those may need to be addressed in [place] with either surgery or endoscopic dilation. I will try to touch base with her GI doctor at [facility], Dr. Costa, as well. She may have some clear liquids tonight. D/W patient in detail and she is comfortable with this plan. Thanks Time Spent With Patient Time: Total time managing care of this patient today ____ minutes.
[2024-09-08 19:40] VITALS: BP 172/101; PULSE 89; RESP 18; TEMP 36.8; O2SAT 93
[2024-09-08] MEDS: PEG 3350/Na Sulf,Bicarb,Cl/KCL 4,000 ML SOLN.RECON 4000 ML PO (20:41)
[2024-09-08] MEDS: Morphine Sulfate 4 MG/ML CARTRIDGE 2 MG IVPUSH (22:01)
[2024-09-08 22:02] VITALS: BP 190/109; PULSE 97; RESP 20; O2SAT 96
[2024-09-08 22:23] VITALS: BP 180/109
[2024-09-08] MEDS: amLODIPine Besylate 5 MG TABLET PO (22:23)
[2024-09-09] VITALS (9 sets, daily range): BP systolic 132–188; BP diastolic 79–117; PULSE 74–125; RESP 14–20; TEMP 36.2–36.9; O2SAT 92–98
[2024-09-09] MEDS: Acetaminophen 325 MG TABLET 650 MG PO ×2 (00:05→15:44)
[2024-09-09] MEDS: Hydrocortisone Sod Succ/PF 100 MG VIAL IVPUSH ×4 (00:06→23:44)
--- NOTE | 2024-09-09 00:26 | PC.NURSE ---
Pt states has not had great results with bowel prep. Mostly gas and states she is now having some blood in her stool. Dr. Stearns aware.
[2024-09-09] MEDS: Ketorolac Tromethamine 15 MG/ML VIAL IVPUSH ×3 (00:54→15:02)
[2024-09-09] MEDS: Sodium Phosphate,Mono-Dibasic 133 ML ENEMA PR (00:56)
[2024-09-09] MEDS: Lactated Ringers 1,000 ML 100 ML IVCONT ×3 (00:56→22:25)
--- NOTE | 2024-09-09 00:56 | PC.NURSE ---
Plan to stop bowel prep at this time. Fleet enema attempted to be administered. T/w with some difficulty administering solution, stool noted at the tip of applicator, and solution immediately leaks out of rectum.
[2024-09-09] MEDS: hydrALAZINE HCl 20 MG/ML VIAL 10 MG IVPUSH ×2 (02:57→12:43)
--- NOTE | 2024-09-09 02:58 | PC.NURSE ---
Pt with continued hypertension, covering provider notified, medicated per MAR with hydralazine.
[2024-09-09] MEDS: Morphine Sulfate 4 MG/ML CARTRIDGE 2 MG IVPUSH (04:57)
[2024-09-09 05:47] LABS: MANUAL DIFF FLAG NO
[2024-09-09 05:53] LABS: Basophils Percent Auto 0.2 % (0-2); Hematocrit 35.7 % (37.0-47.0); Hemoglobin 12.3 g/dl (12.0-16.0); Imm Gran Abs Auto 0.04 X10*3/uL (0.00-0.03); Imm Gran Pct Auto 0.4 % (0.0-0.4); Lymphocytes Absolute Auto 0.5 X10*3/uL (1.2-4.9); Lymphocytes Percent Auto 4.3 % (20-40); Mean Corpuscular HGB Conc 34.5 g/dl (31.0-35.0); Mean Corpuscular Hemoglobin 31.9 pg (27.0-33.0); Mean Corpuscular Volume 92.7 fL (80.0-98.0); Mean Platelet Volume 8.6 fL (9.4-12.3); Monocytes Absolute Auto 0.6 X10*3/uL (0.1-1.2); Monocytes Percent Auto 5.3 % (2-11); Neutrophils Absolute Auto 9.7 x10*3/uL (2.0-8.3); Neutrophils Percent Auto 89.8 % (45-73); Platelet Count 475 X10*3/uL (160-400); Red Blood Count 3.85 X10*6/uL (4.20-5.50); Red Cell Distribution Width 12.7 % (11.0-16.0); White Blood Count 10.7 X10*3/uL (4.8-10.8)
[2024-09-09 06:05] LABS: Anion Gap 16 (12-20); Blood Urea Nitrogen 6 mg/dL (9-16); Calcium 8.7 mg/dL (8.4-10.2); Carbon Dioxide 20 mmol/L (22-29); Chloride 107 mmol/L (96-108); Creatinine Clr Calc Pharmacy 88.2; Estimated Glomerular Filt Rate > 60; Glucose Random 137 mg/dL (60-115); Potassium 3.5 mmol/L (3.3-5.1); Sodium 139 mmol/L (135-145)
[2024-09-09 06:21] LABS: Erythrocyte Sedimentation Rate 7 MM/HR (0-20)
--- NOTE | 2024-09-09 06:30 | CONS_ITS ---
DATE OF SERVICE: 09/08/2024 REASON FOR CONSULTATION: Crohn's disease and abdominal pain. HISTORY OF PRESENT ILLNESS: The patient is a 59-year-old female well known to me with an underlying history of Crohn's colitis diagnosed in 2021. Since 2021, she has had a relatively refractory course of Crohn's colitis requiring chronic prednisone to 1 degree or another. She has been tried on various biologic agents including Humira, Entyvio, and Stelara. She was recently seen at the [facility] for a second 2nd opinion and was switched from the Stelara to Rinvoq at the end of May 2024. Just prior to the initiation of the Rinvoq, she underwent a colonoscopy in [place] that describes some mild stricturing and ulcerations at the region of the ascending colon at the hepatic flexure, and in the sigmoid colon. There was no obstruction mentioned in the colonoscopy report. Since being placed on the Rinvoq, her prednisone has been tapered to 5 mg per day. During this time, she has had a decrease in diarrhea, but has also been having intermittent episodes of abdominal pain primarily on the left side. More recently, she has noticed actual constipation and has not had a bowel movement now for about 5 days. She came to the hospital today because of more severe pain on the left side and right side of the abdomen than usual. She had nausea, but there was no vomiting. She does feel somewhat distended in the upper abdomen. She has not had any hematochezia nor melena. She denies any jaundice nor fevers. She does not use any chronic NSAIDs, tobacco, nor alcohol. She does have a family history of Croh's disease in her father and brother. There is no family history of colorectal cancer. MEDICATIONS: At home included Rinvoq 45 mg daily, calcium with vitamin D, vitamins, prednisone 5 mg per day, and dicyclomine p.r.n. PAST MEDICAL HISTORY: Crohn's colitis diagnosed in 2021 with refractory course as described above. She did have a negative screening colonoscopy in October 2018. She denies any history of MT, diabetes, stroke, nor lung disease. She did have osteopenia on a recent bone density study. PAST SURGICAL HISTORY: Includes , uterine ablation, and the cyst on her foot. FAMILY HISTORY: As above. SOCIAL HISTORY: As above. 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 She is . REVIEW OF SYSTEMS: CONSTITUTIONAL: She has had a diminished appetite. SKIN: No rash, nor pruritus. CARDIAC: No chest pain. PULMONARY: No coughing or hemoptysis. GI: As above. URINARY: No dysuria, no hematuria. PHYSICAL EXAMINATION: GENERAL: The patient is a pleasant, alert, comfortable-appearing female. She does have cushingoid facies. SKIN: Warm and dry. NECK: Supple. ABDOMEN: Soft and nondistended. There is some epigastric discomfort to palpation as well as some tenderness along both sides of the abdomen. There is no palpable mass nor rebound. EXTREMITIES: Without edema. NEUROLOGICAL: She is alert and oriented. LABORATORY DATA: White blood cell count 9.1, hemoglobin 13.5, and platelets 540,000. Does have a chronic thrombocytosis. Normal electrolytes with a BUN of 11, creatinine of 0.8. Calcium 9.4, total bilirubin 0.4, AST 36, ALT 36, alkaline phosphatase 71, C-reactive protein is 0.3, albumin 4.6, lipase 42. A CT scan of the abdomen and pelvis on admission describes a pancolitis with some mild wall thickening in the entire colon consistent with some colitis. There were some diverticula noted but no acute diverticulitis. Small bowel appeared normal. There was no bowel obstruction in the colon nor small bowel, but there was a large amount of stool throughout the colon. IMPRESSION: Given the patient's clinical history, the Crohn's colitis does appear to remain active at least based on the CT scan. Of concern is her increasing abdominal pain and the CT scan findings of stool throughout the colon, as well as her clinical history of no bowel movement in at least 4 or 5 days. There does not appear to be an obstruction. However, I am concerned that she may have developed some worsening strictures in the colon since her colonoscopy at the end of May that described just mild strictures at that time. She has been on a new biologic agent and perhaps this has caused significant improvement of the ulcerations but subsequently led to some increased fibrosis with scarring and narrowing of different parts of the colon contributing to her current presentation. At this point, I would place her on intravenous steroids both to treat any component of active Crohn's disease as well as to give her some stress doses given her longstanding use of chronic oral prednisone. I do not think she requires IV antibiotics at this time given no clinical signs of infection. If she happens to start having diarrhea, I would send off stool specimens including C difficile, calprotectin level, and a GI panel. Given the significant amount of stool seen in the colon and her medical history of constipation, I did recommend a trial of an oral bowel cleanout tonight, but with caution taken to certainly stop it if she develops any increasing abdominal pain, abdominal distention, or vomiting. I do not think a colonoscopy is presently required. I will plan to touch base with her faucets assembler in [place], Dr. Costa, as well. If it appears that she has developed some colonic stricture she may need either endoscopic intervention or surgical intervention at some point. This has all been reviewed with the patient in detail.Again, I did advise her that if she develops any increasing pain, vomiting, or distention when she begins the above mentioned oral bowel clean out, she should then stop it and advise the nurse. The patient was comfortable with this plan. Thank you for the consultation. MD LEE ANN Hawk/RENA / [phone] MTDD
--- NOTE | 2024-09-09 07:07 | PC.NURSE ---
Report to Izabela BRUNSON for continued care.
--- NOTE | 2024-09-09 07:12 | PC.NURSE ---
patient a&ox3, rr equal/non labored, c/o 10/07 abd pain- pt denying need for pain medications at this time, IVF running per order, pt vitals obtained- noted to be mildly tachy- will notify provider, call duncan within reach, plan of care ongoing
[2024-09-09] MEDS: Multivitamin TABLET 1 TAB PO (07:59)
[2024-09-09] MEDS: Calcium Oyster Shell Elemental 500 MG TABLET PO (07:59)
--- NOTE | 2024-09-09 08:00 | P.PNIM_ITS ---
Subjective Subjective Date of Service: 09/09/24 Interval History: follow up on crhon's flare Physical Exam 2 Vital Signs: Vital Signs: Last Vital Signs Temp 98.4 F 09/09/24 07:11 Pulse 113 H 09/09/24 07:11 Resp 16 09/09/24 07:11 BP 155/98 H 09/09/24 07:11 Pulse Ox 97 09/09/24 07:11 O2 Del Method Room Air 09/09/24 07:11 BMI result Body Mass Index 27.8 Const: Other: General: AO X 3, no acute distress Resp: CTA bilateral CVS: S1,S2,RRR GI: +BS, NT, no distention Skin: No rash Neuro: motor grossly intact Psych: appropriate affect Objective Data Active Medications Acetaminophen (Acetaminophen 325 Mg Tablet) 650 mg PO Q6H PRN PRN Reason: Pain, Mild 1-3,fever,headache Last Admin: 09/09/24 00:05 Dose: 650 mg Documented By: HENRY Calcium Carbonate (Calcium Carbonate 750 Mg Tab.Chew) 750 mg PO Q4H PRN PRN Reason: Heartburn Calcium Carbonate (Calcium Oyster Shell Elemental 500 Mg Tablet) 500 mg PO DAILY [facility] Cyanocobalamin (Cyanocobalamin (Vitamin B-12) 1,000 Mcg/Ml Vial) 1,000 mcg IM Q30D [facility] Enoxaparin Sodium (Enoxaparin Sodium 40 Mg/0.4 Ml Syringe) 40 mg SUBCUT Q24H [facility] Last Admin: 09/08/24 16:51 Dose: 40 mg Documented By: MIGUEL Hydralazine HCl (Hydralazine Hcl 20 Mg/Ml Vial) 10 mg IVPUSH Q6H PRN; Protocol PRN Reason: SBP > 160 Last Admin: 09/09/24 02:57 Dose: 10 mg Documented By: HENRY Hydrocortisone Sodium Succinate (Hydrocortisone Sod Succ/Pf 100 Mg Vial) 100 mg IVPUSH Q8H [facility] Last Admin: 09/09/24 00:06 Dose: 100 mg Documented By: HENRY Lactated Ringer's (Lr) 1,000 mls @ 100 mls/hr IVCONT .Q10H [facility] Last Admin: 09/09/24 00:56 Dose: 100 mls/hr Documented By: HENRY Ketorolac Tromethamine (Ketorolac Tromethamine 15 Mg/Ml Vial) 15 mg IVPUSH Q6H PRN PRN Reason: Pain, Moderate(Pain Scale 4-6) Stop: 09/13/24 15:24 Last Admin: 09/09/24 00:54 Dose: 15 mg Documented By: HENRY Magnesium Hydroxide (Milk Of Magnesia 30 Ml Oral.Susp) 30 ml PO DAILY PRN PRN Reason: Constipation Melatonin (Melatonin 3 Mg Tablet) 6 mg PO BEDTIME PRN PRN Reason: Insomnia Morphine Sulfate (Morphine Sulfate 4 Mg/Ml Cartridge) 2 mg IVPUSH Q4H PRN; Protocol PRN Reason: Pain, Severe (Pain Scale 7-10) Last Admin: 09/09/24 04:57 Dose: 2 mg Documented By: VIPIN Multivitamins/Vitamin C (Multivitamin Tablet) 1 tab PO DAILY [facility] Non-Formulary Medication (Upadacitinib [Rinvoq]) 45 mg PO DAILY [facility] Sodium Chloride (0.9 % Sodium Chloride Flush 3 Ml Syringe) 3 ml IVFLUSH QSHIFT [facility] Last Admin: 09/09/24 07:47 Dose: Not Given Documented By: NO Non-Admin Reason: IV Running Labs 09/09/24 05:42 09/09/24 05:42 Labs: Laboratory Results - last 24 hr 09/08/24 09/08/24 09/08/24 10:21 10:21 10:21 MCV 94.9 MCH 31.3 MCHC 33.0 RDW 12.6 Plt Count 540 H MPV 8.6 L Immature Gran % (Auto) 0.8 H Neut % (Auto) 68.0 Lymph % (Auto) 19.3 L [place] % (Auto) 10.0 Eos % (Auto) 1.0 Baso % (Auto) 0.9 Lymph # (Auto) 1.8 [place] # (Auto) 0.9 Eos # (Auto) 0.1 Baso # (Auto) 0.1 Abs Immat Gran (auto) 0.07 H Absolute Neuts (auto) 6.2 Absolute Nucleated RBC 0.000 Nucleated RBC % (auto) 0.0 ESR Anion Gap 12 Estim Creat Clear Calc 68.0 Estimated GFR > 60 Random Glucose 89 Calcium 9.4 Magnesium 2.1 Total Bilirubin 0.4 0.4 Direct Bilirubin 0.1 AST 37 H 36 H ALT 38 H Alkaline Phosphatase C-Reactive Protein Total Protein Albumin Lipase Urine Color Urine Appearance Urine pH Ur Specific [place] Urine Protein Urine Glucose (UA) Urine Ketones Urine Blood Urine Nitrite Ur Leukocyte Esterase Urine RBC Urine WBC Ur Squamous Epith Cells Urine Bacteria Hyaline Casts 09/08/24 09/08/24 09/08/24 10:21 10:21 10:21 MCV MCH MCHC RDW Plt Count MPV Immature Gran % (Auto) Neut % (Auto) Lymph % (Auto) [place] % (Auto) Eos % (Auto) Baso % (Auto) Lymph # (Auto) [place] # (Auto) Eos # (Auto) Baso # (Auto) Abs Immat Gran (auto) Absolute Neuts (auto) Absolute Nucleated RBC Nucleated RBC % (auto) ESR Anion Gap Estim Creat Clear Calc Estimated GFR Random Glucose Calcium Magnesium Total Bilirubin Direct Bilirubin AST ALT 36 H Alkaline Phosphatase 68 71 C-Reactive Protein 0.33 Total Protein 7.5 7.6 Albumin 4.4 Lipase Urine Color Urine Appearance Urine pH Ur Specific [place] Urine Protein Urine Glucose (UA) Urine Ketones Urine Blood Urine Nitrite Ur Leukocyte Esterase Urine RBC Urine WBC Ur Squamous Epith Cells Urine Bacteria Hyaline Casts 09/08/24 09/09/24 10:21 05:42 MCV 92.7 MCH 31.9 MCHC 34.5 RDW 12.7 Plt Count 475 H MPV 8.6 L Immature Gran % (Auto) 0.4 Neut % (Auto) 89.8 H Lymph % (Auto) 4.3 L [place] % (Auto) 5.3 Eos % (Auto) 0.0 Baso % (Auto) 0.2 Lymph # (Auto) 0.5 L [place] # (Auto) 0.6 Eos # (Auto) 0.0 Baso # (Auto) 0.0 Abs Immat Gran (auto) 0.04 H Absolute Neuts (auto) 9.7 H Absolute Nucleated RBC 0.000 Nucleated RBC % (auto) 0.0 ESR 7 Anion Gap 16 Estim Creat Clear Calc 88.2 Estimated GFR > 60 Random Glucose 137 H Calcium 8.7 D Magnesium Total Bilirubin Direct Bilirubin AST ALT Alkaline Phosphatase C-Reactive Protein Total Protein Albumin 4.6 Lipase 42 Urine Color Yellow Urine Appearance Clear Urine pH 6.0 Ur Specific [place] >= 1.030 H Urine Protein Trace Urine Glucose (UA) Negative Urine Ketones Negative Urine Blood Trace Urine Nitrite Negative Ur Leukocyte Esterase Trace H Urine RBC 0-2 Urine WBC 0-5 Ur Squamous Epith Cells 3-5 Urine Bacteria Trace Hyaline Casts 0-2 Assessment and Plan (1) Tachycardia: Status: Acute (2) Pancolitis: Status: Acute Plan 59 year old female with history of crohns disease on chronic steroids and Rinvoq following with Dr. Stearns and [facility] as well as history of adrenal insuffiency due to steroid withdrawal admitted for further management of acute crohns exacerbation with pancolitis and PO intolerance Acute exacerbation of crohns disease with pancolitis follows with Dr. Stearns and [facility] Last colonoscopy 06/22- records requested from IV hydrocortisone 100mg TID per Dr. Stearns Hold on abx for now per GI If diarrhea recurs. check stool studies pain managent and antiemetics p.r.n. NPO for now for bowel rest, advance as tolerated gastroenterology consult continue Rinvoq. elevated blood pressures -no diagnosis of hypertension. Has normal blood pressures on record. Blood pressure is possibly elevated due to pain. Monitor pressures and add antihypertensive if indicated elevated transaminases likely related to fatty liver disease DVT prophylaxis-Lovenox Full code Patient requires inpatient stay at least 2 midnights for management acute exacerbation of Crohn's disease and dimas colitis requiring IV steroids and pain management as well as diet advancement given NPO status with expert consultation Quality Stroke Does the patient have a stroke diagnosis?: No VTE Prior VTE?: No VTE Risk Level:: Medical - moderate - high VTE Device Contraindication: Treatment Not Indicated VTE Drug Contraindication: N/A - Med Ordered
--- NOTE | 2024-09-09 08:40 | PC.NURSE ---
pt medicated for 6/10 pain, hospitalist at bedside
[2024-09-09] MEDS: bisacodyL 10 MG SUPP.RECT PR (09:46)
--- NOTE | 2024-09-09 09:49 | PC.NURSE ---
suppository given per dr bennett pimentel
--- NOTE | 2024-09-09 10:56 | MHC.CM.PN ---
PT STATES SHE LIVES AT HOME WITH FAMILY PT STATES SHE RECEIVES NO SERVICES PT STATES SHE DOES NOT USE DME PT'S PCP IS DIANA WALSH PT STATES SHE HAS HCP AT HOME PT'S INS IS [place] PT'S DCP- HOME SELF CARE VIA PRIVATE TRANSPORT ( , REJI. [phone])
[2024-09-09] MEDS: bisacodyL 5 MG TABLET.DR 10 MG PO (14:54)
[2024-09-09] MEDS: Enoxaparin Sodium 40 MG/0.4 ML SYRINGE SUBCUT (16:51)
--- NOTE | 2024-09-09 21:45 | P.PNGI_ITS ---
Subjective Subjective Date of Service: 09/09/24 Interval History: Patient seen twice over the course of the day, as well as my having spoken with her 2 or 3 times over the phone. At about 3 or 4PM today she finally started having BM's and obtained very good relief of her previous abdominal pain and distention. She was feeling well. Denies N/V. There has been no evidence of bleeding Critical Care Time (minutes): 0 Physical Exam 2 Vital Signs: Vital Signs: Last Vital Signs Temp 98.3 F 09/09/24 14:00 Pulse 125 H 09/09/24 14:00 Resp 14 09/09/24 14:00 BP 132/82 09/09/24 14:00 Pulse Ox 97 09/09/24 14:00 O2 Del Method Room Air 09/09/24 14:00 BMI result Body Mass Index 27.8 Const: General: cooperative, comfortable, no acute distress, well developed, alert, awake and Cushingoid facies GI: Other: Softer and with good BS, nondistended, slight tenderness to palpation, no mass/rebound/guarding Objective Data Labs 09/09/24 05:42 09/09/24 05:42 Labs: Laboratory Results - last 24 hr 09/09/24 05:42 WBC 10.7 RBC 3.85 L Hgb 12.3 Hct 35.7 L MCV 92.7 MCH 31.9 MCHC 34.5 RDW 12.7 Plt Count 475 H MPV 8.6 L Immature Gran % (Auto) 0.4 Neut % (Auto) 89.8 H Lymph % (Auto) 4.3 L [place] % (Auto) 5.3 Eos % (Auto) 0.0 Baso % (Auto) 0.2 Lymph # (Auto) 0.5 L [place] # (Auto) 0.6 Eos # (Auto) 0.0 Baso # (Auto) 0.0 Abs Immat Gran (auto) 0.04 H Absolute Neuts (auto) 9.7 H Absolute Nucleated RBC 0.000 Nucleated RBC % (auto) 0.0 ESR 7 Sodium 139 Potassium 3.5 Chloride 107 Carbon Dioxide 20 L Anion Gap 16 BUN 6 L Creatinine 0.64 Estim Creat Clear Calc 88.2 Estimated GFR > 60 Random Glucose 137 H Calcium 8.7 D Imaging Abdominal x-ray: My impression: No megacolon, no sign of obstruction, no free air Procedures Date of Service Date of Service: 09/09/24 Progress Note: A&P Assessment and plan (1) Crohn's colitis: Status: Acute (2) Constipation: Status: Acute Assessment and Plan: Imp:Patient's constipation has resolved with good resolution of her abdominal complaints. She is feeling much better. Her Crohn's seems stable at the present time as well. Rec: Observe today. If stable overnight she can have her diet advanced, be changed over to oral prednisone, and be discharged. Given that her presentation may not have been related to an actual Crohn's exacerbation, I would recommend sending her home on 10mg prednisone. I don't think she needs to go home on a higher dose with a long taper She can continue her Rinvoq. She should use Miralax regularly to avoid recurrent constipation. She will follow up with her [employer] regarding further tapering of the prednisone. She will also follow up with Dr. Costa at [facility] GI [facility]. D/W patient in detail and she is comfortable with this plan. Thanks Time Spent With Patient Time: Total time managing care of this patient today ____ minutes. Quality Stroke Does the patient have a stroke diagnosis?: No VTE Prior VTE?: No VTE Risk Level:: Medical - moderate - high VTE Device Contraindication: Treatment Not Indicated VTE Drug Contraindication: N/A - Med Ordered
[2024-09-10] MEDS: Acetaminophen 325 MG TABLET 650 MG PO ×2 (00:36→07:30)
[2024-09-10 01:15] VITALS: RESP 16
[2024-09-10 05:45] VITALS: BP 141/85; PULSE 95; RESP 16; TEMP 36.4; O2SAT 92
[2024-09-10] MEDS: Multivitamin TABLET 1 TAB PO (07:30)
[2024-09-10] MEDS: Hydrocortisone Sod Succ/PF 100 MG VIAL IVPUSH (07:30)
[2024-09-10] MEDS: Calcium Oyster Shell Elemental 500 MG TABLET PO (07:30)
[2024-09-10] MEDS: Lactated Ringers 1,000 ML 100 ML IVCONT (07:31)
[2024-09-10] MEDS: amLODIPine Besylate 5 MG TABLET PO (09:38)
--- NOTE | 2024-09-10 09:50 | P.DS_ITS ---
DS: Providers Provider Date of Service: 09/10/24 Date of admission: 09/08/24 14:40 Date of discharge: 09/10/24 Primary care physician: Felecia Allan MD Consults: 09/08/24 15:38 Consult to Gastroenterology Routine Consulting Provider: Juarez Stearns Reason for consultation: crohns flare, pancolitis DS: Diagnosis Discharge Diagnosis (1) Tachycardia: Status: Acute (2) Pancolitis: Status: Acute DS: Summary Hospital Course Hospital Course: Chief Complaint: abd pain, nausea 59 year old female with history of crohns disease on chronic steroids and Rinvoq following with Dr. Stearns and [facility] GI as well as history of adrenal insuffiency due to steroid withdrawal presented to the ED for evaluation of severe abd pain and nausea. She reports she had watery diarrhea on for which she took imodium. The following day deverloped 7/10 nonradiating diffuse abd pain with associated nausea but no vomiting. She has not had a bowel movement since. Denies any fevers, chills, vomiting, melena, hematochezia. Reports this feels similar to prior flares as far as symptomology except that the pain is typically located in the LLQ. Denies any sick contacts or eating any bad foods. No recent travel or abx use. She reports last colonoscopy was 06/22 at [facility]. Since arrival, pt has been afebrile and mildly tachycardic with elevated blood pressure (not on antihypertensives). There is no leukocytosis. Renal function and electrolyte levels are normal. Mild elevation of AST at 36 and ALT at 36, bilirubin within normal limits. CRP is 0.33 urinalysis with elevated specific gravity, trace leukocytes and trace bacteria. CT abdomen/pelvis suggestive of mild pancolitis and fatty infiltration of the liver as well as cholelithiasis. In the ED, has received 4 mg of morphine, IV NS, Zosyn, and 5 mg of prednisone. She will be admitted for further management of Crohn's flare/pancolitis with p.o. intolerance. Hospital course: Patient was admitted for an acute Crohn's flare, complicated by severe constipation. Initially received IV antibiotics in the ED, but as there was no evidence of acute infection, they were discontinued. Treated with IV steroids and evaluated by GI, who initiated a bowel regimen including suppository and Golytely, leading to multiple bowel movements and significant symptom relief. Her diet was advanced to a regular diet, which she is tolerating well. GI recommends increasing baseline steroids from 5 mg to 10 mg daily and outpatient follow-up with GI and endocrinology. She is comfortable with the discharge plan, and her abdominal exam is now benign. Notably, she had multiple elevated blood pressure readings and was started on Norvasc 5 mg daily, she will check her BPs at home and follow up with her PCP for further adjustment Diagnosis: Crohn's flare Constipation, severe Elevated blood pressure, hypertension Time Attestation Discharge Coordination Time (in mins): 40 Quality: Safe Use of Opioids Does Pt have an Active Cancer Diagnosis on the Problem List?: No Quality: Stroke Does the patient have a stroke diagnosis?: No Physical Exam Vital Signs: Vital Signs: Last Vital Signs Temp 97.5 F 09/10/24 05:45 Pulse 95 09/10/24 05:45 Resp 16 09/10/24 05:45 BP 141/85 H 09/10/24 05:45 Pulse Ox 92 09/10/24 05:45 O2 Del Method Room Air 09/10/24 05:45 BMI result Body Mass Index 27.8 General: AO X 3, no acute distress Resp: CTA bilateral CVS: S1,S2,RRR GI: +BS, NT, no distention Skin: No rash Neuro: motor grossly intact Psych: appropriate affect Discharge Plan Discharge Anticipated Discharge Date/Time: 09/10/24 09:39 Patient Disposition: Home, Self-Care Discharge Diagnosis: Acute crohn's flare, constipation, abdominal pain Referrals: Felecia Allan MD [Primary Care Provider] - 1 Week Discharge Medications: New amlodipine 5 mg Tablet 5 mg PO DAILY Qty: 90 0RF Protocol: Hold for SBP< HOLD for SBP < : 90 Continued multivitamin Tablet 1 tab PO DAILY acetaminophen 500 mg Tablet 1,000 mg PO BID calcium carbonate [Calcium 600] 600 mg calcium (1,500 mg) Tablet 600 mg PO DAILY cyanocobalamin (vitamin B-12) 1,000 mcg/mL solution 1 ml IM QMONTH Rinvoq 30 mg tablet extended release 24 hr 45 mg PO DAILY Changed prednisolone 5 mg tablet 10 mg PO DAILY Qty: 1 0RF Discharge Orders: Discharge Order (Routine); Ordered 09/10/24 Ordered By: Scottie Browning Diet: Advance to usual diet Activity on Discharge: As tolerated Stand Alone Forms: Patient Portal Discharge page Print Language: Czech Care Plan Goals: recovery from crohn's flare Health Concerns: crohn's constipation elevated BP Plan of Treatment: Take Prednisone 10 mg daily , follow up with primary provider for follow up and medication adjustment Take Norvasc for blood pressure and follow up with your Doctor in a week follow up with your GI doctor and Endocrinoligist Assessment: see above
--- NOTE | 2024-09-10 10:12 | MHC.CM.PN ---
DP: PT HAS BEEN MEDICALLY CLEARED FOR DC HOME, NO SERVICES. PT HAS OWN RIDE HOME.
== END 2024-09-10 11:00 | disposition home or self-care (01) | DRG 386 ==
LOC: HO.ED 14:24 → HO.EDOVER 14:40 → HO.S3 09-09 10:47
PROVIDERS: Internal Medicine; Admitting Provider Physician Assistant; Emergency Provider Emergency Medicine Emergency Medical Services; PCP Internal Medicine; Visit Provider Internal Medicine
DX: K50.10 Crohn's disease of large intestine without complications (principal); E27.40 Unspecified adrenocortical insufficiency; R03.0 Elevated blood-pressure reading, without diagnosis of hypertension; K59.00 Constipation, unspecified; K76.0 Fatty (change of) liver, not elsewhere classified; Z79.52 Long term (current) use of systemic steroids; Z79.622 Long term (current) use of Janus kinase inhibitor; Z79.899 Other long term (current) drug therapy
CPT/HCPCS: 36415; 70450; 74022; 74177; 80048; 80053; 80076; 81001; 83690; 83735; 85025; 85652; 86140; 99285; J0360; J1650; J1720; J1885; J2270; J2543; J7120; Q9967

== ENCOUNTER → 2024-09-08 10:29 | Outpatient (BNV) | payer OTHER, SELFPAY | PROVIDERS: Emergency Provider Emergency Medicine Emergency Medical Services; PCP Internal Medicine; Visit Provider Radiology Diagnostic Radiology | DX: K51.019 Ulcerative (chronic) pancolitis with unspecified complications (principal); K76.0 Fatty (change of) liver, not elsewhere classified; K80.20 Calculus of gallbladder without cholecystitis without obstruction | CPT/HCPCS: 74177 ==

== ENCOUNTER 2024-09-08 14:40 | Outpatient (BNV) | payer OTHER, SELFPAY | END 2024-09-09 03:12 | PROVIDERS: Admitting Provider Physician Assistant; Emergency Provider Emergency Medicine Emergency Medical Services; PCP Internal Medicine; Visit Provider Radiology Diagnostic Radiology | DX: R03.0 Elevated blood-pressure reading, without diagnosis of hypertension (principal); K50.90 Crohn's disease, unspecified, without complications | CPT/HCPCS: 70450; 74022 ==

== ENCOUNTER → 2024-09-08 14:40 | Outpatient (BNV) | payer OTHER, SELFPAY | PROVIDERS: Admitting Provider Physician Assistant; Emergency Provider Emergency Medicine Emergency Medical Services; PCP Internal Medicine; Visit Provider Physician Assistant | DX: K51.00 Ulcerative (chronic) pancolitis without complications (principal); K50.90 Crohn's disease, unspecified, without complications | CPT/HCPCS: 99223 ==

== ENCOUNTER 2024-09-17 13:57 | Outpatient (AMB) | payer OTHER, SELFPAY ==
[2024-09-17 13:58] VITALS: BP 140/88; PULSE 117; RESP 20; TEMP 37.4; O2SAT 96; BMI 27.8
--- NOTE | 2024-09-17 13:58 | A.OFFPC_ITS ---
Vital Signs 09/17/24 13:58 Height 5 ft 2 in Weight 152 lb BMI 27.8 BP 140/88 H Blood Pressure Location Lt brachial Position Sitting Respiration 20 Pulse 117 H Pulse Source Pulse Oximeter Temp 99.3 F Temp Source Oral Pulse Oximetry (%) 96 Oxygen Delivery Method Room Air Intake Visit Reasons: C elevated BP, colitis Intake Note: Pt is here today for Hospital follow up visit. Allergies No Known Allergies [No Known Allergies*] Allergy (Verified 09/17/24 13:59) Medication List - Last Reconciled 09/17/24 by Felecia Allan MD acetaminophen 1,000 mg PO BID amlodipine 5 mg PO DAILY calcium carbonate (Calcium 600) 600 mg PO DAILY cyanocobalamin (vitamin B-12) 1 mL IM QMONTH docusate sodium (Colace) 100 mg PO BID multivitamin 1 tab PO DAILY polyethylene glycol 3350 (ClearLax) 17 grams PO DAILY PRN prednisolone 10 mg (2 x 5 mg) PO DAILY upadacitinib ER (Rinvoq) 45 mg PO DAILY Tobacco use date assessed: 09/17/24 Dental Screening Dental Screen Date: 09/17/24 Did you have a dental visit in the last 12 months?: Yes Did you have a dental problem in the last 6 months where you did not have access to dental care?: No Was dental information given to patient?: Patient has dentist HPI C elevated BP, colitis HPI Details Patient presents for the follow-up of hospitalization for Crohn's disease flare-up. She was treated with high dose on prednisone now on a taper. Abdominal pain and constipation resolved. Patient follows up with GI at [facility] and is decreasing the dose of Rinvoq Patient was found to have elevated blood pressure was started on amlodipine 5 mg a day. She denies headaches shortness of breath chest pains. [facility] Medical History C. difficile colitis Frequent headaches SÁNCHEZ (dyspnea on exertion) Tachycardia Annual physical exam Mammogram normal Normal Pap smear COVID-19 History of mammogram Surgical History H/O colonoscopy History of removal of cyst History of section Family History Father CVD (cardiovascular disease) Stroke Crohn's disease Mother No problems noted. Brother No problems noted. Brother No problems noted. Son No problems noted. Son No problems noted. Daughter No problems noted. 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 1. Little interest or pleasure in doing things: not at all 2. Feeling down, depressed, or hopeless: not at all 3. Trouble falling or staying asleep, or sleeping too much: not at all 4. Feeling tired or having little energy: not at all 5. Poor appetite or overeating: not at all 6. Feeling bad about yourself - or that you are a failure or have let yourself or your family down: not at all 7. Trouble concentrating on things, such as reading the newspaper or watching television: not at all 8. Moving or speaking so slowly that other people could have noticed. Or the opposite - being so fidgety or restless that you have been moving around a lot more than usual: not at all 9. Thoughts that you would be better off or of hurting yourself in some way: not at all Total score: 0 Depression Screening Interpretation: Negative Depression Screening Done: Yes 92881 - PHQ-9 Billing: Yes Source: Developed by Drs. Juarez Palmer, Stefany Wooten, Escobar Villagran and colleagues, with an educational armond from [employer]. Thrive Questionnaire Date Thrive assessed: 09/17/24 I am a: Patient What is your living situation today?: I have a steady place to live Within the past 12 months, did the food you bought not last and you didn't have the money to get more?: Never true Within the past 12 months, did you worry whether your food would run out before you got money to buy more?: Never true Do you have trouble paying for medicines?: No Do you have trouble getting transportation to medical appointments?: No Do you have trouble paying your heating and electricity bill?: No Do you have trouble taking care of your child, family member or friend?: No Do you have trouble with day-to-day activities such as bathing, preparing meals, shopping, managing finances, etc.?: No Are you currently unemployed and looking for a job?: No Are you interested in more education?: No Please select the resources that you would like help with: None Currently or been in a relationship where the following occur: No concerns reported THRIVE Score: 0 AUDIT C Alcohol Use Questionnaire (AUDIT-C) 1. How often do you have a drink containing alcohol?: 2-3 times a week 2. How many drinks containing alcohol do you have on a typical day when you are drinking?: 1 or 2 3. How often do you have six or more drinks on one occasion?: Never Total Score: 3 AVEYR-7 AMB Questionnaire AVERY-7 Date AVERY - 7 assessed: 09/17/24 Feeling nervous, anxious, or on edge: 0 = Not at all Not being able to stop or control worryin = Not at all Worrying too much about different things: 0 = Not at all Trouble relaxin = Not at all Being so restless that it is hard to sit still: 0 = Not at all Becoming easily annoyed or irritable: 0 = Not at all Feeling afraid as if something awful might happen: 0 = Not at all Total AVERY-7 score (0-4 normal; 5-9 mild; 10-14 moderate; 15-21 severe): 0 Source: Developed by Drs. Juarez Palmer, Stefany Wooten, Escobar Villagran and colleagues, with an educational armond from [employer]. AVERY-7 Assessment Billing AVERY-7 Assessment Tool: AVERY-7 Assessment 41460 Review of Systems Const All systems reviewed & are unremarkable except as noted in HPI and below Eyes Reports no additional complaints ENT Reports no additional complaints Card Reports no additional complaints Resp Reports no additional complaints GI Reports no additional complaints Physical exam (Primary Care) Vital Signs: Last Vital Signs Temp 99.3 F 09/17/24 13:58 Pulse 117 H 09/17/24 13:58 Resp 20 09/17/24 13:58 BP 122/78 09/17/24 13:58 Pulse Ox 96 09/17/24 13:58 Oxygen Delivery Method Room Air 09/17/24 13:58 BMI result Body Mass Index 27.8 Tobacco/Smoking Status: Tobacco use Status Tobacco use date assessed 09/17/24 09/17/24 14:02 Patient Tobacco Use Status Never used Tobacco 09/17/24 14:02 e-Cigarette/Vaping Use Never Used 09/17/24 14:01 PHQ-9: PHQ-9 Score PHQ-9: Total score 0 09/17/24 14:02 Depression Screening Interpretation: Negative Thrive Assessment: Date of Thrive Assessment Date Thrive assessed 09/17/24 09/17/24 14:02 Currently or been in a relationship where the following occur: No concerns reported Const General: no acute distress HENMT Head: Yes normal to inspection Neck Neck: Yes supple Resp Effort & Inspection: normal respiratory effort Auscultation: clear to auscultation bilaterally Cardio Rate: tachycardic Rhythm: regular rhythm Heart sounds: S1 normal heart sound present and S2 normal heart sound present GI Inspection: Yes normal to inspection Palpation (GI): Soft to palpation Percussion: Yes normal to percussion Auscultation: normal bowel sounds Coding Level of Care Code Est Pt Level 4 (47294) Diagnoses HTN (hypertension) I10 Exacerbation of Crohn's disease K50.90 Adrenal insufficiency due to corticosteroid withdrawal E27.3; T38.0X5A Additional Codes AVERY-7 Assessment Billing - AVERY-7 Assessment Tool: AVERY-7 Assessment 06664 ([id number]) PHQ-9 - 80843 - PHQ-9 Billing: Yes ([id number]) Assessment & Plan Assessment & Plan (1) HTN (hypertension): Code(s): I10 - Essential (primary) hypertension Category: Medical Plan: Add 2.5 mg of bisoprolol 2 amlodipine for better blood pressure and heart rate control, follow-up in 1 month (2) Exacerbation of Crohn's disease: Comment: Patient is established with GI at [place], tx Rinvo Code(s): K50.90 - Crohn's disease, unspecified, without complications Category: Medical Plan: Follow-up with GI (3) Adrenal insufficiency due to corticosteroid withdrawal: Code(s): E27.3 - Drug-induced adrenocortical insufficiency; T38.0X5A - Adverse effect of glucocorticoids and synthetic analogues, initial encounter Category: Medical Plan: Established with endocrinology Medications: New bisoprolol fumarate 2.5 mg (1/2 x 5 mg) PO DAILY 30 tabs 1RF Refilled amlodipine 5 mg PO DAILY 90 tabs 0RF
--- OUTSIDE RECORDS SUMMARY | 2024-09-17 16:15 | XMS_ITS ---
Author Organization [facility] Address [address] [place] [address] [place] [address] Care Team Providers Care Weight Caller Name Role Phone Felecia Allan MD Primary Care Provider Juarez Nix [phone] REASON FOR VISIT update, fyi update,pt no longer on stela per dr. peacock. Medications Medication SIG (Take, Route, Fr equency, Duration) Notes Start Date End Date Status Azithromycin 500 MG 1 tablet Orally Once a day for 5 days 06/20/2024 Active Encounters Encounter Location Date Provider Diagnosis [facility] [address] [address] 06/20/2024 Juarez Stearns Plan Of Treatment Medication Medication Name Sig Start Date Stop Date Notes Azithromycin 500 MG 1 tablet Orally Once a day for 5 days 06/20/2024 Next Appt Details Provider Name:Juarez Stearns , 03/15/2025 10:10:00 AM, [address] [place] [address], Suite [facility], [place], [address], Progress Notes * SUNNY MCKEON ADOB:1965 (58 yo F)Acc No.[id number]:06/20/2024 Patient:?SUNNY MCKEON :1965???Age:58 Y???Sex:Female Address:[address] [facility] [place] [address] * Refills? Start Azithromycin Tablet, 500 MG, Orally, 5 Tablet, 1 tablet, Once a day, 5 days, Refills=0 * true * Date:? Generated for Hu casas/Derrick/aSndra on:?09/17/2024 04:15 PM EDT
--- OUTSIDE RECORDS SUMMARY | 2024-09-17 16:15 | XMS_ITS ---
Author Organization [facility] Address [address] [place] [address] Care Team Providers Care Truck Despatcher Name Role Phone Felecia Allan MD Primary Care Provider Juarez Nix [phone] Encounters Encounter Location Date Provider Diagnosis [facility] [address] [place] [address] 09/12/2024 Juarez Stearns Plan Of Treatment Next Appt Details Provider Name:Juarez Stearns , 03/15/2025 10:10:00 AM, [address], [address], [place], [address], Progress Notes * SUNNY MCKEON ADOB:1965 (59 yo F)Acc No.[id number]:09/12/2024 Patient:?SUNNY MCKEON :1965???Age:59 Y???Sex:Female Address:[address] [place] [address] * true * Date:? Generated for Printi yessenia/Derrick/eTransmitting on:?09/17/2024 04:14 PM EDT
--- OUTSIDE RECORDS SUMMARY | 2024-09-17 16:15 | XMS_ITS | Continuity of Care Document ---
Author Organization [facility] Address [address] [place] [address]- Care Team Providers Care Classifying Machine Operator Name Role Phone Felecia Allan MD Primary Care Physician [phone] Encounter 09/02/24 - 09/09/24 [facility] [address], [address] [place] [address]- Attending Physician: Felecia Allan MD Admitting Physician: Felecia Allan MD Referring Physician: Felecia Allan MD Encounter Type: OutPatient One Time Allergies, Adverse Reactions, Alerts No Known Allergies Immunizations Given and Recorded Vaccine Date Status Refusal Reason tetanus/diphtheria/pertussis, acel(Tdap) 07/15/08 Given Medications Budesonide Refills 0, Maintenance, 06/12/23 10:17:00 AM EST Start Date: 06/12/23 Status: Ordered Repeat number: 1 Stelara 0 Refills, Maintenance, 06/12/23 10:07:00 AM EST, Partial fill upon patient request if the prescription is for a schedule II opioid drug. Start Date: 06/12/23 Status: Ordered Repeat number: 1 Problem List Condition Confirmation Course Effective Dates Status Health Status Informant Last pap smear 06/12/23 negative with negative HPV Confirmed Active Crohns disease Confirmed Active Former smoker Confirmed Active Hypertriglyceridemia Confirmed Active Insulin resistance - borderline elevated HgbA1c Confirmed Active Occasional migraines associated with vision changes but not meeting the definition of aura Confirmed Active Overweight Confirmed Active Menopausal state Confirmed Active Sun-damaged skin Confirmed Active Results Radiology Reports * Exam Date Time Procedure Performing Provider Status 09/02/24 9:48 AM MM Digital Mammo Screening Kinjal Haider; Auth (Verified) Notes: (MM Digital Mammo Screening) Reason For Exam: Z12.31 ROUTINE SCREENING RESULT: MM Digital Mammo Screening PROCEDURE: MM Digital Mammo Screening INDICATION: Screening for breast cancer. No known palpable abnormalities. COMPARISON: ALINA dating back to 08/13/2021. TECHNIQUE: Full-field digital CC and MLO 3D tomosynthesis images of both breasts were acquired. Computer-aided detection (CAD) was utilized in the interpretation of this study. DENSITY: The breast tissue is extremely dense, which lowers the sensitivity of mammography. FINDINGS: No suspicious masses, suspicious microcalcifications, or areas of architectural distortion are seen in either breast to suggest malignancy. IMPRESSION: No mammographic evidence of malignancy. RECOMMENDATION: Annual mammographic screening BI-RADS: 1 (Negative) Lay letter mailed to patient WSN: [id number] Ordering Physician: Felecia Allan Dictated By: Delmi Martin MD, I Dictated Date/Time: 09/02/24 4:17 pm Reviewed By: Delmi Martin MD, I Signed By: Delmi Martin MD, I Signed Date/Time: 09/02/24 4:17 pm Transcribed By: DEBORA Smelting Engineer Date/Time: 09/02/24 4:15 pm Birads: Social History Social History Type Response Smoking Status Never smoker; Tobacc o user in household: No entered on: 10/11/15 Sex Sex Representation Female (finding) Patient Care team information Care Team Personnel Name: Felecia Allan MD Position: [facility] Physician - Primary Care Member Role: PCP Address: [address] [place] [address] Telecom: Care Team Related Persons Name: REJI MCKEON Insurance Providers Guarantor name: SUNNY MCKEON Health Plan Information #: 1 Payer: [employer] [employer] Member Number: [id number] Policy Number: NA Group Number: [id number] Health Plan Information #: 2 Payer: [facility] Member Number: [id number] Policy Number: NA Group Number: [id number]
== END 2024-09-17 14:45 | disposition home or self-care (01) ==
LOC: HO.HMCC 13:57
PROVIDERS: PCP Internal Medicine; Visit Provider Internal Medicine
DX: I10 Essential (primary) hypertension (principal); K50.90 Crohn's disease, unspecified, without complications; E27.3 Drug-induced adrenocortical insufficiency; T38.0X5A Adverse effect of glucocorticoids and synthetic analogues, initial encounter

== ENCOUNTER → 2024-09-17 13:57 | Outpatient (BNVA) | payer OTHER, SELFPAY | PROVIDERS: PCP Internal Medicine; Visit Provider Internal Medicine | DX: I10 Essential (primary) hypertension (principal); K50.90 Crohn's disease, unspecified, without complications; E27.3 Drug-induced adrenocortical insufficiency; T38.0X5A Adverse effect of glucocorticoids and synthetic analogues, initial encounter | CPT/HCPCS: 96127 ==

== ENCOUNTER 2024-10-01 09:48 | Outpatient (AMB) | payer OTHER, SELFPAY ==
--- NOTE | 2024-10-01 09:50 | A.OFFVIS_ITS ---
Vital Signs 10/01/24 09:51 Height 5 ft 2 in Weight 153 lb 14.122 oz BMI 28.1 BP 114/76 Blood Pressure Location Rt brachial Position Sitting Pulse 78 Pulse Source Pulse Oximeter Pulse Oximetry (%) 98 Oxygen Delivery Method Room Air Intake Visit Reasons: Drug-induced adrenocortical insufficiency Intake Note: Patient present today for Drug-induced adrenocortical insufficiency. Allergies No Known Allergies [No Known Allergies*] Allergy (Verified 10/01/24 09:51) Medication List - Last Reconciled 10/01/24 by Gissel Dhillon MD acetaminophen 1,000 mg PO BID amlodipine 5 mg PO DAILY bisoprolol fumarate 2.5 mg (1/2 x 5 mg) PO DAILY calcium carbonate (Calcium 600) 600 mg PO DAILY cyanocobalamin (vitamin B-12) 1 mL IM QMONTH docusate sodium (Colace) 100 mg PO BID multivitamin 1 tab PO DAILY polyethylene glycol 3350 (ClearLax) 17 grams PO DAILY PRN prednisolone 5 mg PO DAILY upadacitinib ER (Rinvoq) 45 mg PO DAILY HPI Comments Details: 58 years old female here today for follow up of concern for adrenal insufficiency. HPI from prior visit Seeing GI Dr. Awad at [facility] for Crohns disease and has been on steroids for the past 2.5 years Now on Rinvoq with plans to taper off the steroids currently on 08/10/24 she is on prednisone 20 mg daily with plan to taper by 5 mg a week. USed to be on budesonide before as well , stopped April 2024. No nausea , vomiting currenlty. No lightheadenss , dizziness. 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 Alcohol: 3 drinks per week Interval history Currently down to prednisone 5 mg daily (for the past 2 weeks ) Overall feeling good, Shawn is stable on Rinvoq No nausea or vomiting No lightheadedness or dizziness , she had these symptoms a week ago when was in the ER at [facility] where she was in SVT with high BP and pulse , now doing okay No abd pain currently Physical exam General: sitting comfortably in no acute distress HEENT: normocephalic/atraumatic Neck: supple, Cardiac: normal heart rate Pulm: Normal pulmonary effort Abd: not distended, no tenderness [facility] Medical History C. difficile colitis Frequent headaches SÁNCHEZ (dyspnea on exertion) Tachycardia Annual physical exam Mammogram normal Normal Pap smear COVID-19 History of mammogram Surgical History H/O colonoscopy History of removal of cyst History of section Family History Father CVD (cardiovascular disease) Stroke Crohn's disease Mother No problems noted. Brother No problems noted. Brother No problems noted. Son No problems noted. Son No problems noted. Daughter No problems noted. 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 Do you presently have visiting nurse or other home services: No Alcohol intake: current Alcohol intake frequency: a few times a week Patient Tobacco Use Status: Never used Tobacco e-Cigarette/Vaping Use: Never Used service: No Current occupational status: employed Cognitive needs: No Hearing needs: No Vision needs: Yes Physical Exam Vital Signs: Last Vital Signs Pulse 78 10/01/24 09:51 BP 114/76 10/01/24 09:51 Pulse Ox 98 10/01/24 09:51 Oxygen Delivery Method Room Air 10/01/24 09:51 BMI result Body Mass Index 28.1 Assessment & Plan Assessment & Plan (1) Adrenal insufficiency due to corticosteroid withdrawal: Code(s): E27.3 - Drug-induced adrenocortical insufficiency; T38.0X5A - Adverse effect of glucocorticoids and synthetic analogues, initial encounter Category: Medical Plan: 58-year-old female with a history of Crohn's disease who is being tapered off prednisone with history of being on steroids for the past 2 years, she is now down to 5 mg of prednisone for the past 2 weeks. At this point we can switch her to hydrocortisone with plan for a slow taper and subsequently hold the dose for testing for adrenal insufficiency. I counseled her regarding symptoms of adrenal insufficiency including lightheadedness, dizziness, nausea, vomiting, weight loss and to contact us during office hours or go to the emergency room if those happen. We also went over adrenal sick day rules presuming right now that she might be adrenal insufficient I also advised her to obtain medical alert brateri. Plan: -stop prednisone 5 mg daily -start hydrocortisone 10 mg in a.m. and 10 mg in the afternoon at 14:00 for 4 weeks, then go down to 10 mg in a.m. and 5 mg in the afternoon after that -follow up in 8 weeks Plan I spent 30 minutes in reviewing the record, seeing the patient and documenting in the medical record. Medications: New hydrocortisone Take 10 mg in AM and 10 at 2 pm in afternoon 10 mg PO BID 180 tabs 3RF Patient Instructions: Stop prednisone start hydrocortisone to 10 mg AM and 10 mg at 2 pm in the afternoon for 4 weeks and then go down to 10 mg in AM and 5 mg ( half a tablet ) at 2 pm in the afternoon afterwards Follow up in 8 weeks ADRENAL SICK DAY RULE Minor ailments can affect anyone with a steroid-dependent adrenal condition very differently. Things like vomiting, diarrhea, colds and flu could cause an adrenal crisis. It's important that you spot the early symptoms of a bug or cold and adjust your steroid replacement medication. The Sick Day Rules are here to help you. If you're feeling ill or injured follow these rules to keep safe and reduce the chances of an adrenal crisis.?Make sure that you keep taking your medication whatever is going on. An adrenal crisis is serious, uncomfortable and can be life-threatening. What to do Double?your daily hydrocortisone, prednisone or prednisolone dose if: ? You have a temperature of 100.4 degrees or above. ? You get a bad cold, flu, diarrhea or other infection that makes you feel poo rly or weak. ? You break a bone or suffer from any similar significant injury. For how long? ? Double your dose for 48-72 hours. If you are feeling better, go back to your usual dose. ? If you don't feel better after 48hrs, continue to double your does and speak to your doctor for more advice. ? If you are prescribed antibiotics, continue to double your dose until you finish the course or feel completely back to normal. I can't keep my medication down 1. If you vomit and bring up your medication within 30 minutes of taking it, take a double dose again immediately. 2. If you bring up the second dose,?inject yourself with 100mg of hydrocortisone?(if this has been prescribed to you) and seek medical advice immediately. 3. If you carry on vomiting, you will become dehydrated Get medical alert bracelet Coding Level of Care Code Est Pt Level 4 (72109) Diagnoses Adrenal insufficiency due to corticosteroid withdrawal E27.3; T38.0X5A Time Spent (min) 30
[2024-10-01 09:51] VITALS: BP 114/76; PULSE 78; O2SAT 98; BMI 28.1
--- OUTSIDE RECORDS SUMMARY | 2024-10-01 10:59 | XMS_ITS ---
Author Organization [facility] Address [address] [place] [address] Care Team Providers Care Sole Seamer Name Role Phone Felecia Allan MD Primary Care Provider Juarez Nix [phone] Encounters Encounter Location Date Provider Diagnosis [facility] [address] [place] [address] 09/12/2024 Juarez Stearns Plan Of Treatment Next Appt Details Provider Name:Juarez Stearns , 03/15/2025 10:10:00 AM, [address], [address], [place], [address], Progress Notes * SUNNY MCKEON ADOB:1965 (59 yo F)Acc No.[id number]:09/12/2024 Patient:?SUNNY MCKEON :1965???Age:59 Y???Sex:Female Address:[address] [place] [address] * true * Date:? Generated for Printi yessenia/Derrick/eTransmitting on:?10/01/2024 10:59 AM EDT
--- OUTSIDE RECORDS SUMMARY | 2024-10-01 11:00 | XMS_ITS ---
Author Organization [facility] Address [address] [place] [address] [place] [address] Care Team Providers Care Salt Grinder Name Role Phone Felecia Allan MD Primary Care Provider Juarez Nix [phone] REASON FOR VISIT update, fyi update,pt no longer on stela per dr. peacock. Medications Medication SIG (Take, Route, Fr equency, Duration) Notes Start Date End Date Status Azithromycin 500 MG 1 tablet Orally Once a day for 5 days 06/20/2024 Active Encounters Encounter Location Date Provider Diagnosis [facility] [address] [address] 06/20/2024 Juarez Stearns Plan Of Treatment Medication Medication Name Sig Start Date Stop Date Notes Azithromycin 500 MG 1 tablet Orally Once a day for 5 days 06/20/2024 Next Appt Details Provider Name:Juarez Stearns , 03/15/2025 10:10:00 AM, [address] [place] [address], Suite [facility], [place], [address], Progress Notes * SUNNY MCKEON ADOB:1965 (58 yo F)Acc No.[id number]:06/20/2024 Patient:?SUNNY MCKEON :1965???Age:58 Y???Sex:Female Address:[address] [facility] [place] [address] * Refills? Start Azithromycin Tablet, 500 MG, Orally, 5 Tablet, 1 tablet, Once a day, 5 days, Refills=0 * true * Date:? Generated for Hu casas/Derrick/Sandra on:?10/01/2024 10:59 AM EDT
== END 2024-10-01 10:17 | disposition home or self-care (01) ==
LOC: HO.ENCR 09:49
PROVIDERS: PCP Internal Medicine; Visit Provider Student in an Organized Health Care Education/Training Program
DX: E27.3 Drug-induced adrenocortical insufficiency (principal); T38.0X5A Adverse effect of glucocorticoids and synthetic analogues, initial encounter
CPT/HCPCS: 99214

== ENCOUNTER → 2024-10-01 09:48 | Outpatient (BNVA) | payer OTHER, SELFPAY | PROVIDERS: PCP Internal Medicine; Visit Provider Student in an Organized Health Care Education/Training Program ==

== ENCOUNTER → 2024-10-27 10:42 | Outpatient (REF) | payer OTHER, SELFPAY ==
--- NOTE | 2024-10-27 10:44 | CA_ITS ---
Transthoracic Echocardiogram Patient (Last, First, Middle): Luna Tiwari A Gender: Female Date of : 1965 Age: 59 Procedure Date: 10/27/2024 Procedure Type: Transthoracic Echocardiogram Location: OP Height: 157.48 cm Weight: 68.04 kg BSA: 1.69 m2 Heart Rate: 71 bpm BP: 114 / 72 mmHg Varnish Maker Helper: SUKHI Referring MD: Felecia Allan MD Aircraft Communicator: Shai Giang MD Symptoms: R06.00 - Dyspnea, unspecified Study Quality: Adequate w contrast ECG Rhythm: Sinus Conclusions: - 1. Normal LV systolic function with grade 1 diastolic dysfunction 2. Normal cardiac valvular Dopplers 3. No gross pericardial effusion Findings Procedure Information Contrast agent, definity, is being given per protocol without apparent complications. Left Ventricle Normal left ventricular size, thickness, and systolic function. The visually estimated ejection fraction is between 65-70%. Spectral Doppler is indicative of an impaired relaxation filling pattern. E/E prime ratio is <8, consistent with normal filling pressures. Evidence suggests grade I (mild) diastolic dysfunction. Right Ventricle Normal right ventricular cavity size and systolic function. Atria Both atria are normal in size. Interatrial shunt cannot be excluded. Aortic Valve The aortic valve structure and function is likely normal. There is no aortic valve stenosis. There is no aortic valve regurgitation. Mitral Valve Likely normal mitral valve structure and function. There is trace mitral valve regurgitation. There is no mitral valve stenosis. Pulmonic Valve The pulmonic valve was not well visualized. Tricuspid Valve Likely normal tricuspid valve structure and function. Tricuspid regurgitation envelope is inadequate for calculation of right ventricular systolic pressure. Normal right atrial pressure. Great Vessels All visible segments of the aorta are normal in size. The pulmonary artery was not well visualized. There is no dilatation of the ascending aorta measuring 3.00 cm. Venous The inferior vena cava is normal in size and collapses greater than 50% with inspiration. Pericardium/Pleural There is no evidence of pericardial effusion. Prior Study Comparison No significant change compared to prior study dated: 01/28/2022. Measurements 2D Linear Measurements IVSd: 0.76 0.6-0.9/0.6-1.0 cm LVIDd: 4.54 3.9-5.3/4.2-5.9 cm LVIDd Index: 2.69 2.4-3.2/2.2-3.1 cm/m2 LVIDs: 2.93 2.0-3.6 cm LVPWd: 0.93 0.7-1.1 cm LA Diam: 3.10 2.7-3.8/3.0-4.0 cm LAIDs Index: 1.83 1.5-2.3 cm/m2 LV Mass: 154.04 67-162/88-224 g LV Mass Index: 91.15 43-95/49-115 g/m2 LVOT Diam: 2.00 3.0+(-)1.3 cm 2D Systolic Function EF 4C: 69.40 >55% EF 2C: 69.40 >55% EF BiP: 70.40 >55% Mitral Valve MV Pk E: 0.57 MV PK A: 0.76 MV Decel Time: 196.00 E/A: 0.70 E'Lateral: 8.27 E'Medial: 5.98 E/E' Med: 9.50 E/E' Lat: 6.90 PHT: 57.00 MVA PHT: 3.86 Decel Meriwether: 2.91 Aortic Valve AoV Pk Randolph: 1.20 AoV Mn Randolph: 0.80 AoV VTI: 0.25 AoV Pk Grad: 6.00 Aov Mn Grad: 3.00 KEVIN Cont.VTI: 2.50 LVOT LVOT Pk Randolph: 0.96 LVOT Mn Randolph: 0.66 LVOT VTI: 0.20 LVOT Pk Grad: 4.00 LVOT Mn Grad: 2.00 LVOT Diam: 2.00 LVOT Area: 3.14 Diastolic Function MV Pk E: 0.57 MV Pk A: 0.76 E/A: 0.70 E'Medial: 5.98 E/E' Med: 9.50 E' Laterial: 8.27 E/E' Lat: 6.90 Right Ventricle TAPSE (mm): 15.50 TVS' Randolph: 8.70 Tricuspid Valve RA Press: 3.00 Great Vessels Aorta Sinus of Valsalva: 2.90 2.0-3.5 cm Ao Asc: 3.00 2.1-3.4 cm Ao Arch: 2.60 Pulmonary Veins Pulm Vein S/D 1.50 Pulmonary Valve PV Pk Randolph: 1.13 Peak PV Grad: 5.00 Updated in Other Vendor System with Status of Final Shai Giang MD electronically signed on 10/27/2024 4:02:47 PM with status of Final
== END ==
LOC: HO.CARD 10:42
PROVIDERS: PCP Internal Medicine; Visit Provider Internal Medicine
DX: R06.00 Dyspnea, unspecified (principal)
CPT/HCPCS: 93306; Q9957

== ENCOUNTER → 2024-10-27 10:44 | Outpatient (BNV) | payer OTHER, SELFPAY | PROVIDERS: PCP Internal Medicine; Visit Provider Internal Medicine Cardiovascular Disease | DX: I34.0 Nonrheumatic mitral (valve) insufficiency (principal); I36.1 Nonrheumatic tricuspid (valve) insufficiency | CPT/HCPCS: 93306 ==

== ENCOUNTER 2024-11-19 13:25 | Outpatient (AMB) | payer OTHER, SELFPAY ==
--- OUTSIDE RECORDS SUMMARY | 2024-11-19 13:28 | XMS_ITS ---
Author Organization [facility] Address [address] [place] [address] Care Team Providers Care Classified Ad Clerk Name Role Phone Felecia Allan MD Primary Care Provider Juarez Nix [phone] Encounters Encounter Location Date Provider Diagnosis [facility] [address] [place] [address] 09/12/2024 Juarez Stearns Plan Of Treatment Next Appt Details Provider Name:Juarez Stearns , 03/15/2025 10:10:00 AM, [address], [address], [place], [address], Progress Notes * SUNNY MCKEON ADOB:1965 (59 yo F)Acc No.[id number]:09/12/2024 Patient:?SUNNY MCKEON :1965???Age:59 Y???Sex:Female Address:[address] [place] [address] * true * Date:? Generated for Printi yessenia/Derrick/eTransmitting on:?11/19/2024 09:35 AM EDT
--- NOTE | 2024-11-19 13:39 | A.OFFPC_ITS ---
Vital Signs 11/19/24 13:40 Height 5 ft 2 in Weight 157 lb BMI 28.7 BP 110/70 Blood Pressure Location Lt brachial Position Sitting Respiration 18 Pulse 75 Pulse Source Pulse Oximeter Temp 98.2 F Temp Source Oral Pulse Oximetry (%) 95 Oxygen Delivery Method Room Air Intake Visit Reasons: Hospital follow up Intake Note: Pt is here today for her HDF/ [facility] Allergies No Known Allergies [No Known Allergies*] Allergy (Verified 11/19/24 13:44) Medication List - Last Reconciled 11/19/24 by Felecia Allan MD acetaminophen 1,000 mg PO BID amlodipine 5 mg PO DAILY bisoprolol fumarate 5 mg PO DAILY calcium carbonate (Calcium 600) 600 mg PO DAILY cyanocobalamin (vitamin B-12) 1 mL IM QMONTH docusate sodium (Colace) 100 mg PO BID hydrocortisone 10 mg PO BID multivitamin 1 tab PO DAILY polyethylene glycol 3350 (ClearLax) 17 grams PO DAILY PRN upadacitinib ER (Rinvoq) 45 mg PO DAILY Tobacco use date assessed: 11/19/24 Dental Screening Dental Screen Date: 11/19/24 Did you have a dental visit in the last 12 months?: Yes Did you have a dental problem in the last 6 months where you did not have access to dental care?: No Was dental information given to patient?: Patient has dentist HPI Hospital follow up HPI Details Pt presents for f/u admission to [facility] for the episode of increase blood pressure and tachycardia in August. Patient has been taking amlodipine and bisoprolol and hypertension has been well-controlled. Patient denies any episodes of tachycardia palpitations chest pain or shortness of breath.. Pt has been on slow Hydrocortisone taper by Endo. Pt f/u with GI for Crohn's disease stable on Rinvoq. COUNTS INCLUDE 234 BEDS AT THE [facility] Medical History (Updated 11/19/24 @ 19:36 by Felecia Allan MD) Adrenal insufficiency due to corticosteroid withdrawal Exacerbation of Crohn's disease HTN (hypertension) C. difficile colitis Frequent headaches SÁNCHEZ (dyspnea on exertion) Tachycardia Annual physical exam Mammogram normal Normal Pap smear COVID-19 History of mammogram Surgical History H/O colonoscopy History of removal of cyst History of section Family History Father CVD (cardiovascular disease) Stroke Crohn's disease Mother No problems noted. Brother No problems noted. Brother No problems noted. Son No problems noted. Son No problems noted. Daughter No problems noted. 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 or other home services: No Alcohol intake: current Alcohol intake frequency: a few times a week Patient Tobacco Use Status: Never used Tobacco e-Cigarette/Vaping Use: Never Used service: No Current occupational status: employed Cognitive needs: No Hearing needs: No Vision needs: Yes Questionnaire Thrive Questionnaire Date Thrive assessed: 09/17/24 I am a: Patient What is your living situation today?: I have a steady place to live Within the past 12 months, did the food you bought not last and you didn't have the money to get more?: Never true Within the past 12 months, did you worry whether your food would run out before you got money to buy more?: Never true Do you have trouble paying for medicines?: No Do you have trouble getting transportation to medical appointments?: No Do you have trouble paying your heating and electricity bill?: No Do you have trouble taking care of your child, family member or friend?: No Do you have trouble with day-to-day activities such as bathing, preparing meals, shopping, managing finances, etc.?: No Are you currently unemployed and looking for a job?: No Are you interested in more education?: No Please select the resources that you would like help with: None Currently or been in a relationship where the following occur: No concerns reported THRIVE Score: 0 AVERY-7 AMB Questionnaire AVERY-7 Date AVERY - 7 assessed: 09/17/24 Source: Developed by Drs. Juarez Palmer, Stefany Wooten, Escobar Villagran and colleagues, with an educational armond from [email or web address]. Review of Systems Const All systems reviewed & are unremarkable except as noted in HPI and below Eyes Reports no additional complaints ENT Reports no additional complaints Card Reports no additional complaints Resp Reports no additional complaints GI Reports no additional complaints Reports no additional complaints Physical exam (Primary Care) Vital Signs: Last Vital Signs Temp 98.2 F 11/19/24 13:40 Pulse 75 11/19/24 13:40 Resp 18 11/19/24 13:40 BP 110/70 11/19/24 13:40 Pulse Ox 95 11/19/24 13:40 Oxygen Delivery Method Room Air 11/19/24 13:40 BMI result Body Mass Index 28.7 Tobacco/Smoking Status: Tobacco use Status Tobacco use date assessed 11/19/24 11/19/24 13:50 Patient Tobacco Use Status Never used Tobacco 11/19/24 13:39 e-Cigarette/Vaping Use Never Used 11/19/24 13:39 Thrive Assessment: Date of Thrive Assessment Date Thrive assessed 09/17/24 11/19/24 13:39 Currently or been in a relationship where the following occur: No concerns reported Const General: no acute distress HENMT Head: Yes normal to inspection Ears: hearing grossly normal bilaterally Face and sinus: Yes normal facial exam Throat: Yes posterior oropharynx normal Eyes General: appearance normal, both eyes and all related structures Neck Neck: Yes supple Resp Effort & Inspection: normal respiratory effort Auscultation: clear to auscultation bilaterally Cardio Rhythm: regular rhythm Heart sounds: S1 normal heart sound present and S2 normal heart sound present GI Inspection: Yes normal to inspection Palpation (GI): Soft to palpation Percussion: Yes normal to percussion Auscultation: normal bowel sounds Coding Level of Care Code Est Pt Level 4 (70646) Complex EM visit Add On G2211 Diagnoses Dysplastic nevi D23.9 Hyperglycemia R73.9 HTN (hypertension) I10 Exacerbation of Crohn's disease K50.90 Adrenal insufficiency due to corticosteroid withdrawal E27.3; T38.0X5A Assessment & Plan Assessment & Plan (1) Dysplastic nevi: Code(s): D23.9 - Other benign neoplasm of skin, unspecified Category: Medical Plan: Referred to wood router for full body skin check goes of increase risk of skin cancer while on Ronvoq (2) Hyperglycemia: Code(s): R73.9 - Hyperglycemia, unspecified Category: Medical Plan: ADA diet increase exercise discussed with the patient we will monitor A1c while on tapering steroids (3) HTN (hypertension): Code(s): I10 - Essential (primary) hypertension Category: Medical Plan: Continue current medications (4) Exacerbation of Crohn's disease: Comment: Patient is established with GI at [place], tx Rinvoq Code(s): K50.90 - Crohn's disease, unspecified, without complications Category: Medical Plan: Follow-up with GI (5) Adrenal insufficiency due to corticosteroid withdrawal: Comment: On hydrocortisone taper by Endo Code(s): E27.3 - Drug-induced adrenocortical insufficiency; T38.0X5A - Adverse effect of glucocorticoids and synthetic analogues, initial encounter Category: Medical Plan: Follow-up with endocrinology Orders: Orders Comprehensive [place]. Panel Fast 5 Months I10 - Essential (primary) hypertension, K50.10 - Crohn's disease of large intestine without complications, R73.9 - Hyperglycemia, unspecified, Z00.00 - Encounter for general adult medical examination without abnormal findings Lipid Panel 5 Months I10 - Essential (primary) hypertension, K50.10 - Crohn's disease of large intestine without complications, R73.9 - Hyperglycemia, unspecified, Z00.00 - Encounter for general adult medical examination without abnormal findings Vitamin D 25-OH Total 5 Months I10 - Essential (primary) hypertension, K50.10 - Crohn's disease of large intestine without complications, R73.9 - Hyperglycemia, unspecified, Z00.00 - Encounter for general adult medical examination without abnormal findings Hemoglobin A1c 5 Months I10 - Essential (primary) hypertension, K50.10 - Crohn's disease of large intestine without complications, R73.9 - Hyperglycemia, unspecified, Z00.00 - Encounter for general adult medical examination without abnormal findings TSH reflex Free T4 5 Months I10 - Essential (primary) hypertension, K50.10 - Crohn's disease of large intestine without complications, R73.9 - Hyperglycemia, unspecified, Z00.00 - Encounter for general adult medical examination without abnormal findings Complete Blood Count Auto Diff 5 Months I10 - Essential (primary) hypertension Referrals Dermatology Referral D23.9 - Other benign neoplasm of skin, unspecified, I10 - Essential (primary) hypertension, K50.10 - Crohn's disease of large intestine without complications, R73.9 - Hyperglycemia, unspecified, Z00.00 - Encounter for general adult medical examination without abnormal findings Medications: Refilled amlodipine 5 mg PO DAILY 90 tabs 3RF bisoprolol fumarate 5 mg PO DAILY 90 tabs 3RF
[2024-11-19 13:40] VITALS: BP 110/70; PULSE 75; RESP 18; TEMP 36.8; O2SAT 95; BMI 28.7
== END 2024-11-19 14:47 | disposition home or self-care (01) ==
LOC: HO.HMCC 13:26
PROVIDERS: PCP Internal Medicine; Visit Provider Internal Medicine
DX: D23.9 Other benign neoplasm of skin, unspecified (principal); R73.9 Hyperglycemia, unspecified; I10 Essential (primary) hypertension; K50.90 Crohn's disease, unspecified, without complications; E27.3 Drug-induced adrenocortical insufficiency; T38.0X5A Adverse effect of glucocorticoids and synthetic analogues, initial encounter

== ENCOUNTER → 2024-11-19 13:25 | Outpatient (BNVA) | payer OTHER, SELFPAY | PROVIDERS: PCP Internal Medicine; Visit Provider Internal Medicine ==

== ENCOUNTER 2024-11-26 09:22 | Outpatient (AMB) | payer OTHER, SELFPAY ==
--- NOTE | 2024-11-26 09:28 | MHC.OFFVIS ---
Vital Signs 11/26/24 09:29 Height 5 ft 2 in Weight 158 lb 11.725 oz BMI 29.0 BP 106/74 Blood Pressure Location Rt brachial Position Sitting Pulse 77 Pulse Source Pulse Oximeter Pulse Oximetry (%) 97 Oxygen Delivery Method Room Air Intake Visit Reasons: Drug-induced adrenocortical insufficiency Intake Note: Patient present today for Drug-induced adrenocortical insufficiency office visit. 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 Required: No Accompanied by: Self / Same As Patient Allergies No Known Allergies [No Known Allergies*] Allergy (Verified 11/26/24 09:29) Medication List - Last Reconciled 11/26/24 by Gissel Dhillon MD acetaminophen 1,000 mg PO BID amlodipine 5 mg PO DAILY bisoprolol fumarate 5 mg PO DAILY calcium carbonate (Calcium 600) 600 mg PO DAILY cyanocobalamin (vitamin B-12) 1 mL IM QMONTH docusate sodium (Colace) 100 mg PO BID hydrocortisone 2.5 mg (1/2 x 5 mg) PO DAILY hydrocortisone 10 mg PO DAILY multivitamin 1 tab PO DAILY polyethylene glycol 3350 (ClearLax) 17 grams PO DAILY PRN upadacitinib ER (Rinvoq) 45 mg PO DAILY HPI Comments Details: 58 years old female here today for follow up of concern for adrenal insufficiency. HPI from prior visit Seeing GI Dr. Awad at [facility] for Crohns disease and has been on steroids for the past 2.5 years Now on Rinvoq with plans to taper off the steroids currently on 08/10/24 she is on prednisone 20 mg daily with plan to taper by 5 mg a week. USed to be on budesonide before as well , stopped April 2024. No nausea , vomiting currenlty. No lightheadenss , dizziness. 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 and 10 mg in afternoon for 4 weeks after which she decreased it further down to 10 mg in a.m. and 5 mg in the afternoon which is her current dose No nausea or vomiting Experienced some self resolving dizziness once or twice a week. Her blood pressure has been on the lower side. No abd pain currently Physical exam General: sitting comfortably in no acute distress HEENT: normocephalic/atraumatic Neck: supple, Cardiac: normal heart rate Pulm: Normal pulmonary effort Abd: not distended, no tenderness [facility] Medical History (Updated 11/19/24 @ 19:36 by Felecia Allan MD) Adrenal insufficiency due to corticosteroid withdrawal Exacerbation of Crohn's disease HTN (hypertension) C. difficile colitis Frequent headaches SÁNCHEZ (dyspnea on exertion) Tachycardia Annual physical exam Mammogram normal Normal Pap smear COVID-19 History of mammogram Surgical History H/O colonoscopy History of removal of cyst History of section Family History Father CVD (cardiovascular disease) Stroke Crohn's disease Mother No problems noted. Brother No problems noted. Brother No problems noted. Son No problems noted. Son No problems noted. Daughter No problems noted. 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 or other home services: No Alcohol intake: current Alcohol intake frequency: a few times a week Patient Tobacco Use Status: Never used Tobacco e-Cigarette/Vaping Use: Never Used service: No Current occupational status: employed Cognitive needs: No Hearing needs: No Vision needs: Yes Physical Exam Vital Signs: BMI result Body Mass Index 29.0 Assessment & Plan Assessment & Plan (1) Adrenal insufficiency due to corticosteroid withdrawal: Comment: On hydrocortisone taper by Endo Code(s): E27.3 - Drug-induced adrenocortical insufficiency; T38.0X5A - Adverse effect of glucocorticoids and synthetic analogues, initial encounter Category: Medical Plan: 58-year-old female with a history of Crohn's disease who is being tapered off prednisone with history of being on steroids for the past 2 years, was on 5 mg of prednisone up until 10/01/2024 and she was switched to hydrocortisone for slow taper with plan to subsequently hold the dose for testing for adrenal insufficiency. She was on hydrocortisone 10 mg in a.m. and 10 mg in the afternoon at 14:00 for 4 weeks starting 10/01/2024, after which she is down to 10 mg in a.m. and 5 mg in the afternoon which is her current dose. At this point we will taper further down to 10 mg in a.m. and 2.5 mg in the afternoon for 1 week after which she can cut it down to 10 mg in the a.m. for 3 months. I will see her back in 3 months and at that time we will consider holding the dose and doing blood work. I counseled her regarding symptoms of adrenal insufficiency including lightheadedness, dizziness, nausea, vomiting, weight loss and to contact us during office hours or go to the emergency room if those happen. We also went over adrenal sick day rules last visit presuming right now that she might be adrenal insufficient I also advised her to obtain medical alert bracelet. She has been having some low blood pressure readings along with a few episodes of lightheadedness. Considering right now she is on adequate amount of hydrocortisone, I do not think it is because of low cortisol levels, because she was getting enough physiologic dose of hydrocortisone, she mentioned that she went on blood pressure medications when she was on higher doses of hydrocortisone and her blood pressure was higher, now that blood pressure is on the lower side with a reduced doses of steroids, maybe she does not need the blood pressure medication anymore. I told her to keep an eye on her blood pressure with her blood pressure monitor at home and if she continues to have low readings, she should contact her primary care provider to lower the dose/take her off the blood pressure meds. Plan: -reduce hydrocortisone to 10 mg in a.m. and 2.5 mg in the afternoon at 14:00 for 1 week, then go down to 10 mg in a.m. and continue on that -follow up in 3 months Plan I spent 30 minutes in reviewing the record, seeing the patient and documenting in the medical record. Medications: New hydrocortisone Take half a tablet at 2 pm for 1 week 2.5 mg (1/2 x 5 mg) PO DAILY 4 tabs 0RF Changed From hydrocortisone Take 10 mg in AM and 10 at 2 pm in afternoon 10 mg PO BID 180 tabs 3RF To hydrocortisone Take 10 mg in AM 10 mg PO DAILY 90 tabs 3RF Patient Instructions: reduce hydrocortisone to 10 mg in a.m. and 2.5 mg ( half a tablet of 5 mg) in the afternoon at 14:00 for 1 week, then go down to 10 mg in a.m. and continue on that Follow up in 3 months Keep an eye on your blood pressure Coding Level of Care Code Est Pt Level 4 (65387) Diagnoses Adrenal insufficiency due to corticosteroid withdrawal E27.3; T38.0X5A Time Spent (min) 30
[2024-11-26 09:29] VITALS: BP 106/74; PULSE 77; O2SAT 97; BMI 29.0
--- OUTSIDE RECORDS SUMMARY | 2024-11-26 09:39 | XMS_ITS ---
Author Organization [facility] Address [address] [place] [address] Care Team Providers Care Driver/Merchandiser Name Role Phone Felecia Allan MD Primary Care Provider Juarez Nix [phone] Encounters Encounter Location Date Provider Diagnosis [facility] [address] [place] [address] 09/12/2024 Juarez Stearns Plan Of Treatment Next Appt Details Provider Name:Juarez Stearns , 03/15/2025 10:10:00 AM, [address], [address], [place], [address], Progress Notes * SUNNY MCKEON ADOB:1965 (59 yo F)Acc No.[id number]:09/12/2024 Patient:?SUNNY MCKEON :1965???Age:59 Y???Sex:Female Address:[address] [place] [address] * true * Date:? Generated for Printi yessenia/Derrick/eTransmitting on:?11/26/2024 09:39 AM EDT
== END 2024-11-26 09:46 | disposition home or self-care (01) ==
LOC: HO.ENCR 09:23
PROVIDERS: PCP Internal Medicine; Visit Provider Student in an Organized Health Care Education/Training Program
DX: E27.3 Drug-induced adrenocortical insufficiency (principal); T38.0X5A Adverse effect of glucocorticoids and synthetic analogues, initial encounter
CPT/HCPCS: 99214

== ENCOUNTER → 2024-11-26 09:22 | Outpatient (BNVA) | payer OTHER, SELFPAY | PROVIDERS: PCP Internal Medicine; Visit Provider Student in an Organized Health Care Education/Training Program ==

== ENCOUNTER 2025-03-08 12:38 | Outpatient (AMB) | payer OTHER, SELFPAY ==
[2025-03-08 12:39] VITALS: BP 150/90; PULSE 107; O2SAT 98; BMI 28.4
--- NOTE | 2025-03-08 12:39 | A.OFFVIS_ITS ---
Vital Signs 03/08/25 12:39 Height 5 ft 2 in Weight 155 lb 6.814 oz BMI 28.4 BP 150/90 H Blood Pressure Location Lt brachial Position Sitting Pulse 107 H Pulse Source Pulse Oximeter Pulse Oximetry (%) 98 Oxygen Delivery Method Room Air Intake Visit Reasons: Drug-induced adrenocortical insufficiency Intake Note: Patient present today for Drug-induced adrenocortical insufficiency. 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: No Accompanied by: Self / Same As Patient Allergies No Known Allergies (No Known Allergies*) Allergy (Verified 03/08/25 12:43) Medication List - Last Reconciled 03/08/25 by Gissel Dhillon MD acetaminophen 1,000 mg PO BID amlodipine 5 mg PO DAILY bisoprolol fumarate 5 mg PO DAILY calcium carbonate (Calcium 600) 600 mg PO DAILY cyanocobalamin (vitamin B-12) 1 mL IM QMONTH docusate sodium (Colace) 100 mg PO BID hydrocortisone 10 mg PO DAILY multivitamin 1 tab PO DAILY polyethylene glycol 3350 (ClearLax) 17 grams PO DAILY PRN upadacitinib ER (Rinvoq) 45 mg PO DAILY HPI Comments Details: 58 years old female here today for follow up of concern for adrenal insufficiency. HPI from prior visit Seeing GI Dr. Awad at [facility] for Crohns disease and has been on steroids for the past 2.5 years Now on Rinvoq with plans to taper off the steroids currently on 08/10/24 she is on prednisone 20 mg daily with plan to taper by 5 mg a week. USed to be on budesonide before as well , stopped April 2024. No nausea , vomiting currenlty. No lightheadenss , dizziness. 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 and 10 mg in afternoon for 4 weeks after which she decreased it further down to 10 mg in a.m. and 5 mg in the afternoon which is her current dose No nausea or vomiting Experienced some self resolving dizziness once or twice a week. Her blood pressure has been on the lower side. No abd pain currently Interval history 03/08/2025 Now down to hydrocortisone 10 mg in a.m. since November 2024 has been taking it 11 am with lunch , gets nauseaus if takes it without food Some intermittent lightheadedness if gets up too soon No abd pain BP high today but she has been taking it at home and has been normal in 110s per patient for systolic Physical exam General: sitting comfortably in no acute distress HEENT: normocephalic/atraumatic Neck: supple, Cardiac: normal heart rate Pulm: Normal pulmonary effort Abd: not distended, no tenderness PFSH Medical History (Updated 11/19/24 @ 19:36 by Felecia Allan MD) Adrenal insufficiency due to corticosteroid withdrawal Exacerbation of Crohn's disease HTN (hypertension) C. difficile colitis Frequent headaches SÁNCHEZ (dyspnea on exertion) Tachycardia Annual physical exam Mammogram normal Normal Pap smear COVID-19 History of mammogram Surgical History H/O colonoscopy History of removal of cyst History of section Family History Father CVD (cardiovascular disease) Stroke Crohn's disease Mother No problems noted. Brother No problems noted. Brother No problems noted. Son No problems noted. Son No problems noted. Daughter No problems noted. 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 other home services: No Alcohol intake: current Alcohol intake frequency: a few times a week Patient Tobacco Use Status: Never used Tobacco e-Cigarette/Vaping Use: Never Used service: No Current occupational status: employed Cognitive needs: No Hearing needs: No Vision needs: Yes Assessment & Plan Assessment & Plan (1) Adrenal insufficiency due to corticosteroid withdrawal: Comment: On hydrocortisone taper by Endo Code(s): E27.3 - Drug-induced adrenocortical insufficiency; T38.0X5A - Adverse effect of glucocorticoids and synthetic analogues, initial encounter Category: Medical Plan: 58-year-old female with a history of Crohn's disease who is being tapered off prednisone with history of being on steroids for the past 2 years, was on 5 mg of prednisone up until 10/01/2024 and she was switched to hydrocortisone for slow taper with plan to subsequently hold the dose for testing for adrenal insuff iciency. She was on hydrocortisone 10 mg in a.m. and 10 mg in the afternoon at 14:00 for 4 weeks starting 10/01/2024, after which she is down to 10 mg in a.m. and 5 mg in the afternoon up until 11/26/2024, after which she was tapered further down to 10 mg in a.m. and 2 mg in the afternoon for 1 week, and then further down to 10 mg in a.m. which is her current dose. At this point we will holding the dose and doing blood work. We will check a.m. cortisol and ACTH levels. If cortisol is less than 5, and she is still adrenally insufficient, if between 5 and 15, we will consider doing a ACTH stim test, if greater than 15 mcg/dL, that will be reassuring. I counseled her regarding symptoms of adrenal insufficiency including lightheadedness, dizziness, nausea, vomiting, weight loss and to contact us during office hours or go to the emergency room if those happen. We also went over adrenal sick day rules last visit presuming right now that she might be adrenal insufficient I also advised her to obtain medical alert bracelet. She has been having some low blood pressures while the steroids were being tapered, so she has come off amlodipine. Today her blood pressure was elevated in clinic but she is measuring it at home and I told her to keep an eye on it, if blood pressure starts becoming high again, she might need to go on blood pressure medications after consulting her PCP. Plan: -do a.m. cortisol, acth, DHEA-S levels after holding morning dose of hydrocortisone that day, after the test continue same hydrocortisone 10 mg daily in a.m. -we will reach out with the results Plan See above Orders: Orders DHEA Sulfate Today E27.3 - Drug-induced adrenocortical insufficiency, T38.0X5A - Adverse effect of glucocorticoids and synthetic analogues, initial encounter Cortisol Random Today E27.3 - Drug-induced adrenocortical insufficiency, T38.0X5A - Adverse effect of glucocorticoids and synthetic analogues, initial encounter Adrenocorticotropic Hormone Today E27.3 - Drug-induced adrenocortical insufficiency, T38.0X5A - Adverse effect of glucocorticoids and synthetic analogues, initial encounter Patient Instructions: Do blood work at 8 AM after holding the morning dose of hydrocortisone, please continue taking it once blood work is done Also on the day before make sure you take it early at 8 AM so its washed out by the next day We will reach out with results Coding Level of Care Code Est Pt Level 4 (26147) Diagnoses Adrenal insufficiency due to corticosteroid withdrawal E27.3; T38.0X5A
--- OUTSIDE RECORDS SUMMARY | 2025-03-08 15:00 | XMS_ITS | Patient Health Record ---
Author Organization [facility] Address [address] [place] [address] Care Team Providers Care Hourly Shift Name Role Phone Felecia Allan MD Primary Care Provider Juarez Nix Unavailable [phone] Allergies No Known Allergies Results Component Value Reference Range Notes Calprotectin, Fecal Reviewed date:04/27/2024 12:41:29 PM Interpretation: Performing Lab:[facility], [address] [place] [phone] Notes/Report: Calprotectin, Fecal 2650 Reference Range: <50 [...] borderline values. THIS TEST WAS PERFORMED AT: [facility] [address] [place] [address] LASHAY PALOMINO MD,PHD,RADHA Complete Blood Count Auto Di ff Reviewed date:04/20/2024 11:03:14 PM Interpretation: Performing Lab:[facility], [address] [place] [phone] Notes/Report: White Blood Count 12.0 4.8-10.8 X10*3/uL [...] 0.0-0.2 /100WBC Neutrophils Absolute Auto 8.5 2.0-8.3 x10*3/u L Imm Gran Abs Auto 0.06 0.00-0.03 X10*3/uL Lymphocytes Absolute Auto 2.2 1.2-4.9 X10*3/u L Monocytes Absolute Auto 1.1 0.1-1.2 X10*3/uL Eosinophils Absolute Auto 0.1 0.0-0.4 X10*3/u L Basophils Absolute Auto 0.1 0.0-0.2 X10*3/uL NRBC Abs Auto 0.000 0.0-0.012 X10*3/uL Erythrocyte Sedimentation Ra te Reviewed date:04/20/2024 11:04:21 PM Interpretation: Performing Lab:[address] [phone] Notes/Report: Erythrocyte Sedimentation Rate 44 0-20 MM/HR Patients with polycythemia and many hemoglobin abnormalities may have depressed sed rates whereas patients with anemia may have elevated sed rates. Liver Panel Reviewed date:04/20/2024 11:04:10 PM Interpretation: Performing Lab:[address] [phone] Notes/Report: Bilirubin Total 0.4 0.0-1.0 mg/dL Bilirubin Direct 0.2 0.0-0.5 mg/dL Aspartate Amino Transferase 24 5-31 U/L Alanine Aminotransferase 22 0-31 U/L Total Protein 7.6 6.5-8.0 g/dL Albumin Level 4.1 3.5-5.0 g/dL Alkaline Phosphatase 70 39-117 U/L Basic Metabolic Panel Reviewed date:04/20/2024 11:03:45 PM Interpretation: Performing Lab:[facility], [address] [place] [phone] Notes/Report: Sodium 141 135-145 mmol/L Potassium 3.6 3.3-5.1 mmol/L Chloride 110 96-108 mmol/L Carbon Dioxide 21 22-29 mmol/L Anion Gap 14 12-20 Blood Urea Nitrogen 6 9-16 mg/dL Creatinine 0.77 0.5-1.4 mg/dL Estimated Glomerular Filt Rate > 60 NOTE: For -Congolese individuals, multiply the result by 1.210. Chronic Kidney Disease: Estimated GFR < 60 mL/min/1.73m2 Severe Kidney Disease: Estimated GFR < 15 mL/min/1.73m2 Glucose Random 90 60-115 mg/dL Calcium 9.9 8.4-10.2 mg/dL C Reactive Protein Reviewed date:04/24/2024 05:00:22 PM Interpretation: Performing Lab:[facility], [address] [place] [phone] Notes/Report: C Reactive Protein 3.39 < or = 0.50 mg/dL Complete Blood Count Auto Di ff Reviewed date:06/20/2024 01:03:24 PM Interpretation: Performing Lab:[facility], [address] [place] [phone] Notes/Report: White Blood Count 11.6 4.8-10.8 X10*3/uL [...] 0.0-0.2 /100WBC Neutrophils Absolute Auto 7.9 2.0-8.3 x10*3/u L Imm Gran Abs Auto 0.08 0.00-0.03 X10*3/uL Lymphocytes Absolute Auto 2.1 1.2-4.9 X10*3/u L Monocytes Absolute Auto 1.0 0.1-1.2 X10*3/uL Eosinophils Absolute Auto 0.5 0.0-0.4 X10*3/u L Basophils Absolute Auto 0.1 0.0-0.2 X10*3/uL NRBC Abs Auto 0.000 0.0-0.012 X10*3/uL Liver Panel Reviewed date:06/10/2024 05:11:12 PM Interpretation: Performing Lab:[facility], [address] [place] [phone] Notes/Report: Bilirubin Total 0.8 0.0-1.0 mg/dL Bilirubin Direct 0.3 0.0-0.5 mg/dL Aspartate Amino Transferase 25 5-31 U/L Alanine Aminotransferase 21 0-31 U/L Total Protein 6.5 6.5-8.0 g/dL Albumin Level 3.7 3.5-5.0 g/dL Alkaline Phosphatase 64 39-117 U/L Lipid Panel Reviewed date:06/10/2024 05:10:21 PM Interpretation: Performing Lab:[address] [address] Notes/Report: Triglycerides 221 <150 mg/dL Desirable Triglyceride: [...] A1c Reviewed date:06/10/2024 05:11:02 PM Interpretation: Performing Lab:[facility], [address] [place] [phone] Notes/Report: Hemoglobin A1c % 5.8 <6.0 % [...] average glucose, using the formula of the [id number] Average Glucose study (ADAG), Diabetes Care, Vol.31,#8, 2007 Calprotectin, Fecal Reviewed date:06/25/2024 09:51:41 PM Interpretation: Performing Lab:[facility], [address] [place] [phone] Notes/Report: Calprotectin, Fecal 732 Reference Range: <50 [...] borderline values. THIS TEST WAS PERFORMED AT: [facility] [address] [place] [address] LASHAY PALOMINO MD,PHD,RADHA CDiff Gene PCR Reviewed date:06/22/2024 01:59:13 PM Interpretation: Performing Lab:[facility], [address] [place] [phone] Notes/Report: CDiff Gene PCR NEGATIVE Negative If C. difficile strongly suspected despite one negative test, a second test may be sent vs. empiric treatment for C. difficile infection. GI PANEL Reviewed date:06/20/2024 11:07:36 PM Interpretation: Performing Lab:[facility], [address] [place] [address] Notes/Report: Campylobacter Not Detected Not Detect. Plesiomonas [...] is performed by Multiplexed PCR, utilizing the Socialance Film Array. Norovirus Stool PCR Reviewed date:06/22/2024 02:00:42 PM Interpretation: Performing Lab:[address] [phone] Notes/Report: Norovirus Stool PCR NOT DETECTED Test performed by: [employer] [employer] [address] [place] [address], 3rd floor, [address] [place] [address] Director: John Garg MD CLIA: [id number] Erythrocyte Sedimentation Ra te Reviewed date:09/09/2024 10:26:25 AM Interpretation: Performing Lab:[facility], [address] [place] [phone] Notes/Report: Erythrocyte Sedimentation Rate 7 0-20 MM/HR Patients with polycythemia and many hemoglobin abnormalities may have depressed sed rates whereas patients with anemia may have elevated sed rates. XR acute abdomen series Reviewed date:09/09/2024 06:35:14 PM Interpretation: Performing Lab: Notes/Report: [address] [address] XRay Report Signed Patient: Sunny Tiwari MR#: [id number] 9 : 1965 Acct:[id number] Age/Sex: 59 / F ADM Date: 09/08/24 Loc: [place] [address]: Scottie Browning MD Ordering Physician: Juarez Stearns MD Date of Service: 09/09/24 Procedure(s): XR acute abdomen series Accession Number(s): [id number] cc: Felecia Allan MD; Juarez Stearns MD EXAMINATION: XR ABDOMEN SUPINE AND ERECT WITH CHEST (ABD ACUTE SERIES) HISTORY: Crohn's Colitis, constipation, R/O megacolon COMPARISON: There are no prior studies for comparison. FINDINGS: Supine and upright views of the abdomen and a single PA view of the chest are submitted. The bowel gas pattern is unremarkable, without evidence of mechanical obstruction. There is no free intraperitoneal gas. There is normal contrast material throughout the colon from prior CT scan. No abnormal calcifications are identified. There are no abnormal soft tissue masses. The bones are intact. There is scarring in the right upper lobe. The lungs are otherwise clear. The heart is normal in size. There is no pleural effusion, pneumothorax, or pulmonary vascular congestion. XR/XR acute abdomen series IMPRESSION: Unremarkable bowel gas pattern oral contrast throughout the colon. Electronically signed by: Juarez Méndez MD 09/09/2024 09:33 AM EDT RP Dictated By: Juarez Méndez MD Signed By: <Electronically signed by Juarez Méndez MD in OV> 09/09/24932 DD/ 4 TD/TT: 09/09/24927 Manager Terminal: Reason For Referral No Information Medications Medication SIG (Take, Route, Frequency, Duration) Notes Start Date End Date Status Multivitamin Adults - as directed Orally Active Calcium + D 500-1000-40 MG-UNT-MCG as [...] Problem Status W/U Status Risk Notes Problem 247301484 Encounter for screening for malignant neoplasm of colon (Z12.11) Active confirmed Problem Diarrhea (27094808) Diarrhea (R19.7) Active con firmed Problem Long-term current use of systemic steroid (354815569252239) 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 (Z79.52) Active confirmed Problem Crohn (02988152) Crohn's disease of colon (K50.10) Active confirmed Problem 558410653244842 Preprocedural examination (Z01.818) Active confirmed Problem Crohn's disease of large bowel (7161840) Crohns colitis, without complications (K50.10) Active confirmed Problem Computed tomography result abnormal (549997493) Abnormal CT scan, colon (R93.3) Active confirmed Problem 253840436 Therapeutic drug monitoring (Z51.81) Active confirmed Problem Left sided abdominal pain (649452775) Left sided abdominal pain (R10.9) Active confirmed Problem 13918113 Diarrhea of presumed infectious origin (R19.7) Active confirmed Problem Crohn (8307662) Crohn''s disease of colon with other complication (K50.118) Active confirmed Problem Crohn (3295633) Crohn''s disease of large intestine without complication (K50.10) Active confirmed Problem Crohn's disease of large bowel (1721552) Crohn''s disease of large intestine with rectal bleeding (K50.111) Active confirmed Problem 00052522 Crohn's disease of colon without complication (K50.10) Active confirmed Problem 07298950 Crohn's disease of colon with rectal bleeding (K50.111) Active confirmed Problem 02839166929561814 Long-term current use of vedolizumab (Z79.899) Active confirmed Problem 67400346 Hyperglycemia (R73.9) Active confirmed Vital Signs Blood pressure diastolic 111 mm Hg 09/07/2024 Height 62 in 09/07/2024 Blood pressure systolic 111 mm Hg 09/07/2024 Weight 152 lbs 09/07/2024 BMI 27.8 kg/m2 09/07/2024 Encounters Encounter Location Date Provider Diagnosis [facility] [address] [place], [place] [address] [address] 05/04/2024 Juarez Stearns Crohn''s disease of large intestine without complication K50.10 ; Left sided abdominal pain R10.9 and 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 Z79.52 [facility] [address] [place], [place] [address] [address] 09/07/2024 Juarez Stearns Crohn''s disease of large intestine without complication K50.10 ; Left sided abdominal pain R10.9 ; 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 Z79.52 and Diarrhea R19.7 [facility] [address] [place] [phone] 04/13/2024 Juarez Stearns Crohn''s disease of large intestine with rectal bleeding K50.111 [facility] [address] [place] [phone] 04/21/2024 Juarez Stearns [facility] [address] [place] [address] 05/04/2024 Juarez Stearns [facility] [address] [place] [phone] 05/09/2024 Juarez Stearns [facility] [address] [place] [phone] 06/07/2024 Juarez Stearns [facility] [address] [place] [phone] 06/20/2024 Juarez Stearns [facility] [address] [place] [phone] 09/12/2024 Juarez Stearns Assessments Encounter Date Diagnosis (ICD Code) Assessment Notes Treatment Notes Treatment Clinical Notes Section Notes 05/04/2024 Left sided abdominal pain (ICD-10 - [...] she returns from an upcoming trip to [facility]. She will continue the prednisone taper by [...] from one of the Crohn's centers in [place]. I shall look into making a referral [...] an appt at a [facility] Center in [place] Overall, Sunny appears clinically stable at the [...] she returns from an upcoming trip to [facility]. She will continue the prednisone taper by [...] from one of the Crohn's centers in [place]. I shall look into making a referral [...] Dhillon. She we will continue follow-up in [place] as well as with myself. I did [...] advise her to keep the physician in [place] apprised of the situation as well. I [...] visits or procedures that she has in [place]. I will plan to see her here [...] Dhillon. She we will continue follow-up in [place] as well as with myself. I did [...] advise her to keep the physician in [place] apprised of the situation as well. I [...] visits or procedures that she has in [place]. I will plan to see her here [...] intestine with rectal bleeding (ICD-10 - K50.111) 05/04/2024 correction (current) use of systemic steroids (ICD-10 - [...] she returns from an upcoming trip to [facility]. She will continue the prednisone taper by [...] from one of the Crohn's centers in [place]. I shall look into making a referral [...] keep you advised of her progress. 09/07/2024 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 (ICD-10 - Z79.52) Overall, Sunny appears stable on her new regimen of the Rinvoq. She appears to be tolerating the prednisone taper under the guidance of Dr. Dhillon. She we will continue follow-up in [place] as well as with myself. I did [...] advise her to keep the physician in [place] apprised of the situation as well. I [...] visits or procedures that she has in [place]. I will plan to see her here [...] Dhillon. She we will continue follow-up in [place] as well as with myself. I did [...] advise her to keep the physician in [place] apprised of the situation as well. I [...] visits or procedures that she has in [place]. I will plan to see her here [...] Test Name Order Date CHEM 7 PROFILE 04/24/2023 CHEM 7 PROFILE 01/04/2022 CHEM 7 PROFILE 12/30/2023 CHEM 7 PROFILE 07/14/2022 CHEM 7 PROFILE 04/18/2022 CHEM 7 PROFILE 05/10/2023 CHEM 7 PROFILE 04/13/2024 CHEM 7 PROFILE 06/14/2022 CHEM 7 PROFILE 05/28/2022 FASTING BLOOD SUGAR (FBS, GLUCOSE) 05/10 LIVER PROFILE 05/28/2022 LIVER PROFILE 02/19/2022 LIVER PROFILE 05/04/2024 LIVER PROFILE 10/22/2022 LIVER PROFILE 04/24/2023 LIVER PROFILE 01/04/2022 LIVER PROFILE 07/14/2022 LIVER PROFILE 12/30/2023 LIVER PROFILE 04/18/2022 LIVER PROFILE 11/11/2022 LIVER PROFILE 04/13/2024 LIVER PROFILE 06/14/2022 IRON + IBC (FE) 02/19/2022 CRP 07/14/2022 CRP 12/30/2023 CRP 04/18/2022 CRP 04/13/2024 CRP 06/14/2022 CRP 12/27/2021 CRP 05/28/2022 CRP 02/11/2023 CRP 02/19/2022 CRP 04/24/2023 CRP 01/04/2022 VITAMIN B12 AND FOLATE 02/19/2022 CBC w DIFF 02/19/2022 CBC w DIFF 05/10/2023 CBC w DIFF 11/11/2022 CBC w DIFF 01/04/2022 CBC w DIFF 07/14/2022 CBC w DIFF 12/30/2023 CBC w DIFF 04/18/2022 CBC w DIFF 04/13/2024 CBC w DIFF 06/14/2022 CBC w DIFF 12/27/2021 CBC w DIFF 05/28/2022 CBC w DIFF 02/11/2023 CBC w DIFF 05/04/2024 CBC w DIFF 10/22/2022 CBC w DIFF 04/24/2023 SED RATE (ESR) 04/24/2023 SED RATE (ESR) 02/19/2022 SED RATE (ESR) 01/04/2022 SED RATE (ESR) 07/14/2022 SED RATE (ESR) 12/30/2023 SED RATE (ESR) 04/18/2022 SED RATE (ESR) 04/13/2024 SED RATE (ESR) 12/27/2021 SED RATE (ESR) 05/28/2022 SED RATE (ESR) 02/11/2023 XR SMALL BOWEL SERIES 05/28/2022 BONE DENSITY DEXA 12/30/2023 HUMIRA LEVEL/AB (ADALIMUMAB LEVEL/AB) C DIFFICILE RFLX PCR 02/11/2023 C DIFFICILE RFLX PCR 05/04/2024 C DIFFICILE RFLX PCR 12/27/2021 Ferritin 02/19/2022 Lipid Panel 05/04/2024 Prometheus Anser UST 05/10/2023 Prometheus Anser UST 12/30/2023 Prometheus Anser VDZ 05/28/2022 Prometheus Anser VDZ 07/14/2022 Prometheus TPMT Enzyme 10/22/2022 Prometheus TPMT Genetics 10/22/2022 CDiff with Reflex to PCR 09/07/2024 Calprotectin, Fecal 09/07/2024 Calprotectin, Fecal 12/30/2023 Calprotectin, Fecal 02/11/2023 Calprotectin, Fecal 05/04/2024 Calprotectin, Fecal 04/24/2023 Hemoglobin A1c 05/04/2024 Hemoglobin A1c 05/10/2023 GI PANEL 09/07/2024 GI PANEL 02/11/2023 GI PANEL 05/04/2024 Future Test Test Name Order Date COLONOSCOPY 08/13/2018 COLONOSCOPY 12/27/2021 COLONOSCOPY 11/26/2022 Next Appt Details Provider Name:Juarez Stearns , 03/15/2025 10:10:00 AM, [address], [address], [place], [address], Insurance Providers Payer Name Payer Address Payer Phone Subscriber Number Group Number Insured Name Patient Relationship to Insured Coverage Start Date Coverage End Date [employer] ([employer]) [address] [place] [id number] SUNNY [id number] Self - patient is the insured Medical (General) History Medical History History ICD Code Denies OR,DM,CVA,Lung disease,renal dise ase Some tachycardias after COVID [...] be helpful. Switched from the [facility] in [facility] to [facility] early February, due to continued [...] Prometheus studies She was switched from the [facility] to Rinvoq when she was referred to [facility] in May 2024. She underwent a colonoscopy in May with Dr. Costa and was told of some Crohn's disease with possible narrowing in a section of the colon. Surgical History Surgery Date(Month/Year) Cyst on foot Uterine ablation 2000
== END 2025-03-08 12:56 | disposition home or self-care (01) ==
LOC: HO.ENCR 12:38
PROVIDERS: PCP Internal Medicine; Visit Provider Student in an Organized Health Care Education/Training Program
DX: E27.3 Drug-induced adrenocortical insufficiency (principal); T38.0X5A Adverse effect of glucocorticoids and synthetic analogues, initial encounter
CPT/HCPCS: 99214

== ENCOUNTER 2025-03-25 08:03 | Outpatient (REF) | payer OTHER, SELFPAY ==
--- OUTSIDE RECORDS SUMMARY | 2025-03-15 06:10 | XMS_ITS ---
Author Organization [facility] Address [address] [place] [address] Care Team Providers Care Glaze Mixer Name Role Phone Felecia Allan MD Primary Care Provider Juarez Nix Unavailable [phone] Allergies No Known Allergies REASON FOR VISIT Patient presents today for crohn's Medications Medication SIG (Take, Route, Frequency, Duration) Notes Start Date End Date Status Dicyclomine HCl 10 MG 1 or 2 capsules Or ally Every 6 hour as needed for abdominal discomfort for 30 day(s) Active Cyanocobalamin 1000 MCG/ML INJECT 1 ML INTRAMUSCULARLY ONCE PER MONTH for 84 Active predniSONE 5 MG 8 pills(40mg) daily for 1 week, and then decrease by 1 pill(5mg) every week Orally Once a day for 56 days Not-Taking Calcium + D 500-1000-40 MG-UNT-MCG as directed Orally Active Multivitamin Adults - as directed Orally Active Hydrocortisone 10 MG 1 tablet with food or milk Orally Daily 03/15/2025 Active Rinvoq 30 MG 1 tablet Orally Once a day 07/05/2024 Active Social History Tobacco Use: Social [...] Negative Section Notes: Nonsmoker; no sig aclohol Vital Signs Temperature 97.6 degrees Fahrenheit 03/15/20 25 Blood pressure systolic 001 mm Hg 03/15/20 25 Blood pressure diastolic 01 mm Hg 025 Height 62 in 03/15/2025 Weight 156.2 lbs 03/15/2025 BMI 28.57 kg/m2 03/15/2025 Encounters Encounter Location Date Provider Diagnosis [facility] [address] [place] [address] 03/15/2025 Juarez Stearns Crohn''s disease of large intestine without complication K50.10 Assessments Encounter Date Diagnosis (ICD Code) Assessment Notes Treatment Notes Treatment Clinical Notes Section Notes 03/15/2025 Crohn''s disease of large intestine without complication (ICD-10 - K50.10) Message Dr. Costa about the numbness. etc and any possible relation to the Rinvoq Overall, Sunny appears well. Her Crohn's disease seems to be clinically improved and stable on her current regimen. The recent normal-appearing colonoscopy is also quite reassuring. As such, she will obviously continue the Rinvoq and close follow-up with her physician in [place]. I did advise her to message him on his portal regarding her symptoms of the blurred vision and numbness with tingling in her hands. I shall check the below laboratories today in that regard and overall in regard to the Crohn's disease. She does take a monthly B12 shot so I advised her that I doubt a low B12 level would be responsible for her symptoms but nonetheless we will check that. She will also continue close follow-up with her dishtank operator in regard to the steroid usage and hopefully continue to be tapered off of that. I did advise her to speak with her dishtank operator regarding her previous bone density study to be sure she does not think she needs any specific treatment for that. I will plan to see Sunny in the spring for a follow-up visit but did advise her to certainly contact me in the interim if she has any problems or questions I can be of assistance with. Sunny was very comfortable with this plan. Thank you again for allowing me to participate in Sunny's care. I shall continue to keep you advised of her progress. 03/15/2025 Other Review the Bone Density study with Dr. Dhillon Overall, Sunny appears well. Her Crohn's disease seems to be clinically improved and stable on her current regimen. The recent normal-appearing colonoscopy is also quite reassuring. As such, she will obviously continue the Rinvoq and close follow-up with her physician in [place]. I did advise her to message him on his portal regarding her symptoms of the blurred vision and numbness with tingling in her hands. I shall check the below laboratories today in that regard and overall in regard to the Crohn's disease. She does take a monthly B12 shot so I advised her that I doubt a low B12 level would be responsible for her symptoms but nonetheless we will check that. She will also continue close follow-up with her dishtank operator in regard to the steroid usage and hopefully continue to be tapered off of that. I did advise her to speak with her dishtank operator regarding her previous bone density study to be sure she does not think she needs any specific treatment for that. I will plan to see Sunny in the spring for a follow-up visit but did advise her to certainly contact me in the interim if she has any problems or questions I can be of assistance with. Sunny was very comfortable with this plan. Thank you again for allowing me to participate in Sunny's care. I shall continue to keep you advised of her progress. Plan Of Treatment Treatment Notes Assessment Notes Crohn''s disease of large in testine without complication Message Dr. Costa about the numbness. etc and any possible relation to the Rinvoq Other Review the Bone Dens ity study with Dr. Dhillon Pending Test Test Name Order Date CHEM 7 PROFILE 03/15/2025 LIVER PROFILE 03/15/2025 IRON + IBC (FE) 03/15/2025 CBC w DIFF 03/15/2025 Calcium 03/15/2025 Ferritin 03/15/2025 Vitamin B12 and Folate 03/15/2025 Next Appt Details Follow Up: 2025, Nena son: Provider Name:Juarez Lentz Jinny , 10/13/2025 09:20:00 AM, [address], [address], [place], [address], Progress Notes * SUNNY MCKEON ADOB:1965 (59 yo F)Acc No.[id number]:03/15/2025 Progress Notes Patient: SUNNY OROZCO Provider: Anthony Stearns MD :1965 A ge:59 Y S ex:Female Date:03/15/2025 Address:[address] [place], [place] [id number] Pcp:Felecia Allan MD Subjective: * Chief Complaints: * 1 . Patient presents today for crohn's. * HPI: i ncontinence: I saw Sunny in follow-up today in regard to her underlying history of Crohn's disease. Since I last saw Sunny in August she has continued to be doing well for the most part. She has remained on Rinvoq at 30 mg daily. She underwent a colonoscopy at the end of January in [place] which is described as completely normal other than some pseudopolyps. There was no sign of any active Crohn's disease which is obviously a great improvement compared to when she was first diagnosed on colonoscopy with me. She is currently being followed by Dr. Dhillon for her chronic steroid use and has been switched to hydrocortisone by her. She reports that she will be getting some further studies done to see if she needs to have a Cortrosyn stim test done at some point. She reports that her bowel movements are fairly stable with about 3 loose or soft stools daily. She still has intermittent abdominal cramping. She has not noticed any hematochezia nor melena. She is eating comfortably and denies any significant heartburn or dysphagia. She has noticed less cushingoid facies since coming off of the prednisone and being on the hydrocortisone. Overall, she does think that things are better from a GI standpoint since being on the Rinvoq. She has been having some tingling and/or numbness in her fingers and some intermittent blurry vision as well. * Medical History: D enies [place],DM,CVA,Lung disease,renal disease, Some tachycardias after COVID in [...] to Rinvoq when she was referred to [facility] in May 2024. She underwent a colonoscopy in May with Dr. Costa and was told of some Crohn's disease with possible narrowing in a section of the colon., Colonoscopy in January 2025 at [facility] is described as normal other than some pseudopolyps. There was no sign of any active Crohn's disease., She sees Dr. Dhillon from Endocrinology at [facility] [facility] who is handling her steroids and has her on hydrocortisone 10 mg as of the February 2025 office visit. She may be having a cortisone stimulation test at some point.. * Surgical History: C -section 2000, Uterine ablation , Cyst on foot . * Family History: F ather: 43 yrs, Crohn's disease. M other: , CHF. S iblings: Brother has Crohn's disease. No known hx of colorectal cancer or liver disease. * Social History: T obacco Use: T obacco Use/Smoking P atient is a f ormer smoker, H ow long has it been since you last smoked? > 10 years. D rugs/Alcohol: A lcohol Screen D id you have a drink containing alcohol in the past year? Y es, H ow often did you have a drink containing alcohol in the past year? M onthly or less (1 point), How many drinks did you have on a typical day when you were drinking in the past year? 1 or 2 drinks (0 point), H ow often did you have 6 or more drinks on one occasion in the past year??Never (0 point), P oints 1 , I nterpretation N egative. M iscellaneous: M arital status: . 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 N onsmoker; no sig aclohol. * Medications: T aking Hydrocortisone 10 MG Tablet 1 tablet with food or milk Orally Daily , Taking Rinvoq 30 MG Tablet Extended Release 24 Hour 1 tablet Orally Once a day , Taking Calcium + D 500-1000-40 MG-UNT-MCG Tablet Chewable as directed Orally , Taking Multivitamin Adults - Tablet as directed Orally , Taking Cyanocobalamin 1000 MCG/ML Solution INJECT 1 ML INTRAMUSCULARLY ONCE PER MONTH , Taking Dicyclomine HCl 10 MG Capsule 1 or 2 capsules Orally Every 6 hour as needed for abdominal discomfort , Not-Taking/PRN predniSONE 5 MG Tablet 8 pills(40mg) daily for 1 week, and then decrease by 1 pill(5mg) every week Orally Once a day , Medication List reviewed and reconciled with the patient * Allergies: N .K.D.A. Objective: * Vitals: W t:156.2lbs, Ht: 62 in, BMI:28.57Index, BP:001/01mm Hg, Temp:97.6, Wt-k.85. Assessment: * Assessment: 1. C rohn''s disease of large intestine without complication - K50.10 (Primary) ? Overall, Sunny appears well. Her Crohn's disease seems to be clinically improved and stable on her current regimen. The recent normal-appearing colonoscopy is also quite reassuring. As such, she will obviously continue the Rinvoq and close follow-up with her physician in [place]. I did advise her to message him on his portal regarding her symptoms of the blurred vision and numbness with tingling in her hands. I shall check the below laboratories today in that regard and overall in regard to the Crohn's disease. She does take a monthly B12 shot so I advised her that I doubt a low B12 level would be responsible for her symptoms but nonetheless we will check that. She will also continue close follow-up with her dishtank operator in regard to the steroid usage and hopefully continue to be tapered off of that. I did advise her to speak with her dishtank operator regarding her previous bone density study to be sure she does not think she needs any specific treatment for that. I will plan to see Sunny in the spring for a follow-up visit but did advise her to certainly contact me in the interim if she has any problems or questions I can be of assistance with. Sunny was very comfortable with this plan. Thank you again for allowing me to participate in Sunny's care. I shall continue to keep you advised of her progress. Plan: * Treatment: 2. O thers Notes: Review the Bone Density study with Dr. Dhillon * Preventive Medicine: Counseling: C are goal follow-up plan: A raissa Normal BMI Follow-up D ietary management education, guidance, and counseling, B OK management provided Y es. * Follow Up: Andi oshea, 2025 * * The named appointment provid er may or may not be the originator of this progress note, and it is not deemed complete until electronically signed by the appointment provider. Sign off status: Pending * Provider: Anthony Stearns MD Date: 0 03/15/2025 Generated for Hu casas/Derrick/Mohamuditting on: 03/25/2025 08:09 AM EDT History and Physical Notes * HPI (History of Present Illness) Category Sub-Category Detail Notes Category Not es incontinence I saw Sunny in follow-up today in regard to her underlying history of Crohn's disease. Since I last saw Sunny in August she has continued to be doing well for the most part. She has remained on Rinvoq at 30 mg daily. She underwent a colonoscopy at the end of January in [place] which is described as completely normal other than some pseudopolyps. There was no sign of any active Crohn's disease which is obviously a great improvement compared to when she was first diagnosed on colonoscopy with me. She is currently being followed by Dr. Dhillon for her chronic steroid use and has been switched to hydrocortisone by her. She reports that she will be getting some further studies done to see if she needs to have a Cortrosyn stim test done at some point. She reports that her bowel movements are fairly stable with about 3 loose or soft stools daily. She still has intermittent abdominal cramping. She has not noticed any hematochezia nor melena. She is eating comfortably and denies any significant heartburn or dysphagia. She has noticed less cushingoid facies since coming off of the prednisone and being on the hydrocortisone. Overall, she does think that things are better from a GI standpoint since being on the Rinvoq. She has been having some tingling and/or numbness in her fingers and some intermittent blurry vision as well.
--- OUTSIDE RECORDS SUMMARY | 2025-03-25 08:10 | XMS_ITS | Patient Health Record ---
Author Organization [facility] Address [address] [place] [address] Care Team Providers Care Coat Examiner Name Role Phone Felecia Allan MD Primary Care Provider Juarez Nix Unavailable [phone] Allergies No Known Allergies Results Component Value Reference Range Notes Calprotectin, Fecal Reviewed date:04/27/2024 12:41:29 PM Interpretation: Performing Lab:[facility], [address] [place] [phone] Notes/Report: Calprotectin, Fecal 2650 Reference Range: <50 [...] borderline values. THIS TEST WAS PERFORMED AT: [facility] [address] [place] [address] LASHAY PALOMINO MD,PHD,RADHA Complete Blood Count Auto Di ff Reviewed date:04/20/2024 11:03:14 PM Interpretation: Performing Lab:[facility], [address] [place] [address] Notes/Report: White Blood Count 12.0 4.8-10.8 X10*3/uL [...] te Reviewed date:04/20/2024 11:04:21 PM Interpretation: Performing Lab:[address] [address] Notes/Report: Erythrocyte Sedimentation Rate 44 0-20 MM/HR Patients with polycythemia and many hemoglobin abnormalities may have depressed sed rates whereas patients with anemia may have elevated sed rates. Liver Panel Reviewed date:04/20/2024 11:04:10 PM Interpretation: Performing Lab:[address] [address] Notes/Report: Bilirubin Total 0.4 0.0-1.0 mg/dL Bilirubin Direct 0.2 0.0-0.5 mg/dL Aspartate Amino Transferase 24 5-31 U/L Alanine Aminotransferase 22 0-31 U/L Total Protein 7.6 6.5-8.0 g/dL Albumin Level 4.1 3.5-5.0 g/dL Alkaline Phosphatase 70 39-117 U/L Basic Metabolic Panel Reviewed date:04/20/2024 11:03:45 PM Interpretation: Performing Lab:[facility], [address] [place] [address] Notes/Report: Sodium 141 135-145 mmol/L Potassium 3.6 3.3-5.1 mmol/L Chloride 110 96-108 mmol/L Carbon Dioxide 21 22-29 mmol/L Anion Gap 14 12-20 Blood Urea Nitrogen 6 9-16 mg/dL Creatinine 0.77 0.5-1.4 mg/dL Estimated Glomerular Filt Rate > 60 NOTE: For -Mold[place] individuals, multiply the result by 1.210. Chronic Kidney Disease: Estimated GFR < 60 mL/min/1.73m2 Severe Kidney Disease: Estimated GFR < 15 mL/min/1.73m2 Glucose Random 90 60-115 mg/dL Calcium 9.9 8.4-10.2 mg/dL C Reactive Protein Reviewed date:04/24/2024 05:00:22 PM Interpretation: Performing Lab:[facility], [address] [place] [address] Notes/Report: C Reactive Protein 3.39 < or = 0.50 mg/dL Complete Blood Count Auto Di ff Reviewed date:06/20/2024 01:03:24 PM Interpretation: Performing Lab:[facility], [address] [place] [address] Notes/Report: White Blood Count 11.6 4.8-10.8 X10*3/uL [...] Panel Reviewed date:06/10/2024 05:11:12 PM Interpretation: Performing Lab:[facility], [address] [place] [address] Notes/Report: Bilirubin Total 0.8 0.0-1.0 mg/dL Bilirubin Direct 0.3 0.0-0.5 mg/dL Aspartate Amino Transferase 25 5-31 U/L Alanine Aminotransferase 21 0-31 U/L Total Protein 6.5 6.5-8.0 g/dL Albumin Level 3.7 3.5-5.0 g/dL Alkaline Phosphatase 64 39-117 U/L Lipid Panel Reviewed date:06/10/2024 05:10:21 PM Interpretation: Performing Lab:[address] [address] Notes/Report: Triglycerides 221 <150 mg/dL Desirable Triglyceride: [...] A1c Reviewed date:06/10/2024 05:11:02 PM Interpretation: Performing Lab:[facility], [address] [place] [address] Notes/Report: Hemoglobin A1c % 5.8 <6.0 % [...] average glucose, using the formula of the [id number] Average Glucose study (ADAG), Diabetes Care, Vol.31,#8, 2007 Calprotectin, Fecal Reviewed date:06/25/2024 09:51:41 PM Interpretation: Performing Lab:[facility], [address] [place] [phone] Notes/Report: Calprotectin, Fecal 732 Reference Range: <50 [...] borderline values. THIS TEST WAS PERFORMED AT: [facility] [address] [place] [address] LASHAY PALOMINO MD,PHD,RADHA CDiff Gene PCR Reviewed date:06/22/2024 01:59:13 PM Interpretation: Performing Lab:[facility], [address] [place] [address] Notes/Report: CDiff Gene PCR NEGATIVE Negative If C. difficile strongly suspected despite one negative test, a second test may be sent vs. empiric treatment for C. difficile infection. GI PANEL Reviewed date:06/20/2024 11:07:36 PM Interpretation: Performing Lab:[facility], [address] [place] [address] Notes/Report: Campylobacter Not Detected Not Detect. Plesiomonas [...] is performed by Multiplexed PCR, utilizing the [employer] Film Array. Norovirus Stool PCR Reviewed date:06/22/2024 02:00:42 PM Interpretation: Performing Lab:[address] [address] Notes/Report: Norovirus Stool PCR NOT DETECTED Test performed by: [facility] [address] [place] [address], 3rd floor, [place] [address] Director: John Garg MD CLIA: [id number] Erythrocyte Sedimentation Ra te Reviewed date:09/09/2024 10:26:25 AM Interpretation: Performing Lab:[facility], [address] [place] [address] Notes/Report: Erythrocyte Sedimentation Rate 7 0-20 MM/HR Patients with polycythemia and many hemoglobin abnormalities may have depressed sed rates whereas patients with anemia may have elevated sed rates. 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 No Information Medications Medication [...] tablet Orally Once a day 07/05/2024 Active Immunizations Vaccine Route Administration Date Status Comme nts Influenza Unknown 04/30/2018 Administered Influenza Unknown 02/28/2021 Administered Influenza Unknown 02/28/2022 Administered Influenza Unknown 03/16/2024 Administered Social History Tobacco Use: Social History [...] Problem Status W/U Status Risk Notes Problem 660754693 Encounter for screening for malignant neoplasm of colon (Z12.11) Active confirmed Problem Diarrhea (38555575) Diarrhea (R19.7) Active con firmed Problem Long-term current use of systemic steroid (776681057263328) FPC (current) use of systemic steroids (Z79.52) Active confirmed Problem Crohn (31844988) Crohn's disease of colon (K50.10) Active confirmed Problem 088412735701680 Preprocedural examination (Z01.818) Active confirmed Problem Crohn's disease of large bowel (4438403) Crohns colitis, without complications (K50.10) Active confirmed Problem Computed tomography result abnormal (041087730) Abnormal CT scan, colon (R93.3) Active confirmed Problem 081114863 Therapeutic drug monitoring (Z51.81) Active confirmed Problem Left sided abdominal pain (958400943) Left sided abdominal pain (R10.9) Active confirmed Problem 22557941 Diarrhea of presumed infectious origin (R19.7) Active confirmed Problem Crohn (2256206) Crohn''s disease of colon with other complication (K50.118) Active confirmed Problem Crohn (3223616) Crohn''s disease of large intestine without complication (K50.10) Active confirmed Problem Crohn's disease of large bowel (2638276) Crohn''s disease of large intestine with rectal bleeding (K50.111) Active confirmed Problem 90043901 Crohn's disease of colon without complication (K50.10) Active confirmed Problem 02045428 Crohn's disease of colon with rectal bleeding (K50.111) Active confirmed Problem 50703444259085008 Long-term current use of vedolizumab (Z79.899) Active confirmed Problem 47363450 Hyperglycemia (R73.9) Active confirmed Vital Signs Temperature 97.6 degrees Fahrenheit 03/15/2025 Blood pressure diastolic 01 mm Hg 03/15/2025 Height 62 in 03/15/2025 Blood pressure systolic 001 mm Hg 03/15/2025 Weight 156.2 lbs 03/15/2025 BMI 28.57 kg/m2 03/15/2025 Encounters Encounter Location Date Provider Diagnosis [facility] [address] [place] [phone] 03/15/2025 Juarez Stearns Crohn''s disease of large intestine without complication K50.10 [facility] [address] [place] [phone] 05/04/2024 Juarez Stearns Crohn''s disease of large intestine without complication K50.10 ; Left sided abdominal pain R10.9 and 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 Z79.52 [facility] [address] [place] [phone] 09/07/2024 Juarez Stearns Crohn''s disease of large intestine without complication K50.10 ; Left sided abdominal pain R10.9 ; FPC (current) use of systemic steroids Z79.52 and Diarrhea R19.7 [facility] [address] [place] [phone] 04/13/2024 Juarez Stearns Crohn''s disease of large intestine with rectal bleeding K50.111 [facility] [address] [place] [phone] 04/21/2024 Juarez Stearns [facility] [address] [place] [phone] 05/04/2024 Juarez Stearns [facility] [address] [place] [phone] 05/09/2024 Juarez Stearns [facility] [address] [place] [phone] 06/07/2024 Juarez Stearns [facility] [address] [place] [phone] 06/20/2024 Juarez Stearns [facility] [address] [place] [phone] 09/12/2024 Juarez Stearns Assessments Encounter Date Diagnosis [...] and close follow-up with her physician in [place]. I did advise her to message him [...] will also continue close follow-up with her director child in regard to the steroid usage and hopefully continue to be tapered off of that. I did advise her to speak with her director child regarding her previous bone density study to [...] again for allowing me to participate in uSnny's care. I shall continue to keep you [...] she returns from an upcoming trip to [facility]. She will continue the prednisone taper by [...] from one of the Crohn's centers in [place]. I shall look into making a referral [...] an appt at a [facility]hn[facility] Center in [place], Sunny appears clinically stable at the [...] she returns from an upcoming trip to [facility]. She will continue the prednisone taper by [...] from one of the Crohn's centers in [place]. I shall look into making a referral [...] Dhillon. She we will continue follow-up in [place] as well as with myself. I did [...] advise her to keep the physician in [place] apprised of the situation as well. I [...] visits or procedures that she has in [place]. I will plan to see her here [...] Dhillon. She we will continue follow-up in [place] as well as with myself. I did [...] advise her to keep the physician in [place] apprised of the situation as well. I [...] visits or procedures that she has in [place]. 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 She will continue the prednisone taper by [...] from one of the Crohn's centers in [place]. I shall look into making a referral [...] Dhillon. She we will continue follow-up in [place] as well as with myself. I did [...] advise her to keep the physician in [place] apprised of the situation as well. I [...] visits or procedures that she has in [place]. I will plan to see her here [...] Dhillon. She we will continue follow-up in [place] as well as with myself. I did [...] advise her to keep the physician in [place] apprised of the situation as well. I [...] visits or procedures that she has in [place]. I will plan to see her here [...] and close follow-up with her physician in [place]. I did advise her to message him [...] will also continue close follow-up with her director child in regard to the steroid usage and hopefully continue to be tapered off of that. I did advise her to speak with her director child regarding her previous bone density study to [...] CHEM 7 PROFILE 07/14/2022 CHEM 7 PROFILE 05/10/2023 CHEM 7 PROFILE 04/18/2022 CHEM 7 PROFILE 04/13/2024 CHEM 7 PROFILE 03/15/2025 CHEM 7 PROFILE 06/14/2022 CHEM 7 PROFILE 05/28/2022 CHEM 7 PROFILE 04/24/2023 FASTING BLOOD SUGAR (FBS, GLUCOSE) 05/10 LIVER PROFILE 01/04/2022 LIVER PROFILE 12/30/2023 LIVER PROFILE 07/14/2022 LIVER PROFILE 04/18/2022 LIVER PROFILE 11/11/2022 LIVER PROFILE 04/13/2024 LIVER PROFILE 03/15/2025 LIVER PROFILE 06/14/2022 LIVER PROFILE 05/28/2022 LIVER PROFILE 02/19/2022 LIVER PROFILE 05/04/2024 LIVER PROFILE 10/22/2022 LIVER PROFILE 04/24/2023 IRON + IBC (FE) 03/15/2025 IRON + IBC (FE) 02/19/2022 CRP 02/19/2022 CRP 04/24/2023 CRP 01/04/2022 CRP 12/30/2023 CRP 07/14/2022 CRP 04/18/2022 CRP 04/13/2024 CRP 06/14/2022 CRP 12/27/2021 CRP 05/28/2022 CRP 02/11/2023 VITAMIN B12 AND FOLATE 02/19/2022 CBC w DIFF 05/28/2022 CBC w DIFF 05/04/2024 CBC w DIFF 02/11/2023 CBC w DIFF 10/22/2022 CBC w DIFF 04/24/2023 CBC w DIFF 02/19/2022 CBC w DIFF 05/10/2023 CBC w DIFF 11/11/2022 CBC w DIFF 01/04/2022 CBC w DIFF 12/30/2023 CBC w DIFF 07/14/2022 CBC w DIFF 04/18/2022 CBC w DIFF 04/13/2024 CBC w DIFF 03/15/2025 CBC w DIFF 06/14/2022 CBC w DIFF 12/27/2021 SED RATE (ESR) 04/13/2024 SED RATE (ESR) 12/27/2021 SED RATE (ESR) 02/11/2023 SED RATE (ESR) 05/28/2022 SED RATE (ESR) 04/24/2023 SED RATE (ESR) 02/19/2022 SED RATE (ESR) 01/04/2022 SED RATE (ESR) 12/30/2023 SED RATE (ESR) 07/14/2022 SED RATE (ESR) 04/18/2022 XR SMALL BOWEL SERIES 05/28/2022 BONE DENSITY DEXA 12/30/2023 HUMIRA LEVEL/AB (ADALIMUMAB LEVEL/AB) C DIFFICILE RFLX PCR 05/04/2024 C DIFFICILE RFLX PCR 12/27/2021 C DIFFICILE RFLX PCR 02/11/2023 Calcium 03/15/2025 Ferritin 02/19/2022 Ferritin 03/15/2025 Lipid Panel 05/04/2024 Vitamin B12 and Folate 03/15/2025 [facility] Anser UST 12/30/2023 Prometheus Anser UST 05/10/2023 Prometheus Anser VDZ 07/14/2022 Prometheus Anser VDZ 05/28/2022 Prometheus TPMT Enzyme 10/22/2022 [facility] TPMT Genetics 10/22/2022 CDiff with Reflex to PCR 09/07/2024 Calprotectin, Fecal 09/07/2024 Calprotectin, Fecal 12/30/2023 Calprotectin, Fecal 02/11/2023 Calprotectin, Fecal 05/04/2024 Calprotectin, Fecal 04/24/2023 Hemoglobin A1c 05/04/2024 Hemoglobin A1c 05/10/2023 GI PANEL 05/04/2024 GI PANEL 09/07/2024 GI PANEL 02/11/2023 Future Test Test Name Order Date COLONOSCOPY 08/13/2018 COLONOSCOPY 12/27/2021 COLONOSCOPY 11/26/2022 Next Appt Details Provider Name:Juarez Stearns , 10/13/2025 09:20:00 AM, [address] [facility], [address], [place], [address], Insurance Providers Payer Name Payer Address Payer Phone Subscriber Number Group Number Insured Name Patient Relationship to Insured Coverage Start Date Coverage End Date [facility] Insurance (aroundtheway) [address] [place] [id number] SUNNY TIWARI Self - patient is the insured Medical (General) History Medical History History ICD Code Denies UT,DM,CVA,Lung disease,renal dise ase Some tachycardias after COVID [...] be helpful. Switched from the [facility] in to [facility] early February, due to continued [...] [facility] studies She was switched from the [facility] to [facility] when she was referred to [facility] in May 2024. She underwent a colonoscopy in May with Dr. Costa and was told of some Crohn's disease with possible narrowing in a section of the colon. Colonoscopy in January 2025 a [facility] is described as normal other than some pseudopolyps. There was no sign of any active Crohn's disease. She sees Dr. Dhillon from [facility] [place] [facility] who is handling her steroids and has her on hydrocortisone 10 mg as of the February 2025 office visit. She may be having a cortisone stimulation test at some point. Surgical History Surgery Date(Month/Year) Cyst on foot Uterine ablation 2000
[2025-03-25 10:10] LABS: MANUAL DIFF FLAG NO
[2025-03-25 10:38] LABS: Hematocrit 36.0 % (37.0-47.0); Hemoglobin 12.1 g/dl (12.0-16.0); Imm Gran Abs Auto 0.01 X10*3/uL (0.00-0.03); Imm Gran Pct Auto 0.2 % (0.0-0.4); Lymphocytes Absolute Auto 0.8 X10*3/uL (1.2-4.9); Mean Corpuscular HGB Conc 33.6 g/dl (31.0-35.0); Mean Corpuscular Hemoglobin 31.8 pg (27.0-33.0); Mean Corpuscular Volume 94.5 fL (80.0-98.0); NRBC Abs Auto 0.000 X10*3/uL (0.0-0.012); NRBC Pct Auto 0.0 /100WBC (0.0-0.2); Platelet Count 371 X10*3/uL (160-400); Red Blood Count 3.81 X10*6/uL (4.20-5.50); White Blood Count 4.6 X10*3/uL (4.8-10.8)
[2025-03-25 11:13] LABS: Alanine Aminotransferase 23 U/L (0-31); Albumin Level 4.6 g/dL (3.5-5.0); Alkaline Phosphatase 88 U/L (39-117); Anion Gap 11 (12-20); Aspartate Amino Transferase 30 U/L (5-31); Blood Urea Nitrogen 11 mg/dL (9-16); Calcium 9.1 mg/dL (8.4-10.2); Carbon Dioxide 23 mmol/L (22-29); Chloride 110 mmol/L (96-108); Estimated Glomerular Filt Rate > 60; Iron 132 mcg/dL (30-160); Percent Iron Saturation 40 % (15-50); Potassium 3.9 mmol/L (3.3-5.1); Sodium 140 mmol/L (135-145); Total Iron Binding Capacity 330 mcg/dL (228-428); Total Protein 6.7 g/dL (6.5-8.0); Unsaturated Iron Binding 198 ug/dL
[2025-03-25 11:30] LABS: Ferritin 162 ng/mL (10-250); Folate 14.7 ng/mL (> or = 4.0); Vitamin B12 530 pg/mL (200-900)
== END 2025-03-25 08:04 | disposition home or self-care (01) ==
LOC: HO.HMGCLDS 08:03
PROVIDERS: PCP Internal Medicine; Referring Provider Internal Medicine; Visit Provider Student in an Organized Health Care Education/Training Program
DX: E27.3 Drug-induced adrenocortical insufficiency (principal); T38.0X5A Adverse effect of glucocorticoids and synthetic analogues, initial encounter; K50.10 Crohn's disease of large intestine without complications
CPT/HCPCS: 36415; 80051; 80076; 82024; 82310; 82533; 82565; 82607; 82627; 82728; 82746; 82947; 83540; 84520; 85025

== ENCOUNTER 2025-04-27 08:23 | Outpatient (AMB) | payer OTHER, SELFPAY ==
--- NOTE | 2025-04-27 08:35 | MHC.PC.OV ---
Vital Signs 04/27/25 08:36 Height 5 ft 2 in Weight 155 lb BMI 28.3 BP 124/80 Blood Pressure Location Lt brachial Position Sitting Respiration 16 Pulse 77 Pulse Source Pulse Oximeter Temp 98.6 F Temp Source Oral Pulse Oximetry (%) 96 Oxygen Delivery Method Room Air Intake Visit Reasons: PE Sandwich Hand Required: No Accompanied by: Self / Same As Patient Allergies No Known Allergies (No Known Allergies*) Allergy (Verified 04/27/25 08:37) Medication List - Last Reconciled 04/27/25 by Felecia Allan MD acetaminophen 1,000 mg PO BID amlodipine 5 mg PO DAILY bisoprolol fumarate 5 mg PO DAILY calcium carbonate (Calcium 600) 600 mg PO DAILY cyanocobalamin (vitamin B-12) 1 mL IM QMONTH docusate sodium (Colace) 100 mg PO BID hydrocortisone 10 mg PO DAILY multivitamin 1 tab PO DAILY polyethylene glycol 3350 (ClearLax) 17 grams PO DAILY PRN upadacitinib ER (Rinvoq) 45 mg PO DAILY Tobacco use date assessed: 04/27/25 Dental Screening Dental Screen Date: 04/27/25 Did you have a dental visit in the last 12 months?: Yes Did you have a dental problem in the last 6 months where you did not have access to dental care?: No Was dental information given to patient?: Patient has dentist HPI PE HPI Details Patient presents for physical. Hypertension is controlled on current medications patient is established with GI for Crohn's disease and has been taking Rinvoq. 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 She had blood work including vitamin B12 level checked by GI which was normal. Patient reports being under lot of stress at work and her mother a few months ago. [facility] Medical History (Updated 04/27/25 @ 09:40 by Felecia Allan MD) Adrenal insufficiency due to corticosteroid withdrawal Exacerbation of Crohn's disease HTN (hypertension) C. difficile colitis Frequent headaches SÁNCHEZ (dyspnea on exertion) Tachycardia Annual physical exam Mammogram normal Normal Pap smear COVID-19 History of mammogram Surgical History H/O colonoscopy History of removal of cyst History of section Family History Father CVD (cardiovascular disease) Stroke Crohn's disease Mother No problems noted. Brother No problems noted. Brother No problems noted. Son No problems noted. Son No problems noted. Daughter No problems noted. 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 1. Little interest or pleasure in doing things: not at all 2. Feeling down, depressed, or hopeless: not at all 3. Trouble falling or staying asleep, or sleeping too much: not at all 4. Feeling tired or having little energy: not at all 5. Poor appetite or overeating: not at all 6. Feeling bad about yourself - or that you are a failure or have let yourself or your family down: not at all 7. Trouble concentrating on things, such as reading the newspaper or watching television: not at all 8. Moving or speaking so slowly that other people could have noticed. Or the opposite - being so fidgety or restless that you have been moving around a lot more than usual: not at all 9. Thoughts that you would be better off or of hurting yourself in some way: not at all Total score: 0 Depression Screening Interpretation: Negative Depression Screening Done: Yes 70761 - PHQ-9 Billing: Yes Source: Developed by Drs. Juarez Palmer, Stefany Wooten, Escobar Villagran and colleagues, with an educational armond from [employer]. Thrive Questionnaire Date Thrive assessed: 09/17/24 I am a: Patient What is your living situation today?: I have a steady place to live Within the past 12 months, did the food you bought not last and you didn't have the money to get more?: Never true Within the past 12 months, did you worry whether your food would run out before you got money to buy more?: Never true Do you have trouble paying for medicines?: No Do you have trouble getting transportation to medical appointments?: No Do you have trouble paying your heating and electricity bill?: No Do you have trouble taking care of your child, family member or friend?: No Do you have trouble with day-to-day activities such as bathing, preparing meals, shopping, managing finances, etc.?: No Are you currently unemployed and looking for a job?: No Are you interested in more education?: No Please select the resources that you would like help with: None Currently or been in a relationship where the following occur: No concerns reported THRIVE Score: 0 AVERY-7 AMB Questionnaire AVERY-7 Date AVERY - 7 assessed: 04/27/25 Feeling nervous, anxious, or on edge: 0 = Not at all Not being able to stop or control worryin = Not at all Worrying too much about different things: 0 = Not at all Trouble relaxin = Not at all Being so restless that it is hard to sit still: 0 = Not at all Becoming easily annoyed or irritable: 0 = Not at all Feeling afraid as if something awful might happen: 0 = Not at all Total AVERY-7 score (0-4 normal; 5-9 mild; 10-14 moderate; 15-21 severe): 0 Source: Developed by Drs. Juarez Palmer, Stefany Wooten, Escobar Villagran and colleagues, with an educational armond from [employer]. AVERY-7 Assessment Billing AVERY-7 Assessment Tool: AVERY-7 Assessment 99361 Review of Systems Const All systems reviewed & are unremarkable except as noted in HPI and below Eyes Reports no additional complaints ENT Reports no additional complaints Card Reports no additional complaints Resp Reports no additional complaints GI Reports no additional complaints Reports no additional complaints Physical exam (Primary Care) Vital Signs: Last Vital Signs Temp 98.6 F 04/27/25 08:36 Pulse 77 04/27/25 08:36 Resp 16 04/27/25 08:36 BP 124/80 04/27/25 08:36 Pulse Ox 96 04/27/25 08:36 Oxygen Delivery Method Room Air 04/27/25 08:36 BMI result Body Mass Index 28.3 Tobacco/Smoking Status: Tobacco use Status Tobacco use date assessed 04/27/25 04/27/25 08:41 Patient Tobacco Use Status Never used Tobacco 04/27/25 08:41 e-Cigarette/Vaping Use Never Used 04/27/25 08:41 PHQ-9: PHQ-9 Score PHQ-9: Total score 0 04/27/25 08:41 Depression Screening Interpretation: Negative Thrive Assessment: Date of Thrive Assessment Date Thrive assessed 09/17/24 04/27/25 08:41 Currently or been in a relationship where the following occur: No concerns reported Const General: no acute distress HENMT Head: Yes normal to inspection Ears: hearing grossly normal bilaterally General nose exam: Normal external nose present Throat: Yes posterior oropharynx normal Eyes General: appearance normal, both eyes and all related structures Neck Neck: Yes no lymphadenopathy and Yes supple Resp Effort & Inspection: normal respiratory effort Auscultation: clear to auscultation bilaterally Cardio Rhythm: regular rhythm Heart sounds: S1 normal heart sound present and S2 normal heart sound present GI Inspection: Yes normal to inspection Palpation (GI): Soft to palpation Percussion: Yes normal to percussion Auscultation: normal bowel sounds Neuro Cranial nerves: Yes CN's II-XII intact bilaterally Motor exam (neuro): 5/5 motor strength present throughout Sensory Exam: double simultaneous stimulation for sensation normal Extrem General: Yes no clubbing, cyanosis or edema Coding Level of Care Code Est Pt Prev Care 40-64y(40455) Diagnoses HTN (hypertension) I10 Adrenal insufficiency due to corticosteroid withdrawal E27.3; T38.0X5A Exacerbation of Crohn's disease K50.90 Annual physical exam Z00.00 Additional Codes AVERY-7 Assessment Billing - AVERY-7 Assessment Tool: AVERY-7 Assessment 00174 ([id number]) PHQ-9 - 51058 - PHQ-9 Billing: Yes ([id number]) Assessment & Plan Assessment & Plan (1) HTN (hypertension): Code(s): I10 - Essential (primary) hypertension Category: Medical Plan: Continue current medications (2) Adrenal insufficiency due to corticosteroid withdrawal: Comment: On hydrocortisone taper by Endo Code(s): E27.3 - Drug-induced adrenocortical insufficiency; T38.0X5A - Adverse effect of glucocorticoids and synthetic analogues, initial encounter Category: Medical Plan: Follow-up with endocrinology (3) Exacerbation of Crohn's disease: Comment: Patient is established with GI at [facility] Code(s): K50.90 - Crohn's disease, unspecified, without complications Category: Medical Plan: Follow-up with GI (4) Annual physical exam: Code(s): Z00.00 - Encounter for general adult medical examination without abnormal findings Category: Medical Plan: Well-balanced diet regular physical activity discussed with the patient. She is up-to-date with the mammogram Pap smear by button sawyer and colonoscopy. Patient will return in 1 year
[2025-04-27 08:36] VITALS: BP 124/80; PULSE 77; RESP 16; TEMP 37; O2SAT 96; BMI 28.3
--- OUTSIDE RECORDS SUMMARY | 2025-04-27 08:53 | XMS_ITS | Patient Health Record ---
Author Organization [facility] Address [address] [place] [address] Care Team Providers Care New Media Strategist Name Role Phone Felecia Allan MD Primary Care Provider Juarez Nix Unavailable [phone] Allergies No Known Allergies Results Component Value Reference Range Notes Complete Blood Count Auto Di ff Reviewed date:06/20/2024 01:03:24 PM Interpretation: Performing Lab:[facility], [address] [place] [phone] Notes/Report: White Blood Count 11.6 4.8-10.8 X10*3/uL [...] Panel Reviewed date:06/10/2024 05:11:12 PM Interpretation: Performing Lab:[facility], [address] [place] [phone] Notes/Report: Bilirubin Total 0.8 0.0-1.0 mg/dL Bilirubin Direct 0.3 0.0-0.5 mg/dL Aspartate Amino Transferase 25 5-31 U/L Alanine Aminotransferase 21 0-31 U/L Total Protein 6.5 6.5-8.0 g/dL Albumin Level 3.7 3.5-5.0 g/dL Alkaline Phosphatase 64 39-117 U/L Lipid Panel Reviewed date:06/10/2024 05:10:21 PM Interpretation: Performing Lab:[facility], [address] [place] [phone] Notes/Report: Triglycerides 221 <150 mg/dL Desirable Triglyceride: [...] A1c Reviewed date:06/10/2024 05:11:02 PM Interpretation: Performing Lab:[facility], [address] [place] [phone] Notes/Report: Hemoglobin A1c % 5.8 <6.0 % [...] average glucose, using the formula of the S5H-Aypqekn Average Glucose study (ADAG), Diabetes Care, Vol.31,#8, 2007 Calprotectin, Fecal Reviewed date:06/25/2024 09:51:41 PM Interpretation: Performing Lab:[address] [address] Notes/Report: Calprotectin, Fecal 732 Reference Range: <50 [...] borderline values. THIS TEST WAS PERFORMED AT: [employer] [address] [place] [address] LASHAY PALOMINO MD,PHD,RADHA CDiff Gene PCR Reviewed date:06/22/2024 01:59:13 PM Interpretation: Performing Lab:[facility], [address] [place] [phone] Notes/Report: CDiff Gene PCR NEGATIVE Negative If C. difficile strongly suspected despite one negative test, a second test may be sent vs. empiric treatment for C. difficile infection. GI PANEL Reviewed date:06/20/2024 11:07:36 PM Interpretation: Performing Lab:[address] [address] Notes/Report: Campylobacter Not Detected Not Detect. Plesiomonas [...] is performed by Multiplexed PCR, utilizing the [employer] Array. Norovirus Stool PCR Reviewed date:06/22/2024 02:00:42 PM Interpretation: Performing Lab:[facility], [address] [place] [phone] Notes/Report: Norovirus Stool PCR NOT DETECTED Test performed by: [facility] [address] [place] [address], 3rd floor, [place] [address] Director: John Garg MD CLIA: [id number] Erythrocyte Sedimentation Ra te Reviewed date:09/09/2024 10:26:25 AM Interpretation: Performing Lab:[facility], [address] [place] [phone] Notes/Report: Erythrocyte Sedimentation Rate 7 0-20 MM/HR Patients with polycythemia and many hemoglobin abnormalities may have depressed sed rates whereas patients with anemia may have elevated sed rates. XR acute abdomen series Reviewed date:09/09/2024 06:35:14 PM Interpretation: Performing Lab: Notes/Report: [address] [address] XRay Report Signed Patient: Sunny Tiwari MR#: [id number] 9 : 1965 Acct:[id number] Age/Sex: 59 / F ADM Date: 09/08/24 Loc: [place] [address]: Scottie Browning MD Ordering Physician: Juarez Stearns MD Date of Service: 09/09/24 Procedure(s): XR acute abdomen series Accession Number(s): [id number] cc: Felecia Allan MD; Juarez Stearns MD [...] Juarez Méndez MD 09/09/2024 09:33 AM EDT Dictated By: Juarez Méndez MD Signed By: <Electronically signed by Juarez Méndez MD in OV> 09/09/2433 DD/ 4 TD/TT: 09/09/24927 On Site Nurse: Complete Blood Count Auto Di ff Reviewed date:04/04/2025 07:28:52 AM Interpretation: Performing Lab:[facility], [address] [place] [phone] Notes/Report: White Blood Count 4.6 4.8-10.8 X10*3/uL Red Blood Count 3.81 4.20-5.50 X10*6/uL Hemoglobin 12.1 12.0-16.0 g/dl Hematocrit 36.0 37.0-47.0 % Mean Corpuscular Volume 94.5 80.0-98.0 fL Mean Corpuscular Hemoglobin 31.8 27.0-33.0 pg Mean Corpuscular HGB Conc 33.6 31.0-35.0 g/dl Red Cell Distribution Width 12.2 11.0-16.0 % Platelet Count 371 160-400 X10*3/uL Mean Platelet Volume 9.4 9.4-12.3 fL Neutrophils Percent Auto 70.4 45-73 % Imm Gran Pct Auto 0.2 0.0-0.4 % Lymphocytes Percent Auto 17.6 20-40 % Monocytes Percent Auto 8.7 2-11 % Eosinophils Percent Auto 2.2 0-4 % Basophils Percent Auto 0.9 0-2 % NRBC Pct Auto 0.0 0.0-0.2 /100WBC Neutrophils Absolute Auto 3.2 2.0-8.3 x10*3/u L Imm Gran Abs Auto 0.01 0.00-0.03 X10*3/uL Lymphocytes Absolute Auto 0.8 1.2-4.9 X10*3/u L Monocytes Absolute Auto 0.4 0.1-1.2 X10*3/uL Eosinophils Absolute Auto 0.1 0.0-0.4 X10*3/u L Basophils Absolute Auto 0.0 0.0-0.2 X10*3/uL NRBC Abs Auto 0.000 0.0-0.012 X10*3/uL Liver Panel Reviewed date:03/26/2025 09:14:07 PM Interpretation: Performing Lab:[facility], [address] [place] [phone] Notes/Report: Bilirubin Total 0.9 0.0-1.0 mg/dL Bilirubin Direct 0.2 0.0-0.5 mg/dL Aspartate Amino Transferase 30 5-31 U/L Alanine Aminotransferase 23 0-31 U/L Total Protein 6.7 6.5-8.0 g/dL Albumin Level 4.6 3.5-5.0 g/dL Alkaline Phosphatase 88 39-117 U/L Electrolytes Reviewed date:03/25/2025 07:25:40 PM Interpretation: Performing Lab:[facility], [address] [place] [phone] Notes/Report: Sodium 140 135-145 mmol/L Potassium 3.9 3.3-5.1 mmol/L Chloride 110 96-108 mmol/L Carbon Dioxide 23 22-29 mmol/L Anion Gap 11 12-20 Blood Urea Nitrogen Reviewed date:03/26/2025 09:13:51 PM Interpretation: Performing Lab:[facility], [address] [place] [phone] Notes/Report: Blood Urea Nitrogen 11 9-16 mg/dL Creatinine Reviewed date:03/26/2025 09:13:43 PM Interpretation: Performing Lab:[facility], [address] [place] [phone] Notes/Report: Creatinine 0.70 0.5-1.4 mg/dL Estimated Glomerular Filt Rate > 60 Chronic Kidney Disease: Estimated GFR < 60 mL/min/1.73m2 Severe Kidney Disease: Estimated GFR < 15 mL/min/1.73m2 Glucose Random Reviewed date:03/26/2025 09:13:19 PM Interpretation: Performing Lab:[facility], [address] [place] [phone] Notes/Report: Glucose Random 90 60-115 mg/dL Calcium Reviewed date:03/26/2025 09:13:07 PM Interpretation: Performing Lab:[facility], [address] [place] [phone] Notes/Report: Calcium 9.1 8.4-10.2 mg/dL IRON PROFILE Reviewed date:03/26/2025 09:12:54 PM Interpretation: Performing Lab:[facility], [address] [place] [phone] Notes/Report: Iron 132 30-160 mcg/dL Total Iron Binding Capacity 330 228-428 mcg/dL Percent Iron Saturation 40 15-50 % Unsaturated Iron Binding 198 Ferritin Reviewed date:03/26/2025 09:12:36 PM Interpretation: Performing Lab:[facility], [address] [place] [phone] Notes/Report: Ferritin 162 10-250 ng/mL Vitamin B12 and Folate Reviewed date:03/26/2025 09:14:16 PM Interpretation: Performing Lab:[facility], [address] [place] [phone] Notes/Report: Vitamin B12 530 200-900 pg/mL NORMAL 200-900 PG/ML INDETERMINATE 160-199 PG/ML DEFICIENT < 160 PG/ML Folate 14.7 > or = 4.0 ng/mL Reference Values: > or = 4.0 ng/mL < 4.0 ng/mL suggests folate deficiency Methotrexate, aminopterin and folinic acid (leucovorin) are chemotherapeutic agents whose molecular structures are similar to folate; therefore, the [employer] Paste folate assay cannot be used for patients using these drugs. Reason For Referral No Information Medications Medication SIG (Take, Route, Frequency, Duration) Notes Start Date End Date Status Cyanocobalamin 1000 MCG/ML INJECT 1 ML INTRAMUSCULARLY ONCE PER MONTH; Duration: 84 Active Dicyclomine HCl 10 MG 1 or 2 capsules Or ally Every 6 hour as needed for abdominal discomfort; Duration: 30 day(s) Active predniSONE 5 MG 8 pills(40mg) daily for 1 week, and then decrease by 1 pill(5mg) every week Orally Once a day; Duration: 56 days Not-Siria g Calcium + D 500-1000-40 MG-UNT-MCG as directed [...] Problem Status W/U Status Risk Notes Problem Screening for malignant neoplasm of colon (103156008) Encounter for screening for malignant neoplasm of colon (Z12.11) Active confirmed Problem Diarrhea (44267919) Diarrhea (R19.7) Active confirmed Problem Long-term current use of systemic steroid (962497033380251) alf (current) use of systemic steroids (Z79.52) Active confirmed Problem Crohn's disease of colon (13408941) Crohn's disease of colon (K50.10) Active confirmed Problem Preprocedural examination (064924184090185) Preprocedural examination (Z01.818) Active confirmed Problem Crohn's disease of large bowel (8692043) Crohns colitis, without complications (K50.10) Active confirmed Problem Computed tomography result abnormal (410294062) Abnormal CT scan, colon (R93.3) Active confirmed Problem Drug monitoring done (855151028) Therapeutic drug monitoring (Z51.81) Active confirmed Problem Left sided abdominal pain (710425224) Left sided abdominal pain (R10.9) Active confirmed Problem Diarrhea of presumed infectious origin (26634905) Diarrhea of presumed infectious origin (R19.7) Active confirmed Problem Crohn's disease of large bowel (3761748) Crohn''s disease of colon with other complication (K50.118) Active confirmed Problem Crohn's disease of large bowel (9161194) Crohn''s disease of large intestine without complication (K50.10) Active confirmed Problem Crohn's disease of large bowel (7967869) Crohn''s disease of large intestine with rectal bleeding (K50.111) Active confirmed Problem Crohn's disease of large bowel (2387155) Crohn's disease of colon without complication (K50.10) Active confirmed Problem Crohn's disease of large bowel (7327702) Crohn's disease of colon with rectal bleeding (K50.111) Active confirmed Problem Long-term current use of vedolizumab (5182023039621240 2) Long-term current use of vedolizumab (Z79.899) Active confirmed Problem Hyperglycemia (49266986) Hyperglycemia (R73.9) Active confirmed Vital Signs Temperature 97.6 degrees Fahrenheit 03/15/2025 Blood pressure diastolic 01 mm Hg 03/15/2025 Height 62 in 03/15/2025 Blood pressure systolic 001 mm Hg 03/15/2025 Weight 156.2 lbs 03/15/2025 BMI 28.57 kg/m2 03/15/2025 Encounters Encounter Location Date Provider Diagnosis [facility] [address] [place] [phone] 05/04/2024 Juarez Stearns Crohn''s disease of large intestine without complication K50.10 ; Left sided abdominal pain R10.9 and alf (current) use of systemic steroids Z79.52 [facility] [address] [place] [phone] 09/07/2024 Juarez Stearns Crohn''s disease of large intestine without complication K50.10 ; Left sided abdominal pain R10.9 ; alf (current) use of systemic steroids Z79.52 and Diarrhea R19.7 [facility] [address] [place] [phone] 03/15/2025 Juarez Stearns Crohn''s disease of large intestine without complication K50.10 [facility] [address] [place] [phone] 05/04/2024 Juarez Merrill [facility] [address] [place] [address] 05/09/2024 Juarez Merrill [facility] [address] [place] [address] 06/07/20[facility] [address] [place] [address] 06/20/2024 [facility] [address] [place], [place] [address] 09/12/2024 [facility] [address] [place] [address] 04/06/2025 Juarez Stearns Assessments Encounter Date Diagnosis (ICD [...] she returns from an upcoming trip to [facility]. She will continue the prednisone taper [...] from one of the Crohn's centers in [place]. I shall look into making a referral [...] an appt at a [facility] Center in [place] Overall, Sunny appears clinically stable at the [...] she returns from an upcoming trip to [facility]. She will continue the prednisone taper [...] from one of the Crohn's centers in [place]. I shall look into making a referral [...] Dhillon. She we will continue follow-up in [place] as well as with myself. I did [...] advise her to keep the physician in [place] apprised of the situation as well. I [...] visits or procedures that she has in [place]. I will plan to see her here [...] Dhillon. She we will continue follow-up in [place] as well as with myself. I did [...] advise her to keep the physician in [place] apprised of the situation as well. I [...] visits or procedures that she has in [place]. I will plan to see her here [...] keep you advised of her progress. 03/15/2025 Crohn''s disease of large intestine without [...] and close follow-up with her physician in [place]. I did advise her to message him [...] will also continue close follow-up with her speech therapy director in regard to the steroid usage and hopefully continue to be tapered off of that. I did advise her to speak with her speech therapy director regarding her previous bone density study to [...] keep you advised of her progress. 05/04/2024 oysterman (current) use of systemic steroids (ICD-10 - [...] she returns from an upcoming trip to [facility]. She will continue the prednisone taper [...] from one of the Crohn's centers in [place]. I shall look into making a referral [...] keep you advised of her progress. 09/07/2024 alf (current) use of systemic steroids (ICD-10 - Z79.52) Overall, Sunny appears stable on her new regimen of the Rinvoq. She appears to be tolerating the prednisone taper under the guidance of Dr. Dhillon. She we will continue follow-up in [place] as well as with myself. I did [...] advise her to keep the physician in [place] apprised of the situation as well. I [...] visits or procedures that she has in [place]. I will plan to see her here [...] Dhillon. She we will continue follow-up in [place] as well as with myself. I did [...] advise her to keep the physician in [place] apprised of the situation as well. I [...] visits or procedures that she has in [place]. I will plan to see her here [...] and close follow-up with her physician in [place]. I did advise her to message him [...] will also continue close follow-up with her speech therapy director in regard to the steroid usage and hopefully continue to be tapered off of that. I did advise her to speak with her speech therapy director regarding her previous bone density study to [...] CHEM 7 PROFILE 01/04/2022 CHEM 7 PROFILE 07/14/2022 CHEM 7 PROFILE 04/18/2022 CHEM 7 PROFILE 05/10/2023 CHEM 7 PROFILE 06/14/2022 CHEM 7 PROFILE 04/24/2023 CHEM 7 PROFILE 04/13/2024 CHEM 7 PROFILE 03/15/2025 CHEM 7 PROFILE 12/30/2023 CHEM 7 PROFILE 05/28/2022 FASTING BLOOD SUGAR (FBS, GLUCOSE) 05/10 LIVER PROFILE 05/28/2022 LIVER PROFILE 02/19/2022 LIVER PROFILE 01/04/2022 LIVER PROFILE 07/14/2022 LIVER PROFILE 05/04/2024 LIVER PROFILE 04/18/2022 LIVER PROFILE 10/22/2022 LIVER PROFILE 11/11/2022 LIVER PROFILE 06/14/2022 LIVER PROFILE 04/24/2023 LIVER PROFILE 04/13/2024 LIVER PROFILE 03/15/2025 LIVER PROFILE 12/30/2023 IRON + IBC (FE) 02/19/2022 IRON + IBC (FE) 03/15/2025 CRP 12/27/2021 CRP 05/28/2022 CRP 01/04/2022 CRP 07/14/2022 CRP 02/19/2022 CRP 04/18/2022 CRP 06/14/2022 CRP 04/24/2023 CRP 04/13/2024 CRP 02/11/2023 CRP 12/30/2023 VITAMIN B12 AND FOLATE 02/19/2022 CBC w DIFF 02/11/2023 CBC w DIFF 03/15/2025 CBC w DIFF 12/30/2023 CBC w DIFF 12/27/2021 CBC w DIFF 05/28/2022 CBC w DIFF 05/04/2024 CBC w DIFF 10/22/2022 CBC w DIFF 05/10/2023 CBC w DIFF 11/11/2022 CBC w DIFF 01/04/2022 CBC w DIFF 07/14/2022 CBC w DIFF 04/18/2022 CBC w DIFF 06/14/2022 CBC w DIFF 04/13/2024 CBC w DIFF 04/24/2023 CBC w DIFF 02/19/2022 SED RATE (ESR) 04/13/2024 SED RATE (ESR) 04/24/2023 SED RATE (ESR) 02/19/2022 SED RATE (ESR) 02/11/2023 SED RATE (ESR) 12/30/2023 SED RATE (ESR) 12/27/2021 SED RATE (ESR) 05/28/2022 SED RATE (ESR) 01/04/2022 SED RATE (ESR) 07/14/2022 SED RATE (ESR) 04/18/2022 XR SMALL BOWEL SERIES 05/28/2022 BONE DENSITY DEXA 12/30/2023 HUMIRA LEVEL/AB (ADALIMUMAB LEVEL/AB) C DIFFICILE RFLX PCR 02/11/2023 C DIFFICILE RFLX PCR 05/04/2024 C DIFFICILE RFLX PCR 12/27/2021 Calcium 03/15/2025 Ferritin 03/15/2025 Ferritin 02/19/2022 Lipid Panel 05/04/2024 Vitamin B12 and Folate 03/15/2025 [facility] Anser UST 05/10/2023 Prometheus Anser UST 12/30/2023 Prometheus Anser VDZ 05/28/2022 Prometheus Anser VDZ 07/14/2022 Prometheus TPMT Enzyme 10/22/2022 [facility] TPMT Genetics 10/22/2022 CDiff with Reflex to PCR 09/07/2024 Calprotectin, Fecal 09/07/2024 Calprotectin, Fecal 12/30/2023 Calprotectin, Fecal 05/04/2024 Calprotectin, Fecal 04/24/2023 Calprotectin, Fecal 02/11/2023 Hemoglobin A1c 05/10/2023 Hemoglobin A1c 05/04/2024 GI PANEL 09/07/2024 GI PANEL 05/04/2024 GI PANEL 02/11/2023 Future Test Test Name Order Date COLONOSCOPY 08/13/2018 COLONOSCOPY 12/27/2021 COLONOSCOPY 11/26/2022 Next Appt Details Provider Name:Juarez Stearns , 10/13/2025 09:20:00 AM, [address], [address], [place], [address], Insurance Providers Payer Name Payer Address Payer Phone Subscriber Number Group Number Insured Name Patient Relationship to Insured Coverage Start Date Coverage End Date [employer] ([employer]) [address] [place] [id number] SUNNY TIWARI Self - patient is the insured Medical (General) History Medical History History ICD Code Denies MO,DM,CVA,Lung disease,renal dise ase Some tachycardias after COVID [...] to Rinvoq when she was referred to [facility] in May 2024. She underwent a colonoscopy in May with Dr. Costa and was told of some Crohn's disease with possible narrowing in a section of the colon. Colonoscopy in January 2025 a [facility] is described as normal other than some pseudopolyps. There was no sign of any active Crohn's disease. She sees Dr. Dhillon from [facility] [place] [facility] who is handling her steroids and has her on hydrocortisone 10 mg as of the February 2025 office visit. She may be having a cortisone stimulation test at some point. Surgical History Surgery Date(Month/Year) Cyst on foot Uterine ablation 2000
== END 2025-04-27 09:27 | disposition home or self-care (01) ==
LOC: HO.HMCC 08:24
PROVIDERS: PCP Internal Medicine; Visit Provider Internal Medicine
DX: Z00.00 Encounter for general adult medical examination without abnormal findings (principal); I10 Essential (primary) hypertension; K50.90 Crohn's disease, unspecified, without complications; E27.3 Drug-induced adrenocortical insufficiency; T38.0X5A Adverse effect of glucocorticoids and synthetic analogues, initial encounter

== ENCOUNTER → 2025-04-27 08:23 | Outpatient (BNVA) | payer OTHER, SELFPAY | PROVIDERS: PCP Internal Medicine; Visit Provider Internal Medicine | DX: Z00.00 Encounter for general adult medical examination without abnormal findings (principal); K50.90 Crohn's disease, unspecified, without complications; I10 Essential (primary) hypertension; E27.3 Drug-induced adrenocortical insufficiency; T38.0X5A Adverse effect of glucocorticoids and synthetic analogues, initial encounter; Z79.899 Other long term (current) drug therapy | CPT/HCPCS: 96127 ==

== ENCOUNTER 2025-05-03 07:41 | Outpatient (RCR) | payer OTHER, SELFPAY ==
[2025-05-03 07:45] VITALS: BP 124/79; PULSE 87; RESP 16; TEMP 37.1; O2SAT 96
[2025-05-04 05:34] LABS: Cortisol 30 Minute Time 0839; Cortisol 60 Minute 23.7 mcg/dL; Cortisol 60 Minute Time 3 0909; Cortisol Baseline Time 1 0809
[2025-05-04 11:50] LABS: Med (ACTH) Time 0810
== END 2025-05-03 10:47 | disposition home or self-care (01) ==
LOC: HO.INF 07:41
PROVIDERS: Visit Provider Student in an Organized Health Care Education/Training Program
DX: E27.3 Drug-induced adrenocortical insufficiency (principal); T38.0X5A Adverse effect of glucocorticoids and synthetic analogues, initial encounter
CPT/HCPCS: 36415; 82533; 96374; J0834